=== PATIENT | female | born 1960 | race Caucasian/White ===

== ENCOUNTER 2017-06-14 15:58 | Emergency (ER) | payer SELFPAY ==
[~2017-06-14] VITALS: Ht 170.2 cm; Wt 67.7 kg
[~2017-06-14 15:58] MED LIST: LORTA5 PO
[2017-06-14 16:05] VITALS: BP 121/55; PULSE 65; RESP 16; TEMP 97.8; O2SAT 99
[2017-06-14] MEDS ORDERED: PERM5CRE TOPICAL (16:16)
--- NOTE | 2017-06-14 16:26 | PD ---
HPI Chief Complaint: Skin Problem Time Seen by Provider: 16:07 Travel History International Travel<30 days: No Contact w/Intl Traveler<30days: No Traveled to known affect area: No History of Present Illness HPI 57-year-old female presents to the emergency department for evaluation of multiple, diffuse lesions over her body that has been present for the last 2 weeks. Patient states that she woke up with these lesions and they are intensely pruritic and not going away. Says lesion she has the same lesions that popped up 3 weeks ago. She denies recent travel, new limited new bed, foods, soaps, lotions. She denies any exposures to others with the same problem. Denies fevers, chills. In addition, says she has had one episode of nonbloody diarrhea each morning since the onset of these lesions. She denies any family history of autoimmune disorders such as celiac, tyroid or otherwise. Denies fevers or chills. Denies abdominal pain. Denies chronic medical issues medication use. PFSH Past Medical History Diminished Hearing: No ?: Not Menopausal: No Social History Alcohol Use: Yes (occ) Tobacco Use: No Substance Use: No Allergies-Medications (Allergen,Severity, Reaction): Coded Allergies: No Known Allergies (Verified Adverse Reaction, Unknown, 06/14/17) Reported Meds & Prescriptions Reported Meds & Active Scripts Active Permethrin Topical 5% (Permethrin) 5% Cream 1 Applic TOPICAL ONCE Apply head to toe, leave on for 8-12 hours, wash off. You may repeat in 2 weeks if this treatment is ineffective. Review of Systems Except as stated in HPI: all other systems reviewed are Neg Physical Exam Narrative GENERAL: Well-nourished, well-developed patient, patient scratching her skin as we discussed her condition. SKIN: Focused skin assessment warm/dry. Diffuse, scattered 1-2 mm round papules with obvious excoriations. HEAD: Normocephalic. EYES: No scleral icterus. No injection or drainage. NECK: Supple, trachea midline. No JVD or lymphadenopathy. CARDIOVASCULAR: Regular rate and rhythm without murmurs, gallops, or rubs. RESPIRATORY: Breath sounds equal bilaterally. No accessory muscle use. GASTROINTESTINAL: Abdomen soft, non-tender, nondistended. No CVA tenderness MUSCULOSKELETAL: No cyanosis, or edema. BACK: Nontender without obvious deformity. No CVA tenderness. Data Data Last Documented VS Vital Signs Date Time Temp Pulse Resp B/P (MAP) Pulse Ox O2 Delivery O2 Flow Rate FiO2 06/14/17 16:05 97.8 65 16 121/55 (77) 99 Orders Orders Ed Discharge Order (06/14/17 16:22) MDM Medical Decision Making Medical Screen Exam Complete: Yes Emergency Medical Condition: Yes Differential Diagnosis Scabies, bedbugs, contact dermatitis Narrative Course 57-year-old female presents emergency department for evaluation of scattered, diffuse lesions over her body for the last 2 weeks. Patient denies any inciting events which include camping, new soaps, lotions or other exposures. She also mentions one episode of nonbloody diarrhea that occurs each morning since the start of these lesions. Vital signs are stable. Patient denies any exposures however, based off of history and physical suspect the patient may have been exposed to scabies or any other sort of factor which may be continuing to irritate her. Permethrin cream for possible scabies. As of explaining the possible diagnosis and treatment, advised the patient should follow-up with [facility] for further evaluation. Says that she does not care to get as a health however, I explained the importance of follow-up for evaluation of these lesions. If her symptoms do not resolve, patient may need a biopsy. I explained to the patient and she was rather reluctant and requested some sort of other medication for treatment. Advised of the importance of follow-up for this condition. Said that she would follow-up with [facility] and she understands that she should follow-up with a fruit inspector especially if the symptoms do not improve. She may use [id number] medications for symptom relief. Advised to return for worsening or persistent symptoms. Diagnosis Primary Impression: Scabies Referrals: [facility] Voucher Clerk Patient Instructions: General Instructions, Scabies (ED) Departure Forms: Tests/Procedures Additional Instructions: Take medications as prescribed. Follow-up with [facility] for referral to a fruit inspector for further evaluation of your skin lesions. You may use [id number] medication such as Benadryl topical cream, cortisone cream, calamine lotion to reduce your itching. Scripts Permethrin Topical 5% (Permethrin Topical 5%) 5% Cream 1 APPLIC TOPICAL ONCE for Scabies, #1 TUBE 0 Refills Apply head to toe, leave on for 8-12 hours, wash off. You may repeat in 2 weeks if this treatment is ineffective. Prov: Phillip Wolfe MD 06/14/17 Disposition: 01 DISCHARGE HOME Condition: Stable Samanta Mckeon Jun 14, 2017 16:26
== END 2017-06-14 16:37 | disposition home or self-care (01) ==
LOC: PHEFT 15:58
DX: B86 Scabies (principal); R19.7 Diarrhea, unspecified
CPT/HCPCS: 99283

== ENCOUNTER 2017-06-18 16:53 | Inpatient (IN) | payer SELFPAY ==
[~2017-06-18] VITALS: Ht 170.2 cm; Wt 68.0 kg
[~2017-06-18 16:53] MED LIST changes: -LORTA5 PO; +PERM5CRE TOPICAL
[2017-06-18 16:57] VITALS: BP 124/58; PULSE 64; RESP 16; TEMP 97.8; O2SAT 99
[2017-06-18 17:12] LABS: BILIRUBIN, URINE LARGE (NEG); BLOOD, URINE NEG (NEG); GLUCOSE,URINE NEG (NEG); KETONE, URINE TRACE mg/dL (NEG); NITRITE,URINE NEG (NEG); PH, URINE 5.5 (5.0-8.5); URINE LEUKOCYTE ESTERASE NEG (NEG)
[2017-06-18 17:17] LABS: URINE COLOR BROWN (YELLW/STRAW)
[2017-06-18] MEDS ORDERED: SODIUM CHLORIDE 0.9% FLUSH 10 ML FLUSH IV FLUSH PRN ×2 (17:30→19:30)
[2017-06-18 17:34] LABS: AMORPHOUS SEDIMENT, URINE FEW; HYALINE CAST, URINE 0-2 /lpf (RARE); SQUAMOUS EPITHELIAL CELL URINE 0-5 /hpf (0-5)
--- NOTE | 2017-06-18 17:35 | PD ---
HPI Chief Complaint: Complaint Time Seen by Provider: 17:32 Travel History International Travel<30 days: No Contact w/Intl Traveler<30days: No Traveled to known affect area: No History of Present Illness HPI 57-year-old female patient presents to the ER today with several weeks history of dark urine, states that she also has been itching all over and thinks she has scabies, has had some problems with loose stools although she states is not diarrhea. She denies any nausea, vomiting, abdominal pains, fevers, or any other symptoms. She denies any alcohol use, IV drug use, or smoking. Modifying Factors: None Associated Signs & Symptoms: Dark urine, itching, loose stools for several weeks Risk Factors: None PFSH Past Medical History Medical History: Denies Significant Hx Diminished Hearing: No ?: Not Menopausal: Yes Past Surgical History Surgical History: No Previous Surgery Social History Alcohol Use: Yes (occ) Tobacco Use: No Substance Use: No Allergies-Medications (Allergen,Severity, Reaction): Coded Allergies: No Known Allergies (Verified Adverse Reaction, Unknown, 06/18/17) Reported Meds & Prescriptions Reported Meds & Active Scripts Active Permethrin Topical 5% (Permethrin) 5% Cream 1 Applic TOPICAL ONCE Apply head to toe, leave on for 8-12 hours, wash off. You may repeat in 2 weeks if this treatment is ineffective. Review of Systems Except as stated in HPI: all other systems reviewed are Neg Physical Exam Narrative GENERAL: Well-developed middle-age female patient currently in mild distress. Awake and oriented 3. SKIN: Focused skin assessment warm/dry. HEAD: Atraumatic. Normocephalic. EYES: Pupils equal and round. Mild scleral icterus. No injection or drainage. ENT: No nasal bleeding or discharge. Mucous membranes pink and moist. NECK: Trachea midline. No JVD. Supple. CARDIOVASCULAR: Regular rate and rhythm. No murmur appreciated. RESPIRATORY: No accessory muscle use. Clear to auscultation. Breath sounds equal bilaterally. GASTROINTESTINAL: Abdomen soft, non-tender, nondistended. Hepatic and splenic margins not palpable. MUSCULOSKELETAL: No obvious deformities. No clubbing. No cyanosis. No edema. NEUROLOGICAL: Awake and alert. No obvious cranial nerve deficits. Motor grossly within normal limits. Normal speech. PSYCHIATRIC: Appropriate mood and affect; insight and judgment normal. Data Data Last Documented VS Vital Signs Date Time Temp Pulse Resp B/P (MAP) Pulse Ox O2 Delivery O2 Flow Rate FiO2 06/18/17 16:57 97.8 64 16 124/58 (80) 99 Orders Orders Urinalysis - C+S If Indicated (06/18/17 16:59) Complete Blood Count With Diff (06/18/17 17:29) Comprehensive Metabolic Panel (06/18/17 17:29) Iv Access Insert/Monitor (06/18/17 17:29) Ecg Monitoring (06/18/17 17:29) Oximetry (06/18/17 17:29) Sodium Chloride 0.9% Flush (Ns Flush) (06/18/17 17:30) Lipase (06/18/17 17:32) Ct Abd/Pel W Iv Contrast(Rout) (06/18/17 18:04) Iohexol 350 Inj (Omnipaque 350 Inj) (06/18/17 18:40) Labs Laboratory Tests Test 06/18/17 17:03 06/18/17 17:40 Urine Collection Type CLEAN CATCH Urine Color BROWN Urine Turbidity CLEAR Urine pH 5.5 Urine Specific [place] GREATER/EQUAL 1.030 Urine Protein 30 mg/dL Urine Glucose (UA) NEG mg/dL Urine Ketones TRACE mg/dL Urine Occult Blood NEG Urine Nitrite NEG Urine Bilirubin LARGE Urine Urobilinogen 0.2 MG/DL Urine Leukocyte Esterase NEG Urine Squamous Epithelial Cells 0-5 /hpf Urine Amorphous Sediment FEW Urine Hyaline Casts 0-2 /lpf Microscopic Urinalysis Comment CULT NOT INDICATED Urine Collection Time 1703 White Blood Count 5.5 TH/MM3 Red Blood Count 4.18 MIL/MM3 Hemoglobin 12.7 GM/DL Hematocrit 37.0 % Mean Corpuscular Volume 88.6 FL Mean Corpuscular Hemoglobin 30.4 PG Mean Corpuscular Hemoglobin Concent 34.3 % Red Cell Distribution Width 13.3 % Platelet Count 263 TH/MM3 Mean Platelet Volume 8.6 FL Neutrophils (%) (Auto) 61.8 % Lymphocytes (%) (Auto) 27.9 % Monocytes (%) (Auto) 6.3 % Eosinophils (%) (Auto) 3.4 % Basophils (%) (Auto) 0.6 % Neutrophils # (Auto) 3.5 TH/MM3 Lymphocytes # (Auto) 1.5 TH/MM3 Monocytes # (Auto) 0.3 TH/MM3 Eosinophils # (Auto) 0.2 TH/MM3 Basophils # (Auto) 0.0 TH/MM3 CBC Comment DIFF FINAL Differential Comment Blood Urea Nitrogen 18 MG/DL Creatinine 0.90 MG/DL Random Glucose 119 MG/DL Total Protein 7.7 GM/DL Albumin 3.5 GM/DL Calcium Level 8.9 MG/DL Alkaline Phosphatase 526 U/L Aspartate Amino Transf (AST/SGOT) 228 U/L Alanine Aminotransferase (ALT/SGPT) 480 U/L Total Bilirubin 8.4 MG/DL Sodium Level 139 MEQ/L Potassium Level 3.7 MEQ/L Chloride Level 108 MEQ/L Carbon Dioxide Level 24.1 MEQ/L Anion Gap 7 MEQ/L Estimat Glomerular Filtration Rate 65 ML/MIN Lipase 927 U/L [facility] Medical Decision Making Medical Screen Exam Complete: Yes Emergency Medical Condition: Yes Medical Record Reviewed: Yes Interpretation(s) Laboratory Tests Test 06/18/17 17:03 06/18/17 17:40 Urine Color BROWN (YELLW/STRAW) Urine Protein 30 mg/dL (NEG-TRACE) Urine Ketones TRACE mg/dL (NEG) Urine Bilirubin LARGE (NEG) Random Glucose 119 MG/DL (74-106) Alkaline Phosphatase 526 U/L (45-117) Aspartate Amino Transf (AST/SGOT) 228 U/L (15-37) Alanine Aminotransferase (ALT/SGPT) 480 U/L (10-53) Total Bilirubin 8.4 MG/DL (0.2-1.0) Chloride Level 108 MEQ/L (98-107) Estimat Glomerular Filtration Rate 65 ML/MIN (>89) Lipase 927 U/L (73-393) Last 24 hours Impressions Abdomen/Pelvis CT 06/18/17 1804 Signed Impressions: Service Date/Time: Sunday, June 18, 2017 18:26 - CONCLUSION: 1. No acute findings. Common bile duct measures about 11 mm in diameter. Mild fatty liver. Mild ileus. Bernardo Pruitt MD Differential Diagnosis Dark urine, loose stools, itchiness: Hyperbilirubinemia versus hepatic failure versus dehydration versus UTI/hematuria Narrative Course Pancreatic enzymes and liver enzymes are fairly unremarkable. CAT scan shows a dilated common bile duct but was otherwise fairly unremarkable. Case was discussed with of gastroenterology and he states that the patient will likely need ERCP and MRCP for further workup of painless jaundice. He would like the patient to be medically admitted but at the main hospital for further workup. Case was discussed with Dr. Lucas for admission. Diagnosis Primary Impression: Abnormal liver enzymes Additional Impression: Hyperbilirubinemia Admitting Information Admitting Physician Requests: it Nato Zuniga MD Jun 18, 2017 17:35
[2017-06-18 17:51] LABS: AUTOMATED NEUTROPHIL # 3.5 TH/MM3 (1.8-7.7); BASOPHIL % 0.6 % (0.0-2.0); EOSINOPHIL # 0.2 TH/MM3 (0-0.4); EOSINOPHIL % 3.4 % (0.0-4.0); HEMOGLOBIN 12.7 GM/DL (11.6-15.3); LYMPH % 27.9 % (9.0-44.0); LYMPHOCYTE # 1.5 TH/MM3 (1.0-4.8); MEAN CELL VOLUME 88.6 FL (80.0-100.0); MEAN CORPUSCULAR HEMOGLOBIN 30.4 PG (27.0-34.0); MEAN CORPUSCULAR HGB CONC 34.3 % (32.0-36.0); MEAN PLATELET VOLUME 8.6 FL (7.0-11.0); MONO % 6.3 % (0.0-8.0); MONOCYTE # 0.3 TH/MM3 (0-0.9); NEUT % 61.8 % (16.0-70.0); PLATELET COUNT 263 TH/MM3 (150-450); RED BLOOD COUNT 4.18 MIL/MM3 (4.00-5.30); RED CELL DISTRIBUTION WIDTH 13.3 % (11.6-17.2); WHITE BLOOD COUNT 5.5 TH/MM3 (4.0-11.0)
[2017-06-18 18:00] LABS: CHLORIDE 108 MEQ/L (98-107); SODIUM (NA) 139 MEQ/L (136-145)
[2017-06-18 18:03] LABS: ALBUMIN 3.5 GM/DL (3.4-5.0); BICARBONATE 24.1 MEQ/L (21.0-32.0); CALCIUM 8.9 MG/DL (8.5-10.1); GLUCOSE,RANDOM 119 MG/DL (74-106)
[2017-06-18 18:07] LABS: ALT (GPT) 480 U/L (10-53); AST (GOT) 228 U/L (15-37); GLOMERULAR FILTRATION RATE 65 ML/MIN (>89)
[2017-06-18 18:08] LABS: TOTAL BILIRUBIN ADULT 8.4 MG/DL (0.2-1.0); TOTAL PROTEIN 7.7 GM/DL (6.4-8.2)
[2017-06-18 18:09] LABS: ALKALINE PHOSPHATASE 526 U/L (45-117)
[2017-06-18 18:14] LABS: BLOOD UREA NITROGEN 18 MG/DL (7-18)
[2017-06-18] MEDS ORDERED: IOHEXOL 350 MG/ML 10 ML VIAL (for RAD DIAG) IVCONTRAST ONE (18:40)
--- NOTE | 2017-06-18 18:55 | RADRPT ---
EXAM DATE/TIME: 06/18/2017 18:26 [place] COMPARISON: No previous studies available for comparison. INDICATIONS : Dark urine, diarrhea. IV CONTRAST: 75 cc Omnipaque 350 (iohexol) IV ORAL CONTRAST: No oral contrast ingested. RADIATION DOSE: 9.09 CTDIvol (mGy) MEDICAL HISTORY : None SURGICAL HISTORY : Tubal ligation. ENCOUNTER: Initial ACUITY: 2 weeks PAIN SCALE: 0/10 LOCATION: abdomen TECHNIQUE: Volumetric scanning of the abdomen and pelvis was performed. Using automated exposure control and ad justment of the mA and/or kV according to patient size, radiation dose was kept as low as reasonably achievable to obtain optimal diagnostic quality images. DICOM format image data is available electro nically for review and comparison. FINDINGS: Lung bases are clear. No acute findings in the liver, spleen, adrenals, kidneys or pancreas. There is mild biliary ductal dilatation with common bile duct measuring 11 mm. No calcified gallstones. No free fluid. No bowel obstruction. No adenopathy. Mild ileus. No free air. CONCLUSION: 1. No acute findings. Common bile duct measures about 11 mm in diameter. Mild fatty liver. Mild ileus . Bernardo Pruitt MD on June 18, 2017 at 18:46 Board Certified Radiologist. This report was verified electronically.
[2017-06-18] MEDS ORDERED: BISACODYL 10 MG SUPP RECTAL PRN (19:30)
[2017-06-18] MEDS ORDERED: SENNOSIDES 8.6 MG TAB PO PRN (19:30)
[2017-06-18] MEDS ORDERED: ACETAMINOPHEN 325 MG TAB PO PRN (19:30)
[2017-06-18] MEDS ORDERED: ONDANSETRON HCL 4 MG/2 ML VIAL IVP PRN (19:30)
[2017-06-18] MEDS ORDERED: MAGNESIUM HYDROXIDE SUSP 30 ML CUP PO PRN (19:30)
[2017-06-18] MEDS ORDERED: LACTULOSE SYRUP 20 GM/30 ML CUP PO PRN (19:30)
[2017-06-18] MEDS: SODIUM CHLOR 0.9% 1000 ML INJ 1,000 ML IV SCH (19:51)
[2017-06-18] MEDS: DOCUSATE SODIUM 50 MG/SENNA 8.6 MG TAB PO SCH (19:51)
[2017-06-18] MEDS: SODIUM CHLORIDE 0.9% FLUSH 10 ML FLUSH IV FLUSH SCH (19:53)
[2017-06-18 20:09] VITALS: BP 110/53; PULSE 68; RESP 20; O2SAT 96
[2017-06-18 21:17] VITALS: O2SAT 100
[2017-06-18 21:59] VITALS: BP 137/62; PULSE 70; RESP 20; O2SAT 98
[2017-06-18 23:05] VITALS: BP 137/70; PULSE 65; RESP 16; TEMP 98.7; O2SAT 98
--- NOTE | 2017-06-18 23:26 | HHI.HP ---
[facility] No Primary Care Physician Admission Diagnosis Painless jaundice/dilated common bile duct . Diagnoses: (1) Hyperbilirubinemia (2) Abnormal liver enzymes (3) Common bile duct dilatation Chief Complaint: Dark urine, pruritis, diarrhea x 2 weeks Travel History International Travel<30 Days: No Contact w/Intl Traveler <30 Da: No Traveled to Known Affected Are: No History of Present Illness Ms. Moseley is a very pleasant 57-year-old female with no significant medical history who presented to the [place] emergency room on 06/18/2017 complaining of dark urine, severe pruritus, and diarrhea for the past 2 weeks. The patient was noted to have painless jaundice, elevated LFTs, and and abdomen/ pelvis CT with IV contrast showed a dilated common bile duct measuring 11 mm in diameter, mild fatty liver, mild ileus, and no acute findings. The case was discussed with sailing instructor Dr. Sinclair who recommended transfer for to [facility] for MRCP and ERCP so the patient is admitted under the hospitalist service for further medical management. The patient is seen in her hospital room. She reports that her symptoms have been present for the past 2 weeks and include dark urine, diarrhea daily, and severe pruritus. She thought she might have scabies and has been treated with topical permethrin for that in the emergency room on 06/14/2017. She is intensely pruritic and scratching throughout my visit. She has numerous small lesions that look like bug bites on all areas of her body except for her face. She is notably jaundiced with scleral icterus. She denies any recent fever, chills, nausea, vomiting, chest pain, shortness of breath, headache, weakness, or exposure to scabies. She reports a 15 pound weight loss in the past 2 weeks which she attributes to diarrhea. Review of Systems Except as stated in HPI: all other systems reviewed are Neg Past Family Social History Past Medical History Ovarian cysts . Past Surgical History Bilateral tubal ligation . Reported Medications None . Allergies: Coded Allergies: No Known Allergies (Verified Adverse Reaction, Unknown, 06/18/17) Family History Father with heart disease and paternal aunt with diabetes mellitus . 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 Physical Exam Vital Signs Vital Signs Date Time Temp Pulse Resp B/P (MAP) Pulse Ox O2 Delivery O2 Flow Rate FiO2 06/18/17 23:05 98.7 65 16 137/70 (92) 98 06/18/17 22:20 06/18/17 21:59 70 20 137/62 (87) 98 Room Air 06/18/17 21:17 100 Room Air 06/18/17 20:09 68 20 110/53 (72) 96 Room Air 06/18/17 16:57 97.8 64 16 124/58 (80) 99 Physical Exam GENERAL: This is a jaundiced middle aged female, seen scratching all over her body during my visit. SKIN: Jaundiced skin, multiple scattered lesions c/w appearance of bug bites on all areas of body except for her face. Cool and dry. HEAD: Atraumatic. Normocephalic. EYES: + scleral icterus. No injection or drainage. ENT: Nose without bleeding, purulent drainage. NECK: Trachea midline. No JVD. CARDIOVASCULAR: Regular rate and rhythm without murmurs, gallops, or rubs. RESPIRATORY: Clear to auscultation. Breath sounds equal bilaterally. No wheezes , rales, or rhonchi. GASTROINTESTINAL: Abdomen soft, non-tender, nondistended. No guarding. MUSCULOSKELETAL: Extremities without clubbing, cyanosis, or edema. No calf tenderness. NEUROLOGICAL: Awake and alert. Motor and sensory grossly within normal limits. Normal speech. . Laboratory Laboratory Tests Test 06/18/17 17:03 06/18/17 17:40 Urine Collection Type CLEAN CATCH Urine Color BROWN Urine Turbidity CLEAR Urine pH 5.5 Urine Specific [place] GREATER/EQUAL 1.030 Urine Protein 30 Urine Glucose (UA) NEG Urine Ketones TRACE Urine Occult Blood NEG Urine Nitrite NEG Urine Bilirubin LARGE Urine Urobilinogen 0.2 Urine Leukocyte Esterase NEG Urine Squamous Epithelial Cells 0-5 Urine Amorphous Sediment FEW Urine Hyaline Casts 0-2 Microscopic Urinalysis Comment CULT NOT INDICATED Urine Collection Time 1703 White Blood Count 5.5 Red Blood Count 4.18 Hemoglobin 12.7 Hematocrit 37.0 Mean Corpuscular Volume 88.6 Mean Corpuscular Hemoglobin 30.4 Mean Corpuscular Hemoglobin Concent 34.3 Red Cell Distribution Width 13.3 Platelet Count 263 Mean Platelet Volume 8.6 Neutrophils (%) (Auto) 61.8 Lymphocytes (%) (Auto) 27.9 Monocytes (%) (Auto) 6.3 Eosinophils (%) (Auto) 3.4 Basophils (%) (Auto) 0.6 Neutrophils # (Auto) 3.5 Lymphocytes # (Auto) 1.5 Monocytes # (Auto) 0.3 Eosinophils # (Auto) 0.2 Basophils # (Auto) 0.0 CBC Comment DIFF FINAL Differential Comment Blood Urea Nitrogen 18 Creatinine 0.90 Random Glucose 119 Total Protein 7.7 Albumin 3.5 Calcium Level 8.9 Alkaline Phosphatase 526 Aspartate Amino Transf (AST/SGOT) 228 Alanine Aminotransferase (ALT/SGPT) 480 Total Bilirubin 8.4 Sodium Level 139 Potassium Level 3.7 Chloride Level 108 Carbon Dioxide Level 24.1 Anion Gap 7 Estimat Glomerular Filtration Rate 65 Lipase 927 Result Diagram: 06/18/17 1740 06/18/17 1740 Imaging Last Impressions Abdomen/Pelvis CT 06/18/17 1804 Signed Impressions: Service Date/Time: Sunday, June 18, 2017 18:26 - CONCLUSION: 1. No acute findings. Common bile duct measures about 11 mm in diameter. Mild fatty liver. Mild ileus. MD Alejandra Ellisi VTE Risk Assessment Caprini VTE Risk Assessment: Mod/High Risk (score >= 2) Caprini Risk Assessment Model Point Value = 1 Point Value = 2 Point Value = 3 Point Value = 5 Age 41-60 Minor surgery BMI > 25 kg/m2 Swollen legs Varicose veins or History of unexplained or recurrent spontaneous Oral contraceptives or hormone replacement Sepsis (< 1 month) Serious lung disease, including pneumonia (< 1 month) Abnormal pulmonary function Acute myocardial infarction Congestive heart failure (< 1 month) History of inflammatory bowel disease Medical patient at bed rest Age 61-74 Arthroscopic surgery Major open surgery (> 45 min) Laparoscopic surgery (> 45 min) Malignancy Confined to bed (> 72 hours) Immobilizing plaster cast Central venous access Age >= 75 History of VTE Family history of VTE Factor V Leiden Prothrombin [id number] Lupus anticoagulant Anticardiolipin antibodies Elevated serum homocysteine Heparin-induced thrombocytopenia Other congenital or acquired thrombophilia Stroke (< 1 month) Elective arthroplasty Hip, pelvis, or leg fracture Acute spinal cord injury (< 1 month) Prophylaxis Regimen Total Risk Factor Score Risk Level Prophylaxis Regimen 0-1 Low Early ambulation 2 Moderate Order ONE of the following: *Sequential Compression Device (SCD) *Heparin 5000 units SQ BID 3-4 Higher Order ONE of the following medications: *Heparin 5000 units SQ TID *Enoxaparin/Lovenox 40 mg SQ daily (WT < 150 kg, CrCl > 30 mL/min) *Enoxaparin/Lovenox 30 mg SQ daily (WT < 150 kg, CrCl > 10-29 mL/min) *Enoxaparin/Lovenox 30 mg SQ BID (WT < 150 kg, CrCl > 30 mL/min) AND/OR *Sequential Compression Device (SCD) 5 or more Highest Order ONE of the following medications: *Heparin 5000 units SQ TID (Preferred with Epidurals) *Enoxaparin/Lovenox 40 mg SQ daily (WT < 150 kg, CrCl > 30 mL/min) *Enoxaparin/Lovenox 30 mg SQ daily (WT < 150 kg, CrCl > 10-29 mL/min) *Enoxaparin/Lovenox 30 mg SQ BID (WT < 150 kg, CrCl > 30 mL/min) AND *Sequential Compression Device (SCD) Assessment and Plan Problem List: (1) Common bile duct dilatation ICD Code: K83.8 - Other specified diseases of biliary tract (2) Abnormal liver enzymes ICD Code: R74.8 - Abnormal levels of other serum enzymes Status: Acute (3) Hyperbilirubinemia ICD Code: E80.6 - Other disorders of bilirubin metabolism Status: Acute (4) Jaundice ICD Code: R17 - Unspecified jaundice Assessment and Plan Ms. Moseley is a very pleasant 57-year-old female with no significant medical history who presented to the [place] emergency room on 06/18/2017 complaining of dark urine, severe pruritus, and diarrhea for the past 2 weeks. The patient was noted to have painless jaundice, elevated LFTs, and and abdomen/ pelvis CT with IV contrast showed a dilated common bile duct measuring 11 mm in diameter, mild fatty liver, mild ileus, and no acute findings. The case was discussed with sailing instructor Dr. Sinclair who recommended transfer for to [facility] for MRCP and ERCP so the patient is admitted under the hospitalist service for further medical management. CBD dilation - Consult Gastroenterology - appreciate assistance - MRCP ordered - Diet NPO except meds Hyperbilirubinemia and elevated LFTs likely secondary to CBD obstruction Jaundice -Total bilirubin 8.4, AST 228, ALT 480, and alkaline phosphatase 526 on admission -Repeat labs and monitor results -Check hepatitis profile, liver kidney microsomal autoantibodies, mitochondrial total autoantibodies, smooth muscle autoantibodies, ferritin, iron/TIBC profile Elevated Lipase - Lipase 927 on admission - patient without any pain or discomfort - likely secondary to CBD obstruction - recheck in a.m. -Check hemoglobin A1c to r/o DM Pruritis - Benadryl p.o. PRN - Patient has been treated for scabies on 06/14 - pruritis may be a combination of residual symptoms following scabies treatment but I suspect this may be more likely from bile salt buildup on skin DVT prophylaxis - SCDs/TEDs Discussed Condition With RN, patient, and Dr. Tracy . Hallie Bush Jun 18, 2017 23:26
[2017-06-19] MEDS ORDERED: diphenhydrAMINE HCL 25 MG CAP PO ONE (00:30)
[2017-06-19] MEDS ORDERED: diphenhydrAMINE HCL 50 MG/ML VIAL IV PUSH ONE (00:30)
[2017-06-19] MEDS: SODIUM CHLOR 0.9% 1000 ML INJ 1,000 ML IV SCH ×2 (05:25→12:25)
[2017-06-19 07:26] LABS: AUTOMATED NEUTROPHIL # 4.4 TH/MM3 (1.8-7.7); BASOPHIL % 0.6 % (0.0-2.0); EOSINOPHIL # 0.2 TH/MM3 (0-0.4); EOSINOPHIL % 2.5 % (0.0-4.0); HEMATOCRIT 34.3 % (35.0-46.0); HEMOGLOBIN 11.9 GM/DL (11.6-15.3); LYMPH % 19.5 % (9.0-44.0); LYMPHOCYTE # 1.2 TH/MM3 (1.0-4.8); MEAN CELL VOLUME 89.4 FL (80.0-100.0); MEAN CORPUSCULAR HEMOGLOBIN 30.9 PG (27.0-34.0); MEAN CORPUSCULAR HGB CONC 34.6 % (32.0-36.0); MEAN PLATELET VOLUME 9.2 FL (7.0-11.0); MONO % 6.3 % (0.0-8.0); MONOCYTE # 0.4 TH/MM3 (0-0.9); NEUT % 71.1 % (16.0-70.0); PLATELET COUNT 243 TH/MM3 (150-450); RED BLOOD COUNT 3.84 MIL/MM3 (4.00-5.30); RED CELL DISTRIBUTION WIDTH 13.8 % (11.6-17.2); WHITE BLOOD COUNT 6.2 TH/MM3 (4.0-11.0)
[2017-06-19 07:50] LABS: ALBUMIN 3.3 GM/DL (3.4-5.0); AST (GOT) 178 U/L (15-37); BICARBONATE 20.2 MEQ/L (21.0-32.0); BLOOD UREA NITROGEN 15 MG/DL (7-18); CALCIUM 8.7 MG/DL (8.5-10.1); CHLORIDE 111 MEQ/L (98-107); CREATININE 0.84 MG/DL (0.50-1.00); GLOMERULAR FILTRATION RATE 70 ML/MIN (>89); GLUCOSE,RANDOM 136 MG/DL (74-106); SODIUM (NA) 142 MEQ/L (136-145)
[2017-06-19 07:51] LABS: ALT (GPT) 410 U/L (10-53); IRON (FE) 92 MCG/DL (50-170)
[2017-06-19 08:00] VITALS: BP 123/69; PULSE 60; RESP 18; TEMP 97.6; O2SAT 99
[2017-06-19 08:00] LABS: % SATURATION IRON PROFILE 22.4 % (20-50); ALKALINE PHOSPHATASE 432 U/L (45-117); FERRITIN 251 NG/ML (8-252); TOTAL IRON BINDING CAPACITY 410 MCG/DL (250-450); TOTAL PROTEIN 6.6 GM/DL (6.4-8.2)
[2017-06-19] MEDS: SODIUM CHLORIDE 0.9% FLUSH 10 ML FLUSH IV FLUSH SCH ×2 (09:36→21:30)
[2017-06-19] MEDS: DOCUSATE SODIUM 50 MG/SENNA 8.6 MG TAB PO SCH ×2 (09:37→21:30)
--- NOTE | 2017-06-19 10:37 | PD.CONS ---
HPI History of Present Illness This is a 57 year old with no significant PMH who presented to the [facility] yesterday with complaints of diarrhea, dark urine, and severe pruritus for the past two weeks. Pt leaving room to go to MRCP so history was limited. Obtained from patient and chart review. Patient denies associated abdominal pain, nausea, vomiting, blood in stool. Denies history of liver issues. Occasional ETOH. Has never seen a GI doctor, had an EGD or colonoscopy. LFTs were found to be elevated with elevated alk phos and bilirubin. CT consistent with CBD dilatation. Pt having MRCP done to further evaluate. (Lynne Flores) PFSH Past Medical History Ovarian cysts . Past Surgical History Bilateral tubal ligation . (Lynne Flores) Coded Allergies: No Known Allergies (Verified Adverse Reaction, Unknown, 06/18/17) Family History Father with heart disease and paternal aunt with diabetes mellitus . 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 (Lynne Flores) Review of Systems Gastrointestinal: COMPLAINS OF: Diarrhea, DENIES: Abdominal pain, Black stools , Bloody stools, Constipation, Nausea, Vomiting, Difficulty Swallowing, Odynophagia, Swelling of Abdomen, Heartburn, Hematemesis (Lynne Flores) GI Exam Vitals I&O Vital Signs Date Time Temp Pulse Resp B/P (MAP) Pulse Ox O2 Delivery O2 Flow Rate FiO2 06/18/17 23:05 98.7 65 16 137/70 (92) 98 06/18/17 22:20 06/18/17 21:59 70 20 137/62 (87) 98 Room Air 06/18/17 21:17 100 Room Air 06/18/17 20:09 68 20 110/53 (72) 96 Room Air 06/18/17 16:57 97.8 64 16 124/58 (80) 99 Imaging Last Impressions Abdomen/Pelvis CT 06/18/17 1804 Signed Impressions: Service Date/Time: Tuesday, June 18, 2017 18:26 - CONCLUSION: 1. No acute findings. Common bile duct measures about 11 mm in diameter. Mild fatty liver. Mild ileus. Bernardo Pruitt MD Laboratory Test 4/21/18 17:03 06/18/17 17:40 06/19/17 05:45 Urine Collection Type CLEAN CATCH Urine Color BROWN Urine Turbidity CLEAR Urine pH 5.5 Urine Specific Red [place] GREATER/EQUAL 1.030 Urine Protein 30 mg/dL Urine Glucose (UA) NEG mg/dL Urine Ketones TRACE mg/dL Urine Occult Blood NEG Urine Nitrite NEG Urine Bilirubin LARGE Urine Urobilinogen 0.2 MG/DL Urine Leukocyte Esterase NEG Urine Squamous Epithelial Cells 0-5 /hpf Urine Amorphous Sediment FEW Urine Hyaline Casts 0-2 /lpf Microscopic Urinalysis Comment CULT NOT INDICATED Urine Collection Time 1703 White Blood Count 5.5 TH/MM3 6.2 TH/MM3 Red Blood Count 4.18 MIL/MM3 3.84 MIL/MM3 Hemoglobin 12.7 GM/DL 11.9 GM/DL Hematocrit 37.0 % 34.3 % Mean Corpuscular Volume 88.6 FL 89.4 FL Mean Corpuscular Hemoglobin 30.4 PG 30.9 PG Mean Corpuscular Hemoglobin Concent 34.3 % 34.6 % Red Cell Distribution Width 13.3 % 13.8 % Platelet Count 263 TH/MM3 243 TH/MM3 Mean Platelet Volume 8.6 FL 9.2 FL Neutrophils (%) (Auto) 61.8 % 71.1 % Lymphocytes (%) (Auto) 27.9 % 19.5 % Monocytes (%) (Auto) 6.3 % 6.3 % Eosinophils (%) (Auto) 3.4 % 2.5 % Basophils (%) (Auto) 0.6 % 0.6 % Neutrophils # (Auto) 3.5 TH/MM3 4.4 TH/MM3 Lymphocytes # (Auto) 1.5 TH/MM3 1.2 TH/MM3 Monocytes # (Auto) 0.3 TH/MM3 0.4 TH/MM3 Eosinophils # (Auto) 0.2 TH/MM3 0.2 TH/MM3 Basophils # (Auto) 0.0 TH/MM3 0.0 TH/MM3 CBC Comment DIFF FINAL DIFF FINAL Differential Comment Blood Urea Nitrogen 18 MG/DL 15 MG/DL Creatinine 0.90 MG/DL 0.84 MG/DL Random Glucose 119 MG/DL 136 MG/DL Total Protein 7.7 GM/DL 6.6 GM/DL Albumin 3.5 GM/DL 3.3 GM/DL Calcium Level 8.9 MG/DL 8.7 MG/DL Alkaline Phosphatase 526 U/L 432 U/L Aspartate Amino Transf (AST/SGOT) 228 U/L 178 U/L Alanine Aminotransferase (ALT/SGPT) 480 U/L 410 U/L Total Bilirubin 8.4 MG/DL 7.0 MG/DL Sodium Level 139 MEQ/L 142 MEQ/L Potassium Level 3.7 MEQ/L 3.8 MEQ/L Chloride Level 108 MEQ/L 111 MEQ/L Carbon Dioxide Level 24.1 MEQ/L 20.2 MEQ/L Anion Gap 7 MEQ/L 11 MEQ/L Estimat Glomerular Filtration Rate 65 ML/MIN 70 ML/MIN Lipase 927 U/L 1051 U/L Iron Level 92 MCG/DL Total Iron Binding Capacity 410 MCG/DL Percent Iron Saturation 22.4 % Ferritin 251 NG/ML Thyroid Stimulating Hormone 3rd Gen 1.820 uIU/ML Hepatitis A IgM Antibody NONREACTIVE Hepatitis B Surface Antigen NONREACTIVE Hepatitis B Core IgM Antibody NONREACTIVE Hepatitis C IgG Antibody NONREACTIVE Physical Examination HEENT: Normocephalic; atraumatic; (+) icterus CHEST: Even/unlabored CARDIAC: RRR ABDOMEN: Soft, nondistended, nontender; bowel sounds active EXTREMITIES: No clubbing, cyanosis, or edema. SKIN: (+) jaundice. 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 (Lynne Flores) Assessment and Plan Plan Assessment: - Elevated LFTs, T bili, and alk phos in obstructive pattern. Elevated lipase. Current labs: AST-178 ALT-410 Alk phos-432 Lipase-1051 T bili-7 CT abdomen and pelvis W IV contrast (06/18) --> No acute finding. Common bile duct measures about 11 mm in diameter. Mild fatty liver. Mild ileus. Pt complaining of pruritus and dark urine. Denies history of liver issues. Occasional social ETOH. Liver LOFTON ordered by attending: Hepatitis panel negative. Iron-92 TIBC-410 % sat-22.4 Ferritin-251 ERROL, ASMA, AMA, and ceruloplasmin pending - Diarrhea x 2 weeks, denies blood in stool. Could be secondary to CBD obstruction. Has never had EGD or colonoscopy. Denies fever, chills. Plan: MRCP now ERCP pending results, possibly today Keep NPO Zosyn Benadryl PRN pruritus Alpha-1 Antitrypsin Monitor labs Stool studies Further recommendations based on findings of above Pt has been seen and examined by myself and Dr. Sinclair and this note is written on his behalf (Lynne Flores) Physician Comments Patient seen and examined Agree with above Continue with current supportive care Monitor labs MRCP noted grossly unremarkable but the pictures so compelling for an obstruction we will proceed with an ERCP tomorrow Seen on 06/19/17 (Cuba Sinclair MD) Lynne Flores Jun 19, 2017 10:37 Cuba Sinclair MD Jun 20, 2017 14:02
[2017-06-19 11:00] VITALS: BP 124/63; PULSE 65; RESP 16; TEMP 98; O2SAT 99
--- NOTE | 2017-06-19 11:13 | RADRPT ---
EXAM DATE/TIME: 06/19/2017 10:27 [facility] COMPARISON: No previous studies available for comparison. INDICATIONS : Jaundice. Dialted ducts. MEDICAL HISTORY : None. SURGICAL HISTORY : Tubal ligation. ENCOUNTER: Initial ACUITY: 2 day PAIN SCORE: 0/10 LOCATION: abdomen TECHNIQUE: Multiplanar, multisequence magnetic resonance imaging of the abdomen was performed. High-resolution 3D dataset was utilized to reconstruct maximum-intensity projection (MIP) images. FINDINGS: INTRAHEPATIC BILE DUCTS: Within normal limits. No significant anatomical variant is present. EXTRAHEPATIC BILE DUCTS: The common bile duct measures approximately 1 cm in greatest diameter. No stone or filling defect is identified. GALLBLADDER: No stones, wall thickening, or pericholecystic fluid. LIVER: Normal size and signal intensity. No concerning liver lesion is identified on this non-contrast exam. PANCREAS: The main pancreatic duct is normal in size. There is no significant anatomical variant. Signal inte nsity is within normal limits. No mass is visualized on this non-contrast exam. OTHER: There is a small 7 mm benign-appearing cystic structure in the anterior spleen. The remaining visuali zed structures demonstrate no acute abnormality on this non-contrast exam. CONCLUSION: 1. The common bile duct measures up to 1 cm in greatest diameter and tapers down normally at the leve l of the head of the pancreas with no filling defect or mass identified. 2. The gallbladder is unremarkable in appearance. A small 7 mm benign-appearing cystic structure in s pleen. Gage Valerio MD on June 19, 2017 at 11:07 Board Certified Radiologist. This report was verified electronically.
[2017-06-19] MEDS: PIPERACIL-TAZO 3.375 GM PREMIX 50 ML IV SCH ×2 (12:25→21:30)
[2017-06-19 15:00] VITALS: BP 122/67; PULSE 63; RESP 20; TEMP 99; O2SAT 100
--- NOTE | 2017-06-19 17:28 | HHI.PR ---
Subjective Remarks Patient is jaundiced but denies nausea or vomiting. Objective Vitals Vital Signs Date Time Temp Pulse Resp B/P (MAP) Pulse Ox O2 Delivery O2 Flow Rate FiO2 06/19/17 15:00 99.0 63 20 122/67 (85) 100 06/19/17 11:00 98.0 65 16 124/63 (83) 99 06/19/17 08:00 97.6 60 18 123/69 (87) 99 06/18/17 23:05 98.7 65 16 137/70 (92) 98 06/18/17 22:20 06/18/17 21:59 70 20 137/62 (87) 98 Room Air 06/18/17 21:17 100 Room Air 06/18/17 20:09 68 20 110/53 (72) 96 Room Air Result Diagram: 06/19/17 0545 06/19/17 0545 Objective Remarks GENERAL: Well-nourished, well-developed patient. Jaundice SKIN: Jaundice HEAD: Normocephalic. EYES: No scleral icterus. No injection or drainage. NECK: Supple, trachea midline. No JVD or lymphadenopathy. CARDIOVASCULAR: Regular rate and rhythm without murmurs, gallops, or rubs. RESPIRATORY: Breath sounds equal bilaterally. No accessory muscle use. GASTROINTESTINAL: Abdomen soft, non-tender, nondistended. EXTREMITIES: No cyanosis, or edema. NEUROLOGICAL: Awake, alert, and oriented x 3. Non-focal. A/P Problem List: (1) Common bile duct dilatation ICD Code: K83.8 - Other specified diseases of biliary tract (2) Abnormal liver enzymes ICD Code: R74.8 - Abnormal levels of other serum enzymes Status: Acute (3) Hyperbilirubinemia ICD Code: E80.6 - Other disorders of bilirubin metabolism Status: Acute (4) Jaundice ICD Code: R17 - Unspecified jaundice Assessment and Plan Painless jaundice On admission total bilirubin 8.4, AST 228, ALT 480, and alkaline phosphatase 526 No major improvement today compared to prior numbers Lipase is elevated to 1000 Hepatitis panel is negative Immunology studies are pending Appreciate gastroenterology consult CBD dilation MRCP is ordered and pending N.p.o. except meds Appreciate gastroenterology consult Hypoglycemia Possible effect of being n.p.o. plus having pancreatitis Patient was given an amp of D50 Will place on D5 normal saline Pruritis Patient has history of scabies on June 14 Consider also effective jaundice/pancreatitis Isolation precautions Benadryl as needed DVT prophylaxis SCDs/TEDs Sha Cramer MD Jun 19, 2017 17:27
[2017-06-19] MEDS ORDERED: DEXTROSE 5%-LACTATED RING INJ 1,000 ML IV SCH (17:30)
[2017-06-19 21:44] VITALS: BP 113/64; PULSE 63; RESP 18; TEMP 98.4; O2SAT 99
[2017-06-19] MEDS: diphenhydrAMINE HCL 50 MG CAP PO PRN (23:59)
[2017-06-20] VITALS (7 sets, daily range): BP systolic 107–126; BP diastolic 60–73; PULSE 56–89; RESP 18–20; TEMP 97.5–98.8; O2SAT 96–99
[2017-06-20] MEDS: SODIUM CHLOR 0.9% 1000 ML INJ 1,000 ML IV SCH ×3 (01:25→21:25)
[2017-06-20] MEDS: PIPERACIL-TAZO 3.375 GM PREMIX 50 ML IV SCH ×3 (04:00→22:42)
[2017-06-20] MEDS: DOCUSATE SODIUM 50 MG/SENNA 8.6 MG TAB PO SCH ×2 (09:00→21:00)
[2017-06-20] MEDS: SODIUM CHLORIDE 0.9% FLUSH 10 ML FLUSH IV FLUSH SCH ×2 (09:00→22:42)
[2017-06-20] MEDS ORDERED: DO NOT ADM ANY ANTICOAGULANT DRUGS PRN (10:59)
--- NOTE | 2017-06-20 11:13 | RADRPT ---
EXAM DATE/TIME: 06/20/2017 09:24 [facility] COMPARISON: MRCP W/O CONTRAST, June 19, 2017, 10:27. CT ABDOMEN & PELVIS W CONTRAST, June 18, 2017, 18:26. INDICATIONS : Choledocolithiasis. FLUORO TIME: 2.3 minutes IMAGE COUNT: 7 CONTRAST: Instilled by Ordering Physician MEDICAL HISTORY : None. SURGICAL HISTORY : Tubal ligation. ENCOUNTER: Initial ACUITY: 3 days PAIN SCORE: Non-responsive. LOCATION: Right upper quadrant FINDINGS: An ERCP was performed by the ordering physician. The images demonstrate placement of an endoscope and cannulization of common bile duct. A sphincterot jenae was performed with placement of a stent catheter. No definite filling defects are identified. CONCLUSION: ERCP as above. Gage Valerio MD on June 20, 2017 at 10:59 Board Certified Radiologist. This report was verified electronically.
[2017-06-20] MEDS ORDERED: *ONDANSETRON 4 MG VIAL PERIprocedural Use ONLY ONE (11:19)
--- NOTE | 2017-06-20 11:20 | PD.PROCEDR ---
GI Procedure PROCEDURE PERFORMED ERCP with sphincterotomy with brushing of the distal CBD and ampulla with balloon extraction with stent placement and biopsy INDICATION FOR PROCEDURE Jaundice with dilated bile duct PROCEDURE: The procedure, risks and benefits were discussed with Patient/POA and informed consent was obtained. Anesthesia sedated Patient with Diprivan she underwent general anesthesia. Patient was placed in the left lateral decubitus position. ERCP: Patient was placed in a prone position. The Pentax videoscope was introduced through the oropharynx and advanced to the second portion of the duodenum where the ampula was identified. FINDINGS: The ampulla appeared to be bulging and adjacent to it was a polypoid-like lesion suspicious for a possible malignancy or an adenoma when biopsied felt somewhat friable and this was sent for analysis, we were able to obtain easy cannulation of the common bile duct and at this point I try to pass the brush which would not pass indicating ampullary stricture and so a generous sphincterotomy was performed balloon extraction and dilation was then performed with no filling defects noted to be pulled out then the area of the distal common bile duct and the ampulla were brushed and then finally the ampulla was also biopsied and at the end of the procedure a stent was placed The common bile duct appeared to be slightly dilated with possible narrowing or stricturing at the distal end this was brushed and then finally a 10 [place] 7 cm stent was placed The intrahepatics were unremarkable The gallbladder was not seen ESTIMATED BLOOD LOSS: Minimal SPECIMENS REMOVED: Biopsies and brushing taken from the distal CBD the ampulla and the duodenum COMPLICATIONS: None IMPRESSION: Possible biliary stricture Ampullary stricture Bulging ampulla Polypoid lesion of the duodenum adjacent to the ampulla suspicious for malignancy Mildly dilated bile duct PLAN: Await biopsies Check tumor markers Continue with current supportive care Monitor labs Cuba Sinclair MD Jun 20, 2017 11:20
[2017-06-20] MEDS ORDERED: GLYCOPYRROLATE 1 MG/5 ML SYRINGE IV PUSH ONE (12:00)
[2017-06-20] MEDS ORDERED: ROCURONIUM INJ 50 MG/5 ML SYRINGE IV PUSH ONE (12:00)
[2017-06-20] MEDS ORDERED: EPINEPHrine HCL (1:1000) 1 MG/ML VIAL IV ONE (12:00)
[2017-06-20] MEDS ORDERED: ONDANSETRON HCL 4 MG/2 ML VIAL IV ONE (12:00)
[2017-06-20] MEDS ORDERED: PROPOFOL 200 MG/20 ML AMP IV ONE (12:00)
[2017-06-20] MEDS ORDERED: LIDOCAINE HCL 1% PF 5 ML SYRINGE OTHER ONE (12:00)
[2017-06-20] MEDS ORDERED: NEOSTIGMINE 5 MG/5 ML SYRINGE IV PUSH ONE (12:00)
[2017-06-20] MEDS ORDERED: DEXAMETHASONE SOD PHOS 4 MG/ML VIAL IV ONE (12:00)
[2017-06-20] MEDS: diphenhydrAMINE HCL 50 MG CAP PO PRN (12:03)
[2017-06-20 16:52] LABS: HEMOGLOBIN A1C 5.5 % (4.3-6.0)
[2017-06-20 17:07] LABS: CARCINOEMBRYONIC ANTIGEN 6.5 NG/ML (0.2-5.0)
--- NOTE | 2017-06-20 23:17 | HHI.PR ---
Subjective Remarks Patient c/o itching. Denies nausea, vomiting or abdominal pain. Objective Vitals Vital Signs Date Time Temp Pulse Resp B/P (MAP) Pulse Ox O2 Delivery O2 Flow Rate FiO2 06/20/17 21:07 98.8 67 18 124/69 (87) 96 06/20/17 15:00 97.9 64 20 126/68 (87) 98 06/20/17 11:48 97.5 56 18 123/73 (90) 97 06/20/17 11:25 98.1 58 17 125/60 (81) 98 06/20/17 11:15 58 16 119/68 (85) 96 06/20/17 11:00 63 16 117/67 (84) 99 06/20/17 10:53 98.0 77 15 121/58 (79) 98 06/20/17 07:45 98.4 61 18 109/60 (76) 99 06/20/17 04:00 98.5 89 18 113/65 (81) 97 06/20/17 00:11 98.6 58 18 107/60 (76) 98 I/O 06/20/17 06/20/17 06/20/17 06/21/17 06/21/17 06/21/17 07:00 15:00 23:00 07:00 15:00 23:00 Intake Total 1510 ml 1000 ml 960 ml Output Total 1200 ml 0 ml 1100 ml Balance 310 ml 1000 ml -140 ml Intake Oral 460 ml 960 ml IV Total 1050 ml 1000 ml Output Urine Total 1200 ml 1100 ml Estimated Blood Loss 0 ml Result Diagram: 06/19/17 0545 06/19/17 0545 Imaging Last Impressions GI Procedure 06/20/17 0000 Signed Impressions: Service Date/Time: Tuesday, June 20, 2017 09:24 - CONCLUSION: ERCP as above. Gage Valerio MD Cholangiopancreatography MRI 06/19/17 0000 Signed Impressions: Service Date/Time: Monday, June 19, 2017 10:27 - CONCLUSION: 1. The common bile duct measures up to 1 cm in greatest diameter and tapers down normally at the level of the head of the pancreas with no filling defect or mass identified. 2. The gallbladder is unremarkable in appearance. A small 7 mm benign- appearing cystic structure in spleen. Gage Valerio MD Abdomen/Pelvis CT 06/18/17 7035 Signed Impressions: Service Date/Time: Sunday, June 18, 2017 18:26 - CONCLUSION: 1. No acute findings. Common bile duct measures about 11 mm in diameter. Mild fatty liver. Mild ileus. Bernardo Pruitt MD Objective Remarks AAox3 + jaundice and icteric sclerae some scoriation on skin over arms and hands S1S2 RRR Clear lungs BL Abdomen is soft, nt, nd Procedures ERCP with sphincterotomy with brushing of the distal CBD and ampulla with balloon extraction with stent placement and biopsy Medications and IVs Current Medications Medications (Trade) Dose Ordered Sig/Wendy Route Start Time Stop Time Status Last Admin Sodium Chloride 1,000 ml @ 100 mls/hr Q10H IV 06/18/17 19:25 06/20/17 13:45 (NS Flush) 2 ml UNSCH PRN IV FLUSH 06/18/17 19:30 (NS Flush) 2 ml BID IV FLUSH 06/18/17 21:00 06/20/17 22:42 (Zofran Inj) 4 mg Q6H PRN IVP 06/18/17 19:30 (Tylenol) 650 mg Q6H PRN PO 06/18/17 19:30 (Roxicodone) 10 mg Q4H PRN PO 06/18/17 19:30 (Roxicodone) 5 mg Q4H PRN PO 06/18/17 19:30 (Alessia-Colace) 1 tab BID PO 06/18/17 21:00 (Milk Of Magnesia Liq) 30 ml Q12H PRN PO 06/18/17 19:30 (Senokot) 17.2 mg Q12H PRN PO 06/18/17 19:30 (Dulcolax Supp) 10 mg DAILY PRN RECTAL 06/18/17 19:30 (Lactulose Liq) 30 ml DAILY PRN PO 06/18/17 19:30 (Benadryl) 50 mg Q6H PRN PO 06/19/17 00:30 06/20/17 12:03 Piperacillin Sod/ Tazobactam Sod 50 ml @ 100 mls/hr Q8H IV 06/19/17 12:00 06/20/17 22:42 Miscellaneous Information ALL NURSING DEPARTME... UNSCH PRN .XX 4/23/18 10:59 06/21/17 10:58 A/P Problem List: (1) Common bile duct dilatation ICD Code: K83.8 - Other specified diseases of biliary tract (2) Abnormal liver enzymes ICD Code: R74.8 - Abnormal levels of other serum enzymes Status: Acute (3) Hyperbilirubinemia ICD Code: E80.6 - Other disorders of bilirubin metabolism Status: Acute (4) Jaundice ICD Code: R17 - Unspecified jaundice Assessment and Plan Painless jaundice On admission total bilirubin 8.4, AST 228, ALT 480, and alkaline phosphatase 526 No major improvement today compared to prior numbers Lipase is elevated to 1000 Hepatitis panel is negative Immunology studies are pending Appreciate gastroenterology consult 06/20 SP MRCP with ductal dilatation. SP ERCP with sphincterotomy with brushing of the distal CBD and ampulla with balloon extraction with stent placement and biopsy. Fu pathology. CA 19-9 and CEA elevated. CBD dilation MRCP is ordered and pending N.p.o. except meds Appreciate gastroenterology consult 06/20 Management as above. Hypoglycemia Possible effect of being n.p.o. plus having pancreatitis Patient was given an amp of D50 Resolved. Pruritis Patient has history of scabies on June 1406/20 Doubt scabies, however given h/o scabies in the past will empirically treat with Permethrin. Suspect pruritus is due to Acute Pancreatitis. Due to CBD obstruction and Dilation. Sp ERCP w stent placement. Monitor lipase. DVT prophylaxis SCDs/TEDs Discharge Planning Monitor in the medical floor. Dc pending stabilization of liver function tests and lipase. Thom Akins MD Jun 20, 2017 23:17
[2017-06-21] MEDS ORDERED: PERMETHRIN 1% LOTION 60 ML BTL TOPICAL ONE
[2017-06-21] MEDS: PIPERACIL-TAZO 3.375 GM PREMIX 50 ML IV SCH ×2 (04:00→11:36)
[2017-06-21 05:39] VITALS: BP 116/62; PULSE 84; RESP 18; TEMP 98.1; O2SAT 94
[2017-06-21 06:21] LABS: HEMOGLOBIN 11.3 GM/DL (11.6-15.3); MEAN CELL VOLUME 89.9 FL (80.0-100.0); MEAN CORPUSCULAR HEMOGLOBIN 30.8 PG (27.0-34.0); MEAN CORPUSCULAR HGB CONC 34.3 % (32.0-36.0); PLATELET COUNT 219 TH/MM3 (150-450); RED BLOOD COUNT 3.67 MIL/MM3 (4.00-5.30); RED CELL DISTRIBUTION WIDTH 13.8 % (11.6-17.2); WHITE BLOOD COUNT 7.1 TH/MM3 (4.0-11.0)
[2017-06-21 06:32] LABS: ALBUMIN 2.9 GM/DL (3.4-5.0); AST (GOT) 98 U/L (15-37); BLOOD UREA NITROGEN 9 MG/DL (7-18); CALCIUM 8.9 MG/DL (8.5-10.1); CHLORIDE 109 MEQ/L (98-107); CREATININE 0.82 MG/DL (0.50-1.00); GLUCOSE,RANDOM 137 MG/DL (74-106); SODIUM (NA) 143 MEQ/L (136-145)
[2017-06-21 06:33] LABS: ALT (GPT) 296 U/L (10-53)
[2017-06-21 06:35] LABS: ALKALINE PHOSPHATASE 375 U/L (45-117); TOTAL PROTEIN 6.1 GM/DL (6.4-8.2)
[2017-06-21] MEDS: SODIUM CHLOR 0.9% 1000 ML INJ 1,000 ML IV SCH ×2 (07:25→16:10)
[2017-06-21 09:00] VITALS: BP 110/42; PULSE 64; RESP 18; TEMP 97.5; O2SAT 97
[2017-06-21] MEDS: DOCUSATE SODIUM 50 MG/SENNA 8.6 MG TAB PO SCH ×2 (09:00→19:55)
[2017-06-21] MEDS: SODIUM CHLORIDE 0.9% FLUSH 10 ML FLUSH IV FLUSH SCH ×2 (09:00→19:55)
--- NOTE | 2017-06-21 11:10 | HHI.GIFU ---
Subjective Remarks Pt OOB to chair. No GI complaints. Anxious about biopsies. (Alda Cisneros) Objective Vitals I&O Vital Signs Date Time Temp Pulse Resp B/P (MAP) Pulse Ox O2 Delivery O2 Flow Rate FiO2 06/21/17 09:00 97.5 64 18 110/42 (64) 97 06/21/17 05:39 98.1 84 18 116/62 (80) 94 06/20/17 23:00 97.8 59 18 125/65 (85) 98 06/20/17 21:07 98.8 67 18 124/69 (87) 96 06/20/17 15:00 97.9 64 20 126/68 (87) 98 06/20/17 11:48 97.5 56 18 123/73 (90) 97 06/20/17 11:25 98.1 58 17 125/60 (81) 98 06/20/17 11:15 58 16 119/68 (85) 96 I/O 06/20/17 06/20/17 06/20/17 06/21/17 06/21/17 06/21/17 07:00 15:00 23:00 07:00 15:00 23:00 Intake Total 1510 ml 1000 ml 960 ml 480 ml Output Total 1200 ml 0 ml 1100 ml 1200 ml Balance 310 ml 1000 ml -140 ml -720 ml Intake Oral 460 ml 960 ml 480 ml IV Total 1050 ml 1000 ml Output Urine Total 1200 ml 1100 ml 1200 ml Estimated Blood Loss 0 ml Laboratory Laboratory Tests Test 06/20/17 16:28 06/21/17 05:40 Carcinoembryonic Antigen 6.5 CA 19-9 Antigen 203.0 White Blood Count 7.1 Red Blood Count 3.67 Hemoglobin 11.3 Hematocrit 33.0 Mean Corpuscular Volume 89.9 Mean Corpuscular Hemoglobin 30.8 Mean Corpuscular Hemoglobin Concent 34.3 Red Cell Distribution Width 13.8 Platelet Count 219 Mean Platelet Volume 9.0 Blood Urea Nitrogen 9 Creatinine 0.82 Random Glucose 137 Total Protein 6.1 Albumin 2.9 Calcium Level 8.9 Alkaline Phosphatase 375 Aspartate Amino Transf (AST/SGOT) 98 Alanine Aminotransferase (ALT/SGPT) 296 Total Bilirubin 7.0 Sodium Level 143 Potassium Level 3.6 Chloride Level 109 Carbon Dioxide Level 26.0 Anion Gap 8 Lipase 1705 Date/Time Source Procedure Growth Status 06/20/17 09:33 Stool Stool Cryptosporidium Exam - Final NEGATIVE - NO CRYPTOSPORIDIUM ANTIGEN... Complete 06/20/17 09:33 Stool Stool Giardia Antigen ([facility]) - Final NEGATIVE - NO GIARDIA ANTIGEN DETECTE... Complete Imaging Last Impressions GI Procedure 06/20/17 0000 Signed Impressions: Service Date/Time: Tuesday, June 20, 2017 09:24 - CONCLUSION: ERCP as above. Gage Valerio MD Cholangiopancreatography MRI 06/19/17 0000 Signed Impressions: Service Date/Time: Monday, June 19, 2017 10:27 - CONCLUSION: 1. The common bile duct measures up to 1 cm in greatest diameter and tapers down normally at the level of the head of the pancreas with no filling defect or mass identified. 2. The gallbladder is unremarkable in appearance. A small 7 mm benign- appearing cystic structure in spleen. Gage Valerio MD Abdomen/Pelvis CT 06/18/17 180 Signed Impressions: Service Date/Time: Sunday, June 18, 2017 18:26 - CONCLUSION: 1. No acute findings. Common bile duct measures about 11 mm in diameter. Mild fatty liver. Mild ileus. Bernardo Pruitt MD Physical Exam HEENT: PERRL; normocephalic; atraumatic; icteric CHEST: even/unlabored CARDIAC: RRR ABDOMEN: Soft, nondistended, nontender; no hepatosplenomegaly; bowel sounds are present in all four quadrants. EXTREMITIES: No clubbing, cyanosis, or edema. 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 (Alda Cisneros [facility]) Assessment and Plan Plan Assessment: - Elevated LFTs, T bili, and alk phos in obstructive pattern. Elevated lipase. Current labs: AST-178 ALT-410 Alk phos-432 Lipase-1051 T bili-7 CT abdomen and pelvis W IV contrast (06/18) --> No acute finding. Common bile duct measures about 11 mm in diameter. Mild fatty liver. Mild ileus. Pt complaining of pruritus and dark urine. Denies history of liver issues. Occasional social ETOH. Liver LOFTON ordered by attending: Hepatitis panel negative. Iron-92 TIBC-410 % sat-22.4 Ferritin-251 ERROL, ASMA, AMA, and ceruloplasmin pending - Diarrhea x 2 weeks, denies blood in stool. Could be secondary to CBD obstruction. Has never had EGD or colonoscopy. Denies fever, chills. 06/21/17 s/p ERCP and sphincterotomy ---> poss biliary stricture, ampullary stricture, bulging ampulla polypoid lesion duodenum suspicious for malignancy, mild dilatation bile duct. tumor markers elevated CEA 6.5, CA19-9 203. stool studies neg. Plan: await bx from [facility] tx scabies per attending Monitor labs supportive care Pt has been seen and examined by myself and Dr. 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
[2017-06-21 11:45] VITALS: BP 111/59; PULSE 72; RESP 18; TEMP 98.2; O2SAT 97
[2017-06-21 13:34] LABS: SMOOTH MUSCLE TOTAL AUTOABS Negative (Negative)
[2017-06-21 15:40] VITALS: BP 98/63; PULSE 74; RESP 20; TEMP 98.6; O2SAT 99
[2017-06-21 16:08] VITALS: BP 117/56; PULSE 50; RESP 19; TEMP 97.3; O2SAT 100
--- NOTE | 2017-06-21 17:26 | HHI.PR ---
Subjective Remarks The patient is tolerating soft diet Denies itchiness. Denies abdominal pain, nausea vomiting. Patient is concerned about findings during ERCP. Objective Vitals Vital Signs Date Time Temp Pulse Resp B/P (MAP) Pulse Ox O2 Delivery O2 Flow Rate FiO2 06/21/17 16:08 97.3 50 19 117/56 (76) 100 06/21/17 15:40 98.6 74 20 98/63 (75) 99 06/21/17 11:45 98.2 72 18 111/59 (76) 97 06/21/17 09:00 97.5 64 18 110/42 (64) 97 06/21/17 05:39 98.1 84 18 116/62 (80) 94 06/20/17 23:00 97.8 59 18 125/65 (85) 98 06/20/17 21:07 98.8 67 18 124/69 (87) 96 I/O 06/20/17 06/20/17 06/20/17 06/21/17 06/21/17 06/21/17 06:59 14:59 22:59 06:59 14:59 22:59 Intake Total 1510 ml 2050 ml 960 ml 480 ml 960 ml Output Total 1200 ml 0 ml 1100 ml 1200 ml 400 ml Balance 310 ml 2050 ml -140 ml -720 ml 560 ml Intake Oral 460 ml 960 ml 480 ml 960 ml IV Total 1050 ml 2050 ml Output Urine Total 1200 ml 1100 ml 1200 ml 400 ml Estimated Blood Loss 0 ml # Bowel Movements 1 Result Diagram: 06/21/17 0540 06/21/17 0540 Imaging Last Impressions GI Procedure 06/20/17 0000 Signed Impressions: Service Date/Time: Tuesday, June 20, 2017 09:24 - CONCLUSION: ERCP as above. Gage Valerio MD Cholangiopancreatography MRI 06/19/17 0000 Signed Impressions: Service Date/Time: Monday, June 19, 2017 10:27 - CONCLUSION: 1. The common bile duct measures up to 1 cm in greatest diameter and tapers down normally at the level of the head of the pancreas with no filling defect or mass identified. 2. The gallbladder is unremarkable in appearance. A small 7 mm benign- appearing cystic structure in spleen. Gage Valerio MD Abdomen/Pelvis CT 06/18/17 1804 Signed Impressions: Service Date/Time: Sunday, June 18, 2017 18:26 - CONCLUSION: 1. No acute findings. Common bile duct measures about 11 mm in diameter. Mild fatty liver. Mild ileus. Bernardo Pruitt MD Objective Remarks AAox3 + jaundice and icteric sclerae some scoriation on skin over arms and hands S1S2 RRR Clear lungs BL Abdomen is soft, nt, nd Procedures ERCP with sphincterotomy with brushing of the distal CBD and ampulla with balloon extraction with stent placement and biopsy Medications and IVs Current Medications Medications (Trade) Dose Ordered Sig/Wendy Route Start Time Stop Time Status Last Admin Sodium Chloride 1,000 ml @ 100 mls/hr Q10H IV 06/18/17 19:25 06/20/17 21:25 (NS Flush) 2 ml UNSCH PRN IV FLUSH 06/18/17 19:30 (NS Flush) 2 ml BID IV FLUSH 06/18/17 21:00 06/20/17 22:42 (Zofran Inj) 4 mg Q6H PRN IVP 06/18/17 19:30 (Tylenol) 650 mg Q6H PRN PO 06/18/17 19:30 (Roxicodone) 10 mg Q4H PRN PO 06/18/17 19:30 (Roxicodone) 5 mg Q4H PRN PO 06/18/17 19:30 (Alessia-Colace) 1 tab BID PO 06/18/17 21:00 (Milk Of Magnesia Liq) 30 ml Q12H PRN PO 06/18/17 19:30 (Senokot) 17.2 mg Q12H PRN PO 06/18/17 19:30 (Dulcolax Supp) 10 mg DAILY PRN RECTAL 06/18/17 19:30 (Lactulose Liq) 30 ml DAILY PRN PO 06/18/17 19:30 (Benadryl) 50 mg Q6H PRN PO 06/19/17 00:30 06/20/17 12:03 Piperacillin Sod/ Tazobactam Sod 50 ml @ 100 mls/hr Q8H IV 06/19/17 12:00 06/21/17 11:36 A/P Problem List: (1) Common bile duct dilatation ICD Code: K83.8 - Other specified diseases of biliary tract (2) Abnormal liver enzymes ICD Code: R74.8 - Abnormal levels of other serum enzymes Status: Acute (3) Hyperbilirubinemia ICD Code: E80.6 - Other disorders of bilirubin metabolism Status: Acute (4) Jaundice ICD Code: R17 - Unspecified jaundice Assessment and Plan Painless jaundice On admission total bilirubin 8.4, AST 228, ALT 480, and alkaline phosphatase 526 No major improvement today compared to prior numbers Lipase is elevated to 1000 Hepatitis panel is negative Immunology studies are pending Appreciate gastroenterology consult 06/20 SP MRCP with ductal dilatation. SP ERCP with sphincterotomy with brushing of the distal CBD and ampulla with balloon extraction with stent placement and biopsy. Fu pathology. CA 19-9 and CEA elevated. 06/21 transaminases continues to trend down, total bilirubin still at same level of 7.0. Lipase went up from 2013-2969. Pathology shows benign ductal epithelial cells. Negative for malignant cells. CBD dilation MRCP is ordered and pending N.p.o. except meds Appreciate gastroenterology consult 06/20 Management as above. Hypoglycemia Possible effect of being n.p.o. plus having pancreatitis Patient was given an amp of D50 Resolved. Pruritis Patient has history of scabies on June 1406/20 Doubt scabies, however given h/o scabies in the past will empirically treat with Permethrin. Suspect pruritus is due to hyperbilirubinemia. Acute Pancreatitis. Due to CBD obstruction and Dilation. Sp ERCP w stent placement. Monitor lipase. DVT prophylaxis SCDs/TEDs Discharge Planning Monitor in the medical floor. Dc pending stabilization of liver function tests and lipase. Thom Akins MD Jun 21, 2017 17:26
[2017-06-21] MEDS: diphenhydrAMINE HCL 50 MG CAP PO PRN (19:55)
[2017-06-21 20:00] VITALS: BP 118/58; PULSE 55; RESP 16; TEMP 97.4; O2SAT 97
[2017-06-22] VITALS: BP 120/62; PULSE 56; RESP 19; TEMP 97.8; O2SAT 95
[2017-06-22] MEDS: SODIUM CHLOR 0.9% 1000 ML INJ 1,000 ML IV SCH ×3 (03:25→23:25)
[2017-06-22] MEDS: SODIUM CHLORIDE 0.9% FLUSH 10 ML FLUSH IV FLUSH SCH ×2 (07:58→22:14)
[2017-06-22] MEDS: DOCUSATE SODIUM 50 MG/SENNA 8.6 MG TAB PO SCH ×2 (07:59→22:14)
[2017-06-22 08:00] VITALS: BP 107/58; PULSE 53; RESP 18; TEMP 98; O2SAT 99
[2017-06-22 09:06] LABS: ALBUMIN 3.2 GM/DL (3.4-5.0); AST (GOT) 79 U/L (15-37); BLOOD UREA NITROGEN 7 MG/DL (7-18); CALCIUM 9.2 MG/DL (8.5-10.1); CHLORIDE 104 MEQ/L (98-107); CREATININE 0.82 MG/DL (0.50-1.00); GLOMERULAR FILTRATION RATE 72 ML/MIN (>89); GLUCOSE,RANDOM 117 MG/DL (74-106); SODIUM (NA) 141 MEQ/L (136-145)
[2017-06-22 09:07] LABS: ALT (GPT) 260 U/L (10-53)
[2017-06-22 09:09] LABS: ALKALINE PHOSPHATASE 455 U/L (45-117); TOTAL PROTEIN 6.5 GM/DL (6.4-8.2)
[2017-06-22] MEDS: diphenhydrAMINE HCL 50 MG CAP PO PRN ×2 (09:44→18:55)
--- NOTE | 2017-06-22 11:40 | HHI.PR ---
Subjective Remarks Follow-up painless jaundice June 22, 2017-patient seen and examined, continued to complain of pruritus. Denies any abdominal pain. Lipase trending down Objective Vitals Vital Signs Date Time Temp Pulse Resp B/P (MAP) Pulse Ox O2 Delivery O2 Flow Rate FiO2 06/22/17 08:00 98.0 53 18 107/58 (74) 99 06/22/17 00:00 97.8 56 19 120/62 (81) 95 06/21/17 20:00 97.4 55 16 118/58 (78) 97 06/21/17 16:08 97.3 50 19 117/56 (76) 100 06/21/17 15:40 98.6 74 20 98/63 (75) 99 06/21/17 11:45 98.2 72 18 111/59 (76) 97 I/O 06/21/17 06/21/17 06/21/17 06/22/17 06/22/17 06/22/17 07:00 15:00 23:00 07:00 15:00 23:00 Intake Total 480 ml 1470 ml 240 ml Output Total 1200 ml 400 ml Balance -720 ml 1070 ml 240 ml Intake Oral 480 ml 1470 ml 240 ml Output Urine Total 1200 ml 400 ml # Voids 2 3 # Bowel Movements 1 0 Result Diagram: 06/21/17 0540 06/22/17 0718 Imaging Last Impressions GI Procedure 06/20/17 0000 Signed Impressions: Service Date/Time: Tuesday, June 20, 2017 09:24 - CONCLUSION: ERCP as above. Gage Valerio MD Cholangiopancreatography MRI 06/19/17 0000 Signed Impressions: Service Date/Time: Monday, June 19, 2017 10:27 - CONCLUSION: 1. The common bile duct measures up to 1 cm in greatest diameter and tapers down normally at the level of the head of the pancreas with no filling defect or mass identified. 2. The gallbladder is unremarkable in appearance. A small 7 mm benign- appearing cystic structure in spleen. Gage Valerio MD Abdomen/Pelvis CT 06/18/17 1804 Signed Impressions: Service Date/Time: Sunday, June 18, 2017 18:26 - CONCLUSION: 1. No acute findings. Common bile duct measures about 11 mm in diameter. Mild fatty liver. Mild ileus. Bernardo Pruitt MD Objective Remarks GENERAL: NAD SKIN: Warm and dry.Jaundiced skin HEAD: Normocephalic. EYES: No scleral icterus. No injection or drainage. NECK: Supple, trachea midline. No JVD or lymphadenopathy. CARDIOVASCULAR: Regular rate and rhythm without murmurs, gallops, or rubs. RESPIRATORY: Breath sounds equal bilaterally. No accessory muscle use. GASTROINTESTINAL: Abdomen soft, non-tender, nondistended. MUSCULOSKELETAL: No cyanosis, or edema. BACK: Nontender without obvious deformity. No CVA tenderness. Procedures ERCP with sphincterotomy with brushing of the distal CBD and ampulla with balloon extraction with stent placement and biopsy A/P Problem List: (1) Common bile duct dilatation ICD Code: K83.8 - Other specified diseases of biliary tract (2) Abnormal liver enzymes ICD Code: R74.8 - Abnormal levels of other serum enzymes Status: Acute (3) Hyperbilirubinemia ICD Code: E80.6 - Other disorders of bilirubin metabolism Status: Acute (4) Jaundice ICD Code: R17 - Unspecified jaundice Assessment and Plan 57-year-old female with Painless jaundice CBD dilation Transaminitis On admission total bilirubin 8.4 and now unchanged from 06/21/17 @7.0 Lipase trending down to 722 Hepatitis panel is negative Immunology studies are pending Appreciate gastroenterology consult CA 19-9 and CEA elevated. 06/20 SP MRCP with ductal dilatation. SP ERCP with sphincterotomy with brushing of the distal CBD and ampulla with balloon extraction with stent placement and biopsy. Pathology shows benign ductal epithelial cells. Negative for malignant cells. Adenocarcinoma of duodenal? Pruritus Suspect pruritus is due to hyperbilirubinemia. Acute Pancreatitis. Due to CBD obstruction and Dilation. Sp ERCP w stent placement. Gerson Nath MD Jun 22, 2017 11:40
[2017-06-22 12:00] VITALS: BP 107/59; PULSE 57; RESP 17; TEMP 97.3; O2SAT 99
--- NOTE | 2017-06-22 12:13 | HHI.GIFU ---
Subjective Remarks Patient is sitting up in the chair able to tolerate her clear liquids without nausea and vomiting Family present Afebrile Biopsies reviewed. Mild urticaria, continues (Carolina Pickett) Objective Vitals I&O Vital Signs Date Time Temp Pulse Resp B/P (MAP) Pulse Ox O2 Delivery O2 Flow Rate FiO2 06/22/17 08:00 98.0 53 18 107/58 (74) 99 06/22/17 00:00 97.8 56 19 120/62 (81) 95 06/21/17 20:00 97.4 55 16 118/58 (78) 97 06/21/17 16:08 97.3 50 19 117/56 (76) 100 06/21/17 15:40 98.6 74 20 98/63 (75) 99 I/O 06/21/17 06/21/17 06/21/17 06/22/17 06/22/17 06/22/17 07:00 15:00 23:00 07:00 15:00 23:00 Intake Total 480 ml 1470 ml 240 ml Output Total 1200 ml 400 ml Balance -720 ml 1070 ml 240 ml Intake Oral 480 ml 1470 ml 240 ml Output Urine Total 1200 ml 400 ml # Voids 2 3 # Bowel Movements 1 0 Laboratory Laboratory Tests Test 06/22/17 07:18 Blood Urea Nitrogen 7 Creatinine 0.82 Random Glucose 117 Total Protein 6.5 Albumin 3.2 Calcium Level 9.2 Alkaline Phosphatase 455 Aspartate Amino Transf (AST/SGOT) 79 Alanine Aminotransferase (ALT/SGPT) 260 Total Bilirubin 7.0 Sodium Level 141 Potassium Level 3.6 Chloride Level 104 Carbon Dioxide Level 30.0 Anion Gap 7 Estimat Glomerular Filtration Rate 72 Lipase 722 Date/Time Source Procedure Growth Status 06/20/17 09:33 Stool Stool Cryptosporidium Exam - Final NEGATIVE - NO CRYPTOSPORIDIUM ANTIGEN... Complete 06/20/17 09:33 Stool Stool Giardia Antigen ([facility]) - Final NEGATIVE - NO GIARDIA ANTIGEN DETECTE... Complete Imaging Last Impressions GI Procedure 06/20/17 0000 Signed Impressions: Service Date/Time: Tuesday, June 20, 2017 09:24 - CONCLUSION: ERCP as above. Gage Valerio MD Cholangiopancreatography MRI 06/19/17 0000 Signed Impressions: Service Date/Time: Monday, June 19, 2017 10:27 - CONCLUSION: 1. The common bile duct measures up to 1 cm in greatest diameter and tapers down normally at the level of the head of the pancreas with no filling defect or mass identified. 2. The gallbladder is unremarkable in appearance. A small 7 mm benign- appearing cystic structure in spleen. Gage Valerio MD Abdomen/Pelvis CT 06/18/17 1804 Signed Impressions: Service Date/Time: Sunday, June 18, 2017 18:26 - CONCLUSION: 1. No acute findings. Common bile duct measures about 11 mm in diameter. Mild fatty liver. Mild ileus. Bernardo Pruitt MD Physical Exam HEENT: PERRL; normocephalic; atraumatic;+ icteric sclera CHEST: even/unlabored, no obvious rhonchi or wheezing CARDIAC: RRR ABDOMEN: Minimal bloating, soft, , nontender; bowel sounds are present in all four quadrants. EXTREMITIES: No clubbing, cyanosis, or edema. 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 Mild anxiety over current condition (Carolina Pickett) Assessment and Plan Plan Assessment: - Elevated LFTs, T bili, and alk phos in obstructive pattern. Elevated lipase. Current labs: AST-178 ALT-410 Alk phos-432 Lipase-1051 T bili-7 CT abdomen and pelvis W IV contrast (06/18) --> No acute finding. Common bile duct measures about 11 mm in diameter. Mild fatty liver. Mild ileus. Pt complaining of pruritus and dark urine. Denies history of liver issues. Occasional social ETOH. Liver LOFTON ordered by attending: Hepatitis panel negative. Iron-92 TIBC-410 % sat-22.4 Ferritin-251 ERROL, ASMA, AMA, and ceruloplasmin pending - Diarrhea x 2 weeks, denies blood in stool. Could be secondary to CBD obstruction. Has never had EGD or colonoscopy. Denies fever, chills. 06/21/17 s/p ERCP and sphincterotomy ---> poss biliary stricture, ampullary stricture, bulging ampulla polypoid lesion duodenum suspicious for malignancy, mild dilatation bile duct. tumor markers elevated CEA 6.5, CA19-9 203. stool studies neg. 06/22/17, duodenum biopsies reveal adenocarcinoma, Current bilirubin unchanged at 7. Lipase 722, LFTS, 79 AST, 260 ALT. alkaline phosphatase 455. Common bile duct brushings showed no malignancy, ampulla unremarkable Case discussed with attending physician We will await tomorrow's blood tests if bilirubin still elevated and unchanged one has to look at the issue of possible infiltration of the liver and so an MRI may be an appropriate test versus liver biopsy Patient will need surgical oncology evaluation and /or hematology evaluation and possibly even both Scabies being treated per attending Plan: Diet clear liquids, will leave liquids for now pending other tests. Abdominal MRI with contrast. Benadryl for urticaria Anti-emetics Bowel regimen Monitor labs supportive care Further recommendations based on findings of testing today Pt has been seen and examined by myself and Dr. Sinclair and this note is written on his behalf (Carolina Pickett) Physician Comments Patient seen and examined Agree with above Continue with current supportive care Monitor labs LFTs trending down MRI unremarkable for metastases but clearly shows pancreatic head mass Biopsies positive for adenocarcinoma We will ask surgical oncology to evaluate (Cuba Sinclair MD) Carolina Pickett Jun 22, 2017 12:13 Cuba Sinclair MD Jun 22, 2017 22:30
[2017-06-22 16:00] VITALS: BP 124/58; PULSE 74; RESP 16; TEMP 97.6; O2SAT 96
[2017-06-22] MEDS ORDERED: GADODIAMIDE PF 287 MG/ML 5 ML VIAL (for RAD MRI) IVCONTRAST ONE (18:27)
--- NOTE | 2017-06-22 19:24 | RADRPT ---
EXAM DATE/TIME: 06/22/2017 17:50 [facility] COMPARISON: GI LAB ERCP, June 20, 2017, 9:24. MRCP W/O CONTRAST, June 19, 2017, 10:27. CT ABDOMEN & PELVIS W CONTRAST, June 18, 2017, 18:26. INDICATIONS : Jaundice. Dialated Common Bile Duct CONTRAST: 13 cc Omniscan (gadodiamide) IV MEDICAL HISTORY : None. SURGICAL HISTORY : ERCP w/ Stent 06/20/17 ENCOUNTER: Subsequent ACUITY: 4-6 days PAIN SCORE: 0/10 LOCATION: Abdomen TECHNIQUE: Multiplanar, multisequence magnetic resonance imaging of the abdomen was performed without and with i ntravenous contrast. FINDINGS: Ill-defined, heterogeneous but mostly hypo-enhancing mass is seen of the uncinate process and lower p ortions of the pancreatic head. The mass is estimated at approximately 2.1 x 2.3 x 2.3 cm in size. Pa ncreatic duct slightly prominent at approximately 4 mm. The previously seen distention of the common bile duct has been decompressed with a stent. I don't see any atrophy of the pancreatic body or tail. Other solid organs are within normal limits. There is no lymphadenopathy demonstrated. No acute bony abnormalities are demonstrated. CONCLUSION: Pancreatic head mass with features concerning for adenocarcinoma until proven otherwise. No evidence of metastatic disease. Decompressed bile duct after stent placement. Lebron Regan MD on June 22, 2017 at 19:14 Board Certified Radiologist. This report was verified electronically.
[2017-06-22 20:08] VITALS: BP 110/57; PULSE 77; RESP 18; TEMP 97.2; O2SAT 98
[2017-06-23] VITALS: BP 121/58; PULSE 56; RESP 18; TEMP 97.9; O2SAT 98
[2017-06-23] MEDS: diphenhydrAMINE HCL 50 MG CAP PO PRN ×4 (01:49→21:36)
[2017-06-23 05:06] LABS: ALBUMIN 3.2 GM/DL (3.4-5.0); ALT (GPT) 229 U/L (10-53); AST (GOT) 62 U/L (15-37); BICARBONATE 29.1 MEQ/L (21.0-32.0); BLOOD UREA NITROGEN 7 MG/DL (7-18); CALCIUM 9.3 MG/DL (8.5-10.1); CHLORIDE 102 MEQ/L (98-107); CREATININE 0.83 MG/DL (0.50-1.00); GLOMERULAR FILTRATION RATE 71 ML/MIN (>89); GLUCOSE,RANDOM 139 MG/DL (74-106); SODIUM (NA) 141 MEQ/L (136-145)
[2017-06-23 05:09] LABS: ALKALINE PHOSPHATASE 453 U/L (45-117); TOTAL BILIRUBIN ADULT 7.3 MG/DL (0.2-1.0); TOTAL PROTEIN 6.7 GM/DL (6.4-8.2)
[2017-06-23 08:00] VITALS: BP 125/63; PULSE 64; RESP 18; TEMP 96.4; O2SAT 99
[2017-06-23] MEDS: DOCUSATE SODIUM 50 MG/SENNA 8.6 MG TAB PO SCH ×2 (08:07→20:09)
[2017-06-23] MEDS: SODIUM CHLOR 0.9% 1000 ML INJ 1,000 ML IV SCH ×2 (08:07→19:25)
[2017-06-23] MEDS: SODIUM CHLORIDE 0.9% FLUSH 10 ML FLUSH IV FLUSH SCH ×2 (08:08→20:09)
--- NOTE | 2017-06-23 09:42 | HHI.PR ---
Subjective Remarks Follow-up painless jaundice June 22, 2017-patient seen and examined, continued to complain of pruritus. Denies any abdominal pain. Lipase trending down June 23, 2017-patient seen and examined, reported improvement of pruritus, denies any abdominal pain. Objective Vitals Vital Signs Date Time Temp Pulse Resp B/P (MAP) Pulse Ox O2 Delivery O2 Flow Rate FiO2 06/23/17 08:00 96.4 64 18 125/63 (83) 99 06/23/17 00:00 97.9 56 18 121/58 (79) 98 06/22/17 20:08 97.2 77 18 110/57 (74) 98 06/22/17 16:00 97.6 74 16 124/58 (80) 96 06/22/17 12:00 97.3 57 17 107/59 (75) 99 I/O 06/22/17 06/22/17 06/22/17 06/23/17 06/23/17 06/23/17 07:00 15:00 23:00 07:00 15:00 23:00 Intake Total 240 ml 2100 ml 420 ml Balance 240 ml 2100 ml 420 ml Intake Oral 240 ml 2100 ml 420 ml # Voids 3 10 # Bowel Movements 0 2 Result Diagram: 06/21/17 0540 06/23/17 0345 Objective Remarks GENERAL: NAD SKIN: Warm and dry.Jaundiced skin HEAD: Normocephalic. EYES: No scleral icterus. No injection or drainage. NECK: Supple, trachea midline. No JVD or lymphadenopathy. CARDIOVASCULAR: Regular rate and rhythm without murmurs, gallops, or rubs. RESPIRATORY: Breath sounds equal bilaterally. No accessory muscle use. GASTROINTESTINAL: Abdomen soft, non-tender, nondistended. MUSCULOSKELETAL: No cyanosis, or edema. BACK: Nontender without obvious deformity. No CVA tenderness. Procedures ERCP with sphincterotomy with brushing of the distal CBD and ampulla with balloon extraction with stent placement and biopsy A/P Problem List: (1) Common bile duct dilatation ICD Code: K83.8 - Other specified diseases of biliary tract (2) Abnormal liver enzymes ICD Code: R74.8 - Abnormal levels of other serum enzymes Status: Acute (3) Hyperbilirubinemia ICD Code: E80.6 - Other disorders of bilirubin metabolism Status: Acute (4) Jaundice ICD Code: R17 - Unspecified jaundice Assessment and Plan 57-year-old female with Painless jaundice CBD dilation Transaminitis Pancreatic head mass-Surg Onc consultation pending On admission total bilirubin 8.4 however slightly up this AM 06/23/17 @7.3 Lipase trending down to 504 Hepatitis panel is negative Immunology studies are pending Appreciate gastroenterology consult CA 19-9 and CEA elevated. 06/20 SP MRCP with ductal dilatation. SP ERCP with sphincterotomy with brushing of the distal CBD and ampulla with balloon extraction with stent placement and biopsy. Pathology shows benign ductal epithelial cells. Negative for malignant cells. Pruritus-Resolved Suspect pruritus is due to hyperbilirubinemia. Acute Pancreatitis. Resolved Due to CBD obstruction and Dilation. Sp ERCP w stent placement. Gerson Nath MD Jun 23, 2017 09:42
[2017-06-23 12:00] VITALS: BP 126/69; PULSE 60; RESP 17; TEMP 97.5; O2SAT 93
--- NOTE | 2017-06-23 13:34 | HHI.GIFU ---
Subjective Remarks Patient is resting in the bed but he is getting up and sitting up in the chair at intervals Hemoglobin 11.3 No nausea no vomiting patient's appetite is returning States formed bowel movements no obvious bleeding (Carolina Pickett) Objective Vitals I&O Vital Signs Date Time Temp Pulse Resp B/P (MAP) Pulse Ox O2 Delivery O2 Flow Rate FiO2 06/23/17 12:00 97.5 60 17 126/69 (88) 93 06/23/17 08:00 96.4 64 18 125/63 (83) 99 06/23/17 00:00 97.9 56 18 121/58 (79) 98 06/22/17 20:08 97.2 77 18 110/57 (74) 98 06/22/17 16:00 97.6 74 16 124/58 (80) 96 I/O 06/22/17 06/22/17 06/22/17 06/23/17 06/23/17 06/23/17 07:00 15:00 23:00 07:00 15:00 23:00 Intake Total 240 ml 2100 ml 420 ml Balance 240 ml 2100 ml 420 ml Intake Oral 240 ml 2100 ml 420 ml # Voids 3 10 # Bowel Movements 0 2 Laboratory Laboratory Tests Test 06/23/17 03:45 Blood Urea Nitrogen 7 Creatinine 0.83 Random Glucose 139 Total Protein 6.7 Albumin 3.2 Calcium Level 9.3 Alkaline Phosphatase 453 Aspartate Amino Transf (AST/SGOT) 62 Alanine Aminotransferase (ALT/SGPT) 229 Total Bilirubin 7.3 Sodium Level 141 Potassium Level 3.3 Chloride Level 102 Carbon Dioxide Level 29.1 Anion Gap 10 Estimat Glomerular Filtration Rate 71 Lipase 504 Date/Time Source Procedure Growth Status 06/20/17 09:33 Stool Stool Cryptosporidium Exam - Final NEGATIVE - NO CRYPTOSPORIDIUM ANTIGEN... Complete 06/20/17 09:33 Stool Stool Giardia Antigen ([facility]) - Final NEGATIVE - NO GIARDIA ANTIGEN DETECTE... Complete Imaging Last Impressions Abdomen MRI 06/22/17 0000 Signed Impressions: Service Date/Time: Thursday, June 22, 2017 17:50 - CONCLUSION: Pancreatic head mass with features concerning for adenocarcinoma until proven otherwise. No evidence of metastatic disease. Decompressed bile duct after stent placement. Lebron Regan MD GI Procedure 06/20/17 0000 Signed Impressions: Service Date/Time: Tuesday, June 20, 2017 09:24 - CONCLUSION: ERCP as above. Gage Valerio MD Cholangiopancreatography MRI 06/19/17 0000 Signed Impressions: Service Date/Time: Monday, June 19, 2017 10:27 - CONCLUSION: 1. The common bile duct measures up to 1 cm in greatest diameter and tapers down normally at the level of the head of the pancreas with no filling defect or mass identified. 2. The gallbladder is unremarkable in appearance. A small 7 mm benign- appearing cystic structure in spleen. Gage Valerio MD Abdomen/Pelvis CT 06/18/17 1804 Signed Impressions: Service Date/Time: Sunday, June 18, 2017 18:26 - CONCLUSION: 1. No acute findings. Common bile duct measures about 11 mm in diameter. Mild fatty liver. Mild ileus. Bernardo Pruitt MD Physical Exam HEENT: PERRL; normocephalic; atraumatic;+iterus, hungry CHEST: even/unlabored, no obvious rhonchi or wheezing CARDIAC: RRR ABDOMEN: Minimal bloating, soft, , nontender; bowel sounds are present in all four quadrants. EXTREMITIES: No clubbing, cyanosis, or edema. 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 (Carolina Pickett) Assessment and Plan Plan Assessment: - Elevated LFTs, T bili, and alk phos in obstructive pattern. Elevated lipase. Current labs: AST-178 ALT-410 Alk phos-432 Lipase-1051 T bili-7 CT abdomen and pelvis W IV contrast (06/18) --> No acute finding. Common bile duct measures about 11 mm in diameter. Mild fatty liver. Mild ileus. Pt complaining of pruritus and dark urine. Denies history of liver issues. Occasional social ETOH. Liver LOFTON ordered by attending: Hepatitis panel negative. Iron-92 TIBC-410 % sat-22.4 Ferritin-251 ERROL, ASMA, AMA, and ceruloplasmin pending - Diarrhea x 2 weeks, denies blood in stool. Could be secondary to CBD obstruction. Has never had EGD or colonoscopy. Denies fever, chills. 06/21/17 s/p ERCP and sphincterotomy ---> poss biliary stricture, ampullary stricture, bulging ampulla polypoid lesion duodenum suspicious for malignancy, mild dilatation bile duct. tumor markers elevated CEA 6.5, CA19-9 203. stool studies neg. 06/22/17, duodenum biopsies reveal adenocarcinoma, Current bilirubin unchanged at 7. Lipase 722, LFTS, 79 AST, 260 ALT. alkaline phosphatase 455. Common bile duct brushings showed no malignancy, ampulla unremarkable Case discussed with attending physician We will await tomorrow's blood tests if bilirubin still elevated and unchanged one has to look at the issue of possible infiltration of the liver and so an MRI may be an appropriate test versus liver biopsy Patient will need surgical oncology evaluation and /or hematology evaluation and possibly even both Scabies being treated per attending 06/23/2017 patient's resting in the bed, daughter in room MRI of the abdomen done on 06/22/2017 showing pancreatic head mass with features concerning for adenoma no evidence of metastasis disease decompressed bile duct after stent replacement. Note ERCP was done on 06/20/2017 Appreciate surgical oncology consult for evaluation. Plan: Diet increase to full liquid , and may advance as tolerated as long as no nausea or vomiting Monitor labs Anti-emetics Bowel regimen Monitor labs supportive care Further recommendations to follow Pt has been seen and examined by myself and Dr. Sinclair and this note is written on his behalf (Carolina Pickett) Physician Comments Patient seen and examined Agree with above Continue with current supportive care Monitor labs Looking at the MRI pictures I was unable to identify the stent and with the bilirubin not coming down I feel it is important to check on the stent placement Case was discussed with radiology and we will order a CT of the abdomen to assess for stent position (Cuba Sinclair MD) Carolina Pickett Jun 23, 2017 13:34 Cuba Sinclair MD Jun 23, 2017 19:51
[2017-06-23 16:00] VITALS: BP 116/57; PULSE 68; RESP 17; TEMP 96.7; O2SAT 97
--- NOTE | 2017-06-23 16:18 | PD.CONS ---
cc: Hayder Zaragoza MD [facility] Service Surgical Oncology Consult Requested By Dr. Sinclair Reason for Consult Pancreatic head adenocarcinoma Primary Care Physician No Primary Care Physician History of Present Illness This is a 57 year old female with a no significant past medical history who presents to the ED with complains of dark urine, pruritus, yellowing of her skin and diarrhea. She was recently seen in the ED for pruritus and was treated for scabies. She does report about 5-6 pound unintentional weight loss over the past two weeks. She has no nausea or vomiting. A CT abdomen/pelvis was obtained which shows an enlarged common bile duct. An MRCP was completed which shows an enlarged common bile duct. A abdominal MRI was completed which shows a pancreatic head mass with features concerning for cancer; there is not evidence of metastatic disease. A ERCP was completed on June 20 and biopsies were obtained. The duodenum biopsy showed duodenal mucosa with peptic duodenitis and infiltrating atypical glands in the submucosa which are strongly suspicious for invasive adenocarcinoma. A Surgical Oncology consultation has been requested. Review of Systems Constitutional: COMPLAINS OF: Weight loss, DENIES: Fatigue, Change in appetite Endocrine: DENIES: Polydipsia, Polyuria, Polyphagia Eyes: DENIES: Diplopia Ears, nose, mouth, throat: DENIES: Hearing loss Respiratory: DENIES: Apneas Cardiovascular: DENIES: Chest pain Gastrointestinal: COMPLAINS OF: Diarrhea, DENIES: Abdominal pain, Nausea, Vomiting Genitourinary: DENIES: Urinary frequency Musculoskeletal: DENIES: Joint pain, Muscle aches Integumentary: COMPLAINS OF: Abnormal pigmentation, Pruritus Hematologic/lymphatic: DENIES: Bruising Immunologic/allergic: DENIES: Eczema Neurologic: DENIES: Headache, Localized weakness Psychiatric: DENIES: Confusion, Mood changes, Depression Past Family Social History Past Medical History None Past Surgical History Tubal ligation Reported Medications None Allergies: Coded Allergies: No Known Allergies (Verified Adverse Reaction, Unknown, 06/18/17) Active Ordered Medications Current Medications Medications (Trade) Dose Ordered Sig/Wendy Route Start Time Stop Time Status Last Admin Sodium Chloride 1,000 ml @ 100 mls/hr Q10H IV 06/18/17 19:25 06/20/17 21:25 (NS Flush) 2 ml UNSCH PRN IV FLUSH 06/18/17 19:30 (NS Flush) 2 ml BID IV FLUSH 06/18/17 21:00 06/23/17 08:08 (Zofran Inj) 4 mg Q6H PRN IVP 06/18/17 19:30 (Tylenol) 650 mg Q6H PRN PO 06/18/17 19:30 (Roxicodone) 10 mg Q4H PRN PO 06/18/17 19:30 (Roxicodone) 5 mg Q4H PRN PO 06/18/17 19:30 (Alessia-Colace) 1 tab BID PO 06/18/17 21:00 06/21/17 19:55 (Milk Of Magnesia Liq) 30 ml Q12H PRN PO 06/18/17 19:30 (Senokot) 17.2 mg Q12H PRN PO 06/18/17 19:30 (Dulcolax Supp) 10 mg DAILY PRN RECTAL 06/18/17 19:30 (Lactulose Liq) 30 ml DAILY PRN PO 06/18/17 19:30 (Benadryl) 50 mg Q6H PRN PO 06/19/17 00:30 06/23/17 15:28 Family History Not much know about her maternal side Paternal side: two aunts with brain cancer; uncle with unknown type of cancer Patient's daughter is going to try to see what kind of cancer this uncle has. 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 Lives her locally. Her children live her locally. Physical Exam Vital Signs Vital Signs Date Time Temp Pulse Resp B/P (MAP) Pulse Ox O2 Delivery O2 Flow Rate FiO2 06/23/17 12:00 97.5 60 17 126/69 (88) 93 06/23/17 08:00 96.4 64 18 125/63 (83) 99 06/23/17 00:00 97.9 56 18 121/58 (79) 98 06/22/17 20:08 97.2 77 18 110/57 (74) 98 06/22/17 16:00 97.6 74 16 124/58 (80) 96 Physical Exam GENERAL: Very pleasant 57 year old female resting in bed quite anxious. SKIN: Warm and dry. Jaundiced skin. HEAD: Atraumatic. Normocephalic. EYES: Pupils equal and round. Jaundiced sclera. ENT: No nasal bleeding or discharge. Mucous membranes pink and moist. NECK: Trachea midline. CARDIOVASCULAR: Regular rate and rhythm. RESPIRATORY: No accessory muscle use. Clear to auscultation. Breath sounds equal bilaterally. GASTROINTESTINAL: Abdomen soft, non-tender, nondistended. No visible hernias. No visible scars. MUSCULOSKELETAL: Extremities without clubbing, cyanosis, or edema. No obvious deformities. NEUROLOGICAL: Awake and alert. No obvious cranial nerve deficits. Motor grossly within normal limits. Five out of 5 muscle strength in the arms and legs. Normal speech. PSYCHIATRIC: Appropriate mood and affect; insight and judgment normal. Laboratory Laboratory Tests Test 06/23/17 03:45 Blood Urea Nitrogen 7 Creatinine 0.83 Random Glucose 139 Total Protein 6.7 Albumin 3.2 Calcium Level 9.3 Alkaline Phosphatase 453 Aspartate Amino Transf (AST/SGOT) 62 Alanine Aminotransferase (ALT/SGPT) 229 Total Bilirubin 7.3 Sodium Level 141 Potassium Level 3.3 Chloride Level 102 Carbon Dioxide Level 29.1 Anion Gap 10 Estimat Glomerular Filtration Rate 71 Lipase 504 Date/Time Source Procedure Growth Status 06/20/17 09:33 Stool Stool Cryptosporidium Exam - Final NEGATIVE - NO CRYPTOSPORIDIUM ANTIGEN... Complete 06/20/17 09:33 Stool Stool Giardia Antigen ([facility]) - Final NEGATIVE - NO GIARDIA ANTIGEN DETECTE... Complete Result Diagram: 06/21/17 0540 06/23/17 0345 Imaging Last 48 hours Impressions Abdomen MRI 06/22/17 0000 Signed Impressions: Service Date/Time: Thursday, June 22, 2017 17:50 - CONCLUSION: Pancreatic head mass with features concerning for adenocarcinoma until proven otherwise. No evidence of metastatic disease. Decompressed bile duct after stent placement. Lebron Regan MD Assessment and Plan Assessment and Plan 57 year old female with jaundiced; elevated liver enzymes; duodenum biopsy strongly suspicious for invasive adenocarcinoma -Advance diet as tolerated -Discussed pathology results--- printout given to patient -Discussed patient surgical options---can have longer discussion in the office -Will wait for liver enzymes to trend down -Patient given office information---follow up 10-14 days with repeat CMP results -Patient will need Patient Assistance ---- Discussed with JONE Aguiar -I added sleeping pill per patient's request -From General Surgery standpoint patient is cleared to go home once cleared by Primary and GI Discussed Condition With Dr. Zaragoza Ms. Monteiro + daughter Maria Luz at bedside Stefania JONE Attending Statement The exam, history, and the medical decision-making described in the above note were completed with the assistance of the mid-level provider. I reviewed and agree with the findings presented. I attest that I had a [id number] encounter with the patient on the same day, and personally performed and documented my assessment and findings in the medical record. Patient with newly diagnosed adenocarcinoma involving the pancreatic head imaging and pathology reviewed, appears resectable on CT, uncertain if pancreatic or ampullary primary vs biliary long discussion with patient and daughter in room, discussed treatment options to include surgery and chemotherapy w/wo radiation recommend DC home, 2 week recovery period to heal from biliary obstruction, fu with me for possible upfront resection (Whipple) vs neoadjuvant chemotherapy thank you for consultation Kathrine Park/[employer] Block Setter TONIA Jun 23, 2017 16:18 Hayder Zaragoza MD Jun 24, 2017 17:00
--- NOTE | 2017-06-23 17:29 | PD.PROCEDR ---
GI Procedure PROCEDURE PERFORMED EGD with PEG tube placement INDICATION FOR PROCEDURE Dysphagia, poor oral intake PROCEDURE: The procedure, risks and benefits were discussed with Patient/POA and informed consent was obtained. Anesthesia sedated Patient with Diprivan. Patient was placed in the left lateral decubitus position. EGD: The Pentax videoscope was introduced through the oropharynx and advanced to the second portion of the duodenum under direct visualization. Retroflexion was performed in the stomach. FINDINGS: The esophagus this appeared to be unremarkable and within normal limits The stomach there were several small benign appearing polypoid lesions in the gastric body otherwise the gastric mucosa was unremarkable and within normal limits The duodenum this was normal Following the evaluation of the stomach and the duodenum the stomach was insufflated with air and the area of PEG placement was identified through indentation and transillumination the area was prepped and draped in usual fashion 5 cc of lidocaine were injected locally a small incision was made then an Angiocath was passed into the stomach through which a guidewire was passed this was retrieved with the scope into that a PEG tube was attached and pulled into place and thereafter secured in usual fashion The patient tolerated procedure well and there are no immediate complications ESTIMATED BLOOD LOSS: None SPECIMENS REMOVED: None COMPLICATIONS: None IMPRESSION: Gastric polyps Successful PEG placement PLAN: 1. May use PEG tube for medications today 2. May start feeding tomorrow 3. May obtain nutritional consult for tube feeding 4. Flush tube with 50 cc of water every 4-6 hours 5. Always flush tube after feedings 6. Apply abdominal binder as necessary 7. Clamp G-tube after use and flush. Cuba Sinclair MD Jun 23, 2017 17:29
[2017-06-23 20:00] VITALS: BP 119/57; PULSE 54; RESP 17; TEMP 97.1; O2SAT 97
[2017-06-23] MEDS ORDERED: ZOLPIDEM TARTRATE 5 MG TAB PO PRN (21:00)
--- NOTE | 2017-06-23 21:22 | RADRPT ---
EXAM DATE/TIME: 06/23/2017 21:02 [place] COMPARISON: MRI ABDOMEN W & W/O CONTRAST, June 22, 2017, 17:50. GI LAB ERCP, June 20, 2017, 9:24. MRCP W/O CO NTRAST, June 19, 2017, 10:27. CT ABDOMEN & PELVIS W CONTRAST, June 18, 2017, 18:26. INDICATIONS : Assess biliary stent position. ORAL CONTRAST: No oral contrast ingested. RADIATION DOSE: 7.27 CTDIvol (mGy) MEDICAL HISTORY : None SURGICAL HISTORY : biliary stent, G-tube ENCOUNTER: Subsequent ACUITY: 4 - 6 days PAIN SCALE: 0/10 LOCATION: abdomen TECHNIQUE: Volumetric scanning of the abdomen and pelvis was performed. Using automated exposure control and ad justment of the mA and/or kV according to patient size, radiation dose was kept as low as reasonably achievable to obtain optimal diagnostic quality images. DICOM format image data is available electro nically for review and comparison. FINDINGS: Since the prior CT, a Silastic biliary stent has been placed. Proximal tip is in the common hepatic d uct. The distal tip is in the duodenum. An ill-defined pancreatic head mass measuring approximately 2 .1 x 2.8 x 2.4 cm is again noted. The intrahepatic and extrahepatic biliary distention has resolved. There is contrast persisting in the gallbladder from the ERCP 3 days ago. CONCLUSION: 1. The biliary stent appears appropriately positioned. The intrahepatic and extra hepatic biliary dis tention demonstrated on the prior CT has resolved. Pancreatic head mass again noted. 2. Persistent contrast from the ERCP within the gallbladder, not really expected 3 days later. This w ould suggest the possibility of cystic duct obstruction although I don't see any wall thickening or i nflammatory changes. The gallbladder is also not abnormally distended. Lebron Regan MD on June 23, 2017 at 21:16 Board Certified Radiologist. This report was verified electronically.
[2017-06-23 23:52] LABS: MITOCHONDRIAL ABS LESS THAN 20.0 U (<=20.0)
[2017-06-24 00:35] VITALS: BP 107/58; PULSE 56; RESP 18; TEMP 97.1; O2SAT 98
[2017-06-24 03:52] LABS: LIVER-KIDNEY-MICROSOME AUTOABS LESS THAN 20.0 U (<20.0)
[2017-06-24] MEDS: SODIUM CHLOR 0.9% 1000 ML INJ 1,000 ML IV SCH (04:24)
[2017-06-24] MEDS: diphenhydrAMINE HCL 50 MG CAP PO PRN ×2 (06:33→12:32)
[2017-06-24] MEDS: SODIUM CHLORIDE 0.9% FLUSH 10 ML FLUSH IV FLUSH SCH (07:46)
[2017-06-24] MEDS: DOCUSATE SODIUM 50 MG/SENNA 8.6 MG TAB PO SCH (07:46)
[2017-06-24 08:00] VITALS: BP 100/70; PULSE 72; RESP 20; TEMP 97.5; O2SAT 100
[2017-06-24 12:00] VITALS: BP 120/63; PULSE 100; RESP 22; TEMP 97.3; O2SAT 99
--- NOTE | 2017-06-24 12:17 | HHI.PR ---
Subjective Remarks Follow-up painless jaundice June 22, 2017-patient seen and examined, continued to complain of pruritus. Denies any abdominal pain. Lipase trending down June 23, 2017-patient seen and examined, reported improvement of pruritus, denies any abdominal pain. June 24, 2017-patient seen and examined, no acute event overnight. Was seen by general surgery yesterday and recommended outpatient follow-up. No other issues other than itching this morning. Objective Vitals Vital Signs Date Time Temp Pulse Resp B/P (MAP) Pulse Ox O2 Delivery O2 Flow Rate FiO2 06/24/17 08:00 97.5 72 20 100/70 (80) 100 06/24/17 00:35 97.1 56 18 107/58 (74) 98 06/23/17 20:00 97.1 54 17 119/57 (77) 97 06/23/17 16:00 96.7 68 17 116/57 (76) 97 I/O 06/23/17 06/23/17 06/23/17 06/24/17 06/24/17 06/24/17 06:59 14:59 22:59 06:59 14:59 22:59 Intake Total 420 ml 1940 ml 240 ml Balance 420 ml 1940 ml 240 ml Intake Oral 420 ml 1940 ml 240 ml # Voids 4 2 # Bowel Movements 1 Result Diagram: 06/21/17 0540 06/23/17 0345 Objective Remarks GENERAL: NAD SKIN: Warm and dry.Jaundiced skin HEAD: Normocephalic. EYES: No scleral icterus. No injection or drainage. NECK: Supple, trachea midline. No JVD or lymphadenopathy. CARDIOVASCULAR: Regular rate and rhythm without murmurs, gallops, or rubs. RESPIRATORY: Breath sounds equal bilaterally. No accessory muscle use. GASTROINTESTINAL: Abdomen soft, non-tender, nondistended. MUSCULOSKELETAL: No cyanosis, or edema. BACK: Nontender without obvious deformity. No CVA tenderness. Procedures ERCP with sphincterotomy with brushing of the distal CBD and ampulla with balloon extraction with stent placement and biopsy A/P Problem List: (1) Common bile duct dilatation ICD Code: K83.8 - Other specified diseases of biliary tract (2) Abnormal liver enzymes ICD Code: R74.8 - Abnormal levels of other serum enzymes Status: Acute (3) Hyperbilirubinemia ICD Code: E80.6 - Other disorders of bilirubin metabolism Status: Acute (4) Jaundice ICD Code: R17 - Unspecified jaundice Assessment and Plan 57-year-old female with Painless jaundice CBD dilation Transaminitis On admission total bilirubin 8.4 however slightly up this AM 06/23/17 @7.3; however CMP pending this AM Lipase trending down Hepatitis panel is negative Immunology studies are pending Appreciate gastroenterology consult CA 19-9 and CEA elevated. 06/20 SP MRCP with ductal dilatation. SP ERCP with sphincterotomy with brushing of the distal CBD and ampulla with balloon extraction with stent placement and biopsy. Pathology shows benign ductal epithelial cells. Negative for malignant cells. Duodenum biopsies reveal invasive adenocarcinoma for which General Surgery Oncology was consulted 06/23/17; recommended outpatient follow after LFTs trend down Pruritus-Resolved Suspect pruritus is due to hyperbilirubinemia. Acute Pancreatitis. Resolved Due to CBD obstruction and Dilation. Sp ERCP w stent placement. Gerson Nath MD Jun 24, 2017 12:17
[2017-06-24 13:32] LABS: ALBUMIN 3.1 GM/DL (3.4-5.0); ALKALINE PHOSPHATASE 460 U/L (45-117); ALT (GPT) 167 U/L (10-53); AST (GOT) 41 U/L (15-37); BICARBONATE 28.7 MEQ/L (21.0-32.0); BLOOD UREA NITROGEN 12 MG/DL (7-18); CALCIUM 9.1 MG/DL (8.5-10.1); CHLORIDE 99 MEQ/L (98-107); CREATININE 0.93 MG/DL (0.50-1.00); GLOMERULAR FILTRATION RATE 62 ML/MIN (>89); GLUCOSE,RANDOM 327 MG/DL (74-106); SODIUM (NA) 136 MEQ/L (136-145); TOTAL PROTEIN 6.6 GM/DL (6.4-8.2)
[2017-06-24] MEDS ORDERED: DIPH50CA PO (14:15)
--- NOTE | 2017-06-24 14:16 | HHI.DS ---
Discharge Summary Admission Date Jun 18, 2017 at 19:29 Discharge Date: Jun 24, 2017 Admitting Diagnosis Painless jaundice/dilated common bile duct . (1) Common bile duct dilatation ICD Code: K83.8 - Other specified diseases of biliary tract (2) Abnormal liver enzymes ICD Code: R74.8 - Abnormal levels of other serum enzymes Status: Acute (3) Hyperbilirubinemia ICD Code: E80.6 - Other disorders of bilirubin metabolism Status: Acute (4) Jaundice ICD Code: R17 - Unspecified jaundice Procedures ERCP with sphincterotomy with brushing of the distal CBD and ampulla with balloon extraction with stent placement and biopsy Brief History - From Admission Ms. Moseley is a very pleasant 57-year-old female with no significant medical history who presented to the [facility] emergency room on 06/18/2017 complaining of dark urine, severe pruritus, and diarrhea for the past 2 weeks. The patient was noted to have painless jaundice, elevated LFTs, and and abdomen/ pelvis CT with IV contrast showed a dilated common bile duct measuring 11 mm in diameter, mild fatty liver, mild ileus, and no acute findings. The case was discussed with varnish inspector Dr. Sinclair who recommended transfer for to [facility] for MRCP and ERCP so the patient is admitted under the hospitalist service for further medical management. The patient is seen in her hospital room. She reports that her symptoms have been present for the past 2 weeks and include dark urine, diarrhea daily, and severe pruritus. She thought she might have scabies and has been treated with topical permethrin for that in the emergency room on 06/14/2017. She is intensely pruritic and scratching throughout my visit. She has numerous small lesions that look like bug bites on all areas of her body except for her face. She is notably jaundiced with scleral icterus. She denies any recent fever, chills, nausea, vomiting, chest pain, shortness of breath, headache, weakness, or exposure to scabies. She reports a 15 pound weight loss in the past 2 weeks which she attributes to diarrhea. CBC/BMP: 06/21/17 0540 06/24/17 1252 Significant Findings Laboratory Tests Test 06/22/17 07:18 06/23/17 03:45 06/24/17 12:52 Random Glucose 117 MG/DL (74-106) 139 MG/DL (74-106) 327 MG/DL (74-106) Albumin 3.2 GM/DL (3.4-5.0) 3.2 GM/DL (3.4-5.0) 3.1 GM/DL (3.4-5.0) Alkaline Phosphatase 455 U/L (45-117) 453 U/L (45-117) 460 U/L (45-117) Aspartate Amino Transf (AST/SGOT) 79 U/L (15-37) 62 U/L (15-37) 41 U/L (15-37) Alanine Aminotransferase (ALT/SGPT) 260 U/L (10-53) 229 U/L (10-53) 167 U/L (10-53) Total Bilirubin 7.0 MG/DL (0.2-1.0) 7.3 MG/DL (0.2-1.0) 7.0 MG/DL (0.2-1.0) Estimat Glomerular Filtration Rate 72 ML/MIN (>89) 71 ML/MIN (>89) 62 ML/MIN (>89) Lipase 722 U/L (73-393) 504 U/L (73-393) Potassium Level 3.3 MEQ/L (3.5-5.1) Imaging Last Impressions Abdomen/Pelvis CT 06/23/17 0000 Signed Impressions: Service Date/Time: May 21:02 - CONCLUSION: 1. The biliary stent appears appropriately positioned. The intrahepatic and extra hepatic biliary distention demonstrated on the prior CT has resolved. Pancreatic head mass again noted. 2. Persistent contrast from the ERCP within the gallbladder, not really expected 3 days later. This would suggest the possibility of cystic duct obstruction although I don't see any wall thickening or inflammatory changes. The gallbladder is also not abnormally distended. Lebron Regan MD Abdomen MRI 06/22/17 0000 Signed Impressions: Service Date/Time: Thursday, June 22, 2017 17:50 - CONCLUSION: Pancreatic head mass with features concerning for adenocarcinoma until proven otherwise. No evidence of metastatic disease. Decompressed bile duct after stent placement. Lebron Regan MD GI Procedure 06/20/17 0000 Signed Impressions: Service Date/Time: Tuesday, June 20, 2017 09:24 - CONCLUSION: ERCP as above. Gage Valerio MD Cholangiopancreatography MRI 06/19/17 0000 Signed Impressions: Service Date/Time: Monday, June 19, 2017 10:27 - CONCLUSION: 1. The common bile duct measures up to 1 cm in greatest diameter and tapers down normally at the level of the head of the pancreas with no filling defect or mass identified. 2. The gallbladder is unremarkable in appearance. A small 7 mm benign- appearing cystic structure in spleen. Gage Valerio MD PE at Discharge GENERAL: NAD SKIN: Warm and dry.Jaundiced skin HEAD: Normocephalic. EYES: No scleral icterus. No injection or drainage. NECK: Supple, trachea midline. No JVD or lymphadenopathy. CARDIOVASCULAR: Regular rate and rhythm without murmurs, gallops, or rubs. RESPIRATORY: Breath sounds equal bilaterally. No accessory muscle use. GASTROINTESTINAL: Abdomen soft, non-tender, nondistended. MUSCULOSKELETAL: No cyanosis, or edema. BACK: Nontender without obvious deformity. No CVA tenderness. Hospital Course While in hospital, patient was treated for: Painless jaundice CBD dilation Transaminitis On admission total bilirubin 8.4 however slightly up this AM 06/23/17 @7.3; however CMP pending this AM Lipase trending down Hepatitis panel is negative Immunology studies are pending Appreciate gastroenterology consult CA 19-9 and CEA elevated. 06/20 SP MRCP with ductal dilatation. SP ERCP with sphincterotomy with brushing of the distal CBD and ampulla with balloon extraction with stent placement and biopsy. Pathology shows benign ductal epithelial cells. Negative for malignant cells. Duodenum biopsies reveal invasive adenocarcinoma for which General Surgery Oncology was consulted 06/23/17; recommended outpatient follow after LFTs trend down Pruritus-Resolved Suspect pruritus is due to hyperbilirubinemia. Acute Pancreatitis. Resolved Due to CBD obstruction and Dilation. Sp ERCP w stent placement. Pt Condition on Discharge: Stable Discharge Disposition: Discharge Home Discharge Time: <= 30 minutes Discharge Instructions DIET: Follow Instructions for: Heart Healthy Diet Activities you can perform: Regular-No Restrictions Follow up Referrals: PCP Follow-up - 1 Week Surgical - 2 Weeks with Hayder Zaragoza MD New Medications: Diphenhydramine HCl (Diphenhydramine HCl) 50 Mg Cap 50 MG PO Q6H PRN for pruritis, #20 CAP Discontinued Medications: Permethrin Topical 5% (Permethrin Topical 5%) 5% Cream 1 APPLIC TOPICAL ONCE for Scabies, #1 TUBE 0 Refills Apply head to toe, leave on for 8-12 hours, wash off. You may repeat in 2 weeks if this treatment is ineffective. Gerson Nath MD Jun 24, 2017 14:16
--- NOTE | 2017-06-24 14:33 | HHI.GIFU ---
Subjective Remarks Patient is sitting up in the chair, chief complaint urticaria Small BM formed normal Currently denying any acute abdominal pain Afebrile (Carolina Pickett) Objective Vitals I&O Vital Signs Date Time Temp Pulse Resp B/P (MAP) Pulse Ox O2 Delivery O2 Flow Rate FiO2 06/24/17 12:00 97.3 100 22 120/63 (82) 99 06/24/17 08:00 97.5 72 20 100/70 (80) 100 06/24/17 00:35 97.1 56 18 107/58 (74) 98 06/23/17 20:00 97.1 54 17 119/57 (77) 97 06/23/17 16:00 96.7 68 17 116/57 (76) 97 I/O 06/23/17 06/23/17 06/23/17 06/24/17 06/24/17 06/24/17 06:59 14:59 22:59 06:59 14:59 22:59 Intake Total 420 ml 1940 ml 240 ml Balance 420 ml 1940 ml 240 ml Intake Oral 420 ml 1940 ml 240 ml # Voids 4 2 # Bowel Movements 1 Laboratory Laboratory Tests Test 06/24/17 12:52 Blood Urea Nitrogen 12 Creatinine 0.93 Random Glucose 327 Total Protein 6.6 Albumin 3.1 Calcium Level 9.1 Alkaline Phosphatase 460 Aspartate Amino Transf (AST/SGOT) 41 Alanine Aminotransferase (ALT/SGPT) 167 Total Bilirubin 7.0 Sodium Level 136 Potassium Level 4.1 Chloride Level 99 Carbon Dioxide Level 28.7 Anion Gap 8 Estimat Glomerular Filtration Rate 62 Date/Time Source Procedure Growth Status 06/20/17 09:33 Stool Stool Cryptosporidium Exam - Final NEGATIVE - NO CRYPTOSPORIDIUM ANTIGEN... Complete 06/20/17 09:33 Stool Stool Giardia Antigen ([facility]) - Final NEGATIVE - NO GIARDIA ANTIGEN DETECTE... Complete Imaging Last Impressions Abdomen/Pelvis CT 06/23/17 0000 Signed Impressions: Service Date/Time: May 21:02 - CONCLUSION: 1. The biliary stent appears appropriately positioned. The intrahepatic and extra hepatic biliary distention demonstrated on the prior CT has resolved. Pancreatic head mass again noted. 2. Persistent contrast from the ERCP within the gallbladder, not really expected 3 days later. This would suggest the possibility of cystic duct obstruction although I don't see any wall thickening or inflammatory changes. The gallbladder is also not abnormally distended. Lebron Regan MD Abdomen MRI 06/22/17 0000 Signed Impressions: Service Date/Time: Thursday, June 22, 2017 17:50 - CONCLUSION: Pancreatic head mass with features concerning for adenocarcinoma until proven otherwise. No evidence of metastatic disease. Decompressed bile duct after stent placement. Lebron Regan MD GI Procedure 06/20/17 0000 Signed Impressions: Service Date/Time: Tuesday, June 20, 2017 09:24 - CONCLUSION: ERCP as above. Gage Valerio MD Cholangiopancreatography MRI 06/19/17 0000 Signed Impressions: Service Date/Time: Monday, June 19, 2017 10:27 - CONCLUSION: 1. The common bile duct measures up to 1 cm in greatest diameter and tapers down normally at the level of the head of the pancreas with no filling defect or mass identified. 2. The gallbladder is unremarkable in appearance. A small 7 mm benign- appearing cystic structure in spleen. Gage Valerio MD Physical Exam HEENT: PERRL; normocephalic; atraumatic;+iterus, sclera CHEST: even/unlabored, no shortness of breath CARDIAC: RRR ABDOMEN: Minimal bloating but no tenderness noted, soft, bowel sounds are present in all four quadrants. EXTREMITIES: No clubbing, cyanosis, or edema. SKIN: + jaundiced, numerous excoriations and urticaria, moderate today REHAB SERVICES AIDE: No focal deficits; alert and oriented times three. (Carolina Pickett) Assessment and Plan Plan Assessment: - Elevated LFTs, T bili, and alk phos in obstructive pattern. Elevated lipase. Current labs: AST-178 ALT-410 Alk phos-432 Lipase-1051 T bili-7 CT abdomen and pelvis W IV contrast (06/18) --> No acute finding. Common bile duct measures about 11 mm in diameter. Mild fatty liver. Mild ileus. Pt complaining of pruritus and dark urine. Denies history of liver issues. Occasional social ETOH. Liver LOFTON ordered by attending: Hepatitis panel negative. Iron-92 TIBC-410 % sat-22.4 Ferritin-251 ERROL, ASMA, AMA, and ceruloplasmin pending - Diarrhea x 2 weeks, denies blood in stool. Could be secondary to CBD obstruction. Has never had EGD or colonoscopy. Denies fever, chills. 06/21/17 s/p ERCP and sphincterotomy ---> poss biliary stricture, ampullary stricture, bulging ampulla polypoid lesion duodenum suspicious for malignancy, mild dilatation bile duct. tumor markers elevated CEA 6.5, CA19-9 203. stool studies neg. 06/22/17, duodenum biopsies reveal adenocarcinoma, Current bilirubin unchanged at 7. Lipase 722, LFTS, 79 AST, 260 ALT. alkaline phosphatase 455. Common bile duct brushings showed no malignancy, ampulla unremarkable Case discussed with attending physician We will await tomorrow's blood tests if bilirubin still elevated and unchanged one has to look at the issue of possible infiltration of the liver and so an MRI may be an appropriate test versus liver biopsy Patient will need surgical oncology evaluation and /or hematology evaluation and possibly even both Scabies being treated per attending 06/23/2017 patient's resting in the bed, daughter in room MRI of the abdomen done on 06/22/2017 showing pancreatic head mass with features concerning for adenoma no evidence of metastasis disease decompressed bile duct after stent replacement. Note ERCP was done on 06/20/2017 Appreciate surgical oncology consult for evaluation. 06/24/2017, CT scan was done to evaluate the placement of the biliary stent, bilirubin remains 7.1, otherwise unremarkable chest except for some persistent contrast from the ERCP within the gallbladder this would suggest the possibility of some cystic duct obstruction but no wall thickening or inflammatory changes are noted the gallbladder is not abnormally distended. Possible discharge today. Chief complaint pruritus patient's taken Benadryl with mild effectiveness Plan: Diet regular diet with patient's appetite began fair to good Monitor labs with special attention to bilirubin Anti-emetics Benadryl for pruritus supportive care Patient needs to follow-up in the GI office in 2 weeks with labs CBC and CMP done prior to the office visit. Pt has been seen and examined by myself and Dr. Sinclair and this note is written on his behalf (Carolina Pickett) Physician Comments Patient seen and examined Agree with above Continue with current supportive care Monitor labs Follow-up with GI post discharge (Cuba Sinclair MD) Carolina Pickett Jun 24, 2017 14:33 Cuba Sinclair MD Jun 24, 2017 17:53
== END 2017-06-24 16:00 | disposition home or self-care (01) | DRG 445 ==
LOC: PHEFT 16:53 → PHEDA 19:28 → OBSVTOIN 19:29 → HCIS 22:54 → N07A 06-21 15:55
PROVIDERS: ADMIT Hospitalist; ATTEND Hospitalist
PROC: 0FBC8ZX Excision of Ampulla of Vater, Via Natural or Artificial Opening Endoscopic, Diagnostic (ICD-10-PCS; 2017-06-20)
PROC: 0DB98ZX Excision of Duodenum, Via Natural or Artificial Opening Endoscopic, Diagnostic (ICD-10-PCS; 2017-06-20)
PROC: 0F7C8DZ Dilation of Ampulla of Vater with Intraluminal Device, Via Natural or Artificial Opening Endoscopic (ICD-10-PCS; principal; 2017-06-20 09:31)
DX: K83.8 Other specified diseases of biliary tract (principal); R17 Unspecified jaundice; C17.0 Malignant neoplasm of duodenum; E80.6 Other disorders of bilirubin metabolism; K83.1 Obstruction of bile duct; L29.9 Pruritus, unspecified; E16.2 Hypoglycemia, unspecified
CPT/HCPCS: 74176; 74177; 74181; 74183; 74330; 76377; 80053; 80074; 81001; 82103; 82247; 82378; 82390; 82728; 83036; 83520; 83540; 83550; 83690; 84443; 85025; 85027; 86038; 86255; 86301; 86376; 87328; 87329; 87493; 87506; 88112; 88305; 99285; A9579; C1769; C2625; J0171; J1100; J1200; J2405; J2543; J2710; J3010; J7030; Q0163; Q9967

== ENCOUNTER → 2017-07-19 | Outpatient (CLI) | DX: K83.1 Obstruction of bile duct (principal); K86.89 Other specified diseases of pancreas; R94.31 Abnormal electrocardiogram [ECG] [EKG] | CPT/HCPCS: 00732; 43276; 74330; 93005; C1769; C2625; J7120; Q9967 ==

== ENCOUNTER 2017-07-29 05:26 | Inpatient (IN) | payer OTHER ==
[~2017-07-29] VITALS: Ht 170.2 cm; Wt 75.0 kg
[2017-07-29] MEDS ORDERED: CHLORHEXIDINE GLUCONATE 2 % 1 PACK (2 CLOTHS) TOPICAL PRN (06:00)
[2017-07-29] MEDS ORDERED: POVIDONE IODINE 5% (ANTISEPSIS KIT) 4 APPLICATIONS EACH NARE PRN (06:00)
[2017-07-29] MEDS ORDERED: LACTATED RINGER'S 1000 ML IV PRN (06:00)
[2017-07-29] MEDS ORDERED: METOPROLOL TARTRATE 25 MG TAB PO PRN (06:00)
[2017-07-29] MEDS ORDERED: SODIUM CHLORID 0.9% 500 ML IV PRN (06:00)
[2017-07-29] MEDS ORDERED: ceFAZolin 2 GM/DEX PREMIX 50 ML IV SCH (06:00)
[2017-07-29 06:36] VITALS: PULSE 68
[2017-07-29] MEDS ORDERED: SODIUM CHLORIDE 0.9% INJ 50 ML ONE (07:17)
[2017-07-29] MEDS ORDERED: BUPRENORPHINE HCL 0.3 MG/1 ML VIAL ONE (07:18)
[2017-07-29] MEDS ORDERED: BUPIVACAINE LIPOSOME PF 1.3% 20 ML VIAL ONE (07:18)
[2017-07-29] MEDS ORDERED: SUGAMMADEX SODIUM 200 MG/2 ML VIAL IV PUSH ONE (11:12)
[2017-07-29] MEDS ORDERED: LIDOCAINE HCL 1% PF 5 ML SYRINGE OTHER ONE (12:00)
[2017-07-29] MEDS ORDERED: SODIUM CHLORID 0.9% 500 ML INJ 500 ML IV ONE (12:00)
[2017-07-29] MEDS ORDERED: PHENYLEPHRINE HCL 10 MG/ML VIAL IV ONE (12:00)
[2017-07-29] MEDS ORDERED: VECURONIUM BROMIDE 20 MG VIAL IV ONE (12:00)
[2017-07-29] MEDS ORDERED: PHENYLEPH/NS 1000 MCG/10 ML SYR IV ONE (12:00)
[2017-07-29] MEDS ORDERED: ROCURONIUM INJ 50 MG/5 ML SYRINGE IV PUSH ONE (12:00)
[2017-07-29] MEDS ORDERED: LACTATED RINGER'S 1000 ML INJ 1,000 ML IV ONE (12:00)
[2017-07-29] MEDS ORDERED: NORMOSOL R INJ 1,000 ML IV ONE (12:00)
[2017-07-29] MEDS ORDERED: PROPOFOL 200 MG/20 ML AMP IV ONE (12:00)
[2017-07-29] MEDS ORDERED: DEXAMETHASONE SOD PHOS 4 MG/ML VIAL IV ONE (12:00)
[2017-07-29] MEDS ORDERED: ONDANSETRON HCL 4 MG/2 ML VIAL IV PUSH ONE (12:00)
[2017-07-29] MEDS ORDERED: ePHEDrine/NS 25 MG/5 ML SYRINGE IV ONE (12:00)
[2017-07-29] MEDS ORDERED: Post-op Orders (for Pharmacy) XX ONE (12:00)
[2017-07-29] MEDS ORDERED: *morphine SULFATE 4 MG/ML PERIprocedure ONLY ONE ×2 (12:02→12:17)
[2017-07-29] MEDS ORDERED: MIDAZOLAM HCL 2 MG/2 ML VIAL ONE (12:09)
[2017-07-29] MEDS ORDERED: MORPHINE SULFATE 4 MG/ML INJ ONE (12:09)
[2017-07-29] MEDS ORDERED: SODIUM CHLORIDE 0.9% FLUSH 10 ML FLUSH IV FLUSH PRN (12:30)
[2017-07-29] MEDS ORDERED: diphenhydrAMINE HCL 50 MG/ML VIAL IV PUSH PRN (12:30)
[2017-07-29] MEDS ORDERED: PROMETHAZINE HCL 25 MG SUPP RECTAL PRN (12:30)
[2017-07-29] MEDS ORDERED: LORazepam 2 MG/ML VIAL IVP PRN (12:30)
[2017-07-29] MEDS ORDERED: BENZOCAINE 20% ORAL SPR 60 ML CAN MT PRN (12:30)
[2017-07-29] MEDS: LACTATED RINGER'S 1000 ML INJ 1,000 ML IV SCH ×2 (12:30→20:09)
[2017-07-29] MEDS ORDERED: NALOXONE HCL 0.4 MG/ML AMP IV PUSH PRN ×2 (12:30)
[2017-07-29] MEDS ORDERED: DO NOT ADM ANY ANTICOAGULANT DRUGS PRN (13:30)
[2017-07-29] MEDS: PCA - TOTAL MG MORPHINE DELIVERED PER SHIFT SCH ×2 (14:00→20:08)
[2017-07-29 14:30] VITALS: PULSE 76
[2017-07-29] MEDS: SODIUM CHLORIDE 0.9% FLUSH 10 ML FLUSH IV FLUSH SCH ×2 (14:30→20:09)
[2017-07-29] MEDS ORDERED: ONDANSETRON ODT 4 MG TAB PO PRN (15:00)
[2017-07-29] MEDS ORDERED: ACETAMINOPHEN 1000 MG/100 ML 100 ML IV SCH (15:00)
[2017-07-29] MEDS: MORPHINE SULFATE 30 MG/30 ML PCA IV SCH (15:33)
[2017-07-29] MEDS: ACETAMINOPHEN 1000 MG/100 ML 100 ML IV SCH ×2 (15:36→20:08)
--- NOTE | 2017-07-29 15:39 | MP ---
cc: Hayder Zaragoza MD DATE OF OPERATION: 07/29/2017 DATE OF SURGERY: 07/29/2017. 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 POSTOPERATIVE DIAGNOSIS: Locally advanced adenocarcinoma suspicious for pancreas primary. ATTENDING SURGEON: MD Mila PHARMACY AIDE: Gage Navarro MD ANESTHESIA: General and regional TAP block. PROCEDURE PERFORMED: 1. Exploratory laparotomy. 2. Kocherization of duodenum. 3. Open cholecystectomy. 4. Biopsy of celiac lymph node. 5. Intraoperative frozen section. 6. Biopsy of pancreas mass in the body and tail of the pancreas with intraoperative frozen section. 7. Biopsy of transverse mesocolon mass. COMPLICATIONS: None. ESTIMATED BLOOD LOSS: 100 mL FINDINGS: 1. A large tumor in the head of the pancreas, grossly appears to extend into the neck and body of the pancreas as well into the tail with adherence densely to the superior mesenteric vein as well as with palpable disease, likely lymph node disease of the transverse mesocolon. 2. No evidence of metastatic disease in the liver or peritoneum. INDICATIONS FOR PROCEDURE: The patient is a 57-year-old female who presented to the hospital with jaundice. The patient underwent evaluation including an endoscopy and biopsy, a duodenal biopsy did return strongly suspicious for invasive adenocarcinoma. This was done on 06/20/2017. Imaging including CT scan was performed of pancreatic head mass. There is no evidence of vascular invasion or unresectability on CT imaging. I discussed with the patient and her daughter about treatment options including upfront resection and exploration versus neoadjuvant approach such as chemotherapy or radiation. Due to the concern of a duodenal or ampullary primary and the tumor appearing to be resectable on preoperative imaging, upfront resection would be indicated. I discussed resection including Whipple procedure with the patient and her daughter extensively including the risks, benefits, alternatives, and they agreed to undergo the procedure. PROCEDURE: After informed consent was obtained, the patient was taken to the operating room and placed in a supine position and placed under general endotracheal anesthesia. The patient did undergo a regional TAP block of the abdominal wall. The patient's abdomen was prepped and draped in sterile fashion. Timeout was performed. The patient's abdomen was entered through an upper midline incision from below the xiphoid to the umbilicus with a 10 blade scalpel. Bovie electrocautery was used to dissect the subcutaneous tissue and opened the midline fascia the complete length of the incision. An Maksim extra-large wound protector was placed. The Bookwalter retractor was replaced for better exposure. The abdomen was explored. There was no evidence of any metastatic disease or disease in the liver or carcinomatosis. On initial feeling of the tumor, this appeared to be a tumor that was rather large, but did not appear to be stuck to any retroperitoneal structures or any vessel. I opened up the gastrocolic ligament and extended this to the first portion of duodenum and then kocherized the duodenum and performed a Cattell maneuver to mobilize the right colon down, out of our operative field. This gave us excellent exposure of the pancreas at this time. We were able to visualize the pancreas and the disease process appeared to be densely into the head of the pancreas, down towards the uncinate and invading into the transverse mesocolon minimally. There were palpable areas of disease in this area as well. The disease extended from the neck all the way to the body and towards the tail of the pancreas as well. We found the middle colic vein and followed this down to the superior mesenteric vein. Attempts to mobilize this free under the pancreas to evaluate the possibility of resectability, the mesenteric vein was found to be densely adherent to the pancreas at this position. At this point in time, I did elect to perform some biopsies to gain a better understanding of the patient's process as this seemed to be much more extensive than the patient's preoperative imaging and endoscopies had suggested. We did perform intraoperative evaluation and frozen section of a biopsy of the celiac lymph node as well as the body of the pancreas. We did use the right angle as well as Bovie electrocautery to remove a palpable node in the celiac [place]ia [place]. We also used the right angle and the electrocautery as well as a 15 blade scalpel on a long handle to take 2 separate biopsies of the pancreas, body and tail. These were indeterminate on frozen section and malignancy could not be excluded. There was certainly evidence of pancreatitis. MD SUN Catalan/JUAN LUIS , 02:21 PM , 03:38 PM
[2017-07-29 16:00] VITALS: PULSE 75
[2017-07-29 18:00] VITALS: PULSE 67
[2017-07-29 20:00] VITALS: BP 101/59; PULSE 60; RESP 9; TEMP 96.6; O2SAT 100
[2017-07-29] MEDS: FAMOTIDINE 20 MG/2 ML VIAL IV PUSH SCH (20:08)
[2017-07-29 22:00] VITALS: PULSE 62
[2017-07-30] VITALS (13 sets, daily range): BP systolic 85–116; BP diastolic 51–58; PULSE 56–82; RESP 8–24; TEMP 97.3–98.2; O2SAT 66–100
[2017-07-30] MEDS: ACETAMINOPHEN 1000 MG/100 ML 100 ML IV SCH ×2 (03:30→09:17)
[2017-07-30] MEDS: LACTATED RINGER'S 1000 ML INJ 1,000 ML IV SCH ×3 (04:26→20:20)
[2017-07-30 04:56] LABS: AUTOMATED NEUTROPHIL # 4.7 TH/MM3 (1.8-7.7); BASOPHIL % 0.2 % (0.0-2.0); EOSINOPHIL % 0.2 % (0.0-4.0); HEMATOCRIT 29.9 % (35.0-46.0); HEMOGLOBIN 10.5 GM/DL (11.6-15.3); LYMPH % 26.1 % (9.0-44.0); LYMPHOCYTE # 1.8 TH/MM3 (1.0-4.8); MEAN CELL VOLUME 87.5 FL (80.0-100.0); MEAN CORPUSCULAR HEMOGLOBIN 30.7 PG (27.0-34.0); MEAN CORPUSCULAR HGB CONC 35.1 % (32.0-36.0); MEAN PLATELET VOLUME 8.1 FL (7.0-11.0); MONO % 4.8 % (0.0-8.0); MONOCYTE # 0.3 TH/MM3 (0-0.9); NEUT % 68.7 % (16.0-70.0); PLATELET COUNT 221 TH/MM3 (150-450); RED BLOOD COUNT 3.42 MIL/MM3 (4.00-5.30); WHITE BLOOD COUNT 6.8 TH/MM3 (4.0-11.0)
[2017-07-30] MEDS: PCA - TOTAL MG MORPHINE DELIVERED PER SHIFT SCH ×3 (05:09→20:20)
[2017-07-30 05:18] LABS: ALBUMIN 2.6 GM/DL (3.4-5.0); BICARBONATE 26.2 MEQ/L (21.0-32.0); CREATININE 0.66 MG/DL (0.50-1.00); DIRECT BILIRUBIN ADULT 0.3 MG/DL (0.0-0.2)
[2017-07-30 05:21] LABS: INDIRECT BILIRUBIN 0.2 MG/DL (0.0-0.8); TOTAL BILIRUBIN ADULT 0.5 MG/DL (0.2-1.0); TOTAL PROTEIN 5.3 GM/DL (6.4-8.2)
[2017-07-30] MEDS: MORPHINE SULFATE 30 MG/30 ML PCA IV SCH (07:09)
[2017-07-30] MEDS: FAMOTIDINE 20 MG/2 ML VIAL IV PUSH SCH ×2 (08:00→20:58)
[2017-07-30] MEDS: SODIUM CHLORIDE 0.9% FLUSH 10 ML FLUSH IV FLUSH SCH ×2 (08:00→20:20)
[2017-07-30] MEDS ORDERED: LACTATED RINGER'S 1000 ML INJ 1,000 ML IV SCH (10:30)
[2017-07-30] MEDS: ENOXAPARIN SODIUM 40 MG/0.4 ML SYRINGE SQ SCH (11:59)
[2017-07-30] MEDS ORDERED: SODIUM CHLOR 0.9% 1000 ML INJ 1,000 ML IV ONE (14:45)
--- NOTE | 2017-07-30 15:34 | HHI.PR ---
Subjective Subjective Notes Feels ok, moderate pain Low SBP starting mid-morning; has already received one fluid bolus Objective Vitals/I&O Vital Signs Date Time Temp Pulse Resp B/P (MAP) Pulse Ox O2 Delivery O2 Flow Rate FiO2 07/30/17 14:00 15 07/30/17 14:00 60 07/30/17 12:00 97.8 85/53 (64) 94 07/30/17 08:20 21 07/30/17 07:00 Nasal Cannula 2.00 Labs Laboratory Tests Test 07/30/17 04:38 White Blood Count 6.8 Red Blood Count 3.42 Hemoglobin 10.5 Hematocrit 29.9 Mean Corpuscular Volume 87.5 Mean Corpuscular Hemoglobin 30.7 Mean Corpuscular Hemoglobin Concent 35.1 Red Cell Distribution Width 14.0 Platelet Count 221 Mean Platelet Volume 8.1 Neutrophils (%) (Auto) 68.7 Lymphocytes (%) (Auto) 26.1 Monocytes (%) (Auto) 4.8 Eosinophils (%) (Auto) 0.2 Basophils (%) (Auto) 0.2 Neutrophils # (Auto) 4.7 Lymphocytes # (Auto) 1.8 Monocytes # (Auto) 0.3 Eosinophils # (Auto) 0.0 Basophils # (Auto) 0.0 CBC Comment DIFF FINAL Differential Comment Blood Urea Nitrogen 10 Creatinine 0.66 Random Glucose 177 Total Protein 5.3 Albumin 2.6 Calcium Level 8.0 Alkaline Phosphatase 203 Aspartate Amino Transf (AST/SGOT) 48 Alanine Aminotransferase (ALT/SGPT) 67 Total Bilirubin 0.5 Direct Bilirubin 0.3 Sodium Level 139 Potassium Level 4.4 Chloride Level 105 Carbon Dioxide Level 26.2 Anion Gap 8 Estimat Glomerular Filtration Rate 92 Indirect Bilirubin 0.2 Lungs: Clear Abdomen: Post-op tenderness Narrative Exam TRUMAN dressing intact with minimal drainage KRYSTINA output serosanguineous; not bloody A/P Problem List: (1) Common bile duct dilatation ICD Codes: K83.8 - Other specified diseases of biliary tract (2) Jaundice ICD Codes: R17 - Unspecified jaundice Assessment and Plan POD #1 Ex lap/cholecystectomy/pancreatic biopsy Hypotensive today; etiology not clear No obvious signs of bleeding Will check Hb/Hct; will give one more bolus Gage Navarro MD Jul 30, 2017 15:34
[2017-07-30 17:24] LABS: HEMATOCRIT 29.8 % (35.0-46.0); HEMOGLOBIN 10.5 GM/DL (11.6-15.3)
[2017-07-31] VITALS (14 sets, daily range): BP systolic 100–118; BP diastolic 53–64; PULSE 64–92; RESP 13–24; TEMP 98.3–99.4; O2SAT 94–99
[2017-07-31 04:43] LABS: AUTOMATED NEUTROPHIL # 5.1 TH/MM3 (1.8-7.7); BASOPHIL % 0.3 % (0.0-2.0); EOSINOPHIL # 0.1 TH/MM3 (0-0.4); EOSINOPHIL % 0.8 % (0.0-4.0); HEMATOCRIT 28.3 % (35.0-46.0); LYMPH % 26.8 % (9.0-44.0); MEAN CELL VOLUME 86.8 FL (80.0-100.0); MEAN CORPUSCULAR HEMOGLOBIN 30.5 PG (27.0-34.0); MEAN CORPUSCULAR HGB CONC 35.2 % (32.0-36.0); MONO % 4.4 % (0.0-8.0); MONOCYTE # 0.3 TH/MM3 (0-0.9); NEUT % 67.7 % (16.0-70.0); PLATELET COUNT 212 TH/MM3 (150-450); RED BLOOD COUNT 3.26 MIL/MM3 (4.00-5.30); RED CELL DISTRIBUTION WIDTH 14.2 % (11.6-17.2); WHITE BLOOD COUNT 7.6 TH/MM3 (4.0-11.0)
[2017-07-31] MEDS: LACTATED RINGER'S 1000 ML INJ 1,000 ML IV SCH ×3 (04:56→20:20)
[2017-07-31 05:06] LABS: BICARBONATE 25.3 MEQ/L (21.0-32.0); CALCIUM 7.5 MG/DL (8.5-10.1); CREATININE 0.51 MG/DL (0.50-1.00)
[2017-07-31] MEDS: PCA - TOTAL MG MORPHINE DELIVERED PER SHIFT SCH ×3 (06:00→20:38)
[2017-07-31] MEDS: SODIUM CHLORIDE 0.9% FLUSH 10 ML FLUSH IV FLUSH SCH ×2 (08:46→20:34)
[2017-07-31] MEDS: FAMOTIDINE 20 MG/2 ML VIAL IV PUSH SCH ×2 (08:46→20:36)
[2017-07-31] MEDS: MORPHINE SULFATE 30 MG/30 ML PCA IV SCH (09:46)
--- NOTE | 2017-07-31 10:29 | HHI.PR ---
Subjective Subjective Notes bp better, no nausea, no flatus Objective Vitals/I&O Vital Signs Date Time Temp Pulse Resp B/P (MAP) Pulse Ox O2 Delivery O2 Flow Rate FiO2 07/31/17 09:46 20 07/31/17 08:16 95 21 07/31/17 08:00 85 07/31/17 08:00 98.3 102/53 (69) 07/31/17 07:00 Room Air 07/30/17 20:00 2.00 Labs Laboratory Tests Test 07/30/17 16:36 07/31/17 03:08 Hemoglobin 10.5 10.0 Hematocrit 29.8 28.3 White Blood Count 7.6 Red Blood Count 3.26 Mean Corpuscular Volume 86.8 Mean Corpuscular Hemoglobin 30.5 Mean Corpuscular Hemoglobin Concent 35.2 Red Cell Distribution Width 14.2 Platelet Count 212 Mean Platelet Volume 8.0 Neutrophils (%) (Auto) 67.7 Lymphocytes (%) (Auto) 26.8 Monocytes (%) (Auto) 4.4 Eosinophils (%) (Auto) 0.8 Basophils (%) (Auto) 0.3 Neutrophils # (Auto) 5.1 Lymphocytes # (Auto) 2.0 Monocytes # (Auto) 0.3 Eosinophils # (Auto) 0.1 Basophils # (Auto) 0.0 CBC Comment DIFF FINAL Differential Comment Blood Urea Nitrogen 6 Creatinine 0.51 Random Glucose 116 Calcium Level 7.5 Sodium Level 140 Potassium Level 3.9 Chloride Level 105 Carbon Dioxide Level 25.3 Anion Gap 10 Estimat Glomerular Filtration Rate 124 Lungs: Clear Abdomen: Other (soft shorty in place nancy serous) A/P Problem List: (1) Common bile duct dilatation ICD Codes: K83.8 - Other specified diseases of biliary tract (2) Jaundice ICD Codes: R17 - Unspecified jaundice Assessment and Plan POD #2 Ex lap/cholecystectomy/pancreatic biopsy Hypotension improved after bolus No obvious signs of bleeding hh stable ambulate advance to full diet possible transfer later today keep ritter for Is and Os Sorin Lowry MD Jul 31, 2017 10:29
[2017-07-31] MEDS: ENOXAPARIN SODIUM 40 MG/0.4 ML SYRINGE SQ SCH (10:42)
[2017-07-31] MEDS: DOCUSATE SODIUM 50 MG/SENNA 8.6 MG TAB PO SCH (10:50)
[2017-08-01] VITALS (11 sets, daily range): BP systolic 113–136; BP diastolic 60–69; PULSE 76–93; RESP 15–24; TEMP 97.9–98.6; O2SAT 95–100
[2017-08-01] MEDS: LACTATED RINGER'S 1000 ML INJ 1,000 ML IV SCH ×2 (04:48→12:20)
[2017-08-01] MEDS: PCA - TOTAL MG MORPHINE DELIVERED PER SHIFT SCH (05:51)
[2017-08-01] MEDS: DOCUSATE SODIUM 50 MG/SENNA 8.6 MG TAB PO SCH ×2 (09:00→09:10)
[2017-08-01] MEDS: FAMOTIDINE 20 MG/2 ML VIAL IV PUSH SCH ×2 (09:10→21:02)
[2017-08-01] MEDS: SODIUM CHLORIDE 0.9% FLUSH 10 ML FLUSH IV FLUSH SCH ×2 (09:10→21:02)
[2017-08-01] MEDS: ENOXAPARIN SODIUM 40 MG/0.4 ML SYRINGE SQ SCH (09:10)
[2017-08-01] MEDS ORDERED: ACETAMINOPHEN/HYDROcodone 325 MG/5 MG TAB PO PRN (14:00)
--- NOTE | 2017-08-01 14:05 | HHI.PR ---
Subjective Subjective Notes Up to chair No complaints except that is it difficult to ambulate with Dia bag Objective Vitals/I&O Vital Signs Date Time Temp Pulse Resp B/P (MAP) Pulse Ox O2 Delivery O2 Flow Rate FiO2 08/01/17 12:00 98.3 82 24 117/61 (79) 97 08/01/17 08:00 21 08/01/17 07:00 Room Air 07/30/17 20:00 2.00 Cardiovascular: Regular Lungs: Clear Abdomen: Other (TRUMAN in place; KRYSTINA with SS drainage ) Extremities: No edema Narrative Exam Dia in place with clear yellow urine A/P Problem List: (1) Common bile duct dilatation ICD Codes: K83.8 - Other specified diseases of biliary tract (2) Jaundice ICD Codes: R17 - Unspecified jaundice Assessment and Plan 57 year old female POD3 POD #2 Ex lap/cholecystectomy/pancreatic biopsy -Await biopsy results -No further hypotension -DC IVF; DC TRAINING DEVELOPMENT DIRECTOR -Added [place] -DC Dia -OOB and mobilize -IS -Lovenox -Transfer to 7N Attending Statement The exam, history, and the medical decision-making described in the above note were completed with the assistance of the mid-level provider. I reviewed and agree with the findings presented. I attest that I had a [id number] encounter with the patient on the same day, and personally performed and documented my assessment and findings in the medical record. s/p exlap, open shandra stable, bowel function returning OOB await path Kathrine Park/Lamp Mechanic TONIA Aug 01, 2017 14:05 Hayder Zaragoza MD Aug 02, 2017 15:09
[2017-08-01] MEDS: ACETAMINOPHEN/HYDROcodone 325 MG/5 MG TAB PO PRN (15:53)
[2017-08-02 00:40] VITALS: BP 131/70; PULSE 76; RESP 18; TEMP 98.3; O2SAT 97
[2017-08-02] MEDS: ACETAMINOPHEN/HYDROcodone 325 MG/5 MG TAB PO PRN ×3 (00:57→18:33)
[2017-08-02 08:00] VITALS: BP 120/62; PULSE 76; RESP 18; TEMP 98; O2SAT 97
[2017-08-02] MEDS: SODIUM CHLORIDE 0.9% FLUSH 10 ML FLUSH IV FLUSH SCH ×2 (08:07→21:44)
[2017-08-02] MEDS: FAMOTIDINE 20 MG/2 ML VIAL IV PUSH SCH ×2 (08:07→21:44)
[2017-08-02] MEDS: DOCUSATE SODIUM 50 MG/SENNA 8.6 MG TAB PO SCH (08:09)
[2017-08-02] MEDS: ENOXAPARIN SODIUM 40 MG/0.4 ML SYRINGE SQ SCH (11:08)
--- NOTE | 2017-08-02 11:33 | HHI.PR ---
Subjective Subjective Notes Up to chair No complaints Anxious to get biopsy results back Objective Vitals/I&O Vital Signs Date Time Temp Pulse Resp B/P (MAP) Pulse Ox O2 Delivery O2 Flow Rate FiO2 08/02/17 08:00 98.0 76 18 120/62 (81) 97 08/02/17 01:32 Room Air 08/01/17 08:00 21 07/30/17 20:00 2.00 Cardiovascular: Regular Lungs: Clear Abdomen: Other (midline incision with hussein; KRYSTINA with SS drainage ) Extremities: No edema A/P Problem List: (1) Common bile duct dilatation ICD Codes: K83.8 - Other specified diseases of biliary tract (2) Jaundice ICD Codes: R17 - Unspecified jaundice Assessment and Plan 57 year old female POD4 Ex lap/cholecystectomy/pancreatic biopsy -Await biopsy results -VSS -Regular diet -[place] for pain control -OOB and mobilize -IS -Lovenox Attending Statement The exam, history, and the medical decision-making described in the above note were completed with the assistance of the mid-level provider. I reviewed and agree with the findings presented. I attest that I had a hchx-[id number] encounter with the patient on the same day, and personally performed and documented my assessment and findings in the medical record. pain controlled OOB tolerating diet mild PO ileus, will DC home soon once has full return of bowel function Kathrine Park/Dsp Engineer TONIA Aug 02, 2017 11:33 Hayder Zaragoza MD Aug 02, 2017 15:12
[2017-08-02 12:00] VITALS: BP 119/55; PULSE 78; RESP 16; TEMP 97.6; O2SAT 99
[2017-08-02 16:00] VITALS: BP 127/64; PULSE 77; RESP 18; TEMP 97.9; O2SAT 96
[2017-08-02 20:00] VITALS: BP 121/60; PULSE 87; RESP 16; TEMP 98.6; O2SAT 97
[2017-08-03] VITALS: BP 125/62; PULSE 89; RESP 16; TEMP 98.6; O2SAT 95
[2017-08-03] MEDS: ACETAMINOPHEN/HYDROcodone 325 MG/5 MG TAB PO PRN (06:10)
[2017-08-03 08:00] VITALS: BP 123/60; PULSE 74; RESP 17; TEMP 97.3; O2SAT 96
[2017-08-03] MEDS: FAMOTIDINE 20 MG/2 ML VIAL IV PUSH SCH (08:34)
[2017-08-03] MEDS: DOCUSATE SODIUM 50 MG/SENNA 8.6 MG TAB PO SCH (08:34)
[2017-08-03] MEDS: SODIUM CHLORIDE 0.9% FLUSH 10 ML FLUSH IV FLUSH SCH (08:35)
[2017-08-03] MEDS: ENOXAPARIN SODIUM 40 MG/0.4 ML SYRINGE SQ SCH (11:09)
[2017-08-03 12:00] VITALS: BP 112/56; PULSE 72; RESP 17; TEMP 97.4; O2SAT 98
[2017-08-03] MEDS ORDERED: HYDR-3516 PO (15:43)
[2017-08-03 16:00] VITALS: BP 137/64; PULSE 77; RESP 17; TEMP 97.2; O2SAT 100
--- NOTE | 2017-08-03 16:21 | HHI.DS ---
Discharge Summary Admission Date Jul 29, 2017 at 05:26 Discharge Date: Aug 03, 2017 Admitting Diagnosis (1) Common bile duct dilatation ICD Codes: K83.8 - Other specified diseases of biliary tract (2) Jaundice ICD Codes: R17 - Unspecified jaundice Brief History 57 year old female POD5 Ex lap/cholecystectomy/pancreatic biopsy CBC/BMP: 07/31/17 0308 07/31/17 0308 Hospital Course This is a 57 year old female POD5 Ex lap/cholecystectomy/pancreatic biopsy. The patient's diet was advanced as tolerated. Her pain was controlled using oral pain medications. She was able to ambulate independently. She will follow up next for biopsy results. Pt Condition on Discharge: Good Discharge Disposition: Discharge Home Discharge Instructions DIET: Follow Instructions for: As Tolerated, No Restrictions Activities you can perform: See Additionl Instruction Other Activity Instructions: Okay to shower; pat incisions dry No bath tubs/swimming pool/beach until office visit Avoid heavy pushing/pulling/lifting Kathrine Park/First Alicia RANDALL Aug 03, 2017 16:21
== END 2017-08-03 18:32 | disposition home or self-care (01) | DRG 356 ==
LOC: HSDI 05:26 → N03B 14:28 → N07A 08-01 18:37
PROVIDERS: ADMIT Surgery; ATTEND Surgery
PROC: 07BD0ZX Excision of Aortic Lymphatic, Open Approach, Diagnostic (ICD-10-PCS; 2017-07-29)
PROC: 0FBG0ZX Excision of Pancreas, Open Approach, Diagnostic (ICD-10-PCS; 2017-07-29)
PROC: 3E0T3BZ Introduction of Anesthetic Agent into Peripheral Nerves and Plexi, Percutaneous Approach (ICD-10-PCS; 2017-07-29)
PROC: 0FT40ZZ Resection of Gallbladder, Open Approach (ICD-10-PCS; principal; 2017-07-29 08:16)
DX: D37.8 Neoplasm of uncertain behavior of other specified digestive organs (principal); K85.90 Acute pancreatitis without necrosis or infection, unspecified; I95.9 Hypotension, unspecified; R17 Unspecified jaundice; C17.0 Malignant neoplasm of duodenum
CPT/HCPCS: 80048; 80076; 85014; 85018; 85025; 85610; 86850; 86900; 86901; 86920; 88304; 88305; 88307; 88331; 88341; 88342; 94150; C1765; C9290; J0131; J0592; J0690; J1100; J1650; J2250; J2270; J2370; J2405; J3010; J7030; J7040; J7120

== ENCOUNTER 2017-08-18 06:58 | Inpatient (IN) | payer OTHER ==
[~2017-08-18] VITALS: Ht 170.2 cm; Wt 63.5 kg
[2017-08-18] VITALS (9 sets, daily range): BP systolic 91–144; BP diastolic 51–75; PULSE 78–97; RESP 18–20; TEMP 97.5–98.5; O2SAT 99–100
[~2017-08-18 06:58] MED LIST changes: +HYDR-3516 PO; -PERM5CRE TOPICAL
[2017-08-18] MEDS ORDERED: SODIUM CHLOR 0.9% 1000 ML INJ 1,000 ML IV SCH (07:36)
[2017-08-18] MEDS ORDERED: PROCHLORPERAZINE INJ 10 MG/2 ML VIAL IV PUSH ONE (07:45)
[2017-08-18] MEDS ORDERED: MORPHINE SULFATE 4 MG/ML INJ IV PUSH ONE ×2 (07:45→10:30)
[2017-08-18 07:49] LABS: AUTOMATED NEUTROPHIL # 7.6 TH/MM3 (1.8-7.7); BASOPHIL # 0.1 TH/MM3 (0-0.2); BASOPHIL % 0.6 % (0.0-2.0); EOSINOPHIL # 0.1 TH/MM3 (0-0.4); EOSINOPHIL % 0.7 % (0.0-4.0); HEMATOCRIT 37.9 % (35.0-46.0); HEMOGLOBIN 12.9 GM/DL (11.6-15.3); LYMPH % 18.8 % (9.0-44.0); LYMPHOCYTE # 1.9 TH/MM3 (1.0-4.8); MEAN CELL VOLUME 85.7 FL (80.0-100.0); MEAN CORPUSCULAR HEMOGLOBIN 29.3 PG (27.0-34.0); MEAN CORPUSCULAR HGB CONC 34.2 % (32.0-36.0); MEAN PLATELET VOLUME 7.7 FL (7.0-11.0); MONO % 3.6 % (0.0-8.0); MONOCYTE # 0.4 TH/MM3 (0-0.9); NEUT % 76.3 % (16.0-70.0); PLATELET COUNT 372 TH/MM3 (150-450); RED BLOOD COUNT 4.42 MIL/MM3 (4.00-5.30); RED CELL DISTRIBUTION WIDTH 12.8 % (11.6-17.2)
[2017-08-18] MEDS: SODIUM CHLORIDE 0.9% FLUSH 10 ML FLUSH IV FLUSH PRN ×2 (07:54→10:29)
[2017-08-18 08:01] LABS: PROTHROMBIN TIME - PATIENT 10.5 SEC (9.8-11.6)
[2017-08-18] MEDS ORDERED: ZOFR4TAB3 SL (08:03)
[2017-08-18] MEDS ORDERED: OMEP20TA93 PO (08:03)
[2017-08-18 08:12] LABS: ALBUMIN 3.4 GM/DL (3.4-5.0); AST (GOT) 31 U/L (15-37); BICARBONATE 21.9 MEQ/L (21.0-32.0); BLOOD UREA NITROGEN 7 MG/DL (7-18); CALCIUM 9.3 MG/DL (8.5-10.1); CHLORIDE 102 MEQ/L (98-107); CREATININE 0.84 MG/DL (0.50-1.00); GLUCOSE,RANDOM 143 MG/DL (74-106); SODIUM (NA) 138 MEQ/L (136-145)
[2017-08-18 08:13] LABS: ALT (GPT) 62 U/L (10-53)
[2017-08-18 08:15] LABS: ALKALINE PHOSPHATASE 549 U/L (45-117); TOTAL BILIRUBIN ADULT 0.6 MG/DL (0.2-1.0)
[2017-08-18] MEDS ORDERED: IOHEXOL 350 MG/ML 10 ML VIAL (for RAD DIAG) IVCONTRAST ONE (08:51)
--- NOTE | 2017-08-18 09:46 | RADRPT ---
EXAM DATE: 08/18/2017 8:57 AM EDT AGE/SEX: 57 years / Female INDICATIONS: Abdominal pain. Nausea and vomiting. CLINICAL DATA: This is the patient's initial encounter. Patient reports that signs and symptoms have been present for 1 week and indicates a pain score of 4/10. MEDICAL/SURGICAL HISTORY: Carcinoma, pancreas. None. ORAL CONTRAST: No oral contrast ingested. RADIATION DOSE: 6.64 CTDI (mGy) COMPARISON: C, CT ABDOMEN & PELVIS W/O CONTRAST, 06/23/2017. PO, CT ABDOMEN & PELVIS W CONTR AST, 06/18/2017. [facility], MRI ABDOMEN W & W/O CONTRAST, 06/22/2017. . TECHNIQUE: Multiple contiguous axial images were obtained through the abdomen and pelvis following b olus infusion of 74 ml Omnipaque 350 (iohexol) nonionic water-soluble contrast as a single exam dos e. No oral contrast ingested. Using automated exposure control and adjustment of the mA and/or kV ac cording to patient size, radiation dose was kept as low as reasonably achievable to obtain optimal di agnostic quality images. DICOM format image data is available electronically for review and comparis on. FINDINGS: Lower chest: There is atelectasis in both lower lobes. Hepatobiliary: There is a geographic area of low density adjacent to the falciform ligament measuring 1.4 cm. No other liver lesion is identified. Hepatic and portal vein demonstrate no thrombus. Gallbl adder is absent with clips in the gallbladder fossa. There is a stent extending from the hilum of the liver through the common bile duct and terminating in second portion duodenum. There is no significa nt bile duct dilatation. Kidneys: No hydronephrosis, stone, or mass. Adrenal Glands: Within normal limits. Spleen: There is a stable nonspecific low density in the lateral tip of the spleen measuring 7 mm. Pr ior MRI suggests this represents a cyst. Pancreas: There is a low-density mass centered in the pancreatic head measuring approximately 1.7 x 1 .5 cm somewhat prior examinations. There is no main duct dilatation. Vascular: The aorta is nonaneurysmal. There is moderate atherosclerotic disease. The origin of the portal vein at its junction with the splenic vein and superior mesenteric vein, it is significantly narrowed. There is no encasement of the superior mesenteric artery. Bowel/Mesentery: There is mass effect on the stomach secondary to a cystic lesion along the greater c urvature measuring 10.3 x 9.2 x 12.0 cm. And demonstrates a simple appearance. It also abuts the tail of the pancreas and distal transverse colon. The stomach demonstrates submucosal edema. Small bowel and colon demonstrate no acute finding. There is trace free fluid in the pelvis. There is stranding w ithin the mesenteric fat. No omental or peritoneal nodules are seen. Abdominal Wall: There are postsurgical changes on the anterior abdominal wall. Retroperitoneum: No lymphadenopathy. Bladder: No wall thickening or mass. Reproductive: Uterus demonstrates no abnormality. There is a cystic lesion/follicle in the left ovary measuring 1.9 cm. There is a complex appearing cystic lesion right ovary measuring 2.2 cm. Free flui d in the pelvis adjacent to the right ovary. Inguinal: No lymphadenopathy or hernia. Musculoskeletal: No acute osseous abnormality is identified. There are degenerative changes of the ann-marie mbar spine. No lytic or blastic lesion is seen. CONCLUSION: 1. There is a cystic lesion with mass effect on the a stomach, transverse colon, and pancreas measur ing up to 12 cm. This finding is new from the prior studies. Given the prior procedure as this could represent a pancreatic pseudocyst but is otherwise of uncertain etiology. It may be causing the patie nt's symptoms given the mass effect on the stomach. 2. The mass in the pancreatic head is stable measuring up to 1.7 cm. There is no pancreatic or bile duct dilatation. The bile duct stent remains present. 3. There is significant narrowing at the origin of the portal vein but no arterial vascular encaseme nt is identified. 4. There is trace volume of free fluid in the pelvis from uncertain etiology. There are no other def inite findings to indicate peritoneal disease. However, this fluid is new from the prior examination. 5. There is a new low-density lesion in the liver measuring 1.4 cm. Given the anatomic location and appearance of focal fat deposition is favored, however, this lesion was not present on the a prior MR I. If it would alter clinical management consider liver MRI with and without intravenous contrast for further characterization. 6. Stable complex cystic lesions in the right ovary measuring up to 2.5 cm. Electronically signed by: Lebron Flores MD 08/18/2017 9:44 AM EDT
[2017-08-18 10:33] LABS: BILIRUBIN, URINE NEG (NEG); BLOOD, URINE NEG (NEG); GLUCOSE,URINE NEG (NEG); KETONE, URINE TRACE mg/dL (NEG); NITRITE,URINE NEG (NEG); SQUAMOUS EPITHELIAL CELL URINE 1 /hpf (0-5); URINE COLOR YELLOW (YELLW/STRAW); URINE LEUKOCYTE ESTERASE TRACE (NEG)
[2017-08-18] MEDS ORDERED: PIPERACIL-TAZO 3.375 GM PREMIX 50 ML IV ONE (11:30)
--- NOTE | 2017-08-18 11:31 | PD ---
HPI Chief Complaint: GI Complaint Time Seen by Provider: 07:27 Travel History International Travel<30 days: No Contact w/Intl Traveler<30days: No Traveled to known affect area: No History of Present Illness HPI Patient is a 57 year old female who comes in complaining of abdominal pain with nausea and vomiting. She has history of pancreatic cancer and had surgery performed at the beginning of the month by Dr. Zaragoza. She says her symptoms have been going on for the past week. She has tried taking Zofran and pain medicine, but this has not helped. She says the pain is in the epigastric area. She denies fever or chills. She says she has been moving her bowels normally. Severity is moderate. PFSH Past Medical History Cancer: Yes (INTESTINAL CA, pancreatic ca ) Cardiovascular Problems: No Diabetes: No Diminished Hearing: No Endocrine: No Genitourinary: No Hepatitis: No Immune Disorder: No Musculoskeletal: No Neurologic: No Psychiatric: No Reproductive: No Respiratory: No Thyroid Disease: No ?: Not Menopausal: Yes Past Surgical History Abdominal Surgery: Yes AICD: No Body Medical Devices: 1 STENT Cardiac Surgery: No Cholecystectomy: Yes Ear Surgery: No Endocrine Surgery: No Eye Surgery: No Genitourinary Surgery: No Joint Replacement: No Oral Surgery: No Pacemaker: No Thoracic Surgery: No Social History Alcohol Use: Yes (occ) Tobacco Use: No Substance Use: No Allergies-Medications (Allergen,Severity, Reaction): Coded Allergies: No Known Allergies (Verified Allergy, Unknown, 07/29/17) Reported Meds & Prescriptions Reported Meds & Active Scripts Active Reported Omeprazole 20 Mg Tab 20 Mg PO DAILY Zofran Odt (Ondansetron Odt) 4 Mg Tab 4 Mg SL Q8HR PRN Review of Systems Except as stated in HPI: all other systems reviewed are Neg General / Constitutional: No: Fever, Chills HENT: No: Headaches, Lightheadedness Cardiovascular: No: Chest Pain or Discomfort Respiratory: No: Shortness of Breath Gastrointestinal: Positive: Nausea, Vomiting, Abdominal Pain Musculoskeletal: No: Myalgias, Edema Skin: No Rash, No Change in Pigmentation Neurologic: No: Weakness, Dizziness Physical Exam Narrative GENERAL: Awake and alert, in no acute distress. SKIN: Focused skin assessment warm/dry. Well healing surgical scar in the middle of the abdomen, no redness or signs of infection. HEAD: Atraumatic. Normocephalic. EYES: Pupils equal and round. No scleral icterus. ENT: Mucous membranes pink and moist. NECK: Trachea midline. No JVD. CARDIOVASCULAR: Regular rate and rhythm. No murmur appreciated. RESPIRATORY: No accessory muscle use. Clear to auscultation. Breath sounds equal bilaterally. GASTROINTESTINAL: Abdomen soft, nondistended. Tender to palpation of the epigastric area as well as the left side of the abdomen. No rebound or guarding. MUSCULOSKELETAL: No obvious deformities. No clubbing. No cyanosis. No edema. NEUROLOGICAL: Awake and alert. No obvious cranial nerve deficits. Motor grossly within normal limits. Normal speech. PSYCHIATRIC: Appropriate mood and affect; insight and judgment normal. Data Data Last Documented VS Vital Signs Date Time Temp Pulse Resp B/P (MAP) Pulse Ox O2 Delivery O2 Flow Rate FiO2 08/18/17 09:50 97 18 141/74 (96) 99 Room Air 08/18/17 07:02 97.5 Orders Orders Complete Blood Count With Diff (08/18/17 07:36) Comprehensive Metabolic Panel (08/18/17 07:36) Lipase (08/18/17 07:36) Lactic Acid (08/18/17 07:36) Prothrombin Time / Inr (Pt) (08/18/17 07:36) Act Partial Throm Time (Ptt) (08/18/17 07:36) Urinalysis - C+S If Indicated (08/18/17 07:36) Ct Abd/Pel W Iv Contrast(Rout) (08/18/17 07:36) Iv Access Insert/Monitor (08/18/17 07:36) Ecg Monitoring (08/18/17 07:36) Oximetry (08/18/17 07:36) Morphine Inj (Morphine Inj) (08/18/17 07:45) Sodium Chlor 0.9% 1000 Ml Inj (Ns 1000 M (08/18/17 07:36) Sodium Chloride 0.9% Flush (Ns Flush) (08/18/17 07:45) Prochlorperazine Inj (Compazine Inj) (08/18/17 07:45) Iohexol 350 Inj (Omnipaque 350 Inj) (08/18/17 08:51) Morphine Inj (Morphine Inj) (08/18/17 10:30) Piperacil-Tazo 3.375 Gm Premix (Zosyn 3. (08/18/17 11:30) Admit Order (Ed Use Only) (08/18/17 ) Consult General Surgery (08/18/17 ) Labs Laboratory Tests Test 08/18/17 07:40 08/18/17 08:05 08/18/17 09:50 White Blood Count 10.0 TH/MM3 Red Blood Count 4.42 MIL/MM3 Hemoglobin 12.9 GM/DL Hematocrit 37.9 % Mean Corpuscular Volume 85.7 FL Mean Corpuscular Hemoglobin 29.3 PG Mean Corpuscular Hemoglobin Concent 34.2 % Red Cell Distribution Width 12.8 % Platelet Count 372 TH/MM3 Mean Platelet Volume 7.7 FL Neutrophils (%) (Auto) 76.3 % Lymphocytes (%) (Auto) 18.8 % Monocytes (%) (Auto) 3.6 % Eosinophils (%) (Auto) 0.7 % Basophils (%) (Auto) 0.6 % Neutrophils # (Auto) 7.6 TH/MM3 Lymphocytes # (Auto) 1.9 TH/MM3 Monocytes # (Auto) 0.4 TH/MM3 Eosinophils # (Auto) 0.1 TH/MM3 Basophils # (Auto) 0.1 TH/MM3 CBC Comment DIFF FINAL Differential Comment Prothrombin Time 10.5 SEC Prothromb Time International Ratio 1.0 RATIO Activated Partial Thromboplast Time 24.2 SEC Blood Urea Nitrogen 7 MG/DL Creatinine 0.84 MG/DL Random Glucose 143 MG/DL Total Protein 7.0 GM/DL Albumin 3.4 GM/DL Calcium Level 9.3 MG/DL Alkaline Phosphatase 549 U/L Aspartate Amino Transf (AST/SGOT) 31 U/L Alanine Aminotransferase (ALT/SGPT) 62 U/L Total Bilirubin 0.6 MG/DL Sodium Level 138 MEQ/L Potassium Level 3.2 MEQ/L Chloride Level 102 MEQ/L Carbon Dioxide Level 21.9 MEQ/L Anion Gap 14 MEQ/L Lipase 1964 U/L Lactic Acid Level 1.4 mmol/L Urine Color YELLOW Urine Turbidity CLEAR Urine pH 7.0 Urine Specific [place] 1.043 Urine Protein NEG mg/dL Urine Glucose (UA) NEG mg/dL Urine Ketones TRACE mg/dL Urine Occult Blood NEG Urine Nitrite NEG Urine Bilirubin NEG Urine Urobilinogen LESS THAN 2 mg/dL Urine Leukocyte Esterase TRACE Urine RBC 1 /hpf Urine WBC LESS THAN 1 /hpf Urine Squamous Epithelial Cells 1 /hpf Microscopic Urinalysis Comment CULT NOT INDICATED MDM Medical Decision Making Medical Screen Exam Complete: Yes Emergency Medical Condition: Yes Medical Record Reviewed: Yes Differential Diagnosis pancreatitis vs post op complication vs dehydration vs obstruction Narrative Course Patient is a 57-year-old female who comes in complaining of nausea, vomiting, abdominal pain. Exam shows tenderness to palpation of epigastric area as well as the left side of the abdomen. IV established, labs sent. Labs show an elevated lipase to 1964. CT abdomen and pelvis performed shows a cyst that is compressing the stomach. Last 24 hours Impressions Abdomen/Pelvis CT 08/18/17 0736 Signed Impressions: CONCLUSION: 1. There is a cystic lesion with mass effect on the a stomach, transverse colo n, and pancreas measuring up to 12 cm. This finding is new from the prior studi es. Given the prior procedure as this could represent a pancreatic pseudocyst b ut is otherwise of uncertain etiology. It may be causing the patient's symptoms given the mass effect on the stomach. 2. The mass in the pancreatic head is stable measuring up to 1.7 cm. There is no pancreatic or bile duct dilatation. The bile duct stent remains present. 3. There is significant narrowing at the origin of the portal vein but no brandon rial vascular encasement is identified. 4. There is trace volume of free fluid in the pelvis from uncertain etiology. There are no other definite findings to indicate peritoneal disease. However, t his fluid is new from the prior examination. 5. There is a new low-density lesion in the liver measuring 1.4 cm. Given the anatomic location and appearance of focal fat deposition is favored, however, t his lesion was not present on the a prior MRI. If it would alter clinical manag ement consider liver MRI with and without intravenous contrast for further delfin acterization. 6. Stable complex cystic lesions in the right ovary measuring up to 2.5 cm. I spoke with Dr. Zaragoza who suggests admission with drainage of the cyst by IR and sending the fluid for culture. He suggest starting her on Zosyn. She was given pain medicine as well as Compazine. She reports feeling better with this. She will be admitted for further management. Diagnosis Primary Impression: Pancreatitis Qualified Codes: K85.90 - Acute pancreatitis without necrosis or infection, unspecified Additional Impressions: Pancreatic cyst Nausea & vomiting Qualified Codes: R11.2 - Nausea with vomiting, unspecified Admitting Information Admitting Physician Requests: Admit Melissa Nieves MD Aug 18, 2017 11:31
[2017-08-18] MEDS ORDERED: SODIUM CHLORIDE 0.9% FLUSH 10 ML FLUSH IV FLUSH PRN (11:45)
[2017-08-18] MEDS ORDERED: NALOXONE HCL 0.4 MG/ML AMP IV PUSH PRN (11:45)
[2017-08-18] MEDS ORDERED: MORPHINE SULFATE 2 MG/ML SYRINGE IV PUSH PRN (11:45)
[2017-08-18] MEDS ORDERED: ACETAMINOPHEN 325 MG TAB PO PRN (11:45)
[2017-08-18] MEDS ORDERED: METOCLOPRAMIDE HCL 10 MG/2 ML VIAL IV PUSH PRN (11:45)
[2017-08-18] MEDS ORDERED: HYDROmorphone HCL PF 2 MG/ML VIAL IV PUSH PRN (13:00)
[2017-08-18] MEDS ORDERED: ONDANSETRON ODT 4 MG TAB SL PRN (13:00)
[2017-08-18] MEDS ORDERED: HYDROmorphone HCL PF 2 MG/ML VIAL IV PUSH ONE (13:00)
--- NOTE | 2017-08-18 13:14 | HHI.HP ---
[facility] [place] No Primary Care Physician Admission Diagnosis stomach obstruction, pancreatic cyst Diagnoses: Chief Complaint: Abdominal pain, N/V Travel History International Travel<30 Days: No Contact w/Intl Traveler <30 Da: No Traveled to Known Affected Are: No History of Present Illness The patient is a 57-year-old female with a recent diagnosis of pancreatic cancer who is presenting to the hospital with severe abdominal pain and nausea and vomiting. The patient said that on July 29 she was supposed to go in for a Whipple procedure but that was unable to be completed. She says instead they performed biopsies and removed her gallbladder. She says that her lower intestine also has tumor in it. She says she was supposed to start chemotherapy in the near future. The patient says she was supposed to have her port placed tomorrow. She says following the surgery she has been having issues with abdominal pain and nausea and vomiting. She says the pain in her stomach is rated as a 10 out of 10 in severity. She says it started in her right upper quadrant but seems to have moved to the umbilical area. She says she was up all night vomiting. She denies seeing any blood in the vomitus. She says that she would be able to drink some broth at this time. She says she has not had a bowel movement today but otherwise her bowel movements have been regular. She denies any dysuria. Discussed with nursing. Review of Systems Except as stated in HPI: all other systems reviewed are Neg Past Family Social History Past Medical History Pancreatic cancer Invasive adenocarcinoma Past Surgical History Cholecystectomy Tubal ligation Allergies: Coded Allergies: No Known Allergies (Verified Allergy, Unknown, 07/29/17) Family History Diabetes Social History The patient does not smoke or drink. Physical Exam Vital Signs Vital Signs Date Time Temp Pulse Resp B/P (MAP) Pulse Ox O2 Delivery O2 Flow Rate FiO2 08/18/17 12:25 81 110/63 (79) 08/18/17 09:50 97 18 141/74 (96) 99 Room Air 08/18/17 08:00 16 08/18/17 07:54 96 18 144/75 (98) 100 Room Air 08/18/17 07:02 97.5 97 20 98/55 (69) 99 Physical Exam GENERAL: The patient appears uncomfortable secondary to abdominal pain. HEAD: Atraumatic. Normocephalic. EYES: No injection or drainage. ENT: Nose without bleeding, purulent drainage. NECK: Trachea midline. No JVD. CARDIOVASCULAR: Regular rate and rhythm without murmurs, gallops, or rubs. RESPIRATORY: Clear to auscultation. Breath sounds equal bilaterally. No wheezes , rales, or rhonchi. GASTROINTESTINAL: Abdomen soft, diffusely tender to palpation, nondistended. MUSCULOSKELETAL: Extremities without clubbing, cyanosis, or edema. NEUROLOGICAL: Awake and alert. Motor and sensory grossly within normal limits. Normal speech. Laboratory Laboratory Tests Test 08/18/17 07:40 08/18/17 08:05 08/18/17 09:50 White Blood Count 10.0 Red Blood Count 4.42 Hemoglobin 12.9 Hematocrit 37.9 Mean Corpuscular Volume 85.7 Mean Corpuscular Hemoglobin 29.3 Mean Corpuscular Hemoglobin Concent 34.2 Red Cell Distribution Width 12.8 Platelet Count 372 Mean Platelet Volume 7.7 Neutrophils (%) (Auto) 76.3 Lymphocytes (%) (Auto) 18.8 Monocytes (%) (Auto) 3.6 Eosinophils (%) (Auto) 0.7 Basophils (%) (Auto) 0.6 Neutrophils # (Auto) 7.6 Lymphocytes # (Auto) 1.9 Monocytes # (Auto) 0.4 Eosinophils # (Auto) 0.1 Basophils # (Auto) 0.1 CBC Comment DIFF FINAL Differential Comment Prothrombin Time 10.5 Prothromb Time International Ratio 1.0 Activated Partial Thromboplast Time 24.2 Blood Urea Nitrogen 7 Creatinine 0.84 Random Glucose 143 Total Protein 7.0 Albumin 3.4 Calcium Level 9.3 Alkaline Phosphatase 549 Aspartate Amino Transf (AST/SGOT) 31 Alanine Aminotransferase (ALT/SGPT) 62 Total Bilirubin 0.6 Sodium Level 138 Potassium Level 3.2 Chloride Level 102 Carbon Dioxide Level 21.9 Anion Gap 14 Lipase 1964 Lactic Acid Level 1.4 Urine Color YELLOW Urine Turbidity CLEAR Urine pH 7.0 Urine Specific [place] 1.043 Urine Protein NEG Urine Glucose (UA) NEG Urine Ketones TRACE Urine Occult Blood NEG Urine Nitrite NEG Urine Bilirubin NEG Urine Urobilinogen LESS THAN 2 Urine Leukocyte Esterase TRACE Urine RBC 1 Urine WBC LESS THAN 1 Urine Squamous Epithelial Cells 1 Microscopic Urinalysis Comment CULT NOT INDICATED Result Diagram: 08/18/17 0740 08/18/17 0740 Imaging Last Impressions Abdomen/Pelvis CT 08/18/17 0736 Signed Impressions: CONCLUSION: 1. There is a cystic lesion with mass effect on the a stomach, transverse colo n, and pancreas measuring up to 12 cm. This finding is new from the prior studi es. Given the prior procedure as this could represent a pancreatic pseudocyst b ut is otherwise of uncertain etiology. It may be causing the patient's symptoms given the mass effect on the stomach. 2. The mass in the pancreatic head is stable measuring up to 1.7 cm. There is no pancreatic or bile duct dilatation. The bile duct stent remains present. 3. There is significant narrowing at the origin of the portal vein but no brandon rial vascular encasement is identified. 4. There is trace volume of free fluid in the pelvis from uncertain etiology. There are no other definite findings to indicate peritoneal disease. However, t his fluid is new from the prior examination. 5. There is a new low-density lesion in the liver measuring 1.4 cm. Given the anatomic location and appearance of focal fat deposition is favored, however, t his lesion was not present on the a prior MRI. If it would alter clinical manag ement consider liver MRI with and without intravenous contrast for further delfin acterization. 6. Stable complex cystic lesions in the right ovary measuring up to 2.5 cm. Caprini VTE Risk Assessment Caprini VTE Risk Assessment: Mod/High Risk (score >= 2) Caprini Risk Assessment Model Point Value = 1 Point Value = 2 Point Value = 3 Point Value = 5 Age 41-60 Minor surgery BMI > 25 kg/m2 Swollen legs Varicose veins or History of unexplained or recurrent spontaneous Oral contraceptives or hormone replacement Sepsis (< 1 month) Serious lung disease, including pneumonia (< 1 month) Abnormal pulmonary function Acute myocardial infarction Congestive heart failure (< 1 month) History of inflammatory bowel disease Medical patient at bed rest Age 61-74 Arthroscopic surgery Major open surgery (> 45 min) Laparoscopic surgery (> 45 min) Malignancy Confined to bed (> 72 hours) Immobilizing plaster cast Central venous access Age >= 75 History of VTE Family history of VTE Factor V Leiden Prothrombin [id number] Lupus anticoagulant Anticardiolipin antibodies Elevated serum homocysteine Heparin-induced thrombocytopenia Other congenital or acquired thrombophilia Stroke (< 1 month) Elective arthroplasty Hip, pelvis, or leg fracture Acute spinal cord injury (< 1 month) Prophylaxis Regimen Total Risk Factor Score Risk Level Prophylaxis Regimen 0-1 Low Early ambulation 2 Moderate Order ONE of the following: *Sequential Compression Device (SCD) *Heparin 5000 units SQ BID 3-4 Higher Order ONE of the following medications: *Heparin 5000 units SQ TID *Enoxaparin/Lovenox 40 mg SQ daily (WT < 150 kg, CrCl > 30 mL/min) *Enoxaparin/Lovenox 30 mg SQ daily (WT < 150 kg, CrCl > 10-29 mL/min) *Enoxaparin/Lovenox 30 mg SQ BID (WT < 150 kg, CrCl > 30 mL/min) AND/OR *Sequential Compression Device (SCD) 5 or more Highest Order ONE of the following medications: *Heparin 5000 units SQ TID (Preferred with Epidurals) *Enoxaparin/Lovenox 40 mg SQ daily (WT < 150 kg, CrCl > 30 mL/min) *Enoxaparin/Lovenox 30 mg SQ daily (WT < 150 kg, CrCl > 10-29 mL/min) *Enoxaparin/Lovenox 30 mg SQ BID (WT < 150 kg, CrCl > 30 mL/min) AND *Sequential Compression Device (SCD) Assessment and Plan Assessment and Plan Abdominal pain/ N/V/ Invasive pancreatic cancer The pt recently had an attempted Whipple procedure on 07/29 but it was unable to be performed s/t the advanced stage of the cancer. Biopsies were taken which showed pancreatitis and a lymph node consistent moderately differentiated adenocarcinoma with a pancreatic primary. The pt was to start chemotherapy soon. CT abdomen in the ED showed: There is a cystic lesion with mass effect on the stomach, transverse colon, and pancreas measuring up to 12 cm; This finding is new from the prior studies; this could represent a pancreatic pseudocyst; The mass in the pancreatic head is stable measuring up to 1.7 cm; The bile duct stent remains present; There is significant narrowing at the origin of the portal vein but no arterial vascular encasement is identified; There is trace volume of free fluid in the pelvis from uncertain etiology; There is a new low- density lesion in the liver measuring 1.4 cm. - pain control with a bowel regimen. - antiemetics as needed. - IR consult for drainage of pseudocyst. - surgical oncology consulted. - IV Zosyn. - follow lipase. - NPO with IVFs. Hypokalemia S/t N/V. - IV KCl x 2. - follow BMP. Hyperglycemia Likely a stress reaction. Recent A1c was 5.5%. - follow BMP. PPx: SCDs Discussed Condition With Dr. Nieves, pt, nurse Physician Certification 2 Midnight Certification Type: Admission for Inpatient Services Order for Inpatient Services The services are ordered in accordance with Medicare regulations or non- Medicare payer requirements, as applicable. In the case of services not specified as inpatient-only, they are appropriately provided as inpatient services in accordance with the 2-midnight benchmark. Estimated LOS (days): 2 days is the estimated time the patient will need to remain in the hospital, assuming treatment plan goals are met and no additional complications. Post-Hospital Plan: Not yet determined Gage Hamilton DO Aug 18, 2017 13:14
[2017-08-18] MEDS: POTASSIUM CHLOR 20 MEQ PREMIX 100 ML IV SCH ×2 (13:16→17:38)
[2017-08-18] MEDS: SODIUM CHLOR 0.9% 1000 ML INJ 1,000 ML IV SCH ×2 (13:18→20:53)
[2017-08-18] MEDS ORDERED: MIDAZOLAM HCL 2 MG/2 ML VIAL ONE (14:25)
--- NOTE | 2017-08-18 15:20 | PD.RAD ---
Post CT Procedure Prog Note Pre Procedure Diagnosis: (1) Abdominal fluid collection Post Procedure Diagnosis: (1) Abdominal fluid collection Procedure Date: Aug 18, 2017 Supervising Radiologist: Lebron Flores Anesthesia: Conscious Sedation Plan of Activity Patient to Unit: ROPU Patient Condition: Good See PACS Report for procedural detail/treatment Drainage Procedure Procedure 1 Imaging Guidance: CT Side: Left Procedure Type: Abscess Drainage Procedure: Placement Scottish: 10 Drainage: Suction Fluid Removal (CCs): 100 Fluid Description: Cloudy, Other Additional Detail: dark brownish-black fluid aspirated Plan to ROPU then return to floor after 1 hour if no problems. Lebron Flores MD Aug 18, 2017 15:20
[2017-08-18] MEDS: PIPERACIL-TAZO 4.5 GM PREMIX 100 ML IV SCH (17:04)
--- NOTE | 2017-08-18 17:15 | RADRPT ---
EXAM DATE: 08/18/2017 3:34 PM EDT AGE/SEX: 57 years / Female INDICATIONS: Pancreatic cyst drain. CLINICAL DATA: This is the patient's initial encounter. Patient reports that signs and symptoms have been present for 1 day and indicates a pain score of 0/10. MEDICAL/SURGICAL HISTORY: Carcinoma, pancreas. Carcinoma, colon. Cholecystectomy. [place] [facility] [place]AST, 08/18/2017. . BIOPSY SITE: pancreatic pseudocyst MEDICATION(S): 1mg midazolam (Versed) IV 50mcg fentanyl (Sublimaze) IV DEVICE(S): 10 Fr Skater FLUID: Total volume of 100 of dark brownish-black fluid was removed. Fluid was sent to lab for ordered studies.. . . PROCEDURE : CT guided drainage of the pancreatic pseudocyst. The risks, benefits and alternatives to the procedure were explained and verbal and written consent w as obtained. Using automated exposure control and adjustment of the mA and/or kV according to patient size, radiation dose was kept as low as reasonably achievable to obtain optimal diagnostic quality i mages. The site was prepped in sterile fashion. Full sterile technique was used, including cap, ma sk, sterile gloves and gown and a large sterile sheet. Hand hygiene and 2% chlorhexidine and/or beta dine/alcohol prep was utilized per protocol for cutaneous antisepsis. The skin and subcutaneous tiss ues were infiltrated with local anesthetic solution. DICOM format image data is available electronic ally for review and comparison. Using CT guidance the left upper quadrant perigastric fluid collection was localized. Interestingly, the fluid collection is smaller than on the CT from earlier today and there is new. Hepatic and peris plenic fluid. Drainage was performed using the prescribed catheter. The patient tolerated the procedure well and there were no complications. The patient tolerated the procedure well and there were no complications. The patient was sent to post anesthesia recovery in s table condition. CONCLUSION: Uncomplicated CT guided drainage of a perigastric and peripancreatic fluid collection. Approximately 100 cc of dark brownish-black fluid was removed and sent for evaluation as ordered. Since the fluid c ollection decreased from the CT earlier today this questionably as a decompressed into the peritoneal cavity. Electronically signed by: Lebron Flores MD 08/18/2017 5:14 PM EDT
[2017-08-18] MEDS: SODIUM CHLORIDE 0.9% FLUSH 10 ML FLUSH IV FLUSH SCH (20:52)
[2017-08-18] MEDS: DOCUSATE SODIUM 50 MG/SENNA 8.6 MG TAB PO SCH (20:52)
[2017-08-19] VITALS: BP 90/52; PULSE 79; RESP 18; TEMP 98.4; O2SAT 99
[2017-08-19 01:00] VITALS: BP 93/55
[2017-08-19 04:00] VITALS: BP 93/50; PULSE 76; RESP 18; TEMP 98.4; O2SAT 97
[2017-08-19] MEDS: PIPERACIL-TAZO 4.5 GM PREMIX 100 ML IV SCH ×5 (05:03→23:56)
[2017-08-19 05:45] LABS: AUTOMATED NEUTROPHIL # 5.2 TH/MM3 (1.8-7.7); BASOPHIL % 0.3 % (0.0-2.0); EOSINOPHIL # 0.2 TH/MM3 (0-0.4); EOSINOPHIL % 2.5 % (0.0-4.0); HEMATOCRIT 32.3 % (35.0-46.0); HEMOGLOBIN 10.9 GM/DL (11.6-15.3); LYMPH % 27.8 % (9.0-44.0); LYMPHOCYTE # 2.2 TH/MM3 (1.0-4.8); MEAN CELL VOLUME 86.7 FL (80.0-100.0); MEAN CORPUSCULAR HEMOGLOBIN 29.3 PG (27.0-34.0); MEAN CORPUSCULAR HGB CONC 33.8 % (32.0-36.0); MEAN PLATELET VOLUME 7.5 FL (7.0-11.0); MONO % 4.6 % (0.0-8.0); MONOCYTE # 0.4 TH/MM3 (0-0.9); NEUT % 64.8 % (16.0-70.0); PLATELET COUNT 348 TH/MM3 (150-450); RED BLOOD COUNT 3.72 MIL/MM3 (4.00-5.30); WHITE BLOOD COUNT 8.1 TH/MM3 (4.0-11.0)
[2017-08-19 06:13] LABS: ALBUMIN 2.4 GM/DL (3.4-5.0); ALT (GPT) 37 U/L (10-53); AST (GOT) 18 U/L (15-37); BICARBONATE 24.7 MEQ/L (21.0-32.0); BLOOD UREA NITROGEN 7 MG/DL (7-18); CALCIUM 8.1 MG/DL (8.5-10.1); CHLORIDE 107 MEQ/L (98-107); CREATININE 0.67 MG/DL (0.50-1.00); GLOMERULAR FILTRATION RATE 91 ML/MIN (>89); GLUCOSE,RANDOM 84 MG/DL (74-106); SODIUM (NA) 140 MEQ/L (136-145)
[2017-08-19 06:20] LABS: ALKALINE PHOSPHATASE 368 U/L (45-117); TOTAL BILIRUBIN ADULT 0.7 MG/DL (0.2-1.0); TOTAL PROTEIN 5.3 GM/DL (6.4-8.2)
[2017-08-19] MEDS: SODIUM CHLORIDE 0.9% FLUSH 10 ML FLUSH IV FLUSH SCH ×2 (07:31→19:51)
[2017-08-19] MEDS: SODIUM CHLOR 0.9% 1000 ML INJ 1,000 ML IV SCH ×2 (07:36→18:35)
[2017-08-19] MEDS: DOCUSATE SODIUM 50 MG/SENNA 8.6 MG TAB PO SCH ×2 (07:41→19:51)
[2017-08-19] MEDS: PANTOPRAZOLE SOD 20 MG DELAYED RELEASE TAB PO SCH (07:41)
[2017-08-19 08:00] VITALS: BP 97/51; PULSE 64; RESP 16; TEMP 97.6; O2SAT 98
--- NOTE | 2017-08-19 08:37 | HHI.PR ---
Subjective Remarks in no acute distress. looks comfortable. denies pain, nausea or vomiting. no new complaints. d/w the RN and no acute issues over night. Objective Vitals Vital Signs Date Time Temp Pulse Resp B/P (MAP) Pulse Ox O2 Delivery O2 Flow Rate FiO2 08/19/17 04:00 98.4 76 18 93/50 (64) 97 08/19/17 01:00 93/55 (68) 08/19/17 00:00 98.4 79 18 90/52 (65) 99 08/18/17 20:00 97.8 78 20 101/57 (72) 99 08/18/17 16:00 98.0 79 20 111/71 (84) 100 08/18/17 15:45 78 20 92/51 (65) 100 08/18/17 15:30 98.5 78 20 91/58 (69) 99 08/18/17 13:31 20 08/18/17 12:25 81 110/63 (79) 08/18/17 12:00 97.7 92 20 105/58 (74) 99 08/18/17 09:50 97 18 141/74 (96) 99 Room Air I/O 08/18/17 08/18/17 08/18/17 08/19/17 08/19/17 08/19/17 07:00 15:00 23:00 07:00 15:00 23:00 Intake Total 1050 ml 500 ml 1871 ml Output Total 200 ml 180 ml 75 ml Balance 850 ml 320 ml 1796 ml Intake Oral 476 ml IV Total 1050 ml 500 ml 1395 ml Output Urine Total 100 ml Emesis 100 ml Drainage Total 180 ml 75 ml # Voids 1 1 Result Diagram: 08/19/17 0517 08/19/17 0517 Imaging Last Impressions Abscess Drainage CT 08/18/17 1333 Signed Impressions: CONCLUSION: Uncomplicated CT guided drainage of a perigastric and peripancreatic fluid yomi ection. Approximately 100 cc of dark brownish-black fluid was removed and sent for evaluation as ordered. Since the fluid collection decreased from the CT ear lier today this questionably as a decompressed into the peritoneal cavity. Abdomen/Pelvis CT 08/18/17 0736 Signed Impressions: CONCLUSION: 1. There is a cystic lesion with mass effect on the a stomach, transverse colo n, and pancreas measuring up to 12 cm. This finding is new from the prior studi es. Given the prior procedure as this could represent a pancreatic pseudocyst b ut is otherwise of uncertain etiology. It may be causing the patient's symptoms given the mass effect on the stomach. 2. The mass in the pancreatic head is stable measuring up to 1.7 cm. There is no pancreatic or bile duct dilatation. The bile duct stent remains present. 3. There is significant narrowing at the origin of the portal vein but no brandon rial vascular encasement is identified. 4. There is trace volume of free fluid in the pelvis from uncertain etiology. There are no other definite findings to indicate peritoneal disease. However, t his fluid is new from the prior examination. 5. There is a new low-density lesion in the liver measuring 1.4 cm. Given the anatomic location and appearance of focal fat deposition is favored, however, t his lesion was not present on the a prior MRI. If it would alter clinical manag ement consider liver MRI with and without intravenous contrast for further delfin acterization. 6. Stable complex cystic lesions in the right ovary measuring up to 2.5 cm. Objective Remarks GENERAL: This is a well-nourished, well-developed patient, in no apparent distress. CARDIOVASCULAR: Regular rate and regular rhythm without murmurs, gallops, or rubs. RESPIRATORY: Clear to auscultation. Breath sounds equal bilaterally. No wheezes , rales, or rhonchi. GASTROINTESTINAL: Abdomen soft, non-tender, nondistended. Normal, active bowel sounds MUSCULOSKELETAL: Extremities without clubbing, cyanosis, or edema. NEURO: Alert & Oriented x4 to person, place, time, situation. Moves all ext x4 Procedures drainage of a perigastric/peripancreatic fluid collection. Medications and IVs Inpatient Medications Acetaminophen (Tylenol) 650 mg Q6H PRN PO PAIN SCALE 1 TO 2; Start 08/18/17 at 11:45 Hydromorphone HCl (Dilaudid Pf Inj) 1 mg Q4H PRN IV PUSH breakthrough pain Last administered on 08/19/17at 07:42; Start 08/18/17 at 13:00 Metoclopramide HCl (Reglan Inj) 5 mg Q8H PRN IV PUSH N/V; Start 08/18/17 at 11: 45 Morphine Sulfate (Morphine Inj) 4 mg Q3H PRN IV PUSH BREAKTHROUGH PAIN; Start 08/18/17 at 11:45; Stop 08/18/17 at 12:53; Status DC Naloxone HCl (Narcan Inj) 0.4 mg UNSCH PRN IV PUSH SEE LABEL COMMENTS; Start at 11:45 Ondansetron HCl (Zofran Odt) 4 mg Q6H PRN SL NAUSEA OR VOMITING; Start at 13:00 Oxycodone HCl (Roxicodone) 5 mg Q4H PRN PO PAIN SCALE 3 TO 5; Start 08/18/17 at 11:45 Pantoprazole Sodium (Protonix) 20 mg DAILY PO Last administered on 08/19/17at 07 :41; Start 08/19/17 at 09:00 Piperacillin Sod/ Tazobactam Sod 100 ml @ 200 mls/hr Q6H IV Last administered on 08/19/17at 05:03; Start 08/18/17 at 18:00 Potassium Chloride 100 ml @ 50 mls/hr Q2H IV Last administered on 08/18/17at 17 :38; Start 08/18/17 at 13:00; Stop 08/18/17 at 16:59; Status DC Prochlorperazine Edisylate (Compazine Inj) 10 mg ONCE ONCE IV PUSH Last administered on 08/18/17at 07:51; Start 08/18/17 at 07:45; Stop 08/18/17 at 07:46 ; Status DC Senna/Docusate Sodium (Alessia-Colace) 1 tab BID PO ; Start 08/18/17 at 21:00 Sodium Chloride (NS Flush) 2 ml BID IV FLUSH ; Start 08/18/17 at 21:00 A/P Assessment and Plan A/P Abdominal pain/ N/V/ Invasive pancreatic cancer The pt recently had an attempted Whipple procedure on 07/29 but it was unable to be performed s/t the advanced stage of the cancer. Biopsies were taken which showed pancreatitis and a lymph node consistent moderately differentiated adenocarcinoma with a pancreatic primary. The pt was to start chemotherapy soon. CT abdomen in the ED showed: There is a cystic lesion with mass effect on the stomach, transverse colon, and pancreas measuring up to 12 cm; This finding is new from the prior studies; this could represent a pancreatic pseudocyst; The mass in the pancreatic head is stable measuring up to 1.7 cm; The bile duct stent remains present; There is significant narrowing at the origin of the portal vein but no arterial vascular encasement is identified; There is trace volume of free fluid in the pelvis from uncertain etiology; There is a new low- density lesion in the liver measuring 1.4 cm. -s/p drainage of perigastric/peripancreatic fluid collection. - pain control with a bowel regimen. - antiemetics as needed. - surgical oncology consulted. - IV Zosyn. - on clear liquid diet. Hypokalemia resolved. Hyperglycemia Likely a stress reaction. Recent A1c was 5.5%. PPx: SCDs Discharge Planning awaiting surgery evaluation. Sudha Hernandez MD Aug 19, 2017 08:37
--- NOTE | 2017-08-19 10:03 | MB ---
cc: Hayder Zaragoza MD DATE: 08/18/2017 PHYSICIAN REQUESTING CONSULTATION: Melissa Nieves, emergency room physician REASON FOR CONSULTATION: Fluid collection behind the stomach with gastric compression, likely a pancreatic pseudocyst after pancreatic biopsy. 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 The patient was found to have more of a locally advanced type tumor on exploration and patient's Whipple was aborted. The patient did undergo multiple pancreatic biopsies. The patient since recovered and is planning to undergo [id number] placement with chemotherapy and also potentially radiation. The patient developed increasing nausea and inability to tolerate p.o. and dehydration. She presented to the emergency room, underwent evaluation with a CT scan which showed a large fluid collection posterior to the stomach and anterior to the pancreas concerning for a pancreatic pseudocyst. This was thought to be likely due to the patient's previous pancreatic biopsies and possible resultant pseudocyst. The patient had no other findings. The white count was within normal limits. The patient had no fevers, chills, night sweats or signs of infection. Surgical oncology was consulted for input and assistance in managing the patient. REVIEW OF SYSTEMS: A 12-point review of systems was conducted with the patient and is negative except for the pertinent positives mentioned above in the history of present illness. PAST MEDICAL HISTORY: Pancreatic adenocarcinoma of the head of the pancreas either borderline resectable or locally advanced, EUS pending. PAST SURGICAL HISTORY: Exploratory laparotomy, cholecystectomy as above. SOCIAL HISTORY: The patient does not drink alcohol, use tobacco or use illicit drugs. ALLERGIES: NO KNOWN DRUG ALLERGIES. MEDICATIONS: 1. Omeprazole. 2. Zofran. FAMILY HISTORY: Noncontributory. PHYSICAL EXAMINATION: VITAL SIGNS: Temperature 97.5 degrees, pulse of 97, respiratory rate 18, blood pressure 141/74, O2 saturation 99%. GENERAL: The patient is a well-developed, well-nourished, female, in no acute distress. HEENT: Head is normocephalic, atraumatic. Pupils are round and reactive to accommodation and light. Sclerae are anicteric. Oral cavity is clear. Airway is patent. NECK: Supple. No JVD. LUNGS: Breath sounds present bilaterally. Nonlabored breathing pattern. HEART: Regular rate and rhythm. No murmurs. ABDOMEN: Soft, some epigastric discomfort without peritonitis or rebound tenderness. Midline incision is well healed. No signs of infection or complication. EXTREMITIES: No clubbing, cyanosis or edema. BACK: No CVA tenderness. NEUROLOGIC EXAM: The patient is awake, alert, oriented x 3, nonfocal peripheral exam. Cranial nerves 2-12 are grossly intact. LABORATORY DATA: White blood cell count is 10, hemoglobin is 12.9. LFTs are within normal limits. Lipase is elevated at 1964. IMAGING: A cystic lesion by the pancreas concerning for pseudocyst. ASSESSMENT AND PLAN: The patient is a 57-year-old female with pancreatic adenocarcinoma, now with a pseudocyst that is likely a complication from her peripancreatic biopsy, which is a common well known complication from pancreatic biopsy is micro leak and pseudocyst formation. The patient also has a history of chronic pancreatitis, which could contribute to the patient's disease process. We will recommend this pseudocyst be drained via IR as it is quite symptomatic and it has likely only been present for a week or so and internal cyst gastrostomy endoscopically is likely not a good option for this patient at this time. I do recommend IR drainage and external drainage at this time. The patient has persistent drainage and fistula formation. We will try to do a cyst gastrostomy endoscopically in the next several weeks. If the patient is found to have no signs of infection in the pseudocyst and her symptoms improve, she may be able to be discharged in the next 48 hours. I would do empiric antibiotics until cultures are resulted finally. Thank you very much for this consultation. We will follow along with the patient. Hayder Zaragoza MD [facility] , 09:38 AM , 10:01 AM
--- NOTE | 2017-08-19 10:15 | HHI.PR ---
Subjective Subjective Notes feels better since drain Objective Vitals/I&O Vital Signs Date Time Temp Pulse Resp B/P (MAP) Pulse Ox O2 Delivery O2 Flow Rate FiO2 08/19/17 08:00 97.6 64 16 97/51 (66) 98 08/18/17 09:50 Room Air Labs Laboratory Tests Test 08/18/17 11:33 08/19/17 05:17 White Blood Count 8.1 Red Blood Count 3.72 Hemoglobin 10.9 Hematocrit 32.3 Mean Corpuscular Volume 86.7 Mean Corpuscular Hemoglobin 29.3 Mean Corpuscular Hemoglobin Concent 33.8 Red Cell Distribution Width 13.0 Platelet Count 348 Mean Platelet Volume 7.5 Neutrophils (%) (Auto) 64.8 Lymphocytes (%) (Auto) 27.8 Monocytes (%) (Auto) 4.6 Eosinophils (%) (Auto) 2.5 Basophils (%) (Auto) 0.3 Neutrophils # (Auto) 5.2 Lymphocytes # (Auto) 2.2 Monocytes # (Auto) 0.4 Eosinophils # (Auto) 0.2 Basophils # (Auto) 0.0 CBC Comment DIFF FINAL Differential Comment Blood Urea Nitrogen 7 Creatinine 0.67 Random Glucose 84 Total Protein 5.3 Albumin 2.4 Calcium Level 8.1 Alkaline Phosphatase 368 Aspartate Amino Transf (AST/SGOT) 18 Alanine Aminotransferase (ALT/SGPT) 37 Total Bilirubin 0.7 Sodium Level 140 Potassium Level 4.1 Chloride Level 107 Carbon Dioxide Level 24.7 Anion Gap 8 Estimat Glomerular Filtration Rate 91 Lipase 492 Date/Time Source Procedure Growth Status 08/18/17 15:00 Fluid Pancreatic Fluid Gram Stain - Final Resulted 08/18/17 15:00 Fluid Pancreatic Fluid Body Fluid Culture Pending Resulted Abdomen: Non-distended, Non-tender Narrative Exam drain in place A/P Assessment and Plan 57yo female s/p ExLap and cholecystectomy, complicated by pseudocyst, stable s/ p IR drain. advance diet if cultures are negative can DC home and fu with me for drain management if cultures are positive will need appropriate treatment Hayder Zaragoza MD Aug 19, 2017 10:15
[2017-08-19 12:00] VITALS: BP 91/54; PULSE 63; RESP 16; TEMP 97.4; O2SAT 100
[2017-08-19 20:00] VITALS: BP 97/54; PULSE 73; RESP 16; TEMP 98.3; O2SAT 98
[2017-08-20] VITALS (7 sets, daily range): BP systolic 101–132; BP diastolic 55–64; PULSE 62–84; RESP 16–18; TEMP 98.1–98.5; O2SAT 97–99
[2017-08-20] MEDS: SODIUM CHLOR 0.9% 1000 ML INJ 1,000 ML IV SCH ×3 (03:36→23:26)
[2017-08-20] MEDS: PIPERACIL-TAZO 4.5 GM PREMIX 100 ML IV SCH ×4 (05:25→23:19)
[2017-08-20] MEDS: DOCUSATE SODIUM 50 MG/SENNA 8.6 MG TAB PO SCH ×2 (09:00→21:00)
[2017-08-20] MEDS: PANTOPRAZOLE SOD 20 MG DELAYED RELEASE TAB PO SCH (10:01)
[2017-08-20] MEDS: SODIUM CHLORIDE 0.9% FLUSH 10 ML FLUSH IV FLUSH SCH ×2 (10:03→21:00)
--- NOTE | 2017-08-20 10:06 | HHI.PR ---
Subjective Remarks in no acute distress. has minimal to mild abdominal pain at the site of drain. had a few loose BM's this morning. no fever. Objective Vitals Vital Signs Date Time Temp Pulse Resp B/P (MAP) Pulse Ox O2 Delivery O2 Flow Rate FiO2 08/20/17 08:40 98.3 67 18 119/58 (78) 98 08/20/17 04:00 98.1 62 18 119/60 (79) 99 08/20/17 00:00 98.5 75 16 101/64 (76) 99 08/19/17 20:00 98.3 73 16 97/54 (68) 98 08/19/17 12:00 97.4 63 16 91/54 (66) 100 I/O 08/19/17 08/19/17 08/19/17 08/20/17 08/20/17 08/20/17 07:00 15:00 23:00 07:00 15:00 23:00 Intake Total 1871 ml 100 ml 960 ml 240 ml Output Total 75 ml 175 ml Balance 1796 ml 100 ml 960 ml 65 ml Intake Oral 476 ml 960 ml 240 ml IV Total 1395 ml 100 ml Drainage Total 75 ml 175 ml # Voids 1 4 1 # Bowel Movements 0 Result Diagram: 08/19/17 0517 08/19/17 0517 Imaging Last Impressions Abscess Drainage CT 08/18/17 1333 Signed Impressions: CONCLUSION: Uncomplicated CT guided drainage of a perigastric and peripancreatic fluid yomi ection. Approximately 100 cc of dark brownish-black fluid was removed and sent for evaluation as ordered. Since the fluid collection decreased from the CT ear lier today this questionably as a decompressed into the peritoneal cavity. Abdomen/Pelvis CT 08/18/17 8488 Signed Impressions: CONCLUSION: 1. There is a cystic lesion with mass effect on the a stomach, transverse colo n, and pancreas measuring up to 12 cm. This finding is new from the prior studi es. Given the prior procedure as this could represent a pancreatic pseudocyst b ut is otherwise of uncertain etiology. It may be causing the patient's symptoms given the mass effect on the stomach. 2. The mass in the pancreatic head is stable measuring up to 1.7 cm. There is no pancreatic or bile duct dilatation. The bile duct stent remains present. 3. There is significant narrowing at the origin of the portal vein but no brandon rial vascular encasement is identified. 4. There is trace volume of free fluid in the pelvis from uncertain etiology. There are no other definite findings to indicate peritoneal disease. However, t his fluid is new from the prior examination. 5. There is a new low-density lesion in the liver measuring 1.4 cm. Given the anatomic location and appearance of focal fat deposition is favored, however, t his lesion was not present on the a prior MRI. If it would alter clinical manag ement consider liver MRI with and without intravenous contrast for further delfin acterization. 6. Stable complex cystic lesions in the right ovary measuring up to 2.5 cm. Objective Remarks GENERAL: This is a well-nourished, well-developed patient, in no apparent distress. CARDIOVASCULAR: Regular rate and regular rhythm without murmurs, gallops, or rubs. RESPIRATORY: Clear to auscultation. Breath sounds equal bilaterally. No wheezes , rales, or rhonchi. GASTROINTESTINAL: Abdomen soft, non-tender, nondistended. Normal, active bowel sounds MUSCULOSKELETAL: Extremities without clubbing, cyanosis, or edema. NEURO: Alert & Oriented x4 to person, place, time, situation. Moves all ext x4 Procedures drainage of a perigastric/peripancreatic fluid collection. Medications and IVs Inpatient Medications Acetaminophen (Tylenol) 650 mg Q6H PRN PO PAIN SCALE 1 TO 2; Start 08/18/17 at 11:45 Hydromorphone HCl (Dilaudid Pf Inj) 1 mg Q4H PRN IV PUSH breakthrough pain Last administered on 08/19/17at 07:42; Start 08/18/17 at 13:00 Metoclopramide HCl (Reglan Inj) 5 mg Q8H PRN IV PUSH N/V; Start 08/18/17 at 11: 45 Morphine Sulfate (Morphine Inj) 4 mg Q3H PRN IV PUSH BREAKTHROUGH PAIN; Start 08/18/17 at 11:45; Stop 08/18/17 at 12:53; Status DC Naloxone HCl (Narcan Inj) 0.4 mg UNSCH PRN IV PUSH SEE LABEL COMMENTS; Start at 11:45 Ondansetron HCl (Zofran Odt) 4 mg Q6H PRN SL NAUSEA OR VOMITING; Start at 13:00 Oxycodone HCl (Roxicodone) 5 mg Q4H PRN PO PAIN SCALE 3 TO 5; Start 08/18/17 at 11:45 Pantoprazole Sodium (Protonix) 20 mg DAILY PO Last administered on 08/19/17at 07 :41; Start 08/19/17 at 09:00 Piperacillin Sod/ Tazobactam Sod 100 ml @ 200 mls/hr Q6H IV Last administered on 08/20/17at 05:25; Start 08/18/17 at 18:00 Potassium Chloride 100 ml @ 50 mls/hr Q2H IV Last administered on 08/18/17at 17 :38; Start 08/18/17 at 13:00; Stop 08/18/17 at 16:59; Status DC Prochlorperazine Edisylate (Compazine Inj) 10 mg ONCE ONCE IV PUSH Last administered on 08/18/17at 07:51; Start 08/18/17 at 07:45; Stop 08/18/17 at 07:46 ; Status DC Senna/Docusate Sodium (Alessia-Colace) 1 tab BID PO ; Start 08/18/17 at 21:00 Sodium Chloride (NS Flush) 2 ml BID IV FLUSH Last administered on 08/19/17at 19: 51; Start 08/18/17 at 21:00 A/P Assessment and Plan A/P Abdominal pain/ N/V/ Invasive pancreatic cancer The pt recently had an attempted Whipple procedure on 07/29 but it was unable to be performed s/t the advanced stage of the cancer. Biopsies were taken which showed pancreatitis and a lymph node consistent moderately differentiated adenocarcinoma with a pancreatic primary. The pt was to start chemotherapy soon. CT abdomen in the ED showed: There is a cystic lesion with mass effect on the stomach, transverse colon, and pancreas measuring up to 12 cm; This finding is new from the prior studies; this could represent a pancreatic pseudocyst; The mass in the pancreatic head is stable measuring up to 1.7 cm; The bile duct stent remains present; There is significant narrowing at the origin of the portal vein but no arterial vascular encasement is identified; There is trace volume of free fluid in the pelvis from uncertain etiology; There is a new low- density lesion in the liver measuring 1.4 cm. -s/p drainage of perigastric/peripancreatic fluid collection. -fluid culture so far negative. - pain control with a bowel regimen. - antiemetics as needed. - surgical oncology consult appreciated. - IV Zosyn. diarrhea- check the stool for c-diff. Hypokalemia resolved. Hyperglycemia Likely a stress reaction. Recent A1c was 5.5%. PPx: SCDs Discharge Planning possible dc home tomorrow - pending the clinical course and result of culture. Sudha Hernandez MD Aug 20, 2017 10:06
--- NOTE | 2017-08-20 14:57 | HHI.PR ---
cc: Brenardo Sheridan MD Subjective Subjective Notes DAILY PROGRESS NOTE FOR SURGICAL ATTENDING, DR. BERNARDO SHERIDAN Tolerating diet Ambulating Says she is going home Tuesday possibly Tuesday Objective Vitals/I&O Vital Signs Date Time Temp Pulse Resp B/P (MAP) Pulse Ox O2 Delivery O2 Flow Rate FiO2 08/20/17 12:18 98.1 84 18 132/61 (84) 98 08/18/17 09:50 Room Air Labs Laboratory Tests Test 08/20/17 13:30 Stool C. difficile Toxin (PCR) NEGATIVE Stl C. difficile Toxin Epiderm 027 PRESUMPTIVE NEGATIVE Date/Time Source Procedure Growth Status 08/18/17 15:00 Fluid Pancreatic Fluid Gram Stain - Final Resulted 08/18/17 15:00 Fluid Pancreatic Fluid Body Fluid Culture - Preliminary NO GROWTH IN 48 HOURS. Resulted Radiology Last Impressions Abscess Drainage CT 08/18/17 1333 Signed Impressions: CONCLUSION: Uncomplicated CT guided drainage of a perigastric and peripancreatic fluid yomi ection. Approximately 100 cc of dark brownish-black fluid was removed and sent for evaluation as ordered. Since the fluid collection decreased from the CT ear lier today this questionably as a decompressed into the peritoneal cavity. Abdomen/Pelvis CT 08/18/17 0736 Signed Impressions: CONCLUSION: 1. There is a cystic lesion with mass effect on the a stomach, transverse colo n, and pancreas measuring up to 12 cm. This finding is new from the prior studi es. Given the prior procedure as this could represent a pancreatic pseudocyst b ut is otherwise of uncertain etiology. It may be causing the patient's symptoms given the mass effect on the stomach. 2. The mass in the pancreatic head is stable measuring up to 1.7 cm. There is no pancreatic or bile duct dilatation. The bile duct stent remains present. 3. There is significant narrowing at the origin of the portal vein but no brandon rial vascular encasement is identified. 4. There is trace volume of free fluid in the pelvis from uncertain etiology. There are no other definite findings to indicate peritoneal disease. However, t his fluid is new from the prior examination. 5. There is a new low-density lesion in the liver measuring 1.4 cm. Given the anatomic location and appearance of focal fat deposition is favored, however, t his lesion was not present on the a prior MRI. If it would alter clinical manag ement consider liver MRI with and without intravenous contrast for further delfin acterization. 6. Stable complex cystic lesions in the right ovary measuring up to 2.5 cm. Abdomen: Post-op tenderness Extremities: Perfused A/P Assessment and Plan 57-year-old female status post laparoscopic cholecystectomy with pancreatic pseudocyst with IR drain tolerating regular diet Cultures negative to date Continue antibiotic therapy Anticipate discharge on Tuesday if cultures continue to be negative Attending Statement NOTE FOR SURGICAL ATTENDING, DR. BERNARDO SHERIDAN I attest that I had a [id number] encounter with the patient on the same day, and personally performed and documented my assessment and findings in the medical record. The following services were provided during this hospital visit: Chart data review, vital sign assessments/reviewing monitor data Review of consultations notes if present. Medication orders/review and/or management Ordering and/or reviewing lab tests Ordering and/or interpreting/reviewing x-rays and/or diagnostic studies Care of the patient and discussion of the patient with the care team Documentation time To help prompt me to consider important information that might be impacting today's encounter and assessment, Information from prior notes written by myself or my colleagues may have been "brought forward/copy and pasted" into today's note. Bernardo Sheridan MD Aug 20, 2017 14:57
[2017-08-21] VITALS: BP 107/59; PULSE 68; RESP 18; TEMP 98.3; O2SAT 96
[2017-08-21 04:00] VITALS: BP 110/61; PULSE 65; RESP 18; TEMP 97.3; O2SAT 97
[2017-08-21] MEDS: PIPERACIL-TAZO 4.5 GM PREMIX 100 ML IV SCH ×2 (05:29→11:55)
[2017-08-21 08:00] VITALS: BP 124/58; PULSE 75; RESP 20; TEMP 98.5; O2SAT 100
[2017-08-21] MEDS: PANTOPRAZOLE SOD 20 MG DELAYED RELEASE TAB PO SCH (08:06)
[2017-08-21] MEDS: DOCUSATE SODIUM 50 MG/SENNA 8.6 MG TAB PO SCH (08:07)
[2017-08-21] MEDS: SODIUM CHLORIDE 0.9% FLUSH 10 ML FLUSH IV FLUSH SCH (08:08)
[2017-08-21] MEDS: SODIUM CHLOR 0.9% 1000 ML INJ 1,000 ML IV SCH (09:23)
--- NOTE | 2017-08-21 12:04 | HHI.PR ---
Subjective Remarks The patient is a 57-year-old female with a recent diagnosis of pancreatic cancer who is presenting to the hospital with severe abdominal pain and nausea and vomiting. The patient said that on July 29 she was supposed to go in for a Whipple procedure but that was unable to be completed. She says instead they performed biopsies and removed her gallbladder. She says that her lower intestine also has tumor in it. She says she was supposed to start chemotherapy in the near future. The patient says she was supposed to have her port placed tomorrow. She says following the surgery she has been having issues with abdominal pain and nausea and vomiting. She says the pain in her stomach is rated as a 10 out of 10 in severity. She says it started in her right upper quadrant but seems to have moved to the umbilical area. She says she was up all night vomiting. She denies seeing any blood in the vomitus. She says that she would be able to drink some broth at this time. She says she has not had a bowel movement today but otherwise her bowel movements have been regular. She denies any dysuria. Discussed with nursing. 08-19 in no acute distress. looks comfortable. denies pain, nausea or vomiting. no new complaints. d/w the RN and no acute issues over night. 08-20 in no acute distress. has minimal to mild abdominal pain at the site of drain. had a few loose BM's this morning. no fever. 08-21 wants to go home today We will go home with the drain. Follow-up with oncology and surgery Objective Vitals Vital Signs Date Time Temp Pulse Resp B/P (MAP) Pulse Ox O2 Delivery O2 Flow Rate FiO2 08/21/17 08:00 98.5 75 20 124/58 (80) 100 08/21/17 04:00 97.3 65 18 110/61 (77) 97 08/21/17 00:00 98.3 68 18 107/59 (75) 96 08/20/17 20:00 98.3 72 18 108/63 (78) 97 08/20/17 19:45 98.3 72 18 108/63 (78) 97 08/20/17 16:30 98.3 84 18 122/55 (77) 97 08/20/17 12:18 98.1 84 18 132/61 (84) 98 I/O 08/20/17 08/20/17 08/20/17 08/21/17 08/21/17 08/21/17 07:00 15:00 23:00 07:00 15:00 23:00 Intake Total 240 ml 840 ml 440 ml Output Total 175 ml 120 ml 50 ml Balance 65 ml 720 ml 390 ml Intake Oral 240 ml 840 ml 240 ml IV Total 200 ml Drainage Total 175 ml 120 ml 50 ml # Voids 1 4 2 # Bowel Movements 0 1 Result Diagram: 08/19/17 0517 08/19/17 0517 Other Results Laboratory Tests Test 08/19/17 05:17 08/20/17 13:30 White Blood Count 8.1 TH/MM3 Red Blood Count 3.72 MIL/MM3 Hemoglobin 10.9 GM/DL Hematocrit 32.3 % Mean Corpuscular Volume 86.7 FL Mean Corpuscular Hemoglobin 29.3 PG Mean Corpuscular Hemoglobin Concent 33.8 % Red Cell Distribution Width 13.0 % Platelet Count 348 TH/MM3 Mean Platelet Volume 7.5 FL Neutrophils (%) (Auto) 64.8 % Lymphocytes (%) (Auto) 27.8 % Monocytes (%) (Auto) 4.6 % Eosinophils (%) (Auto) 2.5 % Basophils (%) (Auto) 0.3 % Neutrophils # (Auto) 5.2 TH/MM3 Lymphocytes # (Auto) 2.2 TH/MM3 Monocytes # (Auto) 0.4 TH/MM3 Eosinophils # (Auto) 0.2 TH/MM3 Basophils # (Auto) 0.0 TH/MM3 CBC Comment DIFF FINAL Differential Comment Blood Urea Nitrogen 7 MG/DL Creatinine 0.67 MG/DL Random Glucose 84 MG/DL Total Protein 5.3 GM/DL Albumin 2.4 GM/DL Calcium Level 8.1 MG/DL Alkaline Phosphatase 368 U/L Aspartate Amino Transf (AST/SGOT) 18 U/L Alanine Aminotransferase (ALT/SGPT) 37 U/L Total Bilirubin 0.7 MG/DL Sodium Level 140 MEQ/L Potassium Level 4.1 MEQ/L Chloride Level 107 MEQ/L Carbon Dioxide Level 24.7 MEQ/L Anion Gap 8 MEQ/L Estimat Glomerular Filtration Rate 91 ML/MIN Lipase 492 U/L Stool C. difficile Toxin (PCR) NEGATIVE Stl C. difficile Toxin Epiderm 027 PRESUMPTIVE NEGATIVE Imaging Last Impressions Abscess Drainage CT 08/18/17 1333 Signed Impressions: CONCLUSION: Uncomplicated CT guided drainage of a perigastric and peripancreatic fluid yomi ection. Approximately 100 cc of dark brownish-black fluid was removed and sent for evaluation as ordered. Since the fluid collection decreased from the CT ear lier today this questionably as a decompressed into the peritoneal cavity. Abdomen/Pelvis CT 08/18/17 9377 Signed Impressions: CONCLUSION: 1. There is a cystic lesion with mass effect on the a stomach, transverse colo n, and pancreas measuring up to 12 cm. This finding is new from the prior studi es. Given the prior procedure as this could represent a pancreatic pseudocyst b ut is otherwise of uncertain etiology. It may be causing the patient's symptoms given the mass effect on the stomach. 2. The mass in the pancreatic head is stable measuring up to 1.7 cm. There is no pancreatic or bile duct dilatation. The bile duct stent remains present. 3. There is significant narrowing at the origin of the portal vein but no brandon rial vascular encasement is identified. 4. There is trace volume of free fluid in the pelvis from uncertain etiology. There are no other definite findings to indicate peritoneal disease. However, t his fluid is new from the prior examination. 5. There is a new low-density lesion in the liver measuring 1.4 cm. Given the anatomic location and appearance of focal fat deposition is favored, however, t his lesion was not present on the a prior MRI. If it would alter clinical manag ement consider liver MRI with and without intravenous contrast for further delfin acterization. 6. Stable complex cystic lesions in the right ovary measuring up to 2.5 cm. Objective Remarks GENERAL: Awake alert and oriented 3 talkative and cooperative SKIN: Warm and dry. Still has drain in place on left side of abdomen HEAD: Atraumatic. Normocephalic. EYES: Pupils equal and round. No scleral icterus. No injection or drainage. Extraocular muscles intact ENT: No nasal bleeding or discharge. Mucous membranes pink and moist. Tongue is midline NECK: Trachea midline. No JVD. Supple CARDIOVASCULAR: Regular rate and rhythm. S1-S2 no S3 or S4 RESPIRATORY: No accessory muscle use. Clear to auscultation. Breath sounds equal bilaterally. GASTROINTESTINAL: Abdomen soft, non-tender, nondistended. Hepatic and splenic margins not palpable. MUSCULOSKELETAL: Extremities without clubbing, cyanosis, or edema. No obvious deformities. NEUROLOGICAL: Awake and alert. No obvious cranial nerve deficits. Motor grossly within normal limits. Five out of 5 muscle strength in the arms and legs. Normal speech. PSYCHIATRIC: Appropriate mood and affect; insight and judgment normal. Procedures drainage of a perigastric/peripancreatic fluid collection. (1) Abdominal fluid collection Post Procedure Diagnosis: (1) Abdominal fluid collection Procedure Date: Aug 18, 2017 Supervising Radiologist: Lebron Flores Anesthesia: Conscious Sedation Plan of Activity Patient to Unit: ROPU Patient Condition: Good See PACS Report for procedural detail/treatment Drainage Procedure Procedure 1 Imaging Guidance: CT Side: Left Procedure Type: Abscess Drainage Procedure: Placement Singaporean: 10 Drainage: Suction Fluid Removal (CCs): 100 Fluid Description: Cloudy, Other Additional Detail: dark brownish-black fluid aspirated Medications and IVs Current Medications Morphine Sulfate (Morphine Inj) 4 mg ONCE ONCE IV PUSH Last administered on at 07:53; Start 08/18/17 at 07:45; Stop 08/18/17 at 07:46; Status DC Sodium Chloride 1,000 ml @ 1,000 mls/hr Q1H IV Last administered on 08/18/17at 07:51; Start 08/18/17 at 07:36; Stop 08/18/17 at 08:35; Status DC Sodium Chloride (NS Flush) 2 ml UNSCH PRN IV FLUSH FLUSH AFTER USING IV ACCESS Last administered on 08/18/17at 10:29; Start 08/18/17 at 07:45; Stop 08/18/17 at 12:55; Status DC Prochlorperazine Edisylate (Compazine Inj) 10 mg ONCE ONCE IV PUSH Last administered on 08/18/17at 07:51; Start 08/18/17 at 07:45; Stop 08/18/17 at 07:46 ; Status DC Iohexol (Omnipaque 350 Inj) 74 ml STK-MED ONCE IVCONTRAST Last administered on 08/18/17at 08:51; Start 08/18/17 at 08:51; Stop 08/18/17 at 08:52; Status DC Morphine Sulfate (Morphine Inj) 4 mg ONCE ONCE IV PUSH Last administered on at 10:28; Start 08/18/17 at 10:30; Stop 08/18/17 at 10:31; Status DC Piperacillin Sod/ Tazobactam Sod 50 ml @ 100 mls/hr ONCE ONCE IV Last administered on 08/18/17at 11:51; Start 08/18/17 at 11:30; Stop 08/18/17 at 11:59 ; Status DC Potassium Chloride 100 ml @ 50 mls/hr Q2H IV Last administered on 08/18/17at 17 :38; Start 08/18/17 at 13:00; Stop 08/18/17 at 16:59; Status DC Pantoprazole Sodium (Protonix) 20 mg DAILY PO Last administered on 08/21/17at 08 :06; Start 08/19/17 at 09:00 Sodium Chloride 1,000 ml @ 100 mls/hr Q10H IV Last administered on 08/19/17at 18:35; Start 08/18/17 at 11:36 Sodium Chloride (NS Flush) 2 ml UNSCH PRN IV FLUSH FLUSH AFTER USING IV ACCESS Last administered on 08/21/17at 11:55; Start 08/18/17 at 11:45 Sodium Chloride (NS Flush) 2 ml BID IV FLUSH Last administered on 08/21/17at 08: 08; Start 08/18/17 at 21:00 Ondansetron HCl (Zofran Odt) 4 mg Q6H PRN SL NAUSEA OR VOMITING; Start at 13:00 Acetaminophen (Tylenol) 650 mg Q6H PRN PO PAIN SCALE 1 TO 2; Start 08/18/17 at 11:45 Oxycodone HCl (Roxicodone) 10 mg Q4H PRN PO PAIN SCALE 6 TO 10; Start 08/18/17 at 11:45 Morphine Sulfate (Morphine Inj) 4 mg Q3H PRN IV PUSH BREAKTHROUGH PAIN; Start 08/18/17 at 11:45; Stop 08/18/17 at 12:53; Status DC Oxycodone HCl (Roxicodone) 5 mg Q4H PRN PO PAIN SCALE 3 TO 5; Start 08/18/17 at 11:45 Naloxone HCl (Narcan Inj) 0.4 mg UNSCH PRN IV PUSH SEE LABEL COMMENTS; Start at 11:45 Senna/Docusate Sodium (Alessia-Colace) 1 tab BID PO ; Start 08/18/17 at 21:00 Metoclopramide HCl (Reglan Inj) 5 mg Q8H PRN IV PUSH N/V; Start 08/18/17 at 11: 45 Piperacillin Sod/ Tazobactam Sod 100 ml @ 200 mls/hr Q6H IV Last administered on 08/21/17at 11:55; Start 08/18/17 at 18:00 Hydromorphone HCl (Dilaudid Pf Inj) 1 mg ONCE ONCE IV PUSH Last administered on 08/18/17at 13:15; Start 08/18/17 at 13:00; Stop 08/18/17 at 13:01; Status DC Hydromorphone HCl (Dilaudid Pf Inj) 1 mg Q4H PRN IV PUSH breakthrough pain Last administered on 08/19/17at 07:42; Start 08/18/17 at 13:00 Fentanyl Citrate (fentaNYL INJ) 100 mcg STK-MED ONCE .ROUTE Last administered on 08/18/17at 14:25; Start 08/18/17 at 14:25; Stop 08/18/17 at 14:26; Status DC Midazolam HCl (Versed Inj) 2 mg STK-MED ONCE .ROUTE Last administered on at 14:25; Start 08/18/17 at 14:25; Stop 08/18/17 at 14:26; Status DC A/P Assessment and Plan Abdominal pain/ N/V/ Invasive pancreatic cancer The pt recently had an attempted Whipple procedure on 07/29 but it was unable to be performed s/t the advanced stage of the cancer. Biopsies were taken which showed pancreatitis and a lymph node consistent moderately differentiated adenocarcinoma with a pancreatic primary. The pt was to start chemotherapy soon. CT abdomen in the ED showed: There is a cystic lesion with mass effect on the stomach, transverse colon, and pancreas measuring up to 12 cm; This finding is new from the prior studies; this could represent a pancreatic pseudocyst; The mass in the pancreatic head is stable measuring up to 1.7 cm; The bile duct stent remains present; There is significant narrowing at the origin of the portal vein but no arterial vascular encasement is identified; There is trace volume of free fluid in the pelvis from uncertain etiology; There is a new low- density lesion in the liver measuring 1.4 cm. -s/p drainage of perigastric/peripancreatic fluid collection. -fluid culture so far negative. - pain control with a bowel regimen. - antiemetics as needed. - surgical oncology consult appreciated. - IV Zosyn. diarrhea- check the stool for c-diff. Hypokalemia resolved. Hyperglycemia Likely a stress reaction. Recent A1c was 5.5%. PPx: SCDs Discharge to home today Discharge Planning We will discharge to home today Satnam Cabrera DO Aug 21, 2017 12:04
[2017-08-21] MEDS ORDERED: ZOFR4TAB3 SL (12:08)
[2017-08-21] MEDS ORDERED: LACTCHW3 CHEW (12:08)
[2017-08-21] MEDS ORDERED: OMEP20TA93 PO (12:08)
[2017-08-21] MEDS ORDERED: OXYC-392 PO (12:08)
[2017-08-21] MEDS ORDERED: AUGM500T7 PO (12:08)
--- NOTE | 2017-08-21 12:10 | HHI.DS ---
Discharge Summary Admission Date Aug 18, 2017 at 11:32 Discharge Date: Aug 21, 2017 Admitting Diagnosis stomach obstruction, pancreatic cyst (1) Nausea & vomiting ICD Code: R11.2 - Nausea with vomiting, unspecified Diagnosis: Principal Status: Acute (2) Pancreatitis ICD Code: K85.90 - Acute pancreatitis without necrosis or infection, unspecified Diagnosis: Principal Status: Acute (3) Pancreatic cyst ICD Code: K86.2 - Cyst of pancreas Diagnosis: Principal Status: Acute (4) Abdominal fluid collection ICD Code: R18.8 - Other ascites Diagnosis: Principal (5) Jaundice ICD Code: R17 - Unspecified jaundice Diagnosis: Secondary (6) Common bile duct dilatation ICD Code: K83.8 - Other specified diseases of biliary tract Diagnosis: Secondary Procedures drainage of a perigastric/peripancreatic fluid collection. (1) Abdominal fluid collection Post Procedure Diagnosis: (1) Abdominal fluid collection Procedure Date: Aug 18, 2017 Supervising Radiologist: Lebron Flores Anesthesia: Conscious Sedation Plan of Activity Patient to Unit: ROPU Patient Condition: Good See PACS Report for procedural detail/treatment Drainage Procedure Procedure 1 Imaging Guidance: CT Side: Left Procedure Type: Abscess Drainage Procedure: Placement Danish: 10 Drainage: Suction Fluid Removal (CCs): 100 Fluid Description: Cloudy, Other Additional Detail: dark brownish-black fluid aspirated Brief History - From Admission The patient is a 57-year-old female with a recent diagnosis of pancreatic cancer who is presenting to the hospital with severe abdominal pain and nausea and vomiting. The patient said that on July 29 she was supposed to go in for a Whipple procedure but that was unable to be completed. She says instead they performed biopsies and removed her gallbladder. She says that her lower intestine also has tumor in it. She says she was supposed to start chemotherapy in the near future. The patient says she was supposed to have her port placed tomorrow. She says following the surgery she has been having issues with abdominal pain and nausea and vomiting. She says the pain in her stomach is rated as a 10 out of 10 in severity. She says it started in her right upper quadrant but seems to have moved to the umbilical area. She says she was up all night vomiting. She denies seeing any blood in the vomitus. She says that she would be able to drink some broth at this time. She says she has not had a bowel movement today but otherwise her bowel movements have been regular. She denies any dysuria. Discussed with nursing. CBC/BMP: 08/19/17 0517 08/19/17 0517 Significant Findings Laboratory Tests Test 08/19/17 05:17 08/20/17 13:30 Red Blood Count 3.72 MIL/MM3 (4.00-5.30) Hemoglobin 10.9 GM/DL (11.6-15.3) Hematocrit 32.3 % (35.0-46.0) Total Protein 5.3 GM/DL (6.4-8.2) Albumin 2.4 GM/DL (3.4-5.0) Calcium Level 8.1 MG/DL (8.5-10.1) Alkaline Phosphatase 368 U/L (45-117) Lipase 492 U/L (73-393) Imaging Last Impressions Abscess Drainage CT 08/18/17 1333 Signed Impressions: CONCLUSION: Uncomplicated CT guided drainage of a perigastric and peripancreatic fluid yomi ection. Approximately 100 cc of dark brownish-black fluid was removed and sent for evaluation as ordered. Since the fluid collection decreased from the CT ear lier today this questionably as a decompressed into the peritoneal cavity. Abdomen/Pelvis CT 08/18/17 0736 Signed Impressions: CONCLUSION: 1. There is a cystic lesion with mass effect on the a stomach, transverse colo n, and pancreas measuring up to 12 cm. This finding is new from the prior studi es. Given the prior procedure as this could represent a pancreatic pseudocyst b ut is otherwise of uncertain etiology. It may be causing the patient's symptoms given the mass effect on the stomach. 2. The mass in the pancreatic head is stable measuring up to 1.7 cm. There is no pancreatic or bile duct dilatation. The bile duct stent remains present. 3. There is significant narrowing at the origin of the portal vein but no brandon rial vascular encasement is identified. 4. There is trace volume of free fluid in the pelvis from uncertain etiology. There are no other definite findings to indicate peritoneal disease. However, t his fluid is new from the prior examination. 5. There is a new low-density lesion in the liver measuring 1.4 cm. Given the anatomic location and appearance of focal fat deposition is favored, however, t his lesion was not present on the a prior MRI. If it would alter clinical manag ement consider liver MRI with and without intravenous contrast for further delfin acterization. 6. Stable complex cystic lesions in the right ovary measuring up to 2.5 cm. PE at Discharge GENERAL: Awake alert and oriented 3 talkative and cooperative SKIN: Warm and dry. Still has drain in place on left side of abdomen HEAD: Atraumatic. Normocephalic. EYES: Pupils equal and round. No scleral icterus. No injection or drainage. Extraocular muscles intact ENT: No nasal bleeding or discharge. Mucous membranes pink and moist. Tongue is midline NECK: Trachea midline. No JVD. Supple CARDIOVASCULAR: Regular rate and rhythm. S1-S2 no S3 or S4 RESPIRATORY: No accessory muscle use. Clear to auscultation. Breath sounds equal bilaterally. GASTROINTESTINAL: Abdomen soft, non-tender, nondistended. Hepatic and splenic margins not palpable. MUSCULOSKELETAL: Extremities without clubbing, cyanosis, or edema. No obvious deformities. NEUROLOGICAL: Awake and alert. No obvious cranial nerve deficits. Motor grossly within normal limits. Five out of 5 muscle strength in the arms and legs. Normal speech. PSYCHIATRIC: Appropriate mood and affect; insight and judgment normal. Hospital Course The patient is a 57-year-old female with a recent diagnosis of pancreatic cancer who is presenting to the hospital with severe abdominal pain and nausea and vomiting. The patient said that on July 29 she was supposed to go in for a Whipple procedure but that was unable to be completed. She says instead they performed biopsies and removed her gallbladder. She says that her lower intestine also has tumor in it. She says she was supposed to start chemotherapy in the near future. The patient says she was supposed to have her port placed tomorrow. She says following the surgery she has been having issues with abdominal pain and nausea and vomiting. She says the pain in her stomach is rated as a 10 out of 10 in severity. She says it started in her right upper quadrant but seems to have moved to the umbilical area. She says she was up all night vomiting. She denies seeing any blood in the vomitus. She says that she would be able to drink some broth at this time. She says she has not had a bowel movement today but otherwise her bowel movements have been regular. She denies any dysuria. Discussed with nursing. 6- in no acute distress. looks comfortable. denies pain, nausea or vomiting. no new complaints. d/w the RN and no acute issues over night. - in no acute distress. has minimal to mild abdominal pain at the site of drain. had a few loose BM's this morning. no fever. 08-21 wants to go home today We will go home with the drain. Follow-up with oncology and surgery HAD DRAIN PLACED BY IR PAIN IS MUCH BETTER DC ON PO PAIN MEDS AND LACTINEX AND AUGMENTIN CONTINUE DRAIN Pt Condition on Discharge: Fair Discharge Disposition: Discharge Home Discharge Time: > 30 minutes Discharge Instructions DIET: Follow Instructions for: As Tolerated, No Restrictions Speech Therapy-Diet Recommends: Regular Activities you can perform: Shower Only-No Bath Follow up Referrals: PCP Follow-up Surgical New Medications: Amoxicillin-Clavulanate (Augmentin) 500-125 mg Tab 500 MG PO Q8H for Infection, #30 TAB 0 Refills Lactobacillus Acidophilus (Lactinex) 1 Chew 1 TAB CHEW TID for Nutritional Supplement, #90 TAB 0 Refills Oxycodone (Oxycodone) 5 Mg Tab 5 MG PO Q4H PRN for PAIN, #30 TAB Continued Medications: Omeprazole (Omeprazole) 20 Mg Tab 20 MG PO DAILY for Manage Heartburn, #30 TAB 0 Refills (This prescription has been renewed) Ondansetron Odt (Zofran Odt) 4 Mg Tab 4 MG SL Q8HR PRN for Nausea/Vomiting, #30 TAB 0 Refills (This prescription has been renewed) Satnam Cabrera DO Aug 21, 2017 12:10
[2017-08-21] MEDS ORDERED: LACTOBACILLUS ACIDOPHILUS TAB PO SCH (13:00)
== END 2017-08-21 14:09 | disposition home or self-care (01) | DRG 919 ==
LOC: NEPC 06:58 → NEDA 11:32 → N03B 13:12 → N06B 08-19 14:59
PROVIDERS: ADMIT Hospitalist; ATTEND Hospitalist
PROC: 0F9G30Z Drainage of Pancreas with Drainage Device, Percutaneous Approach (ICD-10-PCS; principal; 2017-08-18)
DX: T81.89XA Other complications of procedures, not elsewhere classified, initial encounter (principal); K85.80 Other acute pancreatitis without necrosis or infection; C77.2 Secondary and unspecified malignant neoplasm of intra-abdominal lymph nodes; C78.5 Secondary malignant neoplasm of large intestine and rectum; K86.3 Pseudocyst of pancreas; C25.0 Malignant neoplasm of head of pancreas; K86.1 Other chronic pancreatitis; K86.89 Other specified diseases of pancreas; E86.0 Dehydration; E87.6 Hypokalemia; R73.9 Hyperglycemia, unspecified; R19.7 Diarrhea, unspecified
CPT/HCPCS: 74177; 75989; 80053; 81001; 83605; 83690; 85025; 85610; 85730; 87070; 87205; 87493; 96361; 96374; 96375; C1729; C1769; J0780; J1170; J2250; J2270; J2543; J3010; J3480; J7030; Q9967

== ENCOUNTER 2017-09-16 15:53 | Inpatient (IN) ==
[2017-09-16] MEDS ORDERED: Sod Chloride 0.9% Inj 1,000 ML IV.CONT SCH (16:30)
[2017-09-16] MEDS ORDERED: Pantoprazole Inj 40 MG Vial IV.PUSH ONE (16:30)
--- NOTE | 2017-09-16 16:38 | ED ---
HPI General Chief complaint: Nausea/Vomiting/Diarrhea Stated complaint: medical complaint Time Seen by Provider: 09/16/17 16:17 Source: patient Mode of arrival: ambulatory Limitations: no limitations History of Present Illness HPI Narrative: 57-year-old female with history of pancreatic adenocarcinoma, GERD presents emergency to complain of nausea, vomiting and midepigastric pain that is been present for approximately 3 days. Patient says that she is being treated by Dr. Askew and does not currently have a primary care physician. Says that she has been eating and drinking normally up until 3 days ago. She says that she stopped taking her Protonix about 1 week ago and thinks maybe this is the cause. Patient says this pain is similar to her previous episodes of GERD but is not as severe. She describes the pain in her midepigastric region as tight, nonradiating and mild to moderate in severity. She has nausea medication at home which she has run out of. She denies melena, hematochezia, hematemesis. She had one episode of diarrhea couple of days ago but currently has normal bowels. She had a normal bowel movement this morning. She denies fever, chills, chest pain, shortness of breath. MD complaint: nausea, vomiting and abdominal pain Onset (ago): day(s) Description of Vomiting: watery Description of Diarrhea: none Associated Abdominal Pain: Yes Location of pain: epigastric Radiation: does not radiate Severity: mild Quality: other Pain Consistency: constant Relieving factors: none Exacerbating factors: none Context: history of abdominal surgery Associated symptoms: denies other symptoms Related Data Home Medications Medication Instructions Recorded Confirmed No Known Home Medications 09/16/17 09/16/17 Allergies Allergy/AdvReac Type Severity Reaction Status Date / Time No Known Allergies Allergy Verified 09/06/17 09:28 Review of Systems Except as stated in HPI: all other systems reviewed are negative PMFSH Social History Social History Substance History: No History of Abuse Second Hand Smoke Exposure: Yes Smoking Status: Former smoker How Often Do You Have a Drink Containing Alcohol: Monthly or less Recent Travel in [facility] within the Last 8 Weeks: No Recent Out of Country Travel within the Last 8 Weeks: No Immunization History Tetanus Immunization: Unsure Hx Influenza Vaccine This Season: No Exam Narrative Exam Narrative: GENERAL: Well-developed well-nourished no apparent distress SKIN: Focused skin assessment warm/dry. HEAD: Atraumatic. Normocephalic. EYES: Pupils equal and round. No scleral icterus. No injection or drainage. ENT: No nasal bleeding or discharge. Mucous membranes pink and moist. NECK: Trachea midline. No JVD. No lymphadenopathy CARDIOVASCULAR: Regular rate and rhythm. No murmur appreciated. RESPIRATORY: No accessory muscle use. Clear to auscultation. Breath sounds equal bilaterally. GASTROINTESTINAL: Abdomen soft, nondistended. Hepatic and splenic margins not palpable. Midepigastric area mild tenderness to palpation without rebound tenderness. Voluntary guarding. No CVA tenderness MUSCULOSKELETAL: No obvious deformities. No clubbing. No cyanosis. No edema. NEUROLOGICAL: Awake and alert. No obvious cranial nerve deficits. Motor grossly within normal limits. Normal speech. PSYCHIATRIC: Appropriate mood and affect; insight and judgment normal. Course Initial Documented Vital Signs Temperature 98.1 F 09/16/17 15:56 Pulse Rate 89 09/16/17 15:56 Respiratory Rate 16 09/16/17 15:56 Blood Pressure 113/55 L 09/16/17 15:56 Pulse Oximetry 100 09/16/17 15:56 Last Documented Vital Signs Temperature 98.1 F 09/16/17 15:56 Pulse Rate 76 09/16/17 21:17 Respiratory Rate 18 09/16/17 21:17 Blood Pressure 116/59 L 09/16/17 21:17 Pulse Oximetry 99 09/16/17 21:17 Medical Decision Making MDM Narrative Medical decision making narrative: 57-year-old female with history of adenocarcinoma the pancreas presents emergency department for evaluation of midepigastric pain that is been present for 3 days. She says he stopped her Protonix because she thought she was doing well and did not believe she needed this medication anymore. Says that over the last 3 days she has had decreased appetite, nausea, vomiting. Says this is similar to her previous episodes of gastric reflux. Pt follows Dr. Sun for her care currently. She had an appointment yesterday but decided to cancel because she thought she was doing so well. Says that she probably should have gone to this appointment instead of canceling it. 1 L normal saline, Protonix, Zofran administered emergency department. Patient states that she continues to feel the tightening of her stomach and describes it as more of intermittent. Patient reiterates her desire to go home today. Says that she would just like to know what is causing this issue. After an extensive stay in the ER and monitoring, patient admits that she was sent here by her general surgeon's office for evaluation of a possible cyst. Note that patient was prompted for this information. CT abdomen pelvis with and without contrast are ordered and it demonstrates a cyst. The recommendation was evaluation by Dr. Sinclair for a "gastric cyst stent". Patient should be admitted for elevated lipase and further evaluation by her GI and general surgeon. I spoke with Dr. Tracy who agreed to the admission. I placed a consult to Dr. Sinclair as requested by Dr. Markham's office. Differential Diagnosis Differential Diagnosis: Gastritis, GERD, pancreatitis, dehydration Medical Records Medical records reviewed: Yes I reviewed the patient's medical records. Lab Data Lab results reviewed: Yes I reviewed the patient's lab results. Result diagrams: 09/16/17 16:45 09/16/17 16:45 Lab Results 09/16/17 09/16/17 09/16/17 Range/Units 16:45 16:45 18:13 WBC 7.6 (4.0-11.0) th/mm3 RBC 4.07 (4.00-5.30) mil/mm3 Hgb 11.6 (11.6-15.3) gm/dL Hct 34.8 L (35.0-46.0) % MCV 85.4 (80.0-100.0) fL MCH 28.5 (27.0-34.0) pg MCHC 33.3 (32.0-36.0) % RDW 13.7 (11.6-17.2) % Plt Count 355 (150-450) th/mm3 MPV 8.1 (7.0-11.0) fL Neut % (Auto) 67.5 (16.0-70.0) % Lymph % (Auto) 25.4 (9.0-44.0) % [place] % (Auto) 5.2 (0.0-8.0) % Eos % (Auto) 1.7 (0.0-4.0) % Baso % (Auto) 0.2 (0.0-2.0) % Neut # (Auto) 5.1 (1.8-7.7) th/mm3 Lymph # (Auto) 1.9 (1.0-4.8) th/mm3 [place] # (Auto) 0.4 (0.0-0.9) th/mm3 Eos # (Auto) 0.1 (0.0-0.4) th/mm3 Baso # (Auto) 0.0 (0.0-0.2) th/mm3 WBC Differential . Differential Comment Auto diff final Sodium 138 (136-145) meq/L Potassium 3.6 (3.5-5.1) meq/L Chloride 100 (98-107) meq/L Carbon Dioxide 30.2 (21.0-32.0) meq/L Anion Gap 8 (5-15) meq/L BUN 12 (7-18) mg/dL Creatinine 0.53 (0.50-1.00) mg/dL Estimated GFR Greater than 89 (>89) mL/min Random Glucose 100 (74-106) mg/dL Calcium 8.5 (8.5-10.1) mg/dL Total Bilirubin 0.4 (0.2-1.0) mg/dL AST 42 H (15-37) U/L ALT 57 H (10-53) U/L Alkaline Phosphatase 574 H (45-117) U/L Total Protein 6.4 (6.4-8.2) g/dL Albumin 2.9 L (3.4-5.0) g/dL Lipase 1041 H (73-393) U/L Urine Color Brandi (Yellw/Straw) Urine Clarity Cloudy H (Clear) Urine pH 7.0 (5.0-8.5) Ur Specific [place] 1.019 (1.002-1.035) Urine Protein 30 H (Neg-Trace) mg/dL Urine Glucose (UA) Negative (Negative) mg/dL Urine Ketones 80 or greater (Negative) mg/dL Urine Occult Blood Negative (Negative) Urine Nitrate Negative (Negative) Urine Bilirubin Negative (Negative) Urine Urobilinogen 2.0 H (Less than 2) mg/dL Ur Leukocyte Esterase Moderate H (Negative) Urine RBC 1 (0-3) /hpf Urine WBC 120 H (0-5) /hpf Urine Bacteria Few H (None) /hpf Urine Mucus Many H (Occasional) /lpf Micro UA Comment Culture indicated Urine Culture Comments Culture indicated Imaging Data Radiologist's impression: Abdomen/Pelvis CT 09/16/17 19:04 CONCLUSION: 1. Interval decrease in size of the dominant cyst between the stomach and tail of pancreas, now measuring 6.5 cm in greatest dimension. 2. No new findings. Discharge Plan Discharge Disposition Patient Disposition: 30 Still Patient Discharge Condition Condition: Stable Physicians Team ED Provider: Ranjeet Boyer ED Midlevel Provider: Samanta Mckeon Primary Care Provider: Primary Care Jania Hurley Attending Provider: Loraine Tracy Other Providers: Cuba Sinclair ; Sorin Frey Status ED Status: Admitted Observation Patient
[2017-09-16 17:31] LABS: Baso % (Auto) 0.2 % (0.0-2.0); Eos # (Auto) 0.1 th/mm3 (0.0-0.4); Eos % (Auto) 1.7 % (0.0-4.0); Hematocrit 34.8 % (35.0-46.0); Hemoglobin 11.6 gm/dL (11.6-15.3); Lymph # (Auto) 1.9 th/mm3 (1.0-4.8); Lymph % (Auto) 25.4 % (9.0-44.0); Mean Corpuscular HGB Conc 33.3 % (32.0-36.0); Mean Corpuscular Hemoglobin 28.5 pg (27.0-34.0); Mean Corpuscular Volume 85.4 fL (80.0-100.0); Mean Platelet Volume 8.1 fL (7.0-11.0); Mono # (Auto) 0.4 th/mm3 (0.0-0.9); Mono % (Auto) 5.2 % (0.0-8.0); Neut # (Auto) 5.1 th/mm3 (1.8-7.7); Neut % (Auto) 67.5 % (16.0-70.0); Platelet Count 355 th/mm3 (150-450); Red Blood Count 4.07 mil/mm3 (4.00-5.30); Red Cell Distribution Width 13.7 % (11.6-17.2); White Blood Count 7.6 th/mm3 (4.0-11.0)
[2017-09-16 17:44] LABS: Alanine Aminotransferase 57 U/L (10-53); Albumin 2.9 g/dL (3.4-5.0); Anion Gap 8 meq/L (5-15); Aspartate Aminotransferase 42 U/L (15-37); Blood Urea Nitrogen 12 mg/dL (7-18); Calcium 8.5 mg/dL (8.5-10.1); Carbon Dioxide 30.2 meq/L (21.0-32.0); Chloride 100 meq/L (98-107); Glomerular Filtration Rate Greater Than 89 mL/min (>89); Glucose,Random 100 mg/dL (74-106); Lipase 1041 U/L (73-393); Potassium 3.6 meq/L (3.5-5.1); Sodium 138 meq/L (136-145)
[2017-09-16 17:46] LABS: Alkaline Phosphatase 574 U/L (45-117); Total Protein 6.4 g/dL (6.4-8.2)
[2017-09-16 19:01] LABS: Bacteria,Urine Few /hpf; Bilirubin,Urine Negative (Negative); Clarity,Urine Cloudy (Clear); Color,Urine Amber (Yellw/Straw); Glucose,Urine (UA) Negative (Negative); Leukocyte Esterase,Urine Moderate (Negative); Mucus,Urine Many /lpf (Occasional); Nitrite,Urine Negative (Negative); Specific Gravity,Urine 1.019 (1.002-1.035)
--- NOTE | 2017-09-16 20:37 | CT ---
EXAM DATE: 09/16/2017 7:57 PM EDT AGE/SEX: 57 years / Female INDICATIONS: Epigastric abdominal pain. CLINICAL DATA: This is the patient's initial encounter. Patient reports that signs and symptoms have been present for 3 days and indicates a pain score of 6/10. MEDICAL/SURGICAL HISTORY: . Gastroesophageal reflux disease. Pancreatic Adenocarcinoma, Gastri c polyps. . Cystectomy, ERCP RADIATION DOSE: 4.52 CTDI (mGy) ; Combined studies [place] [facility] [place]AST[place]18/2017. . TECHNIQUE: Pre-contrast images were obtained. Multiple contiguous helical axial images were then ob tained through the abdomen and pelvis following bolus infusion of 91 ml Omnipaque 350 (iohexol) nonio chandler water-soluble contrast and ingestion of dilute oral contrast as a single exam dose. No oral contr ast ingested. Using automated exposure control and adjustment of the mA and/or kV according to patien t size, radiation dose was kept as low as reasonably achievable to obtain optimal diagnostic quality images. DICOM format image data is available electronically for review and comparison. FINDINGS: Interval decrease in the size of the cystic lesion between the tail the pancreas and the stomach, now measuring 6.5 x 5.1 cm (previously measured 10.2 x 9.2 cm). Indwelling biliary stent. Persistent mil d induration of the fat about the head of the pancreas. The liver, spleen, kidneys, and adrenal gland s are otherwise unremarkable . No dilated small or large bowel. Bilateral low density areas in the ad nexa characteristic of ovarian cysts measure up to 2.2 cm. There is been a decrease in the amount of free fluid in the dependent pelvis, now measuring 12 mm (previously measured 2.4 cm). No dilated loop s of small or large bowel. Bladder contour is smooth. Anteverted uterus. Osseous structures are gross ly intact. Stable mild atelectasis along the major fissure bilaterally... CONCLUSION: 1. Interval decrease in size of the dominant cyst between the stomach and tail of pancreas, now lester uring 6.5 cm in greatest dimension. 2. No new findings. Electronically signed by: Ramesh Casey MD 09/16/2017 8:36 PM EDT
[2017-09-16] MEDS ORDERED: Morphine Sulfate Inj 2 MG/ML Vial IV.PUSH PRN (21:42)
[2017-09-16] MEDS ORDERED: Temazepam 15 MG Capsule PO PRN (21:43)
[2017-09-16] MEDS ORDERED: Bisacodyl 10 MG Supp RECTAL PRN (21:43)
--- NOTE | 2017-09-16 21:45 | P.HPIM ---
History of Present Illness Primary Care Physician: No Primary Care Physician History of Present Illness: This is a 57-year-old female with a PMH of Pancreatic CA who was referred to the ER by Dr. Zaragoza for admission and GI eval of pseudocyst. 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 Also noted to have pancreatic pseudocyst, s/p CT guided drainage 08/18/17, cultures negative. Underwent [id number] placement w/ plans for outpatient eval by Dr. Harvey and likely chemotherapy and radiation by Dr. Delacruz, however pt states she's "undecided" and would like to try a "natural" method. States she's had persistent abdominal pain in addition to nausea/vomiting and sent to ER by Dr. Zaragoza for eval by Dr. Sinclair for possible stent placement. On arrival, BP 130/55, HR 89, O2 sat 100% on RA, Afebrile. CBC unremarkable. LFTs mildly elevated. Lipase 1041. UA positive for UTI. CT Abdomen/Pelvis with interval decrease in size of cysts between stomach and tail of pancreas, now measuring 6.5 cm, no new findings. - Diagnosis (1) Pancreatic cancer (2) Pancreatitis (3) Pseudocyst, pancreas (4) Intractable nausea and vomiting (5) UTI (urinary tract infection) Review of Systems All other systems reviewed negative except as stated in HPI PMFSH - History History Provided By: Patient - Medical History Medical History: Medical History (Last Reviewed 09/16/17 @ 16:14 by Jada Pino) Dental bridge present GERD (gastroesophageal reflux disease) Gastric polyps H/O scabies History of anesthesia reaction History of ileus Pancreas cancer Wears glasses - Surgical History Surgical History: Surgical History (Last Reviewed 09/16/17 @ 16:14 by Jada Pino) H/O total cystectomy History of ERCP History of esophagogastroduodenoscopy (EGD) - Tobacco History Second Hand Smoke Exposure: Yes Smoking Status: Former smoker - Alcohol History How Often Do You Have a Drink Containing Alcohol: Monthly or less - Substance Use History Substance History: No History of Abuse - Travel History Recent Travel in the [place] Within the Last 8 Weeks: No Recent Travel Out of the Country Within the Last 8 Weeks: No - Immunization History Tetanus Immunization: Unsure Hx Influenza Vaccine This Season: No Medications and Allergies Active Medications: Active Medications Sodium Chloride (Ns Inj) 1,000 mls @ 125 mls/hr IV.CONT .Q8H MARGIE Stop: 09/17/17 00:29 Last Admin: 09/16/17 16:49 Dose: 125 mls/hr Sodium Chloride (Ns Flush) 2 ml IV.FLUSH PRN PRN PRN Reason: FLUSH AFTER USING IV ACCESS Last Admin: 09/16/17 16:49 Dose: 2 ml Allergies Allergy/AdvReac Type Severity Reaction Status Date / Time No Known Allergies Allergy Verified 09/06/17 09:28 Home Medications Medication Instructions Recorded Confirmed Type No Known Home Medications 09/16/17 09/16/17 History Exam Vital signs: Vital Signs 09/16/17 15:56 09/16/17 21:17 Temperature 98.1 F Pulse Rate 89 76 Respiratory Rate 16 18 Blood Pressure 113/55 L 116/59 L Pulse Oximetry 100 99 Intake & Output 09/16/17 09/16/17 09/17/17 06:59 18:59 06:59 Weight 55.792 kg Narrative: PE: GENERAL: Pleasant middle-aged white female in no acute distress. HEENT: PERRLA, EOMI. No scleral icterus or conjunctival pallor. No lid lag or facial droop. CARDIOVASCULAR: Regular rate and rhythm. No obvious murmurs to auscultation. No chest tenderness to palpation. RESPIRATORY: No obvious rhonchi or wheezing. Clear to auscultation. Breath sounds equal bilaterally. GASTROINTESTINAL: Abdomen soft, mild epigastric tenderness palpation, nondistended. BS normal. MUSCULOSKELETAL: Extremities without clubbing, cyanosis, or edema. No obvious deformities. NEUROLOGICAL: Awake, alert and oriented x4. No focal neurologic deficits. Moving both upper and lower extremities spontaneously. Results - Labs CBC & Chem 7: 09/16/17 16:45 09/16/17 16:45 Labs: Short CBC 09/16/17 Range/Units 16:45 WBC 7.6 (4.0-11.0) th/mm3 Hgb 11.6 (11.6-15.3) gm/dL Hct 34.8 L (35.0-46.0) % Plt Count 355 (150-450) th/mm3 BMP 09/16/17 16:45 Sodium 138 Potassium 3.6 Chloride 100 Carbon Dioxide 30.2 BUN 12 Creatinine 0.53 Calcium 8.5 Liver Function 09/16/17 Range/Units 16:45 Total Bilirubin 0.4 (0.2-1.0) mg/dL AST 42 H (15-37) U/L ALT 57 H (10-53) U/L Alkaline Phosphatase 574 H (45-117) U/L Albumin 2.9 L (3.4-5.0) g/dL Urine 09/16/17 Range/Units 18:13 Urine Color Brandi (Yellw/Straw) Urine Clarity Cloudy H (Clear) Urine pH 7.0 (5.0-8.5) Ur Specific [place] 1.019 (1.002-1.035) Urine Protein 30 H (Neg-Trace) mg/dL Urine Glucose (UA) Negative (Negative) mg/dL - Imaging Impressions Abdomen/Pelvis CT 09/16/17 19:04 CONCLUSION: 1. Interval decrease in size of the dominant cyst between the stomach and tail of pancreas, now measuring 6.5 cm in greatest dimension. 2. No new findings. Caprini VTE Risk Assessment Caprini VTE Risk Assessment: No/Low Risk (score <= 1) Caprini Risk Assessment Model: Point Value = 1 Point Value = 2 Point Value = 3 Point Value = 5 Age 41-60 Minor surgery BMI > 25 kg/m2 Swollen legs Varicose veins or History of unexplained or recurrent spontaneous Oral contraceptives or hormone replacement Sepsis (< 1 month) Serious lung disease, including pneumonia (< 1 month) Abnormal pulmonary function Acute myocardial infarction Congestive heart failure (< 1 month) History of inflammatory bowel disease Medical patient at bed rest Age 61-74 Arthroscopic surgery Major open surgery (> 45 min) Laparoscopic surgery (> 45 min) Malignancy Confined to bed (> 72 hours) Immobilizing plaster cast Central venous access Age >= 75 History of VTE Family history of VTE Factor V Leiden Prothrombin [id number] Lupus anticoagulant Anticardiolipin antibodies Elevated serum homocysteine Heparin-induced thrombocytopenia Other congenital or acquired thrombophilia Stroke (< 1 month) Elective arthroplasty Hip, pelvis, or leg fracture Acute spinal cord injury (< 1 month) Prophylaxis Regimen: Total Risk Factor Score Risk Level Prophylaxis Regimen 0-1 Low Early ambulation 2 Moderate Order ONE of the following: *Sequential Compression Device (SCD) *Heparin 5000 units SQ BID 3-4 Higher Order ONE of the following medications: *Heparin 5000 units SQ TID *Enoxaparin/Lovenox 40 mg SQ daily (WT < 150 kg, CrCl > 30 mL/min) *Enoxaparin/Lovenox 30 mg SQ daily (WT < 150 kg, CrCl > 10-29 mL/min) *Enoxaparin/Lovenox 30 mg SQ BID (WT < 150 kg, CrCl > 30 mL/min) AND/OR *Sequential Compression Device (SCD) 5 or more Highest Order ONE of the following medications: *Heparin 5000 units SQ TID (Preferred with Epidurals) *Enoxaparin/Lovenox 40 mg SQ daily (WT < 150 kg, CrCl > 30 mL/min) *Enoxaparin/Lovenox 30 mg SQ daily (WT < 150 kg, CrCl > 10-29 mL/min) *Enoxaparin/Lovenox 30 mg SQ BID (WT < 150 kg, CrCl > 30 mL/min) AND *Sequential Compression Device (SCD) Assessment and Plan - Assessment (1) Pancreatic cancer Code(s): C25.9 - Malignant neoplasm of pancreas, unspecified Status: Acute (2) Pancreatitis Code(s): K85.90 - Acute pancreatitis without necrosis or infection, unspecified Status: Acute (3) Pseudocyst, pancreas Code(s): K86.3 - Pseudocyst of pancreas Status: Acute (4) Intractable nausea and vomiting Code(s): R11.2 - Nausea with vomiting, unspecified Status: Acute (5) UTI (urinary tract infection) Code(s): N39.0 - Urinary tract infection, site not specified Status: Acute - Plan A/P: 1. 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 Delacruz w/ possible radiation, and upcoming appt w/ Dr. Harvey for likely chemotherapy, however pt states she's "undecided". [id number] in place. 2. Pancreatic Pseudocyst: pt states she was referred to the ER by Dr. Zaragoza for stent placement by Dr. Sinclair. CT Abd/Pelvis w/ slightly decreased pseudocyst of 6.5cm, no new findings, images reviewed. Previous CT Guided drainage of pseudocyst 08/18/17 by IR, cultures negative. Will consult GI for further evaluation, consult Dr. Zaragoza 3. Pancreatitis: Lipase 1041, NPO, IVF, analgesics/antiemetics as needed, repeat Lipase. 4. UTI: U/a w/ UTI, start IV Abx, IVF for hydration, monitor I/O 5. DVT Prophylaxis: SCD/Teds 6. Social work for d/c planning as needed 7. Case discussed w/ ER physician at length, labs/records/imaging reviewed by me.
[2017-09-16] MEDS: Sod Chloride 0.9% Inj 1,000 ML IV.CONT SCH (23:09)
[2017-09-17] MEDS: Piperacil/Tazo 4.5 GM Premix 4.5 GM/100 ML BAG IV.SIG SCH ×4 (05:36→23:35)
--- NOTE | 2017-09-17 09:08 | P.CONGI ---
History of Present Illness Consult date: 09/17/17 Chief complaint: pancreatic cyst, elevated lipase, h/o History of Present Illness: This is a 57-year-old female with a PMH of Pancreatic CA who was referred to the ER by Dr. Zaragoza for admission and GI eval of pseudocyst for eval by Dr. Sinclair for possible stent placement. Patient has been having nausea and vomiting for the past 2 days, hasn't been able to tolerate any PO intake. Endorses upper abd pressure. Denies hematemesis, melena, hematochezia, fever, chills or change in urine. 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 Also noted to have pancreatic pseudocyst, s/p CT guided drainage 08/18/17 and biliary stent, cultures negative. Underwent Sskhce-P-Wzaw placement w/ plans for outpatient eval by Dr. Harvey and likely chemotherapy and radiation by Dr. Delacruz, however pt not sure and hasn't decided yet, she might consider natural route. On arrival, CBC unremarkable. LFTs mildly elevated. Lipase 1041. UA positive for UTI. CT Abdomen/Pelvis with interval decrease in size of cysts between stomach and tail of pancreas, now measuring 6.5 cm, no new findings. <Evelina Worthy - Last Filed: 09/25/17 06:53> Review of Systems All other systems reviewed negative except as stated in HPI <Evelina Worthy - Last Filed: 09/25/17 06:53> PMFSH - Medical History Medical History: Medical History (Last Reviewed 09/16/17 @ 16:14 by Jada Pino) Dental bridge present GERD (gastroesophageal reflux disease) Gastric polyps H/O scabies History of anesthesia reaction History of ileus Pancreas cancer Wears glasses - Surgical History Surgical History: Surgical History (Last Reviewed 09/16/17 @ 16:14 by Jada Pino) H/O total cystectomy History of ERCP History of esophagogastroduodenoscopy (EGD) <Cuba Sinclair - Last Filed: 09/17/17 19:33> - History History Provided By: Patient - Medical History Medical History: Medical History (Last Reviewed 09/19/17 @ 10:28 by Jerilyn Dailey PT) Dental bridge present GERD (gastroesophageal reflux disease) Gastric polyps H/O scabies History of anesthesia reaction History of ileus Pancreas cancer Wears glasses - Surgical History Surgical History: Surgical History (Last Reviewed 09/19/17 @ 10:29 by Jerilyn Dailey PT) H/O total cystectomy History of ERCP History of esophagogastroduodenoscopy (EGD) - Tobacco History Second Hand Smoke Exposure: Yes Tobacco Use In Past 30 Days: No Smoking Status: Former smoker Tobacco Type: Cigarettes - Alcohol History How Often Do You Have a Drink Containing Alcohol: Monthly or less - Substance Use History Substance History: No History of Abuse - Travel History Recent Travel in the [place] Within the Last 8 Weeks: No Recent Travel Out of the Country Within the Last 8 Weeks: No - Immunization History Tetanus Immunization: Unsure Hx Influenza Vaccine This Season: No <Evelina Worthy - Last Filed: 09/25/17 06:53> Medications and Allergies Active Medications: Active Medications Al Hydroxide/Mg Hydroxide (Milk Of Magnesia Liq) 30 ml PO Q12H PRN PRN Reason: Mild Constipation Bisacodyl (Dulcolax Supp) 10 mg RECTAL DAILY PRN PRN Reason: SEVERE CONSITIPATION Sodium Chloride (Ns Inj) 1,000 mls @ 100 mls/hr IV.CONT .Q10H [facility] Last Admin: 09/17/17 18:53 Dose: Not Given Piperacillin/Tazobactam/Dextrose (Zosyn 4.5 Gm Premix) 4.5 gm in 100 mls @ 200 mls/hr IV.SIG Q6H [facility] Last Admin: 09/17/17 18:53 Dose: 200 mls/hr Lactulose (Lactulose Liq) 30 ml PO DAILY PRN PRN Reason: SEVERE CONSITIPATION Morphine Sulfate (Morphine Inj) 2 mg IV.PUSH Q4H PRN PRN Reason: PAIN 6-10 Ondansetron HCl (Zofran Inj) 4 mg IV.PUSH Q6H PRN PRN Reason: NAUSEA OR VOMITING Prochlorperazine Edisylate (Compazine Inj) 10 mg IV.PUSH Q6H PRN PRN Reason: NAUSEA/VOMITING Last Admin: 09/17/17 18:29 Dose: 10 mg Senna/Docusate Sodium (Alessia-Colace) 1 tab PO BID [facility] Last Admin: 09/17/17 10:46 Dose: Not Given Sennosides (Senokot) 17.2 mg PO Q12H PRN PRN Reason: Moderate Constipation Sodium Chloride (Ns Flush) 2 ml IV.FLUSH PRN PRN PRN Reason: FLUSH AFTER USING IV ACCESS Last Admin: 09/16/17 16:49 Dose: 2 ml Temazepam (Restoril) 15 mg PO HS PRN PRN Reason: INSOMNIA <YahirCuba E - Last Filed: 09/17/17 19:33> Active Medications: Active Medications Al Hydroxide/Mg Hydroxide (Milk Of Magnesia Liq) 30 ml PO Q12H PRN PRN Reason: Mild Constipation Bisacodyl (Dulcolax Supp) 10 mg RECTAL DAILY PRN PRN Reason: SEVERE CONSITIPATION Sodium Chloride (Ns Inj) 1,000 mls @ 100 mls/hr IV.CONT .Q10H [facility] Last Admin: 09/16/17 23:09 Dose: 100 mls/hr Piperacillin/Tazobactam/Dextrose (Zosyn 4.5 Gm Premix) 4.5 gm in 100 mls @ 200 mls/hr IV.SIG Q6H [facility] Last Infusion: 09/17/17 06:06 Dose: Infused Lactulose (Lactulose Liq) 30 ml PO DAILY PRN PRN Reason: SEVERE CONSITIPATION Morphine Sulfate (Morphine Inj) 2 mg IV.PUSH Q4H PRN PRN Reason: PAIN 6-10 Ondansetron HCl (Zofran Inj) 4 mg IV.PUSH Q6H PRN PRN Reason: NAUSEA OR VOMITING Prochlorperazine Edisylate (Compazine Inj) 10 mg IV.PUSH Q6H PRN PRN Reason: NAUSEA/VOMITING Senna/Docusate Sodium (Alessia-Colace) 1 tab PO BID [facility] Sennosides (Senokot) 17.2 mg PO Q12H PRN PRN Reason: Moderate Constipation Sodium Chloride (Ns Flush) 2 ml IV.FLUSH PRN PRN PRN Reason: FLUSH AFTER USING IV ACCESS Last Admin: 07/20/18 16:49 Dose: 2 ml Temazepam (Restoril) 15 mg PO HS PRN PRN Reason: INSOMNIA <DukeEvelina villagomez - Last Filed: 09/25/17 06:53> Allergies Allergy/AdvReac Type Severity Reaction Status Date / Time No Known Allergies Allergy Verified 09/06/17 09:28 Home Medications Medication Instructions Recorded Confirmed Type No Known Home Medications 09/16/17 09/16/17 History Exam Vital signs: Vital Signs 09/16/17 21:17 09/17/17 00:00 09/17/17 04:00 Temperature 98.7 F 97.9 F Pulse Rate 76 74 81 Respiratory Rate 18 16 16 Blood Pressure 116/59 L 112/65 118/67 Pulse Oximetry 99 97 94 L 09/17/17 08:00 09/17/17 11:53 09/17/17 15:30 Temperature 98.0 F 99.1 F 98.1 F Pulse Rate 77 71 80 Respiratory Rate 18 16 16 Blood Pressure 108/56 L 108/55 L 119/58 L Pulse Oximetry 97 97 98 Intake & Output 09/17/17 09/17/17 09/18/17 06:59 18:59 06:59 Intake Total 1100 / 1100 1100 / 1100 Balance 1100 / 1100 1100 / 1100 Weight 55.792 kg Intake: IV 1100 / 1100 1100 / 1100 NS Inj 1,000 ML @ 100 mls/hr IV 1000 / 1000 1000 / 1000 .CONT .Q10H [facility] Rx#:[id number] Zosyn 4.5 GM Premix 4.5 gm In 100 / 100 100 / 100 100 ml @ 200 mls/hr IV.SIG Q6H [facility] Rx#:[id number] Other: # Voids 1 Date of Last Bowel Movement 09/16/17 09/16/17 Weight On Admission 55.792 kg <Cuba Sinclair - Last Filed: 09/17/17 19:33> Vital signs: Vital Signs 09/16/17 15:56 09/16/17 21:17 09/17/17 00:00 Temperature 98.1 F 98.7 F Pulse Rate 89 76 74 Respiratory Rate 16 18 16 Blood Pressure 113/55 L 116/59 L 112/65 Pulse Oximetry 100 99 97 09/17/17 04:00 09/17/17 08:00 Temperature 97.9 F 98.0 F Pulse Rate 81 77 Respiratory Rate 16 18 Blood Pressure 118/67 108/56 L Pulse Oximetry 94 L 97 Intake & Output 09/16/17 09/17/17 09/17/17 18:59 06:59 18:59 Intake Total 1100 / 1100 Balance 1100 / 1100 Weight 55.792 kg 55.792 kg Intake: IV 1100 / 1100 NS Inj 1,000 ML @ 125 mls/hr IV 1000 / 1000 .CONT .Q8H [facility]ARGIE Rx#:[id number] Zosyn 4.5 GM Premix 4.5 gm In 100 / 100 100 ml @ 200 mls/hr IV.SIG Q6H [facility]ARGIE Rx#:[id number] Other: # Voids 1 Date of Last Bowel Movement 09/16/17 Weight On Admission 55.792 kg - Constitutional no acute distress - Routine HEENT Exam Head: Present: normocephalic Eye: Present: PERRL - Routine Neck Exam Present: supple - Routine Respiratory Exam Present: CTA bilaterally - Routine Cardiovascular Exam Present: RRR - Routine Abdominal Exam Present: soft, normoactive bowel sounds, tenderness, surgical scars - Routine Extremities Exam Absent: edema - Routine Skin Exam Present: intact, dry. Absent: jaundice - Routine Neurological Exam Present: alert, oriented X3 <Evelina Worthy - Last Filed: 09/25/17 06:53> Results - Labs CBC & Chem 7: 09/16/17 16:45 09/16/17 16:45 Labs: Laboratory Results - last 24 hr 09/16/17 09/17/17 18:13 07:15 Lipase 348 Urine Color Brandi Urine Clarity Cloudy H Urine pH 7.0 Ur Specific [place] 1.019 Urine Protein 30 H Urine Glucose (UA) Negative Urine Ketones 80 or greater Urine Occult Blood Negative Urine Nitrate Negative Urine Bilirubin Negative Urine Urobilinogen 2.0 H Ur Leukocyte Esterase Moderate H Urine RBC 1 Urine WBC 120 H Urine Bacteria Few H Urine Mucus Many H Micro UA Comment Culture indicated Urine Culture Comments Culture indicated - Imaging Impressions Abdomen/Pelvis CT 09/16/17 19:04 CONCLUSION: 1. Interval decrease in size of the dominant cyst between the stomach and tail of pancreas, now measuring 6.5 cm in greatest dimension. 2. No new findings. <Cuba Sinclair - Last Filed: 09/17/17 19:33> - Labs CBC & Chem 7: 09/20/17 06:31 09/20/17 06:31 Labs: Laboratory Results - last 24 hr 09/16/17 09/16/17 09/16/17 16:45 16:45 18:13 WBC 7.6 RBC 4.07 Hgb 11.6 Hct 34.8 L MCV 85.4 MCH 28.5 MCHC 33.3 RDW 13.7 Plt Count 355 MPV 8.1 Neut % (Auto) 67.5 Lymph % (Auto) 25.4 [place] % (Auto) 5.2 Eos % (Auto) 1.7 Baso % (Auto) 0.2 Neut # (Auto) 5.1 Lymph # (Auto) 1.9 [place] # (Auto) 0.4 Eos # (Auto) 0.1 Baso # (Auto) 0.0 WBC Differential . Differential Comment Auto diff final Sodium 138 Potassium 3.6 Chloride 100 Carbon Dioxide 30.2 Anion Gap 8 BUN 12 Creatinine 0.53 Estimated GFR Greater than 89 Random Glucose 100 Calcium 8.5 Total Bilirubin 0.4 AST 42 H ALT 57 H Alkaline Phosphatase 574 H Total Protein 6.4 Albumin 2.9 L Lipase 1041 H Urine Color Brandi Urine Clarity Cloudy H Urine pH 7.0 Ur Specific [place] 1.019 Urine Protein 30 H Urine Glucose (UA) Negative Urine Ketones 80 or greater Urine Occult Blood Negative Urine Nitrate Negative Urine Bilirubin Negative Urine Urobilinogen 2.0 H Ur Leukocyte Esterase Moderate H Urine RBC 1 Urine WBC 120 H Urine Bacteria Few H Urine Mucus Many H Micro UA Comment Culture indicated Urine Culture Comments Culture indicated - Imaging Impressions Abdomen/Pelvis CT 09/16/17 19:04 CONCLUSION: 1. Interval decrease in size of the dominant cyst between the stomach and tail of pancreas, now measuring 6.5 cm in greatest dimension. 2. No new findings. <Evelina Worthy - Last Filed: 09/25/17 06:53> Assessment and Plan - Attending Attestation Patient seen and examined Continue with current supportive care Monitor labs Reviewing past CTs it seems that this pseudocyst is shrinking its trunk from 12 cm to about 6 cm I do not think her symptoms are related to the pseudocyst My concern would be possible compromise to the duodenal lumen which may be giving rise to her symptoms I would recommend an EGD on Tuesday We will monitor labs <C[place] Sinclair E - Last Filed: 09/17/17 19:33> - Plan - Pancreatic pseudocyst/ elevated lipase 1041on admission- referred to the ER by Dr. Zaragoza for admission and GI eval of pseudocyst for eval by Dr. Sinclair for possible stent placement. 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 Also noted to have pancreatic pseudocyst, s/p CT guided drainage 08/18/17 and biliary stent, cultures negative. Underwent [id number]-Wfbm placement w/ plans for outpatient eval by Dr. Harvey and likely chemotherapy and radiation by Dr. Delacruz, however pt not sure and hasn't decided yet, she might consider natural route. On arrival, CBC unremarkable. LFTs mildly elevated. Lipase 1041. UA positive for UTI. CT Abdomen/Pelvis with interval decrease in size of cysts between stomach and tail of pancreas, now measuring 6.5 cm, no new findings. - UTI- on abx, wbc wnl Plan: - NPO - EGD, -/+ EUS on Tuesday, as cyst seems to be shrinking Will discuss with Dr. Sinclair - Cont. abx - Monitor labs - IV hydration - Antiemetic meds - Supportive care -Pt was seen and examined by Dr. Gardner and myself and this note is written on his behalf. <Evelina Worthy - Last Filed: 09/25/17 06:53>
--- NOTE | 2017-09-17 10:32 | P.PNIM ---
Subjective Interval history: Patient says she is feeling right currently. Reports abdominal kidney pain is under control. Denies any chest pain shortness breath. Would like to start regular diet . Physical Exam Vital signs: Vital Signs 09/16/17 15:56 09/16/17 21:17 09/17/17 00:00 Temperature 98.1 F 98.7 F Pulse Rate 89 76 74 Respiratory Rate 16 18 16 Blood Pressure 113/55 L 116/59 L 112/65 Pulse Oximetry 100 99 97 09/17/17 04:00 09/17/17 08:00 Temperature 97.9 F 98.0 F Pulse Rate 81 77 Respiratory Rate 16 18 Blood Pressure 118/67 108/56 L Pulse Oximetry 94 L 97 Intake & Output 09/16/17 09/17/17 09/17/17 18:59 06:59 18:59 Intake Total 1100 / 1100 Balance 1100 / 1100 Weight 55.792 kg 55.792 kg Intake: IV 1100 / 1100 NS Inj 1,000 ML @ 125 mls/hr IV 1000 / 1000 .CONT .Q8H [facility]ARGIE Rx#:[id number] Zosyn 4.5 GM Premix 4.5 gm In 100 / 100 100 ml @ 200 mls/hr IV.SIG Q6H MARGIE Rx#:[id number] Other: # Voids 1 Date of Last Bowel Movement 09/16/17 Weight On Admission 55.792 kg Narrative: GENERAL: Patient sitting up in bed. Appears comfortable. SKIN: Warm and dry. HEAD: Normocephalic. EYES: No scleral icterus. No injection or drainage. NECK: Supple, trachea midline. No JVD. CARDIOVASCULAR: Regular rate and rhythm without murmurs, gallops, or rubs. RESPIRATORY: Breath sounds equal bilaterally. No accessory muscle use. GASTROINTESTINAL: Abdomen soft, nondistended. Tender to moderate palpation. MUSCULOSKELETAL: No cyanosis, or edema. BACK: Nontender without obvious deformity. No CVA tenderness. Results - Labs CBC & Chem 7: 09/16/17 16:45 09/16/17 16:45 Laboratory Results - last 24 hr 09/16/17 09/16/17 09/16/17 16:45 16:45 18:13 WBC 7.6 RBC 4.07 Hgb 11.6 Hct 34.8 L MCV 85.4 MCH 28.5 MCHC 33.3 RDW 13.7 Plt Count 355 MPV 8.1 Neut % (Auto) 67.5 Lymph % (Auto) 25.4 [place] % (Auto) 5.2 Eos % (Auto) 1.7 Baso % (Auto) 0.2 Neut # (Auto) 5.1 Lymph # (Auto) 1.9 [place] # (Auto) 0.4 Eos # (Auto) 0.1 Baso # (Auto) 0.0 WBC Differential . Differential Comment Auto diff final Sodium 138 Potassium 3.6 Chloride 100 Carbon Dioxide 30.2 Anion Gap 8 BUN 12 Creatinine 0.53 Estimated GFR Greater than 89 Random Glucose 100 Calcium 8.5 Total Bilirubin 0.4 AST 42 H ALT 57 H Alkaline Phosphatase 574 H Total Protein 6.4 Albumin 2.9 L Lipase 1041 H Urine Color Brandi Urine Clarity Cloudy H Urine pH 7.0 Ur Specific [place] 1.019 Urine Protein 30 H Urine Glucose (UA) Negative Urine Ketones 80 or greater Urine Occult Blood Negative Urine Nitrate Negative Urine Bilirubin Negative Urine Urobilinogen 2.0 H Ur Leukocyte Esterase Moderate H Urine RBC 1 Urine WBC 120 H Urine Bacteria Few H Urine Mucus Many H Micro UA Comment Culture indicated Urine Culture Comments Culture indicated 09/17/17 07:15 WBC RBC Hgb Hct MCV MCH MCHC RDW Plt Count MPV Neut % (Auto) Lymph % (Auto) [place] % (Auto) Eos % (Auto) Baso % (Auto) Neut # (Auto) Lymph # (Auto) [place] # (Auto) Eos # (Auto) Baso # (Auto) WBC Differential Differential Comment Sodium Potassium Chloride Carbon Dioxide Anion Gap BUN Creatinine Estimated GFR Random Glucose Calcium Total Bilirubin AST ALT Alkaline Phosphatase Total Protein Albumin Lipase 348 Urine Color Urine Clarity Urine pH Ur Specific [place] Urine Protein Urine Glucose (UA) Urine Ketones Urine Occult Blood Urine Nitrate Urine Bilirubin Urine Urobilinogen Ur Leukocyte Esterase Urine RBC Urine WBC Urine Bacteria Urine Mucus Micro UA Comment Urine Culture Comments - Imaging Impressions Abdomen/Pelvis CT 09/16/17 19:04 CONCLUSION: 1. Interval decrease in size of the dominant cyst between the stomach and tail of pancreas, now measuring 6.5 cm in greatest dimension. 2. No new findings. Assessment and Plan - Assessment (1) Pancreatic cancer Code(s): C25.9 - Malignant neoplasm of pancreas, unspecified Status: Acute (2) Pancreatitis Code(s): K85.90 - Acute pancreatitis without necrosis or infection, unspecified Status: Acute (3) Pseudocyst, pancreas Code(s): K86.3 - Pseudocyst of pancreas Status: Acute (4) Intractable nausea and vomiting Code(s): R11.2 - Nausea with vomiting, unspecified Status: Acute (5) UTI (urinary tract infection) Code(s): N39.0 - Urinary tract infection, site not specified Status: Acute - Plan // Pancreatic CA: Stage II Pancreatic CA w/ regional maria alejandra metastasis, s/p eval by Dr. Delacruz w/ possible radiation, and upcoming appt w/ Dr. Harvey for likely chemotherapy, however pt states she's "undecided". [id number] in place. = We will start diet. Appreciate GI assistance. Plan for stenting on Tuesday. // Pancreatic Pseudocyst: pt states she was referred to the ER by Dr. Zaragoza for stent placement by Dr. Sinclair. CT Abd/Pelvis w/ slightly decreased pseudocyst of 6.5cm, no new findings, images reviewed. Previous CT Guided drainage of pseudocyst 08/18/17 by IR, //Pancreatitis: Lipase 1041, NPO, IVF, analgesics/antiemetics as needed, repeat Lipase. = Advance diet as tolerated. // UTI: U/a w/ UTI, start IV Abx, IVF for hydration, monitor I/O // DVT Prophylaxis: SCD/Teds Discharge Planning: Stenting on Tuesday. PT will be consulted
[2017-09-17] MEDS: Senna/Docusate Sodium 8.6/50 MG Tablet PO SCH ×2 (10:46→20:13)
[2017-09-17] MEDS: Sod Chloride 0.9% Inj 1,000 ML IV.CONT SCH ×3 (10:46→23:36)
--- NOTE | 2017-09-17 20:01 | MB ---
cc: Sorin Frey MD DATE: 09/17/2017 CHIEF COMPLAINT: Decreased p.o. intake, history of pancreatic cancer, history of pseudocyst. HISTORY OF PRESENT ILLNESS: The patient is a 57-year-old female with a past medical history of pancreatic cancer. She was noted to have metastatic disease. She has previous history of, on 08/17/2017, a pancreatic mass, attempted Whipple; however, due to diffuse metastatic disease, this was abandoned and the patient underwent port placement with plan for chemo and radiation. She presented with decreased p.o. intake and nausea and vomiting for the past 2 days. She states minimal abdominal pain and pressure in the upper abdomen. She states it is somewhat diffuse, worse with movement than lying still and continued to get worse. She called our office and was directed to the emergency department for further evaluation. She had a CT scan showing a 6.5 cm decreased size of pseudocyst along with a lipase of 1041. PAST MEDICAL HISTORY: Reflux, gastric polyp and pancreatic cancer. PAST SURGICAL HISTORY: Exploratory laparotomy, ERCP, total cystectomy, EGD and port placement. SOCIAL HISTORY: History of smoking, denies current smoking. Occasional ETOH. Denies IVDA. ALLERGIES: NO KNOWN DRUG ALLERGIES. MEDICATIONS: See electronic medical record. FAMILY HISTORY: Denies diabetes or hypertension. REVIEW OF SYSTEMS: GENERAL: Denies fevers or chills. HEENT: Denies eye pain, ears pain. Complains of fatigue. NECK: Denies swelling. LUNGS: Denies cough or wheeze. HEART: Denies palpitations or chest pain. ABDOMEN: Complains of nausea, vomiting, chest pressure and abdominal pressure. EXTREMITIES: Denies arthralgias or myalgias. NEUROLOGIC: Denies numbness or tingling. PSYCHIATRIC: Denies change in mood or sensorium. PHYSICAL EXAMINATION: GENERAL: The patient in no acute distress. VITAL SIGNS: Temperature 97.9, pulse 81, respirations 16, blood pressure 118/67, saturation 94%. HEENT: Pupils equal, round, reactive. NECK: Supple. Trachea midline. LUNGS: Clear to auscultation, bilateral expansion. HEART: S1, S2 regular. ABDOMEN: Soft, minimal tenderness. Well-healed surgical scar. EXTREMITIES: Warm and well perfused. INTEGUMENT: Port is clean, dry and intact. NEUROLOGIC: 5/5 in all extremities. Awake, alert and oriented x 3. LABORATORY AND DIAGNOSTIC DATA: WBC 7.6, hemoglobin 11.6, hematocrit 31.8, platelets 355. Sodium 138, potassium 3.6, chloride 100, BUN is 12, creatinine 0.5, AST 42, ALT 57, alkaline phosphatase 574, total bilirubin 0.4, lipase 1041. CT reviewed by myself showing decreased size of pseudocyst between stomach and tail of pancreas 6.5 cm, biliary stent in place, indurated fat around head of the pancreas, ovarian cyst. ASSESSMENT: The patient is a 57-year-old female with metastatic pancreatic cancer, status post port possible plan of chemoradiation presents with history of pseudocyst appearance of decreased size with patient with decreased p.o. intake, nausea and vomiting. PLAN: Had a full clinical workup. The patient has above-knee issues. At this point, we will discuss with Gastroenterology for possible stent placement. They are considering placement on Tuesday. Continue IV hydration, pain control. The patient can have a full liquid diet from my standpoint, continue to observe and monitor lipase and LFTs. MD LISA Valle/JAGJIT , 07:40 PM , 07:59 PM
[2017-09-18] MEDS: Piperacil/Tazo 4.5 GM Premix 4.5 GM/100 ML BAG IV.SIG SCH ×3 (05:39→18:32)
--- NOTE | 2017-09-18 08:38 | P.PNGI ---
Subjective Interval history: Pt resting in bed, reports some RUQ abdominal pressure but denies any pain. States she has some slight nausea at this moment but has had no emesis today. Currently on liquid diet, discussed advancing diet and pt states she is not ready yet. She is aware of plans for EGD tomorrow. <Lynne Flores - Last Filed: 09/18/17 08:35> Physical Exam Vital signs: Vital Signs 09/17/17 11:53 09/17/17 15:30 09/17/17 19:33 Temperature 99.1 F 98.1 F 98.0 F Pulse Rate 71 80 78 Respiratory Rate 16 16 17 Blood Pressure 108/55 L 119/58 L 108/64 Pulse Oximetry 97 98 98 09/17/17 23:06 09/18/17 03:26 09/18/17 08:00 Temperature 98.1 F 98.2 F 97.6 F Pulse Rate 68 64 68 Respiratory Rate 16 16 17 Blood Pressure 114/63 112/62 120/66 Pulse Oximetry 98 97 99 Intake & Output 09/17/17 09/18/17 09/18/17 18:59 06:59 18:59 Intake Total 1100 / 1100 1300 / 1300 Balance 1100 / 1100 1300 / 1300 Intake: IV 1100 / 1100 1300 / 1300 NS Inj 1,000 ML @ 100 mls/hr IV 1000 / 1000 1000 / 1000 .CONT .Q10H MARGIE Rx#:[id number] Zosyn 4.5 GM Premix 4.5 gm In 100 / 100 300 / 300 100 ml @ 200 mls/hr IV.SIG Q6H MARGIE Rx#:[id number] Other: # Voids 4 Date of Last Bowel Movement 09/16/17 09/17/17 - Constitutional no acute distress - Routine HEENT Exam Head: Present: normocephalic, atraumatic - Routine Respiratory Exam Absent: accessory muscle use - Routine Cardiovascular Exam Present: RRR - Routine Abdominal Exam Present: soft, normoactive bowel sounds, tenderness (RUQ tenderness ), distended - Routine Skin Exam Present: dry, warm - Routine Neurological Exam Present: alert, oriented X3 <Lynen Flores - Last Filed: 09/18/17 08:35> Vital signs: Vital Signs 09/17/17 15:30 09/17/17 19:33 09/17/17 23:06 Temperature 98.1 F 98.0 F 98.1 F Pulse Rate 80 78 68 Respiratory Rate 16 17 16 Blood Pressure 119/58 L 108/64 114/63 Pulse Oximetry 98 98 98 09/18/17 03:26 09/18/17 08:00 09/18/17 12:00 Temperature 98.2 F 97.6 F 98.0 F Pulse Rate 64 68 75 Respiratory Rate 16 17 16 Blood Pressure 112/62 120/66 132/60 Pulse Oximetry 97 99 100 09/18/17 13:38 Temperature 95.0 F L Pulse Rate 71 Respiratory Rate 17 Blood Pressure 122/68 Pulse Oximetry 100 Intake & Output 09/17/17 09/18/17 09/18/17 18:59 06:59 18:59 Intake Total 1100 / 1100 1300 / 1300 1000 / 1000 Balance 1100 / 1100 1300 / 1300 1000 / 1000 Intake: IV 1100 / 1100 1300 / 1300 1000 / 1000 NS Inj 1,000 ML @ 100 mls/hr IV 1000 / 1000 1000 / 1000 1000 / 1000 .CONT .Q10H MARGIE Rx#:[id number] Zosyn 4.5 GM Premix 4.5 gm In 100 / 100 300 / 300 100 ml @ 200 mls/hr IV.SIG Q6H MARGIE Rx#:[id number] Other: # Voids 4 Date of Last Bowel Movement 09/16/17 09/17/17 <Cuba Sinclair - Last Filed: 09/18/17 13:55> Results - Labs CBC & Chem 7: 09/16/17 16:45 09/16/17 16:45 Laboratory Results - last 24 hr 09/16/17 09/17/17 18:13 07:15 Lipase 348 Urine Color Brandi Urine Clarity Cloudy H Urine pH 7.0 Ur Specific Franklin 1.019 Urine Protein 30 H Urine Glucose (UA) Negative Urine Ketones 80 or greater Urine Occult Blood Negative Urine Nitrate Negative Urine Bilirubin Negative Urine Urobilinogen 2.0 H Ur Leukocyte Esterase Moderate H Urine RBC 1 Urine WBC 120 H Urine Bacteria Few H Urine Mucus Many H Micro UA Comment Culture indicated Urine Culture Comments Culture indicated Microbiology 09/16/17 18:13 Clean Catch Urine Urine Culture - Preliminary gram negative rods <Lynne Flores - Last Filed: 09/18/17 08:35> - Labs CBC & Chem 7: 09/16/17 16:45 07/20/18 16:45 Microbiology 09/16/17 18:13 Clean Catch Urine Urine Culture - Final Escherichia coli <Cuba Sinclair - Last Filed: 09/18/17 13:55> Assessment and Plan - Plan - Pancreatic pseudocyst/ elevated lipase 1041on admission- referred to the ER by Dr. Zaragoza for admission and GI eval of pseudocyst for eval by Dr. Sinclair for possible stent placement. 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 Also noted to have pancreatic pseudocyst, s/p CT guided drainage 08/18/17 and biliary stent, cultures negative. Underwent Ecbegi-C-Dnrk placement w/ plans for outpatient eval by Dr. Harvey and likely chemotherapy and radiation by Dr. Delacruz, however pt not sure and hasn't decided yet, she might consider natural route. On arrival, CBC unremarkable. LFTs mildly elevated. Lipase 1041. UA positive for UTI. CT Abdomen/Pelvis with interval decrease in size of cysts between stomach and tail of pancreas, now measuring 6.5 cm, no new findings. - UTI- on abx, wbc wnl (09/18) Pt reports a pressure in her RUQ abdomen today, denies any pain. Some slight nausea today but denies emesis. Currently on liquid diet and she states she is not ready to advance her diet yet. Lipase now WNL Plan: - Liquid diet, OK to advance as tolerated - EGD tomorrow - Obtain consent - NPO after MN - Monitor labs - IV hydration - Antiemetic meds PRN - Supportive care Pt has been seen and examined by myself and Dr. Gardner and this note is written on his behalf. <Lynne Flores - Last Filed: 09/18/17 08:35> - Attending Attestation Patient seen and examined Agree with above Continue with current supportive care Monitor labs EGD tomorrow <Cuba Sinclair - Last Filed: 09/18/17 13:55>
[2017-09-18] MEDS: Senna/Docusate Sodium 8.6/50 MG Tablet PO SCH (09:52)
[2017-09-18] MEDS ORDERED: Sodium Chlor 0.9% Inj 500 ML IV.SIG SCH (10:00)
[2017-09-18] MEDS ORDERED: Chlorhexidine Gluconate 2% 1 Pack (2 Cloths) TOPICAL SCH (10:00)
[2017-09-18] MEDS ORDERED: Metoprolol Tartrate 25 MG Tablet PO SCH (10:00)
[2017-09-18] MEDS: Sod Chloride 0.9% Inj 1,000 ML IV.CONT SCH ×2 (11:56→14:21)
--- NOTE | 2017-09-18 13:08 | P.PNIM ---
Subjective Interval history: Patient says that abdominal discomfort continues. Does not feel like eating. Denies any chest pain or shortness of breath. Physical Exam Vital signs: Vital Signs 09/17/17 15:30 09/17/17 19:33 09/17/17 23:06 Temperature 98.1 F 98.0 F 98.1 F Pulse Rate 80 78 68 Respiratory Rate 16 17 16 Blood Pressure 119/58 L 108/64 114/63 Pulse Oximetry 98 98 98 09/18/17 03:26 09/18/17 08:00 09/18/17 12:00 Temperature 98.2 F 97.6 F 98.0 F Pulse Rate 64 68 75 Respiratory Rate 16 17 16 Blood Pressure 112/62 120/66 132/60 Pulse Oximetry 97 99 100 Intake & Output 09/17/17 09/18/17 09/18/17 18:59 06:59 18:59 Intake Total 1100 / 1100 1300 / 1300 1000 / 1000 Balance 1100 / 1100 1300 / 1300 1000 / 1000 Intake: IV 1100 / 1100 1300 / 1300 1000 / 1000 NS Inj 1,000 ML @ 100 mls/hr IV 1000 / 1000 1000 / 1000 1000 / 1000 .CONT .Q10H MARGIE Rx#:[id number] Zosyn 4.5 GM Premix 4.5 gm In 100 / 100 300 / 300 100 ml @ 200 mls/hr IV.SIG Q6H MARGIE Rx#:[id number] Other: # Voids 4 Date of Last Bowel Movement 09/16/17 09/17/17 Narrative: GENERAL: Patient sitting up in bed. Appears comfortable. Alert and oriented 3. SKIN: Warm and dry. HEAD: Normocephalic. EYES: No scleral icterus. No injection or drainage. NECK: Supple, trachea midline. No JVD. CARDIOVASCULAR: Regular rate and rhythm without murmurs, gallops, or rubs. RESPIRATORY: Breath sounds equal bilaterally. No accessory muscle use. GASTROINTESTINAL: Abdomen soft, nondistended. Tender to moderate palpation. MUSCULOSKELETAL: No cyanosis, or edema. BACK: Nontender without obvious deformity. No CVA tenderness. Results - Labs CBC & Chem 7: 09/16/17 16:45 09/16/17 16:45 Microbiology 09/16/17 18:13 Clean Catch Urine Urine Culture - Final Escherichia coli Assessment and Plan - Assessment (1) Pancreatic cancer Code(s): C25.9 - Malignant neoplasm of pancreas, unspecified Status: Acute (2) Pancreatitis Code(s): K85.90 - Acute pancreatitis without necrosis or infection, unspecified Status: Acute (3) Pseudocyst, pancreas Code(s): K86.3 - Pseudocyst of pancreas Status: Acute (4) Intractable nausea and vomiting Code(s): R11.2 - Nausea with vomiting, unspecified Status: Acute (5) UTI (urinary tract infection) Code(s): N39.0 - Urinary tract infection, site not specified Status: Acute - Plan // Pancreatic CA: Stage II Pancreatic CA w/ regional maria alejandra metastasis, s/p eval by Dr. Delacruz w/ possible radiation, and upcoming appt w/ Dr. Harvey for likely chemotherapy, however pt states she's "undecided". [id number] in place. = We will start diet. Appreciate GI assistance. Plan for stenting on Tuesday. = Plan for stenting tomorrow. Appreciate GI assistance. Recheck labs tomorrow. // Pancreatic Pseudocyst: pt states she was referred to the ER by Dr. Zaragoza for stent placement by Dr. Sinclair. CT Abd/Pelvis w/ slightly decreased pseudocyst of 6.5cm, no new findings, images reviewed. Previous CT Guided drainage of pseudocyst 08/18/17 by IR, = Plan for stenting tomorrow. Appreciate GI assistance. Recheck labs tomorrow. //Pancreatitis: Lipase 1041, NPO, IVF, analgesics/antiemetics as needed, repeat Lipase. = Diet as per GI // UTI: U/a w/ UTI, start IV Abx, IVF for hydration, monitor I/O // DVT Prophylaxis: SCD/Teds Discharge Planning: Stenting on Tuesday. PT will be consulted
[2017-09-19] MEDS: Piperacil/Tazo 4.5 GM Premix 4.5 GM/100 ML BAG IV.SIG SCH ×3 (01:02→13:16)
[2017-09-19] MEDS: Senna/Docusate Sodium 8.6/50 MG Tablet PO SCH ×3 (01:02→20:05)
[2017-09-19] MEDS: Sod Chloride 0.9% Inj 1,000 ML IV.CONT SCH ×3 (01:02→20:05)
[2017-09-19 08:58] LABS: Albumin 2.5 g/dL (3.4-5.0); Anion Gap 12 meq/L (5-15); Aspartate Aminotransferase 65 U/L (15-37); Blood Urea Nitrogen 3 mg/dL (7-18); Calcium 8.4 mg/dL (8.5-10.1); Chloride 107 meq/L (98-107); Glomerular Filtration Rate Greater Than 89 mL/min (>89); Glucose,Random 83 mg/dL (74-106); Potassium 3.6 meq/L (3.5-5.1); Sodium 140 meq/L (136-145)
[2017-09-19 08:59] LABS: Alanine Aminotransferase 69 U/L (10-53)
[2017-09-19 09:02] LABS: Alkaline Phosphatase 593 U/L (45-117); Total Protein 5.5 g/dL (6.4-8.2)
[2017-09-19] MEDS ORDERED: Lidocaine PF 1% Inj 5 ML Syringe INFILTRATN ONE (12:00)
--- NOTE | 2017-09-19 12:55 | P.PNIM ---
Subjective Interval history: Patient reports persistent abdominal pressure. Mild nausea but no vomiting. Symptoms overall have not gotten worse. Physical Exam Vital signs: Vital Signs 09/18/17 13:38 09/18/17 16:00 09/18/17 20:52 Temperature 95.0 F L 97.9 F 98.2 F Pulse Rate 71 67 61 Respiratory Rate 17 19 17 Blood Pressure 122/68 128/60 118/61 Pulse Oximetry 100 100 97 09/19/17 00:24 Temperature 97.8 F Pulse Rate 70 Respiratory Rate 17 Blood Pressure 127/63 Pulse Oximetry 96 Intake & Output 09/18/17 09/19/17 09/19/17 18:59 06:59 18:59 Intake Total 2400 / 2400 1780 / 1780 Output Total Balance 2399 / 2399 1780 / 1780 Weight 55.79 kg Intake: IV 2100 / 2100 1200 / 1200 NS Inj 1,000 ML @ 100 mls/hr IV 2000 / 2000 1000 / 1000 .CONT .Q10H MARGIE Rx#:[id number] Zosyn 4.5 GM Premix 4.5 gm In 100 / 100 200 / 200 100 ml @ 200 mls/hr IV.SIG Q6H MARGIE Rx#:[id number] Oral 300 / 300 580 / 580 Output: Urine Other: # Voids 3 Date of Last Bowel Movement 09/17/17 Narrative: GENERAL: This is a well-nourished, well-developed patient, in no apparent distress. CARDIOVASCULAR: Normal rate and regular rhythm without murmurs, gallops, or rubs. RESPIRATORY: Good respiratory efforts. Breath sounds equal and clear to auscultation bilaterally. GASTROINTESTINAL: Abdomen soft, non-distended. Patient reports some pressure to deep palpation in the midepigastric region. Otherwise rest of the exam unremarkable. MUSCULOSKELETAL: Extremities without cyanosis, or edema. NEURO: Alert & Oriented x4 to person, place, time, situation. Moves all ext x4 PSYCH: Appropriate mood and affect. Results - Labs CBC & Chem 7: 09/16/17 16:45 09/19/17 07:11 Laboratory Results - last 24 hr 09/19/17 07:11 Sodium 140 Potassium 3.6 Chloride 107 Carbon Dioxide 21.0 Anion Gap 12 BUN 3 L Creatinine 0.57 Estimated GFR Greater than 89 Random Glucose 83 Calcium 8.4 L Total Bilirubin 0.5 AST 65 H ALT 69 H Alkaline Phosphatase 593 H Total Protein 5.5 L D Albumin 2.5 L Microbiology 09/16/17 18:13 Clean Catch Urine Urine Culture - Final Escherichia coli Assessment and Plan - Assessment (1) Pancreatic cancer Code(s): C25.9 - Malignant neoplasm of pancreas, unspecified Status: Acute (2) Pancreatitis Code(s): K85.90 - Acute pancreatitis without necrosis or infection, unspecified Status: Acute (3) Pseudocyst, pancreas Code(s): K86.3 - Pseudocyst of pancreas Status: Acute (4) Intractable nausea and vomiting Code(s): R11.2 - Nausea with vomiting, unspecified Status: Acute (5) UTI (urinary tract infection) Code(s): N39.0 - Urinary tract infection, site not specified Status: Acute - Plan Pancreatic CA: Stage II Pancreatic CA w/ regional maria alejandra metastasis, s/p eval by Dr. Delacruz w/ possible radiation, and upcoming appt w/ Dr. Harvey for likely chemotherapy, however pt states she's "undecided". Dolega-S-Iulr in place. Appreciate GI assistance. Plan for EGD/stenting today. Pancreatic Pseudocyst: pt states she was referred to the ER by Dr. Zaragoza for stent placement by Dr. Sinclair. CT Abd/Pelvis w/ slightly decreased pseudocyst of 6.5cm, no new findings, images reviewed. Previous CT Guided drainage of pseudocyst 08/18/17 by IR, Plan for EGD/stenting today. Appreciate GI assistance. Pancreatitis: Lipase 1041 on presentation. Trended down. NPO, IVF, analgesics/ antiemetics as needed E. coli UTI: -Change antibiotics to oral cefuroxime. DVT Prophylaxis: SCD/Teds
--- NOTE | 2017-09-19 13:27 | GIPROC ---
[facility] [address] [facility]. [facility], [address] EGD PROCEDURE REPORT EXAM DATE: 09/19/2017 PATIENT NAME: Carolina Moseley MR #: [id number] BIRTHDATE: 1960 ATTENDING: Grzegorz Michele MD ORDER #: [id number] NEEDLE LOOM SETTER: Merry Avalos and Luz Broderick STATUS: inpatient INDICATIONS: The patient is a 57 yr old female here for an EGD due to Abdominal pain, nausea, known history of pancreatitis with pseudocyst and pancreatic cancer with metastases PROCEDURE PERFORMED: EGD w/ biopsy MEDICATIONS: None and Per Anesthesia. TOPICAL ANESTHETIC: none CONSENT: The patient understands the risks and benefits of the procedure and understands that these risks include, but are not limited to: sedation, allergic reaction, infection, perforation and/or bleeding. Alternative means of evaluation and treatment include, among others: physical exam, x-rays, and/or surgical intervention. The patient elects to proceed with this endoscopic procedure. medical equipment was checked for proper function. Hand hygiene and appropriate measures for infection prevention was taken. After the risks, benefits and alternatives of the procedure were thoroughly explained, Informed consent was verified, confirmed and timeout was successfully executed by the treatment team. The patient was anesthetized with topical anesthesia and the Pentax EG-[id number] endoscope was introduced through the mouth and advanced to the second portion of the duodenum. Retroflexed views revealed Large mass-effect from extrinsic compression most likely from the pancreatic cancer and possible cyst The gastroscope was then slowly withdrawn and removed. Patient has gastropathy most likely because of the pancreatic cancer with metastasis causing portal hypertension done External compression with mass-effect most likely related to the pseudocyst and pancreatic cancer without obstruction of the gastric outlet Duodenum had stent coming from the ampulla. ADVERSE EVENTS: There were no complications. IMPRESSIONS: 1. Patient has gastropathy most likely because of the pancreatic cancer with metastasis causing portal hypertension done External compression with mass-effect most likely related to the pseudocyst and pancreatic cancer without obstruction of the gastric outlet Duodenum had stent coming from the ampulla 2. Retroflexed views revealed Large mass-effect from extrinsic compression most likely from the pancreatic cancer and possible cyst RECOMMENDATIONS: 1. Await biopsy results. Biopsy results will not be ready for 7-10 days. If you don't hear from us in two weeks, call our office for biopsy results. 2. Soft diet Overall poor prognosis PATIENT CONDITION: stable DISPOSITION: Inpatient REPEAT EXAM: NONE Grzegorz Michele MD eSigned: Grzegorz Michele MD 09/19/2017 1:27 PM cc: PATIENT NAME: Carolina Moseley Nisa MR#: [id number]
--- NOTE | 2017-09-19 13:32 | P.PNGI ---
Subjective Interval history: Patient is sitting in bed, still complaining of some abdominal discomfort but overall doing better, less nausea Physical Exam Vital signs: Vital Signs 09/18/17 13:38 09/18/17 16:00 09/18/17 20:52 Temperature 95.0 F L 97.9 F 98.2 F Pulse Rate 71 67 61 Respiratory Rate 17 19 17 Blood Pressure 122/68 128/60 118/61 Pulse Oximetry 100 100 97 09/19/17 00:24 Temperature 97.8 F Pulse Rate 70 Respiratory Rate 17 Blood Pressure 127/63 Pulse Oximetry 96 Intake & Output 09/18/17 09/19/17 09/19/17 18:59 06:59 18:59 Intake Total 2400 / 2400 1880 / 1880 Output Total Balance 2399 / 2399 1880 / 1880 Weight 55.79 kg Intake: IV 2100 / 2100 1300 / 1300 NS Inj 1,000 ML @ 100 mls/hr IV 2000 / 2000 1000 / 1000 .CONT .Q10H MARGIE Rx#:[id number] Zosyn 4.5 GM Premix 4.5 gm In 100 / 100 300 / 300 100 ml @ 200 mls/hr IV.SIG Q6H MARGIE Rx#:[id number] Oral 300 / 300 580 / 580 Output: Urine Other: # Voids 3 Date of Last Bowel Movement 09/17/17 - Constitutional no acute distress - Routine HEENT Exam Head: Present: normocephalic, atraumatic Eye: Present: EOMI, PERRL ENT: Present: mucous membranes moist - Routine Respiratory Exam Comments: Normal exam - Routine Cardiovascular Exam Present: RRR, S1, S2 - Routine Abdominal Exam Present: soft, normoactive bowel sounds Comments: Mild midepigastric tenderness - Routine Extremities Exam Present: full ROM Results - Labs CBC & Chem 7: 09/16/17 16:45 09/19/17 07:11 Laboratory Results - last 24 hr 09/19/17 07:11 Sodium 140 Potassium 3.6 Chloride 107 Carbon Dioxide 21.0 Anion Gap 12 BUN 3 L Creatinine 0.57 Estimated GFR Greater than 89 Random Glucose 83 Calcium 8.4 L Total Bilirubin 0.5 AST 65 H ALT 69 H Alkaline Phosphatase 593 H Total Protein 5.5 L D Albumin 2.5 L Microbiology 09/16/17 18:13 Clean Catch Urine Urine Culture - Final Escherichia coli Assessment and Plan - Plan - Pancreatic pseudocyst/ elevated lipase 1041on admission- referred to the ER by Dr. Zaragoza for admission and GI eval of pseudocyst for eval by Dr. Sinclair for possible stent placement. 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 Also noted to have pancreatic pseudocyst, s/p CT guided drainage 08/18/17 and biliary stent, cultures negative. Underwent Dniswn-K-Sqyc placement w/ plans for outpatient eval by Dr. Harvey and likely chemotherapy and radiation by Dr. Delacruz, however pt not sure and hasn't decided yet, she might consider natural route. On arrival, CBC unremarkable. LFTs mildly elevated. Lipase 1041. UA positive for UTI. CT Abdomen/Pelvis with interval decrease in size of cysts between stomach and tail of pancreas, now measuring 6.5 cm, no new findings. - UTI- on abx, wbc wnl (09/18) Pt reports a pressure in her RUQ abdomen today, denies any pain. Some slight nausea today but denies emesis. Currently on liquid diet and she states she is not ready to advance her diet yet. Lipase now WNL 09/19/2017 patient feeling better today less abdominal discomfort still some nausea had an upper endoscopy which showed gastropathy most likely related to the pancreatic cancer and possible portal hypertension, she had extrinsic compression in the body of stomach most likely related to the pseudocyst and pancreatic cancer Plan: - Liquid diet, OK to advance as tolerated -Overall poor prognosis - Monitor labs - IV hydration - Antiemetic meds PRN - Supportive care
--- NOTE | 2017-09-19 15:03 | P.PNGS ---
Subjective Interval history: Doing well; pain better; ate some crackers; awaiting results from GI Physical Exam Vital signs: Vital Signs 09/18/17 16:00 09/18/17 20:52 09/19/17 00:24 Temperature 97.9 F 98.2 F 97.8 F Pulse Rate 67 61 70 Respiratory Rate 19 17 17 Blood Pressure 128/60 118/61 127/63 Pulse Oximetry 100 97 96 09/19/17 08:00 09/19/17 12:00 09/19/17 13:33 Temperature 97.6 F 97.2 F L 97.5 F L Pulse Rate 72 65 71 Respiratory Rate 16 17 14 Blood Pressure 125/64 125/59 L 105/62 Pulse Oximetry 99 100 99 Intake & Output 09/18/17 09/19/17 09/19/17 18:59 06:59 18:59 Intake Total 2400 / 2400 1880 / 1880 150 / 150 Output Total Balance 2399 / 2399 1880 / 1880 150 / 150 Weight 55.79 kg Intake: IV 2100 / 2100 1300 / 1300 NS Inj 1,000 ML @ 100 mls/hr IV 2000 / 2000 1000 / 1000 .CONT .Q10H MARGIE Rx#:[id number] Zosyn 4.5 GM Premix 4.5 gm In 100 / 100 300 / 300 100 ml @ 200 mls/hr IV.SIG Q6H MARGIE Rx#:[id number] Oral 300 / 300 580 / 580 Anesthesia Amount 150 / 150 Output: Urine Other: # Voids 3 Date of Last Bowel Movement 09/17/17 Narrative: Alert and awake sitting up in the chair Cardio: RRR Resp: CTAB Abd: soft non tender Assessment and Plan - Plan 57 year old female with history of pancreatic cancer and pseudocyst -GI following for possible stent placement -EGD planned for today -Diet per GI -No surgical plans at this time Discussed Condition With: Dr. Mila Moseley
[2017-09-19 18:27] VITALS: O2SAT 100
[2017-09-20] MEDS: Sod Chloride 0.9% Inj 1,000 ML IV.CONT SCH (06:04)
[2017-09-20 07:17] LABS: Hematocrit 34.5 % (35.0-46.0); Hemoglobin 11.5 gm/dL (11.6-15.3); Mean Corpuscular HGB Conc 33.2 % (32.0-36.0); Mean Corpuscular Hemoglobin 28.1 pg (27.0-34.0); Mean Corpuscular Volume 84.7 fL (80.0-100.0); Mean Platelet Volume 8.1 fL (7.0-11.0); Platelet Count 330 th/mm3 (150-450); Red Blood Count 4.08 mil/mm3 (4.00-5.30); Red Cell Distribution Width 13.4 % (11.6-17.2); White Blood Count 7.3 th/mm3 (4.0-11.0)
[2017-09-20 07:38] LABS: Albumin 2.6 g/dL (3.4-5.0); Anion Gap 11 meq/L (5-15); Aspartate Aminotransferase 37 U/L (15-37); Blood Urea Nitrogen 4 mg/dL (7-18); Calcium 8.2 mg/dL (8.5-10.1); Carbon Dioxide 21.7 meq/L (21.0-32.0); Chloride 109 meq/L (98-107); Glomerular Filtration Rate Greater Than 89 mL/min (>89); Glucose,Random 70 mg/dL (74-106); Lipase 1220 U/L (73-393); Potassium 3.3 meq/L (3.5-5.1); Sodium 142 meq/L (136-145)
[2017-09-20 07:41] LABS: Alanine Aminotransferase 62 U/L (10-53)
[2017-09-20 07:45] LABS: Alkaline Phosphatase 569 U/L (45-117); Total Protein 5.5 g/dL (6.4-8.2)
[2017-09-20] MEDS: Senna/Docusate Sodium 8.6/50 MG Tablet PO SCH (08:51)
--- NOTE | 2017-09-20 11:37 | P.DS ---
Date of admission: 09/17/17 14:30 Primary care physician: No Primary Care Physician Brief History from admission: HPI from the admitting physician: This is a 57-year-old female with a PMH of Pancreatic CA who was referred to the ER by Dr. Zaragoza for admission and GI eval of pseudocyst. 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 Also noted to have pancreatic pseudocyst, s/p CT guided drainage 08/18/17, cultures negative. Underwent Bnqfxk-I-Loex placement w/ plans for outpatient eval by Dr. Harvey and likely chemotherapy and radiation by Dr. Delacruz, however pt states she's "undecided" and would like to try a "natural" method. States she's had persistent abdominal pain in addition to nausea/vomiting and sent to ER by Dr. Zaragoza for eval by Dr. Sinclair for possible stent placement. On arrival, BP 130/55, HR 89, O2 sat 100% on RA, Afebrile. CBC unremarkable. LFTs mildly elevated. Lipase 1041. UA positive for UTI. CT Abdomen/Pelvis with interval decrease in size of cysts between stomach and tail of pancreas, now measuring 6.5 cm, no new findings. Update on the day of discharge: Patient reports she is feeling great. Tolerating a diet. Abdominal pain is much improved. She wants to go home. DS: Diagnosis - Discharge Diagnosis (1) Pancreatic cancer Status: Acute (2) Pancreatitis Status: Acute (3) Pseudocyst, pancreas Status: Acute (4) Intractable nausea and vomiting Status: Acute (5) UTI (urinary tract infection) Status: Acute DS: Medications - Discharge Medications Prescriptions: cefuroxime axetil 500 mg PO Q12HR #4 tab DS: Summary Hospital Course: 57-year-old female admitted and treated for the following: Pancreatic CA: Stage II Pancreatic CA w/ regional maria alejandra metastasis, s/p eval by Dr. Delacruz w/ possible radiation, and upcoming appt w/ Dr. Harvey for likely chemotherapy, however pt states she's "undecided". [id number] in place. Patient underwent EGD which showed gastropathy. Possibly secondary to the pancreatic cancer. Patient symptoms improved. She is discharged home to follow-up outpatient with GI. Pancreatic Pseudocyst: pt states she was referred to the ER by Dr. Zaragoza for stent placement by Dr. Sinclair. CT Abd/Pelvis w/ slightly decreased pseudocyst of 6.5cm, no new findings, images reviewed. Previous CT Guided drainage of pseudocyst 08/18/17 by IR, Patient underwent EGD as noted above. She will follow-up outpatient with GI for further sees drainage if needed. Pancreatitis: Lipase 1041 on presentation. Known pancreatic cancer. Lipase remained elevated but symptoms significantly improved. E. coli UTI: -Treated with antibiotics. - Time Spent with Patient Total time spent providing and/or coordinating discharge services: Less than 30 minutes - Quality: VTE Deep Vein Thrombosis/Pulmonary Embolism Present on Admission: No Exam Vital signs: Vital Signs 09/19/17 12:00 09/19/17 13:33 09/19/17 16:00 Temperature 97.2 F L 97.5 F L 97.6 F Pulse Rate 65 71 71 Respiratory Rate 17 14 16 Blood Pressure 125/59 L 105/62 130/64 Pulse Oximetry 100 99 100 09/19/17 20:00 09/20/17 00:00 Temperature 98.4 F 97.9 F Pulse Rate 68 66 Respiratory Rate 17 17 Blood Pressure 126/72 120/69 Pulse Oximetry 100 100 Intake & Output 09/19/17 09/20/17 09/20/17 18:59 06:59 18:59 Intake Total 1150 / 1150 240 / 240 Balance 1150 / 1150 240 / 240 Intake: IV 1000 / 1000 NS Inj 1,000 ML @ 100 mls/hr IV 1000 / 1000 .CONT .Q10H [facility] Rx#:[id number] Oral 240 / 240 Anesthesia Amount 150 / 150 Other: # Voids 3 2 # Bowel Movements 4 Narrative: GENERAL: This is a well-nourished, well-developed patient, in no apparent distress. CARDIOVASCULAR: Normal rate and regular rhythm without murmurs, gallops, or rubs. RESPIRATORY: Good respiratory efforts. Breath sounds equal and clear to auscultation bilaterally. GASTROINTESTINAL: Abdomen soft, non-distended. MUSCULOSKELETAL: Extremities without cyanosis, or edema. NEURO: Alert & Oriented x4 to person, place, time, situation. Moves all ext x4 PSYCH: Appropriate mood and affect. Results Procedures completed during hospitalization: EGD Pending studies at discharge: Pending at discharge 09/19/17 13:50 Surgical [PTH] Routine Labs on day of discharge: Labs from last 24 hours 09/20/17 09/20/17 06:31 06:31 WBC 7.3 RBC 4.08 Hgb 11.5 L Hct 34.5 L MCV 84.7 MCH 28.1 MCHC 33.2 RDW 13.4 Plt Count 330 MPV 8.1 Sodium 142 Potassium 3.3 L Chloride 109 H Carbon Dioxide 21.7 Anion Gap 11 BUN 4 L Creatinine 0.38 L Estimated GFR Greater than 89 Random Glucose 70 L Calcium 8.2 L Total Bilirubin 0.4 Direct Bilirubin 0.1 Indirect Bilirubin 0.3 AST 37 ALT 62 H Alkaline Phosphatase 569 H Total Protein 5.5 L Albumin 2.6 L Lipase 1220 H - Impressions ITS Impressions Abdomen/Pelvis CT 09/16/17 19:04 CONCLUSION: 1. Interval decrease in size of the dominant cyst between the stomach and tail of pancreas, now measuring 6.5 cm in greatest dimension. 2. No new findings. Discharge Plan - Discharge Disposition Patient Disposition: 01 Discharge Home - Discharge Condition Condition: Stable - Discharge Order Discharge Orders: Discharge Order (Routine); Ordered 09/20/17 Ordered By: Ryan Escobedo General Surgery Clear for Discharge (Routine); Ordered 09/20/17 Ordered By: Kathrine Park - Physicians Team Primary Care Provider: Primary Care Physici,No Attending Provider: Ryan Escobedo Other Providers: Sorin Frey MD ; Cuba Sinclair MD ; Surgeons,[facility]
--- NOTE | 2017-09-20 11:51 | P.PNGS ---
<XavierKathrine - Last Filed: 09/20/17 11:49> Subjective Interval history: Up to chair; wants to go home Physical Exam Vital signs: Vital Signs 09/19/17 12:00 09/19/17 13:33 09/19/17 16:00 Temperature 97.2 F L 97.5 F L 97.6 F Pulse Rate 65 71 71 Respiratory Rate 17 14 16 Blood Pressure 125/59 L 105/62 130/64 Pulse Oximetry 100 99 100 09/19/17 20:00 09/20/17 00:00 Temperature 98.4 F 97.9 F Pulse Rate 68 66 Respiratory Rate 17 17 Blood Pressure 126/72 120/69 Pulse Oximetry 100 100 Intake & Output 09/19/17 09/20/17 09/20/17 18:59 06:59 18:59 Intake Total 1150 / 1150 240 / 240 Balance 1150 / 1150 240 / 240 Intake: IV 1000 / 1000 NS Inj 1,000 ML @ 100 mls/hr IV 1000 / 1000 .CONT .Q10H [facility] Rx#:[id number] Oral 240 / 240 Anesthesia Amount 150 / 150 Other: # Voids 3 2 # Bowel Movements 4 Narrative: Alert and awake sitting in chair Cardio: RRR Resp: CTAB Abd: soft non tender No edema Assessment and Plan - Plan 57 year old female with history of pancreatic cancer and pseudocyst -Patient to have outpatient GI procedure with Dr. Carias -Diet as tolerated -GS clear for DC; follow up PRN <Hayder Zaragoza - Last Filed: 10/04/17 10:48> Assessment and Plan - Attending Attestation The exam, history, and the medical decision-making described in the above note were completed with the assistance of the mid-level provider. I reviewed and agree with the findings presented. I attest that I had a caat-wz-[id number] encounter with the patient on the same day, and personally performed and documented my assessment and findings in the medical record. s/p exlap, has moderate pseudocyst will likely need internal drainage
--- NOTE | 2017-09-20 12:24 | P.PNGI ---
Subjective Interval history: Pt sitting in bedside chair, would like to go home today. Denies nausea, vomiting, abdominal pain. Tolerating PO. <Lynne Flores - Last Filed: 09/20/17 12:21> Physical Exam Vital signs: Vital Signs 09/19/17 13:33 09/19/17 16:00 09/19/17 20:00 Temperature 97.5 F L 97.6 F 98.4 F Pulse Rate 71 71 68 Respiratory Rate 14 16 17 Blood Pressure 105/62 130/64 126/72 Pulse Oximetry 99 100 100 09/20/17 00:00 Temperature 97.9 F Pulse Rate 66 Respiratory Rate 17 Blood Pressure 120/69 Pulse Oximetry 100 Intake & Output 09/19/17 09/20/17 09/20/17 18:59 06:59 18:59 Intake Total 1150 / 1150 240 / 240 Balance 1150 / 1150 240 / 240 Intake: IV 1000 / 1000 NS Inj 1,000 ML @ 100 mls/hr IV 1000 / 1000 .CONT .Q10H [facility] Rx#:[id number] Oral 240 / 240 Anesthesia Amount 150 / 150 Other: # Voids 3 2 # Bowel Movements 4 - Constitutional no acute distress - Routine HEENT Exam Head: Present: normocephalic, atraumatic - Routine Respiratory Exam Absent: accessory muscle use - Routine Abdominal Exam Present: soft, normoactive bowel sounds. Absent: tenderness - Routine Skin Exam Present: dry, warm - Routine Neurological Exam Present: alert, oriented X3 <Lynne Flores - Last Filed: 09/20/17 12:21> Vital signs: Vital Signs 09/19/17 16:00 09/19/17 20:00 09/20/17 00:00 Temperature 97.6 F 98.4 F 97.9 F Pulse Rate 71 68 66 Respiratory Rate 16 17 17 Blood Pressure 130/64 126/72 120/69 Pulse Oximetry 100 100 100 09/20/17 08:00 Temperature 97.8 F Pulse Rate 76 Respiratory Rate 16 Blood Pressure 114/59 L Pulse Oximetry 100 Intake & Output 09/19/17 09/20/17 09/20/17 18:59 06:59 18:59 Intake Total 1150 / 1150 240 / 240 Balance 1150 / 1150 240 / 240 Intake: IV 1000 / 1000 NS Inj 1,000 ML @ 100 mls/hr IV 1000 / 1000 .CONT .Q10H [facility] Rx#:[id number] Oral 240 / 240 Anesthesia Amount 150 / 150 Other: # Voids 3 2 # Bowel Movements 4 <Grzegorz Michele - Last Filed: 09/20/17 14:54> Results - Labs CBC & Chem 7: 09/20/17 06:31 09/20/17 06:31 Laboratory Results - last 24 hr 09/20/17 09/20/17 06:31 06:31 WBC 7.3 RBC 4.08 Hgb 11.5 L Hct 34.5 L MCV 84.7 MCH 28.1 MCHC 33.2 RDW 13.4 Plt Count 330 MPV 8.1 Sodium 142 Potassium 3.3 L Chloride 109 H Carbon Dioxide 21.7 Anion Gap 11 BUN 4 L Creatinine 0.38 L Estimated GFR Greater than 89 Random Glucose 70 L Calcium 8.2 L Total Bilirubin 0.4 Direct Bilirubin 0.1 Indirect Bilirubin 0.3 AST 37 ALT 62 H Alkaline Phosphatase 569 H Total Protein 5.5 L Albumin 2.6 L Lipase 1220 H <Lynne Flores - Last Filed: 09/20/17 12:21> - Labs CBC & Chem 7: 09/20/17 06:31 09/20/17 06:31 Laboratory Results - last 24 hr 09/20/17 09/20/17 06:31 06:31 WBC 7.3 RBC 4.08 Hgb 11.5 L Hct 34.5 L MCV 84.7 MCH 28.1 MCHC 33.2 RDW 13.4 Plt Count 330 MPV 8.1 Sodium 142 Potassium 3.3 L Chloride 109 H Carbon Dioxide 21.7 Anion Gap 11 BUN 4 L Creatinine 0.38 L Estimated GFR Greater than 89 Random Glucose 70 L Calcium 8.2 L Total Bilirubin 0.4 Direct Bilirubin 0.1 Indirect Bilirubin 0.3 AST 37 ALT 62 H Alkaline Phosphatase 569 H Total Protein 5.5 L Albumin 2.6 L Lipase 1220 H <Grzegorz Michele - Last Filed: 09/20/17 14:54> Assessment and Plan - Plan - Pancreatic pseudocyst/ elevated lipase 1041on admission- referred to the ER by Dr. Zaragoza for admission and GI eval of pseudocyst for eval by Dr. Sinclair for possible stent placement. 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 Also noted to have pancreatic pseudocyst, s/p CT guided drainage 08/18/17 and biliary stent, cultures negative. Underwent [id number]-[id number] placement w/ plans for outpatient eval by Dr. Harvey and likely chemotherapy and radiation by Dr. Delacruz, however pt not sure and hasn't decided yet, she might consider natural route. On arrival, CBC unremarkable. LFTs mildly elevated. Lipase 1041. UA positive for UTI. CT Abdomen/Pelvis with interval decrease in size of cysts between stomach and tail of pancreas, now measuring 6.5 cm, no new findings. - UTI- on abx, wbc wnl (09/18) Pt reports a pressure in her RUQ abdomen today, denies any pain. Some slight nausea today but denies emesis. Currently on liquid diet and she states she is not ready to advance her diet yet. Lipase now WNL 09/19/2017 patient feeling better today less abdominal discomfort still some nausea had an upper e ndoscopy which showed gastropathy most likely related to the pancreatic cancer and possible portal hypertension, she had extrinsic compression in the body of stomach most likely related to the pseudocyst and pancreatic cancer. Stent visible in duodenum, seen coming from ampulla. Plan: - Diet as tolerated - GS cleared for DC - OK to DC from a GI standpoint - If needed can have EUS with drainage of pseudocyst outpatient - Have pt follow up with GI after DC Pt has been seen and examined by myself and Dr. Michele and this note is written on his behalf <Lynne Flores - Last Filed: 09/20/17 12:21> - Plan Patient was seen and examined, agree with above note, patient will be discharged home and she can follow-up with Dr. Sommer for drainage of pseudocyst in few days as an outpatient <Grzegorz Michele - Last Filed: 09/20/17 14:54>
[2017-09-20 12:53] VITALS: BP 114/59; PULSE 76; RESP 16; TEMP 97.8
== END 2017-09-20 13:28 | disposition home or self-care (01) ==
LOC: NEPC 15:53 → NEDA 15:53 → NEPFCDU 23:27 → N07 09-18 13:09
PROVIDERS: ADMIT Family Medicine; ATTEND Family Medicine
PROC: PANENDO (2017-09-19 13:09)

== ENCOUNTER 2018-01-11 15:48 | Inpatient (IN) ==
[2018-01-11] MEDS ORDERED: Sod Chloride 0.9% Inj 1,000 ML IV.SIG ONE ×2 (16:31)
--- NOTE | 2018-01-11 16:42 | ED ---
HPI General Chief Complaint: Abdominal Pain Stated Complaint: abd pain Time Seen by Provider: 01/11/18 16:25 Source: patient, RN notes reviewed and old records reviewed Mode of arrival: ambulatory Limitations: no limitations History of Present Illness HPI narrative: 57-year-old female presents to the emergency department for evaluation of abdominal pain, vomiting for 1 week. Patient was recently diagnosed with pancreatic cancer. She also has history of pancreatic pseudocyst , pancreatitis. Patient had biliary stent placement. Patient has declined chemotherapy according to Dr. Harvey, oncologist, note. She is also declined hospice. She is taking high-dose multivitamins and minerals and seeing a naturopathic physician. Upon my questioning, she states that she is actively treating her pancreatic cancer with vitamins and plans to be in it. She has declined hospice at previous appointment with Dr. Harvey. The patient denies any other medical history. She states the pain is improving on its own, currently 8/10. Moderate severity. MD complaint: Reports abdominal pain Onset (ago): week(s) (1) Pain Consistency: constant Location: Reports RUQ and epigastric Severity: severe Severity scale (1-10): 8 Quality: Reports aching and sharp Radiation: Reports none Relieving factors: nothing Associated symptoms: Reports nausea and vomiting; Denies diarrhea, fever, chills , constipation, dysuria, hematemesis, hematochezia, melena, hematuria, anorexia and syncope Related Data Previous Rx's Medication Instructions Recorded ondansetron 4 mg PO Q6H PRN #20 tab 01/11/18 Allergies Allergy/AdvReac Type Severity Reaction Status Date / Time No Known Allergies Allergy Verified 09/06/17 09:28 Review of Systems ROS: all other systems reviewed are negative PMFSH Social History Social History Substance History: No History of Abuse Second Hand Smoke Exposure: Yes Smoking Status: Never smoker Tobacco Type: Cigarettes How Often Do You Have a Drink Containing Alcohol: Never Recent Travel in [place] within the Last 8 Weeks: No Recent Out of Country Travel within the Last 8 Weeks: No Immunization History Tetanus Immunization: Unsure Exam Narrative Exam Narrative: GENERAL: Well-nourished, well-developed female patient, afebrile. SKIN: Focused skin assessment warm/dry. HEAD: Normocephalic. Atraumatic. EYES: No scleral icterus. No injection or drainage. NECK: Supple, trachea midline. No JVD or lymphadenopathy. CARDIOVASCULAR: Regular rate and rhythm without murmurs, gallops, or rubs. RESPIRATORY: Breath sounds equal bilaterally. No accessory muscle use. Lung sounds are clear to auscultation. GASTROINTESTINAL: Abdomen soft, nondistended. She reports tenderness over epigastric region. Large midline scar noted. MUSCULOSKELETAL: No cyanosis, or edema. BACK: Nontender without obvious deformity. No CVA tenderness. Course Initial Documented Vital Signs Temperature 97.0 F L 01/11/18 16:05 Pulse Rate 101 H 01/11/18 16:05 Respiratory Rate 27 H 01/11/18 16:05 Blood Pressure 80/46 L 01/11/18 16:05 Pulse Oximetry 99 01/11/18 16:05 Last Documented Vital Signs Temperature 97.0 F L 01/11/18 16:05 Pulse Rate 75 01/11/18 19:46 Respiratory Rate 16 01/11/18 19:46 Blood Pressure 98/56 L 01/11/18 19:46 Pulse Oximetry 98 01/11/18 19:46 Medical Decision Making MDM Narrative Medical decision making narrative: 37-year-old female presents to the emergency department for evaluation abdominal pain, vomiting. She was found to be hypotensive in triage. She has been recently diagnosed with pancreatic cancer. She is not currently undergoing chemotherapy treatment. IV access obtained. Patient is given 2 L normal saline IV bolus. CBC, CMP, lipase, magnesium, lactic acid, PTT, PT/INR, UA are ordered and pending. CT abdomen/pelvis are ordered and pending. CBC shows no acute abnormality. CMP shows hyponatremia of 125, hypokalemia of 2.9, elevated bilirubin of 1.2, AST 97, ALT of 179, alkaline phosphatase 615. Lipase is 195. Magnesium is 2.3. Lactic acid is 1.9. PTT is 24.7. PT/INR is 10.0/1.0. CT abdomen/pelvis shows Abnormal examination demonstrating multiple new ring-enhancing lesions in the omentum and anterior mesentery and a similar appearing lesion crossing through the right rectus muscle below the umbilicus. There is also significant amount of fluid in the right dependent pelvis. The findings suggest peritoneal carcinomatosis; Increase in the size of the low- density lesion in the head of the pancreas and interval development of pancreatic ductal dilatation and atrophy distal; Bilateral moderate dilation of the collecting system of both kidneys, new finding from prior. I spoke to the patient and offered admission, but she adamantly declines. She does not want to see Dr. Harvey and she also does not want a hospice consult. She does not want admission and wants to go home. I did relay all findings to her and she is aware that the cancer is worsening patient is instructed return for any worsening symptoms. She will be discharged wiht a prescription for Zofran. Medical Screen Exam Complete: Yes Emergency Medical Condition: Yes Differential Diagnosis Differential Diagnosis: pancreatic cancer vs. pancreatitis vs. biliary obstruction vs. CAMERON vs. electrolyte abnormality Medical Records Medical records reviewed: Yes I reviewed the patient's medical records. I reviewed Dr. Harvey's note from 12/19/2017 and recent admission in August. Lab Data Result diagrams: 01/11/18 16:35 01/11/18 16:35 Lab Results 01/11/18 01/11/18 01/11/18 Range/Units 16:35 16:35 16:35 WBC 8.9 (4.0-11.0) th/mm3 RBC 3.77 L (4.00-5.30) mil/mm3 Hgb 12.1 (11.6-15.3) gm/dL Hct 34.9 L (35.0-46.0) % MCV 92.5 (80.0-100.0) fL MCH 32.1 (27.0-34.0) pg MCHC 34.7 (32.0-36.0) % RDW 13.6 (11.6-17.2) % Plt Count 485 H D (150-450) th/mm3 MPV 7.3 (7.0-11.0) fL Neut % (Auto) 70.4 H (16.0-70.0) % Lymph % (Auto) 22.8 (9.0-44.0) % [place] % (Auto) 6.1 (0.0-8.0) % Eos % (Auto) 0.3 (0.0-4.0) % Baso % (Auto) 0.4 (0.0-2.0) % Neut # (Auto) 6.3 (1.8-7.7) th/mm3 Lymph # (Auto) 2.0 (1.0-4.8) th/mm3 [place] # (Auto) 0.5 (0.0-0.9) th/mm3 Eos # (Auto) 0.0 (0.0-0.4) th/mm3 Baso # (Auto) 0.0 (0.0-0.2) th/mm3 WBC Differential . Differential Comment Auto diff final PT 10.0 (9.8-11.6) sec INR 1.0 Ratio APTT 24.7 (23.4-31.7) sec Sodium 125 L (136-145) meq/L Potassium 2.9 L* (3.5-5.1) meq/L Chloride 76 L (98-107) meq/L Carbon Dioxide 34.2 H (21.0-32.0) meq/L Anion Gap 15 (5-15) meq/L BUN 15 (7-18) mg/dL Creatinine 0.93 (0.50-1.00) mg/dL Estimated GFR 62 L (>89) mL/min Random Glucose 134 H (74-106) mg/dL Lactic Acid (0.4-2.0) mmol/L Calcium 9.5 (8.5-10.1) mg/dL Magnesium 2.3 (1.5-2.5) mg/dL Total Bilirubin 1.2 H (0.2-1.0) mg/dL AST 97 H (15-37) U/L ALT 179 H (10-53) U/L Alkaline Phosphatase 615 H (45-117) U/L Total Protein 7.6 (6.4-8.2) g/dL Albumin 4.0 (3.4-5.0) g/dL Lipase 195 (73-393) U/L 01/11/18 Range/Units 16:40 WBC (4.0-11.0) th/mm3 RBC (4.00-5.30) mil/mm3 Hgb (11.6-15.3) gm/dL Hct (35.0-46.0) % MCV (80.0-100.0) fL MCH (27.0-34.0) pg MCHC (32.0-36.0) % RDW (11.6-17.2) % Plt Count (150-450) th/mm3 MPV (7.0-11.0) fL Neut % (Auto) (16.0-70.0) % Lymph % (Auto) (9.0-44.0) % [place] % (Auto) (0.0-8.0) % Eos % (Auto) (0.0-4.0) % Baso % (Auto) (0.0-2.0) % Neut # (Auto) (1.8-7.7) th/mm3 Lymph # (Auto) (1.0-4.8) th/mm3 [place] # (Auto) (0.0-0.9) th/mm3 Eos # (Auto) (0.0-0.4) th/mm3 Baso # (Auto) (0.0-0.2) th/mm3 WBC Differential Differential Comment PT (9.8-11.6) sec INR Ratio APTT (23.4-31.7) sec Sodium (136-145) meq/L Potassium (3.5-5.1) meq/L Chloride (98-107) meq/L Carbon Dioxide (21.0-32.0) meq/L Anion Gap (5-15) meq/L BUN (7-18) mg/dL Creatinine (0.50-1.00) mg/dL Estimated GFR (>89) mL/min Random Glucose (74-106) mg/dL Lactic Acid 1.9 (0.4-2.0) mmol/L Calcium (8.5-10.1) mg/dL Magnesium (1.5-2.5) mg/dL Total Bilirubin (0.2-1.0) mg/dL AST (15-37) U/L ALT (10-53) U/L Alkaline Phosphatase (45-117) U/L Total Protein (6.4-8.2) g/dL Albumin (3.4-5.0) g/dL Lipase (73-393) U/L Imaging Data Radiologist's impression: Abdomen/Pelvis CT 01/11/18 16:31 CONCLUSION: 1. Abnormal examination demonstrating multiple new ring-enhancing lesions in the omentum and anterior mesentery and a similar appearing lesion crossing through the right rectus muscle below the umbilicus. There is also significant amount of fluid in the right dependent pelvis. The findings suggest peritoneal carcinomatosis. 2. Increase in the size of the low-density lesion in the head of the pancreas and interval development of pancreatic ductal dilatation and atrophy distal. 3. Bilateral moderate dilation of the collecting system of both kidneys, new finding from prior. Discharge Plan Discharge Disposition Patient Disposition: 01 Discharge Home Discharge Condition Condition: Stable Discharge Order Discharge Orders: Discharge Order (Routine); Ordered 01/11/18 Ordered By: Laura Wasserman Discharge Details Diagnosis: Pancreatic cancer Physicians Team ED Provider: Talya Brown ED Midlevel Provider: Laura Wasserman Primary Care Provider: Columba May Rxs /Orders / Referrals /Forms Prescriptions: New ondansetron 4 mg tablet,disintegrating 4 mg PO Q6H PRN (Reason: nausea and vomiting) Qty: 20 RF: 0 Referrals: Columba May MD [Primary Care Provider] - 3 Days Yung Harvey MD [Physician] - 3 Days Discharge Instructions Patient Printed Instructions: Pancreatic Cancer (DC) Additional Instructions: Follow-up with Dr. Harvey and your primary care physician Take Zofran as directed as needed for nausea/vomiting Return to the emergency department for any worsening symptoms Discharge Interventions Interventions: Vital Signs Last Done: 01/11/18 19:46 Status ED Status: Ready for Discharge
[2018-01-11 17:02] LABS: Baso % (Auto) 0.4 % (0.0-2.0); Eos % (Auto) 0.3 % (0.0-4.0); Hematocrit 34.9 % (35.0-46.0); Hemoglobin 12.1 gm/dL (11.6-15.3); Lymph % (Auto) 22.8 % (9.0-44.0); Mean Corpuscular HGB Conc 34.7 % (32.0-36.0); Mean Corpuscular Hemoglobin 32.1 pg (27.0-34.0); Mean Corpuscular Volume 92.5 fL (80.0-100.0); Mean Platelet Volume 7.3 fL (7.0-11.0); Mono # (Auto) 0.5 th/mm3 (0.0-0.9); Mono % (Auto) 6.1 % (0.0-8.0); Neut # (Auto) 6.3 th/mm3 (1.8-7.7); Neut % (Auto) 70.4 % (16.0-70.0); Platelet Count 485 th/mm3 (150-450); Red Blood Count 3.77 mil/mm3 (4.00-5.30); Red Cell Distribution Width 13.6 % (11.6-17.2); White Blood Count 8.9 th/mm3 (4.0-11.0)
[2018-01-11 17:12] LABS: Activated Partial Thrombo Time 24.7 sec (23.4-31.7)
[2018-01-11 17:31] LABS: Alanine Aminotransferase 179 U/L (10-53); Alkaline Phosphatase 615 U/L (45-117); Anion Gap 15 meq/L (5-15); Aspartate Aminotransferase 97 U/L (15-37); Blood Urea Nitrogen 15 mg/dL (7-18); Calcium 9.5 mg/dL (8.5-10.1); Carbon Dioxide 34.2 meq/L (21.0-32.0); Chloride 76 meq/L (98-107); Glomerular Filtration Rate 62 mL/min (>89); Glucose,Random 134 mg/dL (74-106); Lipase 195 U/L (73-393); Magnesium 2.3 mg/dL (1.5-2.5); Sodium 125 meq/L (136-145); Total Protein 7.6 g/dL (6.4-8.2)
[2018-01-11 17:52] LABS: Potassium 2.9 meq/L (3.5-5.1)
[2018-01-11] MEDS ORDERED: Potassium Chloride 10 MEQ ER Capsule PO ONE (17:55)
--- NOTE | 2018-01-11 19:46 | CT ---
EXAM DATE: 01/11/2018 7:28 PM EST AGE/SEX: 57 years / Female INDICATIONS: Lower abdominal pain. Nausea and vomiting for one week. CLINICAL DATA: This is the patient's initial encounter. Patient reports that signs and symptoms have been present for 1 week and indicates a pain score of 9/10. MEDICAL/SURGICAL HISTORY: Pancreatitis. Carcinoma, pancreas. None. ORAL CONTRAST: No oral contrast ingested. RADIATION DOSE: 6.64 CTDI (mGy) COMPARISON: [facility] [place]ELVIS W [place]AST, 08/18/2017. . TECHNIQUE: Multiple contiguous axial images were obtained through the abdomen and pelvis following b olus infusion of 70 ml Omnipaque 350 (iohexol) nonionic water-soluble contrast as a single exam dos e. No oral contrast ingested. Using automated exposure control and adjustment of the mA and/or kV ac cording to patient size, radiation dose was kept as low as reasonably achievable to obtain optimal di agnostic quality images. DICOM format image data is available electronically for review and comparis on. FINDINGS: Lower Lungs: The visualized lower lungs are clear. Liver: The liver has a homogeneous density without space-occupying lesion. There is an indwelling charlotte iary catheter coursing from the right lobe into the third portion of the duodenum. Mild prominence of the biliary ducts and some biliary gas.. Spleen: Homogeneous density without enlargement. Stable 1 cm hypodensity in the anterior lateral mid spleen. Pancreas: Atrophy of the pancreas and interval development of marked dilation of the entire pancreat ic duct down to the tail, measuring up to 8 mm. No fluid collections in the lesser sac. There is a sm all cystic area in the tail which measures 5 mm. There is a 1.8 cm hypodensity in the anterior head o f the pancreas which is increased in size when compared to prior examination (previously measured 9 m m). Kidneys: There is bilateral mild dilation of the collecting system of both kidneys with loss of the sinus fat bilaterally; the new finding from prior examination. There is homogeneous enhancement of th e parenchyma of both kidneys. Subcentimeter cyst midpole left kidney is stable. Adrenal Glands: Unremarkable. Aorta: The aorta and proximal iliac vessels are grossly unremarkable without aneurysmal dilation. Bowel/Mesentery: Marked distention of the stomach and first portion of the duodenum. No dilated loop s of small or large bowel. Abnormal appearance to the anterior mesentery left lower quadrant or oment um with new enhancing nodules measuring up to 7 mm in diameter. Abdominal Wall: There is a new peripherally enhancing lobular lesion which crosses through the right rectus muscle inferior to the umbilicus measuring 2.6 cm in oblique dimension. This lesion has simil ar appearance to the omental lesions. Retroperitoneum: Stable appearance to the splenic and upper abdominal varices. Bladder: Contours are smooth. Reproductive Organs: Low-density area in the right adnexa is similar to prior. There is coronary sig nificant increase in free fluid in the pelvis on the right side measuring up to 3.5 cm in thickness. Prominent periuterine vessels and adnexa vessels similar to prior. Inguinal: The inguinal region is unremarkable without evidence of adenopathy. Bony Structures: Unremarkable. CONCLUSION: 1. Abnormal examination demonstrating multiple new ring-enhancing lesions in the omentum and anterio r mesentery and a similar appearing lesion crossing through the right rectus muscle below the umbilic us. There is also significant amount of fluid in the right dependent pelvis. The findings suggest per itoneal carcinomatosis. 2. Increase in the size of the low-density lesion in the head of the pancreas and interval developme nt of pancreatic ductal dilatation and atrophy distal. 3. Bilateral moderate dilation of the collecting system of both kidneys, new finding from prior. Electronically signed by: Ramesh Casey MD 01/11/2018 7:45 PM EST
[2018-01-11 20:17] LABS: Bilirubin,Urine Negative (Negative); Color,Urine Yellow (Yellw/Straw); Glucose,Urine (UA) Negative (Negative); Leukocyte Esterase,Urine Negative (Negative); Mucus,Urine Few /lpf (Occasional); Nitrite,Urine Negative (Negative); Specific Gravity,Urine 1.008 (1.002-1.035); Squamous Epithelial Cell,Urine <1 /hpf (0-5)
[2018-01-11 20:20] LABS: Clarity,Urine Clear (Clear)
[2018-01-11] MEDS ORDERED: Bisacodyl 10 MG Supp RECTAL PRN (21:51)
[2018-01-11] MEDS ORDERED: Acetaminophen 325 MG Tablet PO PRN (21:51)
[2018-01-11] MEDS ORDERED: Temazepam 15 MG Capsule PO PRN (21:51)
[2018-01-11] MEDS ORDERED: Morphine Sulfate Inj 2 MG/ML Vial IV.PUSH PRN (21:54)
[2018-01-11] MEDS ORDERED: KCL 20 mEq/D5W/NaCl 0.45% Inj 1,000 ML IV.CONT SCH (22:00)
--- NOTE | 2018-01-11 23:30 | P.HP ---
History of Present Illness Service: [facility] Primary Care Physician: Columba May MD History of Present Illness: 57-year-old female with a past medical history significant for metastatic pancreatic cancer status post biliary stent placement presents to the emergency department for evaluation of abdominal pain and vomiting times 1 week. The patient was previously evaluated by oncology and decided against pursuing chemotherapy or further oncologic treatment. The patient denies any fever/ chills. Reports increased fatigue. No chest pain or shortness of breath. No abdominal pain. No lateralizing signs/symptoms. Inpatient Certification: I certify that the inpatient services were ordered in accordance with Medicare regulations governing the order. This includes certification that hospital inpatient services are reasonable and necessary and in the case of services not specified as inpatient-only under 42 CFR 419.22(n), that they are appropriately provided as inpatient services in accordance to with the 2-midnight benchmark under 43 CFR 412.3(e) Estimated Total Length of Stay (Days): 3 Plans for Post Hospital Care: Not yet determined Review of Systems All other systems reviewed negative except as stated in [facility] - History History Provided By: Patient - Medical History Medical History: Medical History (Last Reviewed 01/11/18 @ 23:19 by Brianna Bernard MD) Dental bridge present GERD (gastroesophageal reflux disease) Gastric polyps H/O scabies History of anesthesia reaction History of ileus Pancreas cancer Wears glasses - Surgical History Surgical History: Surgical History (Last Updated 01/11/18 @ 23:21 by Brianna Bernard MD) History of cholecystectomy History of ERCP History of esophagogastroduodenoscopy (EGD) - Family History Family History: Family History (Last Updated 01/11/18 @ 23:21 by Brianna Bernard MD) Other CVA (cerebral vascular accident) - Social History I have reviewed the patient's Social History: Yes - Tobacco History Second Hand Smoke Exposure: Yes Smoking Status: Never smoker Tobacco Type: Cigarettes - Alcohol History How Often Do You Have a Drink Containing Alcohol: Never - Substance Use History Substance History: No History of Abuse - Travel History Recent Travel in the [place] Within the Last 8 Weeks: No Recent Travel Out of the Country Within the Last 8 Weeks: No - Immunization History Tetanus Immunization: Unsure Medications and Allergies Active Medications: Active Medications Acetaminophen (Tylenol) 650 mg PO Q4H PRN PRN Reason: Temp > 100.4 Bisacodyl (Dulcolax Supp) 10 mg RECTAL DAILY PRN PRN Reason: SEVERE CONSITIPATION Enoxaparin Sodium (Lovenox Inj) 40 mg SQ Q24H MARGIE Potassium Chloride 10 meq/ (Dextrose/Sodium Chloride) 1,005 mls @ 100 mls/hr IV.CONT .Q10H3M MARGIE Morphine Sulfate (Morphine Inj) 2 mg IV.PUSH Q3H PRN PRN Reason: pain > 5 Ondansetron HCl (Zofran Inj) 4 mg IV.PUSH Q6H PRN PRN Reason: NAUSEA OR VOMITING Sennosides (Senokot) 17.2 mg PO Q12H PRN PRN Reason: Moderate Constipation Sodium Chloride (Ns Flush) 2 ml IV.FLUSH PRN PRN PRN Reason: FLUSH AFTER USING IV ACCESS Temazepam (Restoril) 15 mg PO HS PRN PRN Reason: INSOMNIA Allergies Allergy/AdvReac Type Severity Reaction Status Date / Time No Known Allergies Allergy Verified 09/06/17 09:28 Exam Vital signs: Vital Signs 01/11/18 16:05 01/11/18 16:26 01/11/18 17:07 Temperature 97.0 F L Pulse Rate 101 H 92 H 68 Respiratory Rate 27 H 23 14 Blood Pressure 80/46 L 80/52 L 102/53 L Pulse Oximetry 99 100 98 01/11/18 19:46 01/11/18 21:30 Temperature Pulse Rate 75 83 Respiratory Rate 16 17 Blood Pressure 98/56 L 110/65 Pulse Oximetry 98 100 Intake & Output 01/11/18 01/11/18 01/12/18 06:59 18:59 06:59 Intake Total 1999 Balance 1999 Weight 39.916 kg Intake: IV 1999 NS Inj 1,000 ML @ Wide Open IV. 1999 SIG BOLUS ONE Rx#:[id number] Narrative: Gen.: No acute distress Head: Normocephalic. Atraumatic. EENT: Pupils equal round and reactive to light. Nose without drainage. Airway intact. Throat without injection. Cardiovascular: Regular rate and rhythm. No murmurs, rubs or gallops. Respiratory: Lungs clear to auscultation bilaterally. No wheezes or rhonchi. Abdomen: Soft, nontender, nondistended. No peritoneal signs. Musculoskeletal: No gross deformities. No edema. Skin: No obvious rashes or erythema. Neuro: Sensory and motor grossly intact. Cranial nerves II through XII grossly intact. Results - Labs CBC & Chem 7: 01/11/18 16:35 01/11/18 16:35 Labs: Laboratory Results - last 24 hr 01/11/18 01/11/18 01/11/18 16:35 16:35 16:35 WBC 8.9 RBC 3.77 L Hgb 12.1 Hct 34.9 L MCV 92.5 MCH 32.1 MCHC 34.7 RDW 13.6 Plt Count 485 H D MPV 7.3 Neut % (Auto) 70.4 H Lymph % (Auto) 22.8 Leake % (Auto) 6.1 Eos % (Auto) 0.3 Baso % (Auto) 0.4 Neut # (Auto) 6.3 Lymph # (Auto) 2.0 Leake # (Auto) 0.5 Eos # (Auto) 0.0 Baso # (Auto) 0.0 WBC Differential . Differential Comment Auto diff final PT 10.0 INR 1.0 APTT 24.7 Sodium 125 L Potassium 2.9 L* Chloride 76 L Carbon Dioxide 34.2 H Anion Gap 15 BUN 15 Creatinine 0.93 Estimated GFR 62 L Random Glucose 134 H Lactic Acid Calcium 9.5 Magnesium 2.3 Total Bilirubin 1.2 H AST 97 H ALT 179 H Alkaline Phosphatase 615 H Total Protein 7.6 Albumin 4.0 Lipase 195 Urine Color Urine Clarity Urine pH Ur Specific [place] Urine Protein Urine Glucose (UA) Urine Ketones Urine Occult Blood Urine Nitrate Urine Bilirubin Urine Urobilinogen Ur Leukocyte Esterase Urine RBC Urine WBC Ur Squamous Epith Cells Urine Mucus Micro UA Comment Ur Microscopic Review Urine Culture Comments 01/11/18 01/11/18 16:40 19:08 WBC RBC Hgb Hct MCV MCH MCHC RDW Plt Count MPV Neut % (Auto) Lymph % (Auto) Leake % (Auto) Eos % (Auto) Baso % (Auto) Neut # (Auto) Lymph # (Auto) Leake # (Auto) Eos # (Auto) Baso # (Auto) WBC Differential Differential Comment PT INR APTT Sodium Potassium Chloride Carbon Dioxide Anion Gap BUN Creatinine Estimated GFR Random Glucose Lactic Acid 1.9 Calcium Magnesium Total Bilirubin AST ALT Alkaline Phosphatase Total Protein Albumin Lipase Urine Color Yellow Urine Clarity Clear Urine pH 8.0 Ur Specific [place] 1.008 Urine Protein Negative Urine Glucose (UA) Negative Urine Ketones 20 Urine Occult Blood Negative Urine Nitrate Negative Urine Bilirubin Negative Urine Urobilinogen Less than 2 Ur Leukocyte Esterase Negative Urine RBC Less than 1 Urine WBC Less than 1 Ur Squamous Epith Cells <1 Urine Mucus Few H Micro UA Comment Culture not ind Ur Microscopic Review Not Reportable Urine Culture Comments Culture not ind - Imaging Impressions Abdomen/Pelvis CT 01/11/18 16:31 CONCLUSION: 1. Abnormal examination demonstrating multiple new ring-enhancing lesions in the omentum and anterior mesentery and a similar appearing lesion crossing through the right rectus muscle below the umbilicus. There is also significant amount of fluid in the right dependent pelvis. The findings suggest peritoneal carcinomatosis. 2. Increase in the size of the low-density lesion in the head of the pancreas and interval development of pancreatic ductal dilatation and atrophy distal. 3. Bilateral moderate dilation of the collecting system of both kidneys, new finding from prior. Caprini VTE Risk Assessment Caprini VTE Risk Assessment: Moderate/High Risk (score >= 2) Caprini Risk Assessment Model: Point Value = 1 Point Value = 2 Point Value = 3 Point Value = 5 Age 41-60 Minor surgery BMI > 25 kg/m2 Swollen legs Varicose veins or History of unexplained or recurrent spontaneous Oral contraceptives or hormone replacement Sepsis (< 1 month) Serious lung disease, including pneumonia (< 1 month) Abnormal pulmonary function Acute myocardial infarction Congestive heart failure (< 1 month) History of inflammatory bowel disease Medical patient at bed rest Age 61-74 Arthroscopic surgery Major open surgery (> 45 min) Laparoscopic surgery (> 45 min) Malignancy Confined to bed (> 72 hours) Immobilizing plaster cast Central venous access Age >= 75 History of VTE Family history of VTE Factor V Leiden Prothrombin [id number] Lupus anticoagulant Anticardiolipin antibodies Elevated serum homocysteine Heparin-induced thrombocytopenia Other congenital or acquired thrombophilia Stroke (< 1 month) Elective arthroplasty Hip, pelvis, or leg fracture Acute spinal cord injury (< 1 month) Prophylaxis Regimen: Total Risk Factor Score Risk Level Prophylaxis Regimen 0-1 Low Early ambulation 2 Moderate Order ONE of the following: *Sequential Compression Device (SCD) *Heparin 5000 units SQ BID 3-4 Higher Order ONE of the following medications: *Heparin 5000 units SQ TID *Enoxaparin/Lovenox 40 mg SQ daily (WT < 150 kg, CrCl > 30 mL/min) *Enoxaparin/Lovenox 30 mg SQ daily (WT < 150 kg, CrCl > 10-29 mL/min) *Enoxaparin/Lovenox 30 mg SQ BID (WT < 150 kg, CrCl > 30 mL/min) AND/OR *Sequential Compression Device (SCD) 5 or more Highest Order ONE of the following medications: *Heparin 5000 units SQ TID (Preferred with Epidurals) *Enoxaparin/Lovenox 40 mg SQ daily (WT < 150 kg, CrCl > 30 mL/min) *Enoxaparin/Lovenox 30 mg SQ daily (WT < 150 kg, CrCl > 10-29 mL/min) *Enoxaparin/Lovenox 30 mg SQ BID (WT < 150 kg, CrCl > 30 mL/min) AND *Sequential Compression Device (SCD) Assessment and Plan - Plan Assessment/plan: 1. Metastatic pancreatic cancer Patient previously evaluated by oncology, declined chemotherapy or further oncologic intervention. I discussed with the patient at length that her prognosis is poor. I again offered the patient in oncologic consultation which she declined. She expressed understanding as to the natural course of her disease and its likely outcome and wishes to continue with vitamin infusions and naturopathic treatments. The patient has agreed to a palliative care consult to assist with outlining goals of care and at home treatments. 2. Nausea/vomiting Resolving Continue Zofran 3. Hypokalemia Status post IV replacement Monitor BMP FEN Regular diet Electrolytes: As above D5 NS + 10K at 60 cc/hr Lovenox
[2018-01-11] MEDS: Enoxaparin Inj 40 MG/0.4 ML Syringe SQ SCH (23:40)
[2018-01-11] MEDS: Potassium Chloride Inj 10 MEQ in Dextrose 5%/NaCl 0.9% Inj 1,000 ML IV.CONT SCH (23:40)
[2018-01-12] MEDS: Potassium Chloride Inj 10 MEQ in Dextrose 5%/NaCl 0.9% Inj 1,000 ML IV.CONT SCH ×2 (07:08→17:44)
[2018-01-12 07:29] VITALS: O2SAT 100
[2018-01-12 07:34] LABS: Baso % (Auto) 0.3 % (0.0-2.0); Eos % (Auto) 0.4 % (0.0-4.0); Hematocrit 32.5 % (35.0-46.0); Hemoglobin 10.9 gm/dL (11.6-15.3); Lymph # (Auto) 1.3 th/mm3 (1.0-4.8); Lymph % (Auto) 21.2 % (9.0-44.0); Mean Corpuscular HGB Conc 33.6 % (32.0-36.0); Mean Corpuscular Hemoglobin 31.5 pg (27.0-34.0); Mean Corpuscular Volume 93.5 fL (80.0-100.0); Mean Platelet Volume 7.1 fL (7.0-11.0); Mono # (Auto) 0.4 th/mm3 (0.0-0.9); Mono % (Auto) 5.8 % (0.0-8.0); Neut # (Auto) 4.6 th/mm3 (1.8-7.7); Neut % (Auto) 72.3 % (16.0-70.0); Platelet Count 383 th/mm3 (150-450); Red Blood Count 3.47 mil/mm3 (4.00-5.30); Red Cell Distribution Width 13.4 % (11.6-17.2); White Blood Count 6.3 th/mm3 (4.0-11.0)
[2018-01-12 08:12] LABS: Alanine Aminotransferase 151 U/L (10-53); Albumin 3.3 g/dL (3.4-5.0); Alkaline Phosphatase 437 U/L (45-117); Anion Gap 10 meq/L (5-15); Aspartate Aminotransferase 68 U/L (15-37); Blood Urea Nitrogen 10 mg/dL (7-18); Calcium 8.6 mg/dL (8.5-10.1); Carbon Dioxide 28.7 meq/L (21.0-32.0); Chloride 92 meq/L (98-107); Glomerular Filtration Rate Greater Than 89 mL/min (>89); Glucose,Random 136 mg/dL (74-106); Potassium 3.7 meq/L (3.5-5.1); Sodium 131 meq/L (136-145); Total Protein 6.3 g/dL (6.4-8.2)
--- NOTE | 2018-01-12 10:33 | P.CONPAL ---
Consult Service: Palliative Care Requesting Physician: Hallie Bush Reason for Consult: a. To assist with evaluation and management of symptoms including: pain, nausea , vomiting b. To assist medical decision maker(s) with: better understanding of current medical conditions; weighing benefits/burdens of medical treatment options; making medical treatment decisions. Primary Care Provider: Columba May MD History of Present Illness History of Present Illness: Is a 57-year-old female who presented to the emergency room with a history of nausea vomiting for over a week. She was originally diagnosed with pancreatic adenocarcinoma in May 2017. In July she was admitted for oratory lap/ cholecystectomy, pancreatic biopsy and was discharged home. She was recommended to follow-up with oncology, however missed several appointments and was lost to follow-up. She did return to Dr. Harvey in November. Per Dr. Harvey' s records, patient was recommended to start systemic chemotherapy, however declined as she was attempting to treat the disease with high-dose multivitamins and minerals, she had been seeing a natural pathic physician. At that time, she was only agreeable to therapy if it would be curative. She was seen and evaluated in the emergency department week long history of abdominal pain and vomiting. It appears she was originally planned for discharge home, as she did not want any further oncology interventions, and has continued to treat her illness with multivitamins and minerals per her naturopathic practitioner. She has been admitted as inpatient at this time due to hypotension and was agreeable to admission. Current ED course: * WBC 6.3 hemoglobin 10.9, hematocrit 32.5, platelets 383, sodium 131, potassium 3.7, chloride 92, carbon dioxide 28.7, BUN 10, creatinine 0.56, GFR greater than 89, glucose 136, calcium 8.6, bilirubin 0.7, AST/ALT 68/151, alkaline phosphatase 437, protein 6.3, albumin 3.3 * Abdomen/pelvis CT reveals 1. multiple new lesions in the omentum and anterior mesentery as well as right rectus muscle below the umbilicus. Significant amount of fluid in the right dependent pelvis suggestive of carcinomatosis. 2. Increase in the size of the low-density lesion in the head of the pancreas and interval development of pancreatic ductal dilatation and atrophy distal. 3. Bilateral moderate dilation of the collecting system of both kidneys, new finding from prior Palliative care has been consulted to assist with symptom management including nausea/vomiting and pain. Met with patient in her room, she is alert and oriented, flat affect. Attempted to explore understanding of disease progression. She asks "are you the ones coming to my house," she is requesting assistance at home with housekeeping and other daily chores. She reports she has been seeing a holistic practitioner in the community who was assisting her and treating her progressive cancer holistically. She reports the practitioner that she sees had widespread cancer and was cured. She reports this is what is guiding her decisions related to treatment. She reports use of vitamins and minerals, as well as juicing, she does not eat sugars or carbs. She reports this is what has contributed to her significant weight loss. She does indicate that this practitioner recommends the course of treatment but there is no follow-up as far as monitoring of labs and electrolytes. Explored CODE STATUS, at this time she would want everything done. She is a FULL CODE. Briefly explored transition to hospice care given the fact that she is electing to forego any oncology interventions including chemotherapy. She does indicate that she would want to come back to the hospital if she were to have crisis in the home. She essentially circles back to requesting assistance with daily activities. She reports she has an 18-year-old son in the home, appears he does not have much knowledge of his mother's overall poor prognosis and disease progression. She reports she has a daughter that is local but is "too busy for her." Attempted to discuss palliative care services, she ask "what are you going to do for my nausea." Function/Cognitive Trajectory: She appears to be capacitated to make her own decisions. Review of Systems Constitutional: Reports anorexia, Reports fatigue, Reports lack of energy, Reports weakness, Reports weight loss Eyes: Denies change in vision Ears, Nose, Mouth, and Throat: Denies change in voice, Denies dental pain Cardiovascular: Denies chest pain, Denies fainting, Denies irregular heart rhythm Respiratory: Denies cough, Denies wheezing Gastrointestinal: Reports abdominal pain, Reports vomiting Genitourinary: Denies blood in urine, Denies urinary urgency Musculoskeletal: Denies joint pain, Denies joint swelling, Denies numbness Skin/Breast: Denies breast skin changes, Denies breast pain Neurologic: Denies loss of vision, Denies tingling/numbness/burning sensations Psychiatric: Denies anxiety, Denies confusion Endocrine: Reports cold intolerance Hematologic/Lymphatic: Denies easy bleeding, Denies easy bruising PMFSH - History History Provided By: Patient - Medical History Medical History: Medical History (Last Reviewed 01/12/18 @ 17:45 by TONIA Ochoa) Dental bridge present GERD (gastroesophageal reflux disease) Gastric polyps H/O scabies History of anesthesia reaction History of ileus Pancreas cancer Wears glasses - Surgical History Surgical History: Surgical History (Last Reviewed 01/12/18 @ 13:44 by TONIA Ochoa) History of cholecystectomy History of ERCP History of esophagogastroduodenoscopy (EGD) - Family History Family History: Family History (Last Updated 01/12/18 @ 13:44 by TONIA Ochoa) Other CVA (cerebral vascular accident) Family history of diabetes mellitus Heart disease - Social History I have reviewed the patient's Social History: Yes - Tobacco History Second Hand Smoke Exposure: No Tobacco Use In Past 30 Days: No Smoking Status: Former smoker Tobacco Type: Cigarettes - Alcohol History How Often Do You Have a Drink Containing Alcohol: Never - Substance Use History Substance History: No History of Abuse - Travel History Recent Travel in the [place] Within the Last 8 Weeks: No Recent Travel Out of the Country Within the Last 8 Weeks: No - Immunization History Tetanus Immunization: Unsure Medications and Allergies Active Medications: Active Medications Acetaminophen (Tylenol) 650 mg PO Q4H PRN PRN Reason: Temp > 100.4 Bisacodyl (Dulcolax Supp) 10 mg RECTAL DAILY PRN PRN Reason: SEVERE CONSITIPATION Enoxaparin Sodium (Lovenox Inj) 40 mg SQ Q24H [facility] Last Admin: 01/11/18 23:40 Dose: 40 mg Potassium Chloride 10 meq/ (Dextrose/Sodium Chloride) 1,005 mls @ 60 mls/hr IV.CONT .[id number] [facility] Last Admin: 01/12/18 07:08 Dose: Not Given Morphine Sulfate (Morphine Inj) 2 mg IV.PUSH Q3H PRN PRN Reason: pain > 5 Ondansetron HCl (Zofran Inj) 4 mg IV.PUSH Q6H PRN PRN Reason: NAUSEA OR VOMITING Sennosides (Senokot) 17.2 mg PO Q12H PRN PRN Reason: Moderate Constipation Sodium Chloride (Ns Flush) 2 ml IV.FLUSH PRN PRN PRN Reason: FLUSH AFTER USING IV ACCESS Temazepam (Restoril) 15 mg PO HS PRN PRN Reason: INSOMNIA Allergies Allergy/AdvReac Type Severity Reaction Status Date / Time No Known Allergies Allergy Verified 09/06/17 09:28 Advance Directives Living Will: No Healthcare Surrogate: No Power of Alterations Sewer: No Documented care wishes: She wishes to could return home and continue her holistic therapy. She is hoping for care despite known progression of disease. Physical Exam Vital Signs: Vital Signs - 24 hr 01/11/18 16:05 01/11/18 16:26 01/11/18 17:07 Temperature 97.0 F L Pulse Rate 101 H 92 H 68 Respiratory Rate 27 H 23 14 Blood Pressure 80/46 L 80/52 L 102/53 L Pulse Oximetry 99 100 98 01/11/18 19:46 01/11/18 21:30 01/11/18 23:49 Temperature 98.0 F Pulse Rate 75 83 70 Respiratory Rate 16 17 15 Blood Pressure 98/56 L 110/65 99/56 L Pulse Oximetry 98 100 100 01/12/18 02:10 01/12/18 03:17 01/12/18 07:25 Temperature 98.2 F 97.5 F L Pulse Rate 71 73 71 Respiratory Rate 16 16 Blood Pressure 96/58 L 94/50 L Pulse Oximetry 99 100 01/12/18 08:00 Temperature Pulse Rate 62 Respiratory Rate Blood Pressure Pulse Oximetry I&O: Intake & Output 01/10/18 01/11/18 01/12/18 01/13/18 06:59 06:59 06:59 06:59 Intake Total 1999 / 1999 Output Total 300 / 300 Balance 1700 / 1700 Weight 44.9 kg Physical Exam: CONSTITUTIONAL/GENERAL: Frail cachectic female who appears older than her stated age.. TUBES/LINES/DRAINS: Peripheral IV left upper extremity SKIN: No jaundice, rashes, or lesions. Ecchymoses on upper extremities. Some scattered abrasions, likely bug bites. Skin temperature appropriate. Not diaphoretic. HEAD: Atraumatic. Normocephalic. EYES: Pupils equal and round and reactive. Extraocular motions intact. No scleral icterus. No injection or drainage. Fundi not examined. ENT: Hearing grossly normal. Nose without bleeding or purulent drainage. Poor dentition NECK: Trachea midline. Supple, nontender. No palpable thyroid enlargement or nodularity. CARDIOVASCULAR: Regular rate and rhythm without murmurs, gallops, or rubs. No JVD. Peripheral pulses symmetric. RESPIRATORY/CHEST: Symmetric, unlabored respirations. Clear to auscultation. Breath sounds equal bilaterally. No wheezes, rales, or rhonchi. GASTROINTESTINAL: Abdomen soft, non-tender, nondistended. No hepato-splenomegaly , or palpable masses. No guarding. Bowel sounds present. GENITOURINARY: Without palpable bladder distension. MUSCULOSKELETAL: Extremities without clubbing, cyanosis, or edema. No joint tenderness or effusion noted. No calf tenderness. No mottling or clubbing. LYMPHATICS: No palpable cervical or supraclavicular adenopathy. NEUROLOGICAL: Awake and alert. Motor and sensory grossly within normal limits. Follows commands. Flat affect. Moves all extremities. PSYCHIATRIC: No obvious anxiety/depression. no apparent hallucinations or other psychotic thought process. Diagnostic Tests Laboratory: Laboratory Results - last 72 hr 01/11/18 01/11/18 01/11/18 16:35 16:35 16:35 WBC 8.9 RBC 3.77 L Hgb 12.1 Hct 34.9 L MCV 92.5 MCH 32.1 MCHC 34.7 RDW 13.6 Plt Count 485 H D MPV 7.3 Neut % (Auto) 70.4 H Lymph % (Auto) 22.8 [place]ner % (Auto) 6.1 Eos % (Auto) 0.3 Baso % (Auto) 0.4 Neut # (Auto) 6.3 Lymph # (Auto) 2.0 [place]ner # (Auto) 0.5 Eos # (Auto) 0.0 Baso # (Auto) 0.0 WBC Differential . Differential Comment Auto diff final PT 10.0 INR 1.0 APTT 24.7 Sodium 125 L Potassium 2.9 L* Chloride 76 L Carbon Dioxide 34.2 H Anion Gap 15 BUN 15 Creatinine 0.93 Estimated GFR 62 L Random Glucose 134 H Lactic Acid Calcium 9.5 Magnesium 2.3 Total Bilirubin 1.2 H AST 97 H ALT 179 H Alkaline Phosphatase 615 H Total Protein 7.6 Albumin 4.0 Lipase 195 Urine Color Urine Clarity Urine pH Ur Specific [place] Urine Protein Urine Glucose (UA) Urine Ketones Urine Occult Blood Urine Nitrate Urine Bilirubin Urine Urobilinogen Ur Leukocyte Esterase Urine RBC Urine WBC Ur Squamous Epith Cells Urine Mucus Micro UA Comment Ur Microscopic Review Urine Culture Comments 01/11/18 01/11/18 01/12/18 16:40 19:08 06:55 WBC 6.3 RBC 3.47 L Hgb 10.9 L Hct 32.5 L MCV 93.5 MCH 31.5 MCHC 33.6 RDW 13.4 Plt Count 383 MPV 7.1 Neut % (Auto) 72.3 H Lymph % (Auto) 21.2 [place]ner % (Auto) 5.8 Eos % (Auto) 0.4 Baso % (Auto) 0.3 Neut # (Auto) 4.6 Lymph # (Auto) 1.3 [place]ner # (Auto) 0.4 Eos # (Auto) 0.0 Baso # (Auto) 0.0 WBC Differential . Differential Comment Auto diff final PT INR APTT Sodium Potassium Chloride Carbon Dioxide Anion Gap BUN Creatinine Estimated GFR Random Glucose Lactic Acid 1.9 Calcium Magnesium Total Bilirubin AST ALT Alkaline Phosphatase Total Protein Albumin Lipase Urine Color Yellow Urine Clarity Clear Urine pH 8.0 Ur Specific [place] 1.008 Urine Protein Negative Urine Glucose (UA) Negative Urine Ketones 20 Urine Occult Blood Negative Urine Nitrate Negative Urine Bilirubin Negative Urine Urobilinogen Less than 2 Ur Leukocyte Esterase Negative Urine RBC Less than 1 Urine WBC Less than 1 Ur Squamous Epith Cells <1 Urine Mucus Few H Micro UA Comment Culture not ind Ur Microscopic Review Not Reportable Urine Culture Comments Culture not ind 01/12/18 06:55 WBC RBC Hgb Hct MCV MCH MCHC RDW Plt Count MPV Neut % (Auto) Lymph % (Auto) [place]ner % (Auto) Eos % (Auto) Baso % (Auto) Neut # (Auto) Lymph # (Auto) [place] # (Auto) Eos # (Auto) Baso # (Auto) WBC Differential Differential Comment PT INR APTT Sodium 131 L Potassium 3.7 D Chloride 92 L D Carbon Dioxide 28.7 Anion Gap 10 BUN 10 Creatinine 0.56 Estimated GFR Greater than 89 Random Glucose 136 H Lactic Acid Calcium 8.6 D Magnesium Total Bilirubin 0.7 AST 68 H ALT 151 H Alkaline Phosphatase 437 H Total Protein 6.3 L D Albumin 3.3 L D Lipase Urine Color Urine Clarity Urine pH Ur Specific [place] Urine Protein Urine Glucose (UA) Urine Ketones Urine Occult Blood Urine Nitrate Urine Bilirubin Urine Urobilinogen Ur Leukocyte Esterase Urine RBC Urine WBC Ur Squamous Epith Cells Urine Mucus Micro UA Comment Ur Microscopic Review Urine Culture Comments Result Diagrams: 01/12/18 06:55 01/12/18 06:55 Patient/Family Conference Present at Family Conference: No family at bedside during visit. Offered to call her son Alvin and daughter Hallie, she declined stating she will update them herself. Issues Discussed: * Palliative care role, purpose, approach * Additional medical, psychosocial, and spiritual history * Patients general health, functional status, and cognitive changes in the months leading up to the current hospitalization * Patient/family understanding of the current medical problems * Patient/family understanding of prognosis * Patients goals of care as best understood from advance directives and/or conversations and/or values * Current medical treatment options and benefits/burdens of those options * Likely scenarios comparing ongoing aggressive care with a transition to comfort measures only * Questions answered to the best of my ability * Palliative care contact information provided Assessment and Plan - Symptom Scale (1) Pain 0-10 Scale: 0 (2) Nausea 0-10 Scale: 0 (3) Weakness 0-10 Scale: Unable to quantify Pertinent Non-Medical Issues: Psychosocial: Patient lives at home with her 18-year-old son, she has a daughter who also lives locally does not seem to be involved in her care. She reports "she is too busy." Spiritual: Patient is Christianity and is supported by her local roman catholic family Legal: Patient is capacitated to make her own decisions at this time, her 2 adult children would be the appropriate legal proxy should she lose capacity to make her own decisions. Offered to assist with designation of healthcare surrogate, she declined at this time. Ethical issues impacting care: none Important Contacts: Patient has daughter Hallie and son Alvin. Offered to call and update them, she declined and did not offer contact information. Prognosis: Patient initially diagnosed with pancreatic cancer in May of this year. She has elected to forego oncology recommendations and interventions treat her illness with vitamins and minerals. New imaging reveals progression of disease. Per medical records, patient was only agreeable to chemotherapy treatment if it was going to be curative, she was advised at that time that it would be palliative. Given her progression of disease, life expectancy is limited. She will likely continue to have complications and worsening symptoms until . She would be appropriate for hospice services if goals were appropriate. Code Status: Full Code Plan: Legal decision maker: Patient is capacitated to make her own decisions at this time. She has 2 adult children who live locally that she would wish to assist her in decision making should she become incapacitated. Goals: Still declines oncology recommended treatments. She plans to continue her holistic therapy of vitamins and minerals at home.. She states she would come back to the hospital for uncontrolled symptoms. CODE STATUS: Wishes to remain full code. SYMPTOMS: --Pain: Presented to emergency room with abdominal pain likely secondary to disease process. Currently denies pain at this time. We will continue to reassess --Nausea/vomiting: Initially presented with nausea/vomiting likely secondary to disease process. Currently she appears comfortable, reports cessation of nausea at this time. At risk for ongoing and worsening symptoms due to disease progression. Palliative care will continue to follow during hospital course as condition evolves, to assist patient/decision-maker with understanding of medical conditions, weighing benefits/burdens of treatment options, for clarification of goals of treatment. Additionally will assist with any symptoms of palliative concern Appreciation Thank you for the opportunity to participate in the care of Carolina Moseley.
--- NOTE | 2018-01-12 15:19 | P.PN ---
Subjective Interval history: Follow up for nausea and vomiting,Metastatic pancreatic cancer-patient seen and examined, asking if she is going home. Noted hypotensive, 90s. Indicates blood pressure typically 100s. No dizziness, no cp, no sob. No nausea, no vomiting, minimal abd. discomfort. States she just wants to go home. Believes that symptoms were brought on by anxiety. Again discussed her current condition , states she doesn't want to think about it and wants to remain positive. We discussed palliative care, hospice as her symptoms will recur and worsened, she is willing to talk to palliative care first. She has an 18 year old son that she is concerned about. Physical Exam Vital signs: Vital Signs 01/11/18 16:05 01/11/18 16:26 01/11/18 17:07 Temperature 97.0 F L Pulse Rate 101 H 92 H 68 Respiratory Rate 27 H 23 14 Blood Pressure 80/46 L 80/52 L 102/53 L Pulse Oximetry 99 100 98 01/11/18 19:46 01/11/18 21:30 01/11/18 23:49 Temperature 98.0 F Pulse Rate 75 83 70 Respiratory Rate 16 17 15 Blood Pressure 98/56 L 110/65 99/56 L Pulse Oximetry 98 100 100 01/12/18 02:10 01/12/18 03:17 01/12/18 07:25 Temperature 98.2 F 97.5 F L Pulse Rate 71 73 71 Respiratory Rate 16 16 Blood Pressure 96/58 L 94/50 L Pulse Oximetry 99 100 01/12/18 08:00 01/12/18 11:57 01/12/18 14:19 Temperature 97.8 F 97.7 F Pulse Rate 62 68 76 Respiratory Rate 16 17 Blood Pressure 116/62 116/63 Pulse Oximetry 100 100 Intake & Output 01/11/18 01/12/18 01/12/18 18:59 06:59 18:59 Intake Total 1999 Output Total 300 / 300 Balance 1700 / 1700 Weight 39.916 kg 44.9 kg Intake: IV 1999 NS Inj 1,000 ML @ Wide Open IV. 1999 SIG BOLUS ONE Rx#:[id number] Output: Urine 300 / 300 Other: Date of Last Bowel Movement 01/11/18 Weight On Admission 44.9 kg Narrative: Gen.: No acute distress Head: Normocephalic. Atraumatic. EENT: Pupils equal round and reactive to light. Nose without drainage. Airway intact. Throat without injection. Cardiovascular: Regular rate and rhythm. No murmurs, rubs or gallops. Respiratory: Lungs clear to auscultation bilaterally. No wheezes or rhonchi. Abdomen: Soft, nontender, nondistended. No peritoneal signs. Musculoskeletal: No gross deformities. No edema. Skin: No obvious rashes or erythema. Neuro: Sensory and motor grossly intact. Cranial nerves II through XII grossly intact. Results - Labs CBC & Chem 7: 01/12/18 06:55 01/12/18 06:55 Laboratory Results - last 24 hr 01/11/18 01/11/18 01/11/18 16:35 16:35 16:35 WBC 8.9 RBC 3.77 L Hgb 12.1 Hct 34.9 L MCV 92.5 MCH 32.1 MCHC 34.7 RDW 13.6 Plt Count 485 H D MPV 7.3 Neut % (Auto) 70.4 H Lymph % (Auto) 22.8 [place] % (Auto) 6.1 Eos % (Auto) 0.3 Baso % (Auto) 0.4 Neut # (Auto) 6.3 Lymph # (Auto) 2.0 [place] # (Auto) 0.5 Eos # (Auto) 0.0 Baso # (Auto) 0.0 WBC Differential . Differential Comment Auto diff final PT 10.0 INR 1.0 APTT 24.7 Sodium 125 L Potassium 2.9 L* Chloride 76 L Carbon Dioxide 34.2 H Anion Gap 15 BUN 15 Creatinine 0.93 Estimated GFR 62 L Random Glucose 134 H Lactic Acid Calcium 9.5 Magnesium 2.3 Total Bilirubin 1.2 H AST 97 H ALT 179 H Alkaline Phosphatase 615 H Total Protein 7.6 Albumin 4.0 Lipase 195 Urine Color Urine Clarity Urine pH Ur Specific [place] Urine Protein Urine Glucose (UA) Urine Ketones Urine Occult Blood Urine Nitrate Urine Bilirubin Urine Urobilinogen Ur Leukocyte Esterase Urine RBC Urine WBC Ur Squamous Epith Cells Urine Mucus Micro UA Comment Ur Microscopic Review Urine Culture Comments 01/11/18 01/11/18 01/12/18 16:40 19:08 06:55 WBC 6.3 RBC 3.47 L Hgb 10.9 L Hct 32.5 L MCV 93.5 MCH 31.5 MCHC 33.6 RDW 13.4 Plt Count 383 MPV 7.1 Neut % (Auto) 72.3 H Lymph % (Auto) 21.2 [place] % (Auto) 5.8 Eos % (Auto) 0.4 Baso % (Auto) 0.3 Neut # (Auto) 4.6 Lymph # (Auto) 1.3 [place] # (Auto) 0.4 Eos # (Auto) 0.0 Baso # (Auto) 0.0 WBC Differential . Differential Comment Auto diff final PT INR APTT Sodium Potassium Chloride Carbon Dioxide Anion Gap BUN Creatinine Estimated GFR Random Glucose Lactic Acid 1.9 Calcium Magnesium Total Bilirubin AST ALT Alkaline Phosphatase Total Protein Albumin Lipase Urine Color Yellow Urine Clarity Clear Urine pH 8.0 Ur Specific [place] 1.008 Urine Protein Negative Urine Glucose (UA) Negative Urine Ketones 20 Urine Occult Blood Negative Urine Nitrate Negative Urine Bilirubin Negative Urine Urobilinogen Less than 2 Ur Leukocyte Esterase Negative Urine RBC Less than 1 Urine WBC Less than 1 Ur Squamous Epith Cells <1 Urine Mucus Few H Micro UA Comment Culture not ind Ur Microscopic Review Not Reportable Urine Culture Comments Culture not ind 01/12/18 06:55 WBC RBC Hgb Hct MCV MCH MCHC RDW Plt Count MPV Neut % (Auto) Lymph % (Auto) [place] % (Auto) Eos % (Auto) Baso % (Auto) Neut # (Auto) Lymph # (Auto) [place] # (Auto) Eos # (Auto) Baso # (Auto) WBC Differential Differential Comment PT INR APTT Sodium 131 L Potassium 3.7 D Chloride 92 L D Carbon Dioxide 28.7 Anion Gap 10 BUN 10 Creatinine 0.56 Estimated GFR Greater than 89 Random Glucose 136 H Lactic Acid Calcium 8.6 D Magnesium Total Bilirubin 0.7 AST 68 H ALT 151 H Alkaline Phosphatase 437 H Total Protein 6.3 L D Albumin 3.3 L D Lipase Urine Color Urine Clarity Urine pH Ur Specific [place] Urine Protein Urine Glucose (UA) Urine Ketones Urine Occult Blood Urine Nitrate Urine Bilirubin Urine Urobilinogen Ur Leukocyte Esterase Urine RBC Urine WBC Ur Squamous Epith Cells Urine Mucus Micro UA Comment Ur Microscopic Review Urine Culture Comments - Imaging Impressions Abdomen/Pelvis CT 01/11/18 16:31 CONCLUSION: 1. Abnormal examination demonstrating multiple new ring-enhancing lesions in the omentum and anterior mesentery and a similar appearing lesion crossing through the right rectus muscle below the umbilicus. There is also significant amount of fluid in the right dependent pelvis. The findings suggest peritoneal carcinomatosis. 2. Increase in the size of the low-density lesion in the head of the pancreas and interval development of pancreatic ductal dilatation and atrophy distal. 3. Bilateral moderate dilation of the collecting system of both kidneys, new finding from prior. Assessment and Plan - Plan 57-year-old female with a past medical history significant for metastatic pancreatic cancer status post biliary stent placement presents to the emergency department for evaluation of abdominal pain and vomiting times 1 week. The patient was previously evaluated by oncology and decided against pursuing chemotherapy or further oncologic treatment. Metastatic pancreatic cancer-Patient previously evaluated by oncology, declined chemotherapy or further oncologic intervention. Attending discussed with the patient at length poor prognosis. Patient offered oncologic consultation which she declined. She expressed understanding as to the natural course of her disease and its likely outcome and wishes to continue with vitamin infusions and naturopathic treatments. The patient has agreed to a palliative care consult to assist with outlining goals of care and at home treatments. attempted to explore with pt. she only is interested in ordering her breakfast. -palliative care consultation pending Nausea/vomiting Resolving -Continue Zofran Hypotensive, initially 80s, trending up Asymptomatic at rest -continue IVF for now. Hypokalemia Hyponatremia Status post IV replacement -K improving, 3.7 today -continue with D5 NS + 10K at 60 cc/hr -Na improving, 131 Lovenox for DVT prophylaxis Continue with supportive care, pt. anxious to go home. Waiting to speak to palliative care. Labs in am Code Status: Full code Discussed Condition With: RN, pt, CM Discharge Planning: Poss dc tomorrow
[2018-01-12] MEDS: Enoxaparin Inj 40 MG/0.4 ML Syringe SQ SCH (21:12)
[2018-01-13 06:41] LABS: Anion Gap 9 meq/L (5-15); Blood Urea Nitrogen 8 mg/dL (7-18); Calcium 8.3 mg/dL (8.5-10.1); Carbon Dioxide 23.7 meq/L (21.0-32.0); Chloride 99 meq/L (98-107); Glomerular Filtration Rate Greater Than 89 mL/min (>89); Glucose,Random 134 mg/dL (74-106); Potassium 3.9 meq/L (3.5-5.1); Sodium 132 meq/L (136-145)
[2018-01-13] MEDS: Potassium Chloride Inj 10 MEQ in Dextrose 5%/NaCl 0.9% Inj 1,000 ML IV.CONT SCH (10:37)
[2018-01-13 11:13] VITALS: RESP 18
--- NOTE | 2018-01-13 13:33 | P.PNIM ---
Subjective Interval history: The patient said that she cannot eat here and would like to go home so she could have her blended food. She requested nausea medication and potassium pills. She had no other acute complaints or concerns. Physical Exam Vital signs: Vital Signs 01/12/18 14:19 01/12/18 16:17 01/12/18 19:00 Temperature 97.7 F 97.7 F Pulse Rate 76 68 68 Respiratory Rate 17 17 Blood Pressure 116/63 107/63 Pulse Oximetry 100 100 01/12/18 20:00 01/12/18 21:00 01/12/18 22:00 Temperature 97.6 F Pulse Rate 65 61 75 Respiratory Rate 16 Blood Pressure 122/67 Pulse Oximetry 100 01/12/18 23:00 01/13/18 00:00 01/13/18 01:00 Temperature 97.7 F Pulse Rate 68 73 67 Respiratory Rate 16 Blood Pressure 115/68 Pulse Oximetry 100 01/13/18 02:00 01/13/18 03:00 01/13/18 04:00 Temperature 97.8 F Pulse Rate 61 60 70 Respiratory Rate 15 Blood Pressure 116/66 Pulse Oximetry 100 01/13/18 05:00 01/13/18 06:00 01/13/18 07:00 Temperature Pulse Rate 62 61 67 Respiratory Rate Blood Pressure Pulse Oximetry 01/13/18 08:00 01/13/18 09:00 01/13/18 11:00 Temperature 97.8 F Pulse Rate 67 63 63 Respiratory Rate 18 Blood Pressure 105/56 L Pulse Oximetry 100 Intake & Output 01/12/18 01/13/18 01/13/18 18:59 06:59 18:59 Intake Total 1245 / 1245 480 / 480 1005 / 1005 Output Total 250 / 250 Balance 995 / 995 480 / 480 1005 / 1005 Weight 44.8 kg Intake: IV 1005 / 1005 1005 / 1005 KCl Inj 10 MEQ In D5W/Normal 1005 / 1005 1005 / 1005 Saline Inj 1,000 ML @ 60 mls/hr IV.CONT .[id number] [facility] Rx#: [id number] Oral 240 / 240 480 / 480 Output: Urine 250 / 250 Other: # Voids 1 Date of Last Bowel Movement 01/11/18 01/13/18 # Bowel Movements 1 Narrative: Gen.: No acute distress Head: Normocephalic. Atraumatic. EENT: Pupils equal round and reactive to light. Nose without drainage. Airway intact. Throat without injection. Cardiovascular: Regular rate and rhythm. No murmurs, rubs or gallops. Respiratory: Lungs clear to auscultation bilaterally. No wheezes or rhonchi. Abdomen: Soft, nontender, nondistended. No peritoneal signs. Musculoskeletal: No gross deformities. No edema. Skin: No obvious rashes or erythema. Neuro: Sensory and motor grossly intact. Cranial nerves II through XII grossly intact. Results - Labs CBC & Chem 7: 01/12/18 06:55 01/13/18 05:30 Laboratory Results - last 24 hr 01/13/18 05:30 Sodium 132 L Potassium 3.9 Chloride 99 Carbon Dioxide 23.7 Anion Gap 9 BUN 8 Creatinine 0.50 Estimated GFR Greater than 89 Random Glucose 134 H Calcium 8.3 L Assessment and Plan - Plan 57-year-old female with a past medical history significant for metastatic pancreatic cancer status post biliary stent placement presents to the emergency department for evaluation of abdominal pain and vomiting times 1 week. The patient was previously evaluated by oncology and decided against pursuing chemotherapy or further oncologic treatment. Metastatic pancreatic cancer-Patient previously evaluated by oncology, declined chemotherapy or further oncologic intervention. Attending discussed with the patient at length poor prognosis. Patient offered oncologic consultation which she declined. She expressed understanding as to the natural course of her disease and its likely outcome and wishes to continue with vitamin infusions and naturopathic treatments. The patient has agreed to a palliative care consult to assist with outlining goals of care and at home treatments. -palliative care consult appreciated. -case management consulted for possible home hospice in the future. Nausea/vomiting Resolving -Continue Zofran ODT as needed. Hypotensive, initially 80s, trending up Asymptomatic at rest -ADAT. Hypokalemia/Hyponatremia The pt is cachectic. Status post IV replacement. K, Na improved. -s/p D5 NS + KCl. -d/c with KCl PO. -ADAT. Lovenox for DVT prophylaxis Discharge Planning: d/c home
[2018-01-13 13:36] VITALS: BP 127/68; TEMP 98
[2018-01-13 15:45] VITALS: PULSE 65
== END 2018-01-13 15:37 | disposition home or self-care (01) | DRG 436 ==
LOC: NEPC 15:48 → NEDA 15:48 → NEPHCDU 22:48 → HCIS 01-12 14:03
PROVIDERS: ADMIT Hospitalist; ATTEND Hospitalist
CPT/HCPCS: 74177; 80048; 80053; 81001; 83605; 83690; 83735; 85025; 85610; 85730; 90761; 90774; 90784; 96361; 96374; 99285; C8952; J1650; J2405; J3480; J7030; J7042; Q9967

== ENCOUNTER 2018-01-22 11:20 | Inpatient (IN) ==
[2018-01-22] MEDS ORDERED: Sod Chloride 0.9% Inj 1,000 ML IV.SIG ONE (11:33)
--- NOTE | 2018-01-22 11:41 | ED ---
HPI General Chief complaint: Nausea/Vomiting/Diarrhea Stated complaint: Poss BP Issue Time Seen by Provider: 01/22/18 11:23 Source: patient Mode of arrival: EMS Limitations: no limitations History of Present Illness HPI Narrative: Patient is a 57-year-old female with history of stage III pancreatic cancer, presents to the emergency room with complaints of hypotension with nausea and vomiting. Patient reports that she was diagnosed with stage [address] Zaragoza. Dr. Zaragoza did place a port for chemotherapy on September 16, 2017. Patient reports that she never followed-up with the oncologist as she was afraid of chemotherapy and is currently not seeking any treatment for stage III pancreatic cancer. Patient reports that for the past few days, she has been nauseous, reports that she has been able to keep down food and fluids but not as much as she normally does. Patient reports today, she has been nauseous and has been vomiting and has not been able to keep anything down. Patient reports no abdominal pain with her symptoms. Patient with no chest pain or shortness of breath. Patient reports that she checked her blood pressure this morning and noted to be very low and called EMS. When EMS arrived on scene, patient had a blood pressure of 70/40, she was given 1 L of fluid bolus and her blood pressure went up to 120/65. Patient reports concerns for possible dehydration. She denies any abdominal pain or pains to her chest. Patient reports "I just want IVF." Patient is refusing imaging studies at this time. Related Data Previous Rx's Medication Instructions Recorded ondansetron 4 mg PO Q6H PRN #20 tab 01/19/18 potassium chloride 10 meq PO DAILY #14 cap 01/19/18 Allergies Allergy/AdvReac Type Severity Reaction Status Date / Time No Known Allergies Allergy Verified 01/22/18 11:35 Review of Systems ROS: all other systems reviewed are negative [facility] Medical History Medical History Dental bridge present (Acute) GERD (gastroesophageal reflux disease) (Acute) Gastric polyps (Acute) H/O scabies (Acute) History of anesthesia reaction (Acute) History of ileus (Acute) Pancreas cancer (Acute) Wears glasses (Acute) Surgical History Surgical History History of ERCP (Acute) History of cholecystectomy (Acute) History of esophagogastroduodenoscopy (EGD) (Acute) Family History Family History Other CVA (cerebral vascular accident) Family history of diabetes mellitus Heart disease Social History Social History Substance History: No History of Abuse Second Hand Smoke Exposure: No Smoking Status: Never smoker Tobacco Type: Cigarettes How Often Do You Have a Drink Containing Alcohol: Never Recent Travel in [facility] within the Last 8 Weeks: No Recent Out of Country Travel within the Last 8 Weeks: No Immunization History Tetanus Immunization: Unsure Exam Narrative Exam Narrative: GENERAL: Mild distress SKIN: Focused skin assessment warm/dry. HEAD: Atraumatic. Normocephalic. EYES: Pupils equal and round. No scleral icterus. No injection or drainage. ENT: No nasal bleeding or discharge. Mucous membranes pink and moist. NECK: Trachea midline. No JVD. CARDIOVASCULAR: Regular rate and rhythm. No murmur appreciated. RESPIRATORY: No accessory muscle use. Clear to auscultation. Breath sounds equal bilaterally. GASTROINTESTINAL: Abdomen soft, non-tender, nondistended. Hepatic and splenic margins not palpable. There is no peritoneal signs on exam. MUSCULOSKELETAL: No obvious deformities. No clubbing. No cyanosis. No edema. NEUROLOGICAL: Awake and alert. No obvious cranial nerve deficits. Motor grossly within normal limits. Normal speech. PSYCHIATRIC: Appropriate mood and affect; insight and judgment normal. Course Initial Documented Vital Signs Temperature 98.2 F 01/22/18 11:26 Pulse Rate 71 01/22/18 11:26 Respiratory Rate 18 01/22/18 11:26 Blood Pressure 98/62 L 01/22/18 11:26 Pulse Oximetry 100 01/22/18 11:26 Last Documented Vital Signs Temperature 98.2 F 01/22/18 11:26 Pulse Rate 74 01/22/18 14:09 Respiratory Rate 18 01/22/18 14:09 Blood Pressure 103/58 L 01/22/18 14:09 Pulse Oximetry 94 L 01/22/18 14:09 Medical Decision Making MDM Narrative Medical decision making narrative: During the course of the patients emergency department visit, the patients history, examination, and differential diagnosis were reviewed with the patient. The patient was placed on a linux network systems administrator with oximetry and frequent blood pressure monitoring. The patient had an IV access obtained and blood work sent for analysis. The patient was initially provided IV fluids as well as IV Zofran. Patient's initial blood pressure here is 98/62. Patient's abdomen is soft, nontender, distended, no peritoneal signs. Plan to administer IV fluids and antiemetics and monitor patient. The patients laboratory studies were reviewed and remarkable for: Sodium 129, potassium 2.0, BUN 29, creatinine 1.10, calcium 7.1, lactic acid 1.7 Plan to admit patient for symptomatic hypokalemia. case reviewed with Dr. Cramer who accepts pt to service Medical Screen Exam Complete: Yes Emergency Medical Condition: Yes Differential Diagnosis Differential Diagnosis: Electrolyte abnormality, dehydration, gastritis, gastroenteritis Lab Data Result diagrams: 01/22/18 11:42 01/22/18 14:05 Lab Results 01/22/18 01/22/18 01/22/18 Range/Units 11:42 11:42 11:42 WBC 4.0 (4.0-11.0) th/mm3 RBC 3.22 L (4.00-5.30) mil/mm3 Hgb 10.4 L (11.6-15.3) gm/dL Hct 29.7 L (35.0-46.0) % MCV 92.1 (80.0-100.0) fL MCH 32.4 (27.0-34.0) pg MCHC 35.2 (32.0-36.0) % RDW 12.7 (11.6-17.2) % Plt Count 291 (150-450) th/mm3 MPV 7.4 (7.0-11.0) fL Neut % (Auto) 78.6 H (16.0-70.0) % Lymph % (Auto) 11.6 (9.0-44.0) % [place] % (Auto) 9.4 H (0.0-8.0) % Eos % (Auto) 0.1 (0.0-4.0) % Baso % (Auto) 0.3 (0.0-2.0) % Neut # (Auto) 3.2 (1.8-7.7) th/mm3 Lymph # (Auto) 0.5 L (1.0-4.8) th/mm3 [place] # (Auto) 0.4 (0.0-0.9) th/mm3 Eos # (Auto) 0.0 (0.0-0.4) th/mm3 Baso # (Auto) 0.0 (0.0-0.2) th/mm3 WBC Differential . Differential Comment Auto diff final PT 10.9 (9.8-11.6) sec INR 1.1 Ratio APTT 25.8 (23.4-31.7) sec Sodium (136-145) meq/L Potassium (3.5-5.1) meq/L Chloride (98-107) meq/L Carbon Dioxide (21.0-32.0) meq/L Anion Gap (5-15) meq/L BUN (7-18) mg/dL Creatinine (0.50-1.00) mg/dL Estimated GFR (>89) mL/min Random Glucose (74-106) mg/dL Lactic Acid 1.7 (0.4-2.0) mmol/L Calcium (8.5-10.1) mg/dL Prot Corrected Calcium (8.5-10.1) mg/dL Magnesium (1.5-2.5) mg/dL Total Bilirubin (0.2-1.0) mg/dL AST (15-37) U/L ALT (10-53) U/L Alkaline Phosphatase (45-117) U/L Total Creatine Kinase (26-192) U/L Troponin I (0.02-0.05) ng/mL Total Protein (6.4-8.2) g/dL Albumin (3.4-5.0) g/dL Lipase (73-393) U/L 01/22/18 Range/Units 14:05 WBC (4.0-11.0) th/mm3 RBC (4.00-5.30) mil/mm3 Hgb (11.6-15.3) gm/dL Hct (35.0-46.0) % MCV (80.0-100.0) fL MCH (27.0-34.0) pg MCHC (32.0-36.0) % RDW (11.6-17.2) % Plt Count (150-450) th/mm3 MPV (7.0-11.0) fL Neut % (Auto) (16.0-70.0) % Lymph % (Auto) (9.0-44.0) % [place] % (Auto) (0.0-8.0) % Eos % (Auto) (0.0-4.0) % Baso % (Auto) (0.0-2.0) % Neut # (Auto) (1.8-7.7) th/mm3 Lymph # (Auto) (1.0-4.8) th/mm3 [place] # (Auto) (0.0-0.9) th/mm3 Eos # (Auto) (0.0-0.4) th/mm3 Baso # (Auto) (0.0-0.2) th/mm3 WBC Differential Differential Comment PT (9.8-11.6) sec INR Ratio APTT (23.4-31.7) sec Sodium 129 L (136-145) meq/L Potassium 2.0 L* (3.5-5.1) meq/L Chloride 68 L (98-107) meq/L Carbon Dioxide Greater than 45.0 H (21.0-32.0) meq/L Anion Gap 16 H (5-15) meq/L BUN 29 H (7-18) mg/dL Creatinine 1.10 H (0.50-1.00) mg/dL Estimated GFR 51 L (>89) mL/min Random Glucose 104 (74-106) mg/dL Lactic Acid (0.4-2.0) mmol/L Calcium 7.1 L* (8.5-10.1) mg/dL Prot Corrected Calcium 8.1 L (8.5-10.1) mg/dL Magnesium 2.5 (1.5-2.5) mg/dL Total Bilirubin 1.4 H (0.2-1.0) mg/dL AST 60 H (15-37) U/L ALT 106 H (10-53) U/L Alkaline Phosphatase 390 H (45-117) U/L Total Creatine Kinase 55 (26-192) U/L Troponin I 0.05 (0.02-0.05) ng/mL Total Protein 5.2 L D (6.4-8.2) g/dL Albumin 2.6 L (3.4-5.0) g/dL Lipase 183 (73-393) U/L Discharge Plan Discharge Disposition Patient Disposition: 30 Still Patient Discharge Condition Condition: Fair Discharge Details Diagnosis: Acute hypokalemia Physicians Team ED Provider: Brianna Landin Primary Care Provider: Columba May Rxs /Orders / Referrals /Forms Prescriptions: No Action potassium chloride 10 mEq Capsule, Extended Release 10 meq PO DAILY Qty: 14 RF: 0 ondansetron 4 mg tablet,disintegrating 4 mg PO Q6H PRN (Reason: nausea and vomiting) Qty: 20 RF: 0 Status ED Status: With Doctor
[2018-01-22] MEDS ORDERED: Sod Chloride 0.9% Inj 1,000 ML IV.SIG SCH (11:45)
[2018-01-22 11:54] LABS: Baso % (Auto) 0.3 % (0.0-2.0); Eos % (Auto) 0.1 % (0.0-4.0); Hematocrit 29.7 % (35.0-46.0); Hemoglobin 10.4 gm/dL (11.6-15.3); Lymph # (Auto) 0.5 th/mm3 (1.0-4.8); Lymph % (Auto) 11.6 % (9.0-44.0); Mean Corpuscular HGB Conc 35.2 % (32.0-36.0); Mean Corpuscular Hemoglobin 32.4 pg (27.0-34.0); Mean Corpuscular Volume 92.1 fL (80.0-100.0); Mean Platelet Volume 7.4 fL (7.0-11.0); Mono # (Auto) 0.4 th/mm3 (0.0-0.9); Mono % (Auto) 9.4 % (0.0-8.0); Neut # (Auto) 3.2 th/mm3 (1.8-7.7); Neut % (Auto) 78.6 % (16.0-70.0); Platelet Count 291 th/mm3 (150-450); Red Blood Count 3.22 mil/mm3 (4.00-5.30); Red Cell Distribution Width 12.7 % (11.6-17.2)
[2018-01-22 12:06] LABS: Activated Partial Thrombo Time 25.8 sec (23.4-31.7); INR 1.1 Ratio; Prothrombin Time 10.9 sec (9.8-11.6)
[2018-01-22 14:42] LABS: Alanine Aminotransferase 106 U/L (10-53); Albumin 2.6 g/dL (3.4-5.0); Alkaline Phosphatase 390 U/L (45-117); Anion Gap 16 meq/L (5-15); Aspartate Aminotransferase 60 U/L (15-37); Blood Urea Nitrogen 29 mg/dL (7-18); Calcium 7.1 mg/dL (8.5-10.1); Chloride 68 meq/L (98-107); Creatine Kinase 55 U/L (26-192); Glomerular Filtration Rate 51 mL/min (>89); Glucose,Random 104 mg/dL (74-106); Lipase 183 U/L (73-393); Magnesium 2.5 mg/dL (1.5-2.5); Sodium 129 meq/L (136-145); Total Protein 5.2 g/dL (6.4-8.2); Troponin I 0.05 ng/mL (0.02-0.05)
[2018-01-22] MEDS: Potassium Chlor 20 mEq Premix 20 MEQ/100 ML PIGGYBACK IV.SIG SCH ×2 (15:01→20:08)
[2018-01-22] MEDS ORDERED: Acetaminophen 325 MG Tablet PO PRN (15:31)
[2018-01-22] MEDS ORDERED: KCL 20 mEq/D5W/NaCl 0.45% Inj 1,000 ML IV.CONT SCH (15:45)
--- NOTE | 2018-01-22 16:41 | P.HPIM ---
History of Present Illness Primary Care Physician: Columba May MD History of Present Illness: Mrs. Moseley is a 57-year-old female. She has a past history of pancreatic cancer which is stage III. She comes in secondary to hyperemesis, weakness, and low blood pressure. Lab findings show severe hypokalemia with a measure of 2.0. Currently she is been using dietary changes as a attempted treatment of her pancreatic cancer. She is avoiding sugars including fruits and juices. Low potassium could in part be related to her hyperemesis and the diet. Dehydration is present likely secondary to her nausea and vomiting. Low blood pressure also is related to dehydration. No significant complaints of pain when seen. Inpatient Certification: I certify that the inpatient services were ordered in accordance with Medicare regulations governing the order. This includes certification that hospital inpatient services are reasonable and necessary and in the case of services not specified as inpatient-only under 42 CFR 419.22(n), that they are appropriately provided as inpatient services in accordance to with the 2-midnight benchmark under 43 CFR 412.3(e) Estimated Total Length of Stay (Days): 2 Plans for Post Hospital Care: Home Review of Systems Constitutional: No fevers, no chills no night sweats, no fatigue, weakness Eyes: No eye pain, no blurry vision, no loss of vision ENT: No sore throat, no ear pain, no rhinorrhea Cardiovascular: No chest pain, no tachycardia, no palpitations, no syncope Respiratory: No wheezing, no cough, no shortness of breath Gastrointestinal: No abdominal pain, no black tarry stools, no bright red blood per rectum, vomiting, no diarrhea Musculoskeletal: No joint pain, no muscle cramps, no stiffness Integumentary: No rash, no ulcers, no drainage Neurologic: No sensory loss, no loss of motor function, no dizziness Psychiatric: No behavioral changes, no hallucinations, no suicidal ideations PMFSH - History History Provided By: Patient - Medical History Medical History: Medical History (Last Reviewed 01/22/18 @ 11:40 by Brianna Landin) Dental bridge present GERD (gastroesophageal reflux disease) Gastric polyps H/O scabies History of anesthesia reaction History of ileus Pancreas cancer Wears glasses - Surgical History Surgical History: Surgical History (Last Reviewed 01/22/18 @ 11:40 by Brianna Landin) History of ERCP History of cholecystectomy History of esophagogastroduodenoscopy (EGD) - Family History Family History: Family History (Last Reviewed 01/22/18 @ 11:40 by Brianna Landin) Other CVA (cerebral vascular accident) Family history of diabetes mellitus Heart disease - Tobacco History Second Hand Smoke Exposure: No Smoking Status: Never smoker Tobacco Type: Cigarettes - Alcohol History How Often Do You Have a Drink Containing Alcohol: Never - Substance Use History Substance History: No History of Abuse - Travel History Recent Travel in the [place] Within the Last 8 Weeks: No Recent Travel Out of the Country Within the Last 8 Weeks: No - Immunization History Tetanus Immunization: Unsure Medications and Allergies Active Medications: Active Medications Acetaminophen (Tylenol) 650 mg PO Q4H PRN PRN Reason: Temp > 100.4 Al Hydroxide/Mg Hydroxide (Milk Of Magntaras Liq) 30 ml PO Q12H PRN PRN Reason: Mild Constipation Potassium Chloride (Kcl 20 Meq Premix Inj) 20 meq in 100 mls @ 50 mls/hr IV.SIG Q2H MARGIE Stop: 01/22/18 18:59 Last Admin: 01/22/18 15:01 Dose: 50 mls/hr Potassium Chloride/Sodium Chloride (Ns + Kcl 40 Meq Inj) 1,000 mls @ 100 mls/ hr IV.CONT .Q10H MARGIE Ondansetron HCl (Zofran Inj) 4 mg IV.PUSH Q6H PRN PRN Reason: NAUSEA OR VOMITING Potassium Chloride (K-Dur) 20 meq PO BID MARGIE Promethazine HCl (Phenergan) 25 mg PO Q4H PRN PRN Reason: NAUSEA Sodium Chloride (Ns Flush) 2 ml IV.FLUSH PRN PRN PRN Reason: FLUSH AFTER USING IV ACCESS Allergies Allergy/AdvReac Type Severity Reaction Status Date / Time No Known Allergies Allergy Verified 01/22/18 11:35 Exam Vital signs: Vital Signs 01/22/18 11:26 01/22/18 11:35 01/22/18 11:38 Temperature 98.2 F Pulse Rate 71 77 79 Respiratory Rate 18 18 Blood Pressure 98/62 L 98/62 L Pulse Oximetry 100 100 99 01/22/18 14:09 Temperature Pulse Rate 74 Respiratory Rate 18 Blood Pressure 103/58 L Pulse Oximetry 94 L Intake & Output 01/21/18 01/22/18 01/22/18 18:59 06:59 18:59 Intake Total 1999 Balance 1999 Weight 40.823 kg Intake: IV 1999 NS Inj 1,000 ML @ 1000 mls/hr 1999 IV.SIG BOLUS MARGIE Rx#:[id number] Narrative: GENERAL: NAD, A&Ox3, global cachexia HEAD: Normocephalic. NECK: Supple, trachea midline. No lymphadenopathy. EYES: No scleral icterus. No injection or drainage. CARDIOVASCULAR: Regular rate and rhythm without murmurs, gallops, or rubs. RESPIRATORY: Breath sounds equal bilaterally. No accessory muscle use. GASTROINTESTINAL: Abdomen soft, non-tender, nondistended. MUSCULOSKELETAL: No cyanosis, or edema. SKIN: Warm and dry. NEURO: No focal neurological deficits. Results - Labs CBC & Chem 7: 01/22/18 11:42 01/22/18 14:05 Labs: Short CBC 01/22/18 Range/Units 11:42 WBC 4.0 (4.0-11.0) th/mm3 Hgb 10.4 L (11.6-15.3) gm/dL Hct 29.7 L (35.0-46.0) % Plt Count 291 (150-450) th/mm3 BMP 01/22/18 14:05 Sodium 129 L Potassium 2.0 L* Chloride 68 L Carbon Dioxide Greater than 45.0 H BUN 29 H Creatinine 1.10 H Calcium 7.1 L* Cardiac Enzymes 01/22/18 Range/Units 14:05 Total Creatine Kinase 55 (26-192) U/L Troponin I 0.05 (0.02-0.05) ng/mL Liver Function 01/22/18 Range/Units 14:05 Total Bilirubin 1.4 H (0.2-1.0) mg/dL AST 60 H (15-37) U/L ALT 106 H (10-53) U/L Alkaline Phosphatase 390 H (45-117) U/L Albumin 2.6 L (3.4-5.0) g/dL Caprini VTE Risk Assessment Caprini VTE Risk Assessment: No/Low Risk (score <= 1) Caprini Risk Assessment Model: Point Value = 1 Point Value = 2 Point Value = 3 Point Value = 5 Age 41-60 Minor surgery BMI > 25 kg/m2 Swollen legs Varicose veins or History of unexplained or recurrent spontaneous Oral contraceptives or hormone replacement Sepsis (< 1 month) Serious lung disease, including pneumonia (< 1 month) Abnormal pulmonary function Acute myocardial infarction Congestive heart failure (< 1 month) History of inflammatory bowel disease Medical patient at bed rest Age 61-74 Arthroscopic surgery Major open surgery (> 45 min) Laparoscopic surgery (> 45 min) Malignancy Confined to bed (> 72 hours) Immobilizing plaster cast Central venous access Age >= 75 History of VTE Family history of VTE Factor V Leiden Prothrombin [id number] Lupus anticoagulant Anticardiolipin antibodies Elevated serum homocysteine Heparin-induced thrombocytopenia Other congenital or acquired thrombophilia Stroke (< 1 month) Elective arthroplasty Hip, pelvis, or leg fracture Acute spinal cord injury (< 1 month) Prophylaxis Regimen: Total Risk Factor Score Risk Level Prophylaxis Regimen 0-1 Low Early ambulation 2 Moderate Order ONE of the following: *Sequential Compression Device (SCD) *Heparin 5000 units SQ BID 3-4 Higher Order ONE of the following medications: *Heparin 5000 units SQ TID *Enoxaparin/Lovenox 40 mg SQ daily (WT < 150 kg, CrCl > 30 mL/min) *Enoxaparin/Lovenox 30 mg SQ daily (WT < 150 kg, CrCl > 10-29 mL/min) *Enoxaparin/Lovenox 30 mg SQ BID (WT < 150 kg, CrCl > 30 mL/min) AND/OR *Sequential Compression Device (SCD) 5 or more Highest Order ONE of the following medications: *Heparin 5000 units SQ TID (Preferred with Epidurals) *Enoxaparin/Lovenox 40 mg SQ daily (WT < 150 kg, CrCl > 30 mL/min) *Enoxaparin/Lovenox 30 mg SQ daily (WT < 150 kg, CrCl > 10-29 mL/min) *Enoxaparin/Lovenox 30 mg SQ BID (WT < 150 kg, CrCl > 30 mL/min) AND *Sequential Compression Device (SCD) Assessment and Plan - Plan 57-year-old female admitted secondary to severe hypokalemia with weakness and hypotension and hyperemesis in the presence of pancreatic cancer Severe hypokalemia Follow on telemetry Supplement and replace as needed Follow potassium levels closely If she has a cellular deficit (long standing), this may take several day to correct Hyperemesis As needed Zofran As needed Phenergan IV hydration Hypotension No recurrence thus far after fluid bolus Likely related to dehydration Follow blood pressures Dehydration IV hydration overnight Follow clinically for improvement Gastroesophageal reflux disease No change to baseline treatments Follow clinically DVT prophylaxis SCDs
[2018-01-22] MEDS ORDERED: Potassium Chloride 25 MEQ Effervescent Tablet PO ONE (20:57)
[2018-01-23 03:19] LABS: Baso % (Auto) 0.7 % (0.0-2.0); Eos % (Auto) 0.4 % (0.0-4.0); Hematocrit 31.8 % (35.0-46.0); Hemoglobin 11.2 gm/dL (11.6-15.3); Lymph # (Auto) 0.9 th/mm3 (1.0-4.8); Lymph % (Auto) 17.6 % (9.0-44.0); Mean Corpuscular HGB Conc 35.4 % (32.0-36.0); Mean Corpuscular Hemoglobin 32.3 pg (27.0-34.0); Mean Corpuscular Volume 91.4 fL (80.0-100.0); Mean Platelet Volume 7.3 fL (7.0-11.0); Mono # (Auto) 0.4 th/mm3 (0.0-0.9); Mono % (Auto) 7.3 % (0.0-8.0); Neut # (Auto) 3.8 th/mm3 (1.8-7.7); Platelet Count 263 th/mm3 (150-450); Red Blood Count 3.48 mil/mm3 (4.00-5.30); Red Cell Distribution Width 12.7 % (11.6-17.2); White Blood Count 5.1 th/mm3 (4.0-11.0)
[2018-01-23 03:41] LABS: Alanine Aminotransferase 117 U/L (10-53); Albumin 3.1 g/dL (3.4-5.0); Alkaline Phosphatase 464 U/L (45-117); Anion Gap 5 meq/L (5-15); Aspartate Aminotransferase 61 U/L (15-37); Blood Urea Nitrogen 29 mg/dL (7-18); Calcium 8.4 mg/dL (8.5-10.1); Carbon Dioxide 44.6 meq/L (21.0-32.0); Chloride 78 meq/L (98-107); Glomerular Filtration Rate 50 mL/min (>89); Glucose,Random 88 mg/dL (74-106); Potassium 3.2 meq/L (3.5-5.1); Sodium 128 meq/L (136-145); Total Protein 6.3 g/dL (6.4-8.2)
[2018-01-23 08:06] LABS: Bilirubin,Urine Negative (Negative); Clarity,Urine Hazy (Clear); Color,Urine Yellow (Yellw/Straw); Glucose,Urine (UA) Negative (Negative); Leukocyte Esterase,Urine Negative (Negative); Nitrite,Urine Negative (Negative); Specific Gravity,Urine 1.012 (1.002-1.035); Squamous Epithelial Cell,Urine <1 /hpf (0-5)
--- NOTE | 2018-01-23 09:52 | P.PN ---
Subjective Interval history: Follow-up visit for pancreatic cancer, nausea, vomiting and hypokalemia. Patient seen and examined sitting up in bed in no acute distress. She reports some nausea but no vomiting so far. She has been able to eat small amounts of food, reports some abdominal aching. Last BM was yesterday, denies any dysuria , fevers or chills. I have offered palliative care consult patient, but declines at this moment. Reports that her goal is to get back home and try a natural alternatives as well as get the nausea and vomiting under control. Physical Exam Vital signs: Vital Signs 01/22/18 11:26 01/22/18 11:35 01/22/18 11:38 Temperature 98.2 F Pulse Rate 71 77 79 Respiratory Rate 18 18 Blood Pressure 98/62 L 98/62 L Pulse Oximetry 100 100 99 01/22/18 14:09 01/22/18 17:00 01/22/18 20:00 Temperature 98.3 F 97.8 F Pulse Rate 74 75 76 Respiratory Rate 18 16 18 Blood Pressure 103/58 L 90/51 L 102/56 L Pulse Oximetry 94 L 93 L 98 01/22/18 20:32 01/23/18 00:00 01/23/18 04:00 Temperature 97.9 F 97.8 F Pulse Rate 82 75 73 Respiratory Rate 18 18 Blood Pressure 94/53 L 108/62 Pulse Oximetry 97 99 01/23/18 08:00 01/23/18 08:01 Temperature 98.1 F Pulse Rate 70 72 Respiratory Rate 12 Blood Pressure 112/65 Pulse Oximetry 98 Intake & Output 01/22/18 01/23/18 01/23/18 18:59 06:59 18:59 Intake Total 2099 1150 / 1150 Balance 2099 1150 / 1150 Weight 40.823 kg 44.3 kg Intake: IV 2099 1100 / 1100 NS + KCl 40 mEq Inj 1,000 ML @ 1000 / 1000 100 mls/hr IV.CONT .Q10H MARGIE Rx #:[id number] KCl 20 mEq Premix Inj 20 meq In 100 / 100 100 ml @ 50 mls/hr IV.SIG Q2H MARGIE Rx#:[id number] NS Inj 1,000 ML @ 1000 mls/hr 1999 / 1999 IV.SIG BOLUS MARGIE Rx#:[id number] Oral 50 / 50 Other: # Voids 2 Date of Last Bowel Movement 01/22/18 01/23/18 Weight On Admission 40.9 kg Narrative: GENERAL: Thin female who appears cachectic and malnourished. HEAD: Normocephalic. NECK: Supple, trachea midline. EYES: No scleral icterus. No injection or drainage. CARDIOVASCULAR: Regular rate and rhythm without murmurs, gallops, or rubs. RESPIRATORY: Breath sounds equal bilaterally. No accessory muscle use. GASTROINTESTINAL: Abdomen soft, non-tender, nondistended. + Bowel sounds. MUSCULOSKELETAL: No cyanosis, or edema. SKIN: Warm and dry. NEURO: No focal neurological deficits. Results - Labs CBC & Chem 7: 01/23/18 03:09 01/23/18 03:09 Laboratory Results - last 24 hr 01/22/18 01/22/18 01/22/18 11:42 11:42 11:42 WBC 4.0 RBC 3.22 L Hgb 10.4 L Hct 29.7 L MCV 92.1 MCH 32.4 MCHC 35.2 RDW 12.7 Plt Count 291 MPV 7.4 Neut % (Auto) 78.6 H Lymph % (Auto) 11.6 Door % (Auto) 9.4 H Eos % (Auto) 0.1 Baso % (Auto) 0.3 Neut # (Auto) 3.2 Lymph # (Auto) 0.5 L Door # (Auto) 0.4 Eos # (Auto) 0.0 Baso # (Auto) 0.0 WBC Differential . Differential Comment Auto diff final PT 10.9 INR 1.1 APTT 25.8 Sodium Potassium Chloride Carbon Dioxide Anion Gap BUN Creatinine Estimated GFR Random Glucose Lactic Acid 1.7 Calcium Prot Corrected Calcium Magnesium Total Bilirubin AST ALT Alkaline Phosphatase Total Creatine Kinase Troponin I Total Protein Albumin Lipase Urine Color Urine Clarity Urine pH Ur Specific [place] Urine Protein Urine Glucose (UA) Urine Ketones Urine Occult Blood Urine Nitrate Urine Bilirubin Urine Urobilinogen Ur Leukocyte Esterase Urine RBC Urine WBC Ur Squamous Epith Cells Micro UA Comment Ur Microscopic Review Urine Culture Comments 01/22/18 01/22/18 01/23/18 14:05 19:10 03:09 WBC RBC Hgb Hct MCV MCH MCHC RDW Plt Count MPV Neut % (Auto) Lymph % (Auto) Door % (Auto) Eos % (Auto) Baso % (Auto) Neut # (Auto) Lymph # (Auto) Door # (Auto) Eos # (Auto) Baso # (Auto) WBC Differential Differential Comment PT INR APTT Sodium 129 L 128 L Potassium 2.0 L* 2.0 L* 3.2 L D Chloride 68 L 78 L D Carbon Dioxide Greater than 45.0 H 44.6 H Anion Gap 16 H 5 BUN 29 H 29 H Creatinine 1.10 H 1.13 H Estimated GFR 51 L 50 L Random Glucose 104 88 Lactic Acid Calcium 7.1 L* 8.4 L D Prot Corrected Calcium 8.1 L Magnesium 2.5 Total Bilirubin 1.4 H 2.0 H AST 60 H 61 H ALT 106 H 117 H Alkaline Phosphatase 390 H 464 H Total Creatine Kinase 55 Troponin I 0.05 Total Protein 5.2 L D 6.3 L D Albumin 2.6 L 3.1 L Lipase 183 Urine Color Urine Clarity Urine pH Ur Specific [place] Urine Protein Urine Glucose (UA) Urine Ketones Urine Occult Blood Urine Nitrate Urine Bilirubin Urine Urobilinogen Ur Leukocyte Esterase Urine RBC Urine WBC Ur Squamous Epith Cells Micro UA Comment Ur Microscopic Review Urine Culture Comments 01/23/18 01/23/18 03:09 07:20 WBC 5.1 RBC 3.48 L Hgb 11.2 L Hct 31.8 L MCV 91.4 MCH 32.3 MCHC 35.4 RDW 12.7 Plt Count 263 MPV 7.3 Neut % (Auto) 74.0 H Lymph % (Auto) 17.6 Door % (Auto) 7.3 Eos % (Auto) 0.4 Baso % (Auto) 0.7 Neut # (Auto) 3.8 Lymph # (Auto) 0.9 L Door # (Auto) 0.4 Eos # (Auto) 0.0 Baso # (Auto) 0.0 WBC Differential . Differential Comment Auto diff final PT INR APTT Sodium Potassium Chloride Carbon Dioxide Anion Gap BUN Creatinine Estimated GFR Random Glucose Lactic Acid Calcium Prot Corrected Calcium Magnesium Total Bilirubin AST ALT Alkaline Phosphatase Total Creatine Kinase Troponin I Total Protein Albumin Lipase Urine Color Yellow Urine Clarity Hazy H Urine pH 8.0 Ur Specific [place] 1.012 Urine Protein 30 H Urine Glucose (UA) Negative Urine Ketones 20 Urine Occult Blood Negative Urine Nitrate Negative Urine Bilirubin Negative Urine Urobilinogen Less than 2 Ur Leukocyte Esterase Negative Urine RBC 1 Urine WBC 1 Ur Squamous Epith Cells <1 Micro UA Comment Culture not ind Ur Microscopic Review Not Reportable Urine Culture Comments Culture not ind Assessment and Plan - Plan 57-year-old female admitted secondary to severe hypokalemia with weakness and hypotension and hyperemesis in the presence of pancreatic cancer Severe hypokalemia -Follow on telemetry -Potassium levels improving, this morning 3.2, continue IV fluids with potassium , replace potassium orally as well. -If she has a cellular deficit (long standing), this may take several day to correct Hyperemesis, improved -As needed Zofran and Phenergan -Continue IV hydration Hypotension, improved No recurrence thus far after fluid bolus Likely related to dehydration Follow blood pressures Dehydration -Blood pressure improved, continue IV fluids and consider discontinuing once oral intake has improved Elevated LFTs -Likely secondary to pancreatic CA -Continue following clinically Gastroesophageal reflux disease -No change to baseline treatments Pancreatic cancer -Patient is status post port placement with no initiation of chemotherapy or surgical intervention. -Offered patient palliative care consult, reports she is not ready at this moment. DVT prophylaxis SCDs Discussed Condition With: Patient and nurse Discharge Planning: Goal would be to correct patient's electrolytes and control nausea and vomiting for discharge home. Case management assisting with arrangements for home health care.
[2018-01-24 05:24] LABS: Alanine Aminotransferase 99 U/L (10-53); Albumin 2.7 g/dL (3.4-5.0); Alkaline Phosphatase 487 U/L (45-117); Anion Gap 9 meq/L (5-15); Aspartate Aminotransferase 61 U/L (15-37); Blood Urea Nitrogen 26 mg/dL (7-18); Calcium 8.1 mg/dL (8.5-10.1); Carbon Dioxide 34.3 meq/L (21.0-32.0); Chloride 86 meq/L (98-107); Glomerular Filtration Rate 69 mL/min (>89); Glucose,Random 75 mg/dL (74-106); Sodium 129 meq/L (136-145); Total Protein 5.5 g/dL (6.4-8.2)
--- NOTE | 2018-01-24 06:59 | ECG ---
Date Performed: 01/22/2018 Time Performed: 11:52:01 PTAGE: 57 years EKG: Sinus rhythm ST DEVIATION AND MODERATE T-WAVE ABNORMALITY, CONSIDER ANTERIOR ISCHEMIA ABNORMAL ECG PREVIOUS TRACING : 01/16/2018 18.42 Since the previous tracing, no significant change noted DOCTOR: Zenon Fernandez Interpretating Date/Time 01/24/2018 06:54:51
--- NOTE | 2018-01-24 10:27 | P.DIET ---
Nutritional Evaluation Type of nutrition evaluation: initial Nutrition consult regarding: Diet Evaluation Nutrition screening: MDC (malnutrition) Subjective Subjective Comments: Pt is here for follow up visit for pancreatic CA. Objective - Diagnosis hypokalemia, nausea/vomiting/diarrhea - Objective Body Mass Index: 16.6 % IBW: 78 (IBW = 135lb) Body Weight Used for Calculations: Actual (48kg) Energy Needs - Lower Range (kCal/kg): 35 Energy Needs - Upper Range (kCal/kg): 40 Lower Limit kCal/kg (kCals): 1,680 Upper Limit kCal/kg (kCals): 1,920 Lower Limit Protein Factor (Grams per Kg): 1.1 Upper Limit Protein Factor (Grams per Kg): 1.3 Lower Protein Needs (Protein): 53 Upper Protein Needs (Protein): 62 Dietitian Reviewed in Medical Record: Current diet, Curent medications, Intake & Output, Labs, Medical history Diet Order: Regular Oral Diet Intake Amount: Fair 50-75% Objective Comments: PMH: GERD, hx of ileus, pancreatic CA Labs: NA 129, BUN 26, GFR 69, Ca+ 8.1 Assessment Assessment: Pt at nutritional risk r/t reported malnutrition and low BMI (16.6). Pt currently is consuming around 50% of most meals on avrg. RD to recommend Ensure Enlive TID as PO supplement. Continue to monitor PO and supplement intake. Labs reviewed, dietitian following. Recommendations: 1. RD to recommend Ensure Enlive TID as PO supplement 2. Continue to monitor PO and supplement intake 3. Dietitian following Dietitian to Monitor: Lab values, Supplement acceptance, Intake & Output, Diet tolerance, PO Intake, Medical course
--- NOTE | 2018-01-24 12:03 | P.PN ---
Subjective Interval history: Visit for pancreatic cancer, electrolyte abnormality nausea and vomiting. Patient seen and examined sitting up in chair today and appears to be in no acute distress. She continues to complain of ongoing nausea and not able to eat today. Denies any fevers, chills, cough, shortness of breath or chest pain. Physical Exam Vital signs: Vital Signs 01/23/18 16:00 01/23/18 20:00 01/24/18 00:00 Temperature 98.0 F 98.1 F 98.3 F Pulse Rate 77 81 69 Respiratory Rate 12 18 18 Blood Pressure 115/56 L 118/57 L 128/66 Pulse Oximetry 99 98 97 01/24/18 04:00 01/24/18 08:00 01/24/18 09:00 Temperature 98.5 F 98.2 F Pulse Rate 83 76 77 Respiratory Rate 18 12 Blood Pressure 132/67 127/66 Pulse Oximetry 98 100 Intake & Output 01/23/18 01/24/18 01/24/18 18:59 06:59 18:59 Intake Total 1480 / 1480 1720 / 1720 Output Total 900 / 900 Balance 580 / 580 1720 / 1720 Weight 48 kg Intake: IV 1000 / 1000 1000 / 1000 NS + KCl 40 mEq Inj 1,000 ML @ 1000 / 1000 1000 / 1000 100 mls/hr IV.CONT .Q10H MARGIE Rx #:[id number] Oral 480 / 480 720 / 720 Output: Urine 900 / 900 Other: # Voids 4 Date of Last Bowel Movement 01/23/18 01/23/18 01/23/18 # Bowel Movements 2 Narrative: GENERAL: Thin female who appears cachectic and malnourished. HEAD: Normocephalic. NECK: Supple, trachea midline. EYES: No scleral icterus. No injection or drainage. CARDIOVASCULAR: Regular rate and rhythm without murmurs, gallops, or rubs. RESPIRATORY: Breath sounds equal bilaterally. No accessory muscle use. GASTROINTESTINAL: Abdomen soft, non-tender, nondistended. + Bowel sounds. MUSCULOSKELETAL: No cyanosis, or edema. SKIN: Warm and dry. NEURO: No focal neurological deficits. Results - Labs CBC & Chem 7: 01/23/18 03:09 01/24/18 04:20 Laboratory Results - last 24 hr 01/24/18 04:20 Sodium 129 L Potassium 4.0 D Chloride 86 L D Carbon Dioxide 34.3 H D Anion Gap 9 BUN 26 H Creatinine 0.85 Estimated GFR 69 L Random Glucose 75 Calcium 8.1 L Total Bilirubin 2.0 H AST 61 H ALT 99 H Alkaline Phosphatase 487 H Total Protein 5.5 L D Albumin 2.7 L Assessment and Plan - Plan 57-year-old female admitted secondary to severe hypokalemia with weakness and hypotension and hyperemesis in the presence of pancreatic cancer Hypokalemia, improving Hyponatremia, improving -Follow on telemetry -Potassium level this morning 4.0, hold KCl oral replacement, discontinue KCl IV additive to IV fluids and only continue NS. -Continue monitoring her electrolytes Hyperemesis, improved -As needed Zofran and Phenergan -Continue IV hydration, schedule Reglan to help with nausea Hypotension, resolved Dehydration -Blood pressure improved, continue NS due to poor p.o. intake and nausea Elevated LFTs -Likely secondary to pancreatic CA -Continue following clinically Gastroesophageal reflux disease - Stable Pancreatic cancer -Patient is status post port placement with no initiation of chemotherapy or surgical intervention. -Offered patient palliative care consult, not ready at this moment. 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 Case management assisting with arrangements for home health care.
--- NOTE | 2018-01-24 13:39 | P.DCO ---
- Physical Therapy Order: Evaluate and treat, Improve ambulation, Strength and gait training - Home Health Nursing Order: Medical education, Signs/symptoms of disease process - Home Health Aide Order: To assist in: Bathing and personal care, microbiology manager and meal prep - Case Management Consult Case Management Consult-Home Health: Yes - Certification I have seen patient Carolina Moseley on 01/24/18. My clinical findings support the need for the requested home health care services because: Limited mobility due to disease progression I certify that my clinical findings support that this patient is homebound because: Unsteady gait/balance
[2018-01-24] MEDS: Sod Chloride 0.9% Inj 1,000 ML IV.CONT SCH (15:30)
[2018-01-24] MEDS: Metoclopramide Liq 10 MG/10 ML UDC PO SCH (17:44)
[2018-01-25] MEDS: Metoclopramide Liq 10 MG/10 ML UDC PO SCH ×5 (01:43→22:31)
[2018-01-25 07:18] LABS: Calcium 7.9 mg/dL (8.5-10.1); Carbon Dioxide 27.6 meq/L (21.0-32.0); Potassium 3.2 meq/L (3.5-5.1)
[2018-01-25] MEDS: Sod Chloride 0.9% Inj 1,000 ML IV.CONT SCH ×3 (08:33→22:32)
--- NOTE | 2018-01-25 09:50 | P.PN ---
Subjective Interval history: Follow-up visit for electrolyte abnormality, nausea, vomiting, abdominal pain and pancreatic cancer. Nurse reports patient is taking vitamins and supplements at her bedside. Patient is seen and examined sitting up in bed and appears to be in no acute distress. Continues to complain of nausea and vomiting. Yesterday he only had an avocado to eat, not able to keep other foods down. Patient also states that she is unable to take oral Zofran. She states that she has called her insurance and her insurance told her that she could go home on IV Zofran. She denies any fevers, chills, cough, shortness of breath or chest pain. Ongoing abdominal discomfort. Discussed with patient policies regarding medications at bedside. Also offered patient oncology consult which she initially agreed to however later declined and stated "I am just not ready". Attempt made to discuss palliative care and hospice options however patient states she does not want them involved at the moment. Physical Exam Vital signs: Vital Signs 01/24/18 12:00 01/24/18 16:00 01/24/18 20:00 Temperature 98.6 F 99.5 F 97.3 F L Pulse Rate 83 93 H 100 H Respiratory Rate 12 14 18 Blood Pressure 142/76 H 141/81 H 131/75 Pulse Oximetry 99 98 97 01/25/18 00:00 01/25/18 01:30 01/25/18 04:00 Temperature 97.9 F 98.8 F Pulse Rate 90 84 Respiratory Rate 18 17 16 Blood Pressure 124/74 141/80 H Pulse Oximetry 96 97 01/25/18 08:00 Temperature 97.8 F Pulse Rate 86 Respiratory Rate 17 Blood Pressure 125/82 Pulse Oximetry 98 Intake & Output 01/24/18 01/25/18 01/25/18 18:59 06:59 18:59 Intake Total 1720 / 1720 1960 / 1960 1000 / 1000 Balance 1720 / 1720 1960 / 1960 1000 / 1000 Weight 48 kg Intake: IV 1000 / 1000 1000 / 1000 1000 / 1000 NS + KCl 40 mEq Inj 1,000 ML @ 1000 / 1000 100 mls/hr IV.CONT .Q10H [facility] Rx #:[id number] NS Inj 1,000 ML @ 100 mls/hr IV 1000 / 1000 .CONT .Q10H [facility] Rx#:[id number] Oral 720 / 720 960 / 960 Other: # Voids 2 3 Date of Last Bowel Movement 01/23/18 01/23/18 Narrative: GENERAL: Thin female who appears cachectic and malnourished. HEAD: Normocephalic. NECK: Supple, trachea midline. EYES: No scleral icterus. No injection or drainage. CARDIOVASCULAR: Regular rate and rhythm without murmurs, gallops, or rubs. RESPIRATORY: Breath sounds equal bilaterally. No accessory muscle use. GASTROINTESTINAL: Abdomen soft, non-tender, nondistended. + Bowel sounds. MUSCULOSKELETAL: No cyanosis, or edema. SKIN: Warm and dry. NEURO: No focal neurological deficits. Results - Labs CBC & Chem 7: 01/23/18 03:09 01/25/18 04:43 Laboratory Results - last 24 hr 01/25/18 04:43 Sodium 130 L Potassium 3.2 L D Chloride 90 L Carbon Dioxide 27.6 Anion Gap 12 BUN 21 H Creatinine 0.69 Estimated GFR 88 L Random Glucose 70 L Calcium 7.9 L Assessment and Plan - Plan 57-year-old female admitted secondary to severe hypokalemia with weakness and hypotension and hyperemesis in the presence of pancreatic cancer Hypokalemia, improving Hyponatremia, improving -Follow on telemetry -Potassium level this morning slightly low at 3.2, resume oral KCl replacement. To poor p.o. intake. -Continue monitoring her electrolytes Hyperemesis, ongoing -As needed Zofran and Phenergan -Continue IV hydration, continue scheduled Reglan. -Consult GI to assist with symptom management, appreciate assistance. Hypotension, resolved Dehydration -Blood pressure improved, continue NS due to poor p.o. intake and nausea Elevated LFTs -Likely secondary to pancreatic CA -Continue following clinically Gastroesophageal reflux disease - Stable Pancreatic cancer -Patient is status post port placement with no initiation of chemotherapy or surgical intervention. -Discussed discharge home with hospice and patient should be able to get supplementation of her choice however she declines. Patient also declines palliative care consult. -I also offered oncology consult however she declined. DVT prophylaxis SCDs Discussed Condition With: Patient and nursing staff. Discharge Planning: Goal would be to correct patient's electrolytes and control nausea and vomiting for discharge home. Case management assisting with arrangements for home health care.
--- NOTE | 2018-01-25 17:47 | P.CONGI ---
History of Present Illness Chief complaint: Hyopkalemia History of Present Illness: This is a 57-year-old female with past history of pancreatic cancer which is stage III who declined medical tx and choose homeopathic route who comes in secondary to hyperemesis, weakness for over a week. Emesis with any PO intake. Lab showed severe hypokalemia with a measure of 2.0. Denies hematemesis, abd pain, melena or hematochezia . <Evelina Worthy - Last Filed: 01/25/18 18:03> Review of Systems All other systems reviewed negative except as stated in HPI <Evelina Worthy - Last Filed: 01/25/18 18:03> PMFSH - History History Provided By: Patient - Medical History Medical History: Medical History (Last Reviewed 01/25/18 @ 08:29 by Alonso Stokes) Dental bridge present GERD (gastroesophageal reflux disease) Gastric polyps H/O scabies History of anesthesia reaction History of ileus Pancreas cancer Wears glasses - Surgical History Surgical History: Surgical History (Last Reviewed 01/25/18 @ 08:29 by Alonso Stokes) History of ERCP History of cholecystectomy History of esophagogastroduodenoscopy (EGD) - Family History Family History: Family History (Last Reviewed 01/22/18 @ 20:43 by Mavis aDllas RN) Other CVA (cerebral vascular accident) Family history of diabetes mellitus Heart disease - Tobacco History Second Hand Smoke Exposure: No Tobacco Use In Past 30 Days: No Smoking Status: Never smoker Tobacco Type: Cigarettes - Alcohol History How Often Do You Have a Drink Containing Alcohol: Never - Substance Use History Substance History: No History of Abuse - Travel History Recent Travel in the [place] Within the Last 8 Weeks: No Recent Travel Out of the Country Within the Last 8 Weeks: No - Immunization History Tetanus Immunization: Unsure Hx Influenza Vaccine This Season: No <Evelina Worthy - Last Filed: 01/25/18 18:03> - Medical History Medical History: Medical History (Last Reviewed 01/25/18 @ 08:29 by Alonso Stokes) Dental bridge present GERD (gastroesophageal reflux disease) Gastric polyps H/O scabies History of anesthesia reaction History of ileus Pancreas cancer Wears glasses - Surgical History Surgical History: Surgical History (Last Reviewed 01/25/18 @ 08:29 by Alonso Stokes) History of ERCP History of cholecystectomy History of esophagogastroduodenoscopy (EGD) - Family History Family History: Family History (Last Reviewed 01/22/18 @ 20:43 by Mavis Dallas RN) Other CVA (cerebral vascular accident) Family history of diabetes mellitus Heart disease <Nithin Martinez - Last Filed: 01/26/18 10:17> Medications and Allergies Active Medications: Active Medications Acetaminophen (Tylenol) 650 mg PO Q4H PRN PRN Reason: Temp > 100.4 Al Hydroxide/Mg Hydroxide (Milk Of Magnesia Liq) 30 ml PO Q12H PRN PRN Reason: Mild Constipation Sodium Chloride (Ns Inj) 1,000 mls @ 100 mls/hr IV.CONT .Q10H [facility] Last Admin: 01/25/18 14:44 Dose: Not Given Metoclopramide HCl (Reglan Liq) 10 mg PO ACHS [facility] Last Admin: 01/25/18 12:57 Dose: 10 mg Ondansetron HCl (Zofran Inj) 4 mg IV.PUSH Q6H PRN PRN Reason: NAUSEA OR VOMITING Last Admin: 01/25/18 14:31 Dose: 4 mg Potassium Chloride (K-Dur) 20 meq PO BID [facility] Last Admin: 01/25/18 12:57 Dose: 20 meq Promethazine HCl (Phenergan) 25 mg PO Q4H PRN PRN Reason: NAUSEA Last Admin: 01/23/18 19:57 Dose: 25 mg Sodium Chloride (Ns Flush) 2 ml IV.FLUSH PRN PRN PRN Reason: FLUSH AFTER USING IV ACCESS <Evelina Worthy - Last Filed: 01/25/18 18:03> Active Medications: Active Medications Acetaminophen (Tylenol) 650 mg PO Q4H PRN PRN Reason: Temp > 100.4 Al Hydroxide/Mg Hydroxide (Milk Of Magnesia Liq) 30 ml PO Q12H PRN PRN Reason: Mild Constipation Sodium Chloride (Ns Inj) 1,000 mls @ 100 mls/hr IV.CONT .Q10H [facility] Last Admin: 01/25/18 22:32 Dose: 100 mls/hr Lactated Ringer's (Lr 1000 Ml Inj) 1,000 mls @ 30 mls/hr IV.SIG .Q24H [facility] Stop: 01/27/18 03:59 Sodium Chloride (Ns Inj) 500 mls @ 30 mls/hr IV.SIG .Q10H [facility] Last Admin: 01/26/18 05:33 Dose: Not Given Metoclopramide HCl (Reglan Liq) 10 mg PO ACHS [facility] Last Admin: 01/26/18 09:27 Dose: Not Given Ondansetron HCl (Zofran Inj) 4 mg IV.PUSH Q6H PRN PRN Reason: NAUSEA OR VOMITING Last Admin: 01/26/18 02:45 Dose: 4 mg Potassium Chloride (K-Dur) 20 meq PO BID [facility] Last Admin: 01/26/18 09:28 Dose: Not Given Promethazine HCl (Phenergan) 25 mg PO Q4H PRN PRN Reason: NAUSEA Last Admin: 01/25/18 22:31 Dose: 25 mg Sodium Chloride (Ns Flush) 2 ml IV.FLUSH PRN PRN PRN Reason: FLUSH AFTER USING IV ACCESS <Nithin Martinez A - Last Filed: 01/26/18 10:17> Allergies Allergy/AdvReac Type Severity Reaction Status Date / Time No Known Allergies Allergy Verified 01/22/18 11:35 Exam Vital signs: Vital Signs 01/24/18 20:00 01/25/18 00:00 01/25/18 01:30 Temperature 97.3 F L 97.9 F Pulse Rate 100 H 90 Respiratory Rate 18 18 17 Blood Pressure 131/75 124/74 Pulse Oximetry 97 96 01/25/18 04:00 01/25/18 08:00 01/25/18 12:00 Temperature 98.8 F 97.8 F 97.4 F L Pulse Rate 84 86 109 H Respiratory Rate 16 17 17 Blood Pressure 141/80 H 125/82 134/72 Pulse Oximetry 97 98 100 Intake & Output 01/24/18 01/25/18 01/25/18 18:59 06:59 18:59 Intake Total 1720 / 1720 1959 / 1959 1000 / 1000 Balance 1720 / 1720 1959 / 1959 1000 / 1000 Weight 48 kg Intake: IV 1000 / 1000 1000 / 1000 1000 / 1000 NS + KCl 40 mEq Inj 1,000 ML @ 1000 / 1000 100 mls/hr IV.CONT .Q10H [facility] Rx #:[id number] NS Inj 1,000 ML @ 100 mls/hr IV 1000 / 1000 .CONT .Q10H [facility] Rx#:[id number] Oral 720 / 720 960 / 960 Other: # Voids 2 3 3 Date of Last Bowel Movement 01/23/18 01/23/18 - Constitutional no acute distress - Routine HEENT Exam Head: Present: normocephalic - Routine Neck Exam Present: supple - Routine Respiratory Exam Present: CTA bilaterally - Routine Cardiovascular Exam Present: RRR - Routine Abdominal Exam Present: soft, normoactive bowel sounds. Absent: tenderness, distended - Routine Skin Exam Present: intact, dry - Routine Neurological Exam Present: alert, oriented X3 <Evelina Worthy - Last Filed: 01/25/18 18:03> Vital signs: Vital Signs 01/25/18 12:00 01/25/18 16:00 01/25/18 20:50 Temperature 97.4 F L 98.0 F 99.3 F Pulse Rate 109 H 100 H 97 H Respiratory Rate 17 16 18 Blood Pressure 134/72 113/74 144/84 H Pulse Oximetry 100 99 100 01/26/18 00:00 01/26/18 04:05 01/26/18 08:00 Temperature 98.5 F 98.6 F 98.4 F Pulse Rate 98 H 95 H 97 H Respiratory Rate 17 18 16 Blood Pressure 137/79 132/79 133/67 Pulse Oximetry 99 97 97 Intake & Output 01/25/18 01/26/18 01/26/18 18:59 06:59 18:59 Intake Total 1999 300 / 300 Balance 1999 300 / 300 Weight 47.5 kg Intake: IV 1999 NS Inj 1,000 ML @ 100 mls/hr IV 1000 / 1000 .CONT .Q10H [facility] Rx#:[id number] Oral 300 / 300 Other: # Voids 3 1 Date of Last Bowel Movement 01/23/18 # Bowel Movements 0 <Nithin Martinez - Last Filed: 01/26/18 10:17> Results - Labs CBC & Chem 7: 01/23/18 03:09 01/25/18 04:43 Labs: Laboratory Results - last 24 hr 01/25/18 04:43 Sodium 130 L Potassium 3.2 L D Chloride 90 L Carbon Dioxide 27.6 Anion Gap 12 BUN 21 H Creatinine 0.69 Estimated GFR 88 L Random Glucose 70 L Calcium 7.9 L <Evelina Worthy - Last Filed: 01/25/18 18:03> - Labs CBC & Chem 7: 01/23/18 03:09 01/25/18 04:43 <Nithin Martinez - Last Filed: 01/26/18 10:17> Assessment and Plan - Plan - Hyperemesis for over a week- pt with hx of pancreatic cancer, known to our practice from previous encounter CT on 01/11/18 showed increase in the size of the low density lesion in the head of the panaceas and interval development of pancreatic ductal dilatation and atrophy distal s/p ERCP/stent exchange on 11/07/17 s/p EGD on 09/19/17 1. Patient has gastropathy most likely because of the pancreatic cancer with metastasis causing portal hypertension done External compression with mass-effect most likely related to the pseudocyst and pancreatic cancer without obstruction of the gastric outlet Duodenum had stent coming from the ampulla 2. 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 There was plans for chemotherapy and radiation by Dr. Delacruz, however pt choose natural route. Plan: - EGD in the am - Monitor labs - Consider ERCP/stent exchange, last one was done on 11/07 if no improvement - IV hydration - Antiemetic meds - Supportive care -Pt was seen and examined by Dr. Martinez and myself and this note is written on <Evelina Worthy - Last Filed: 01/25/18 18:03> - Attending Attestation Seen and examined, plan as above. Patient agreed to have EGD for diagnosis purpose. Will proceed with EGD Thank you for the consult. <Nithin Martinez - Last Filed: 01/26/18 10:17>
[2018-01-26] MEDS ORDERED: Chlorhexidine Gluconate 2% 1 Pack (2 Cloths) TOPICAL ONE (03:56)
[2018-01-26] MEDS ORDERED: Sodium Chlor 0.9% Inj 500 ML IV.SIG SCH (04:00)
[2018-01-26] MEDS: Metoclopramide Liq 10 MG/10 ML UDC PO SCH ×4 (09:27→21:00)
--- NOTE | 2018-01-26 11:17 | P.PN ---
Subjective Interval history: Follow-up visit for nausea, vomiting, abdominal pain and pancreatic cancer. Patient seen and examined with nurse at bedside preparing to go down to GI lab for scheduled endoscopy this morning. She reports she continues to have some nausea with vomiting earlier today. Yesterday the only thing she had to eat was an avocado. Discussed ordering nutritional shakes when she can eat however reports she does not want any sugar in them. States that she gets sugar from the vegetables that she eats. Discussed the importance of nutrition given her condition. Patient is willing to try Ensure that is dairy free. She denies any fevers, chills, shortness of breath, diarrhea. Reports that her abdominal pain has just about resolved. Physical Exam Vital signs: Vital Signs 01/25/18 12:00 01/25/18 16:00 01/25/18 20:50 Temperature 97.4 F L 98.0 F 99.3 F Pulse Rate 109 H 100 H 97 H Respiratory Rate 17 16 18 Blood Pressure 134/72 113/74 144/84 H Pulse Oximetry 100 99 100 01/26/18 00:00 01/26/18 04:05 01/26/18 08:00 Temperature 98.5 F 98.6 F 98.4 F Pulse Rate 98 H 95 H 97 H Respiratory Rate 17 18 16 Blood Pressure 137/79 132/79 133/67 Pulse Oximetry 99 97 97 Intake & Output 01/25/18 01/26/18 01/26/18 18:59 06:59 18:59 Intake Total 1999 300 / 300 Balance 1999 300 / 300 Weight 47.5 kg Intake: IV 1999 NS Inj 1,000 ML @ 100 mls/hr IV 1000 / 1000 .CONT .Q10H [facility] Rx#:[id number] Oral 300 / 300 Other: # Voids 3 1 Date of Last Bowel Movement 01/23/18 # Bowel Movements 0 Narrative: GENERAL: Thin female who appears cachectic and malnourished. HEAD: Normocephalic. NECK: Supple, trachea midline. EYES: No scleral icterus. No injection or drainage. CARDIOVASCULAR: Regular rate and rhythm without murmurs, gallops, or rubs. RESPIRATORY: Breath sounds equal bilaterally. No accessory muscle use. GASTROINTESTINAL: Abdomen soft, non-tender, nondistended. + Bowel sounds. MUSCULOSKELETAL: No cyanosis, or edema. SKIN: Warm and dry. NEURO: No focal neurological deficits. Results - Labs CBC & Chem 7: 01/23/18 03:09 01/26/18 09:43 Assessment and Plan - Plan 57-year-old female admitted secondary to severe hypokalemia with weakness and hypotension and hyperemesis in the presence of pancreatic cancer Hypokalemia, improving Hyponatremia, improving -Follow on telemetry -Potassium level this morning 2.6, check mag level - Replace with IV KCL, IVF with KCL additive - NA improving -Continue monitoring her electrolytes Hyperemesis, ongoing -As needed Zofran and Phenergan -Continue IV hydration, continue scheduled Reglan. -Consult GI to assist with symptom management, appreciate assistance. -s/p EGD 01/26 LA class C esophagitis, food and gastric secretions and stomach with 700 cc suctioned. 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 Surgery versus duodenal stenting, GI recommends keeping n.p.o. and NG tube if vomiting again. Elevated LFTs Hx pancreatic pseudocyst CT drained with biliary stent placement 08/18/17 -Stable -Continue following clinically Gastroesophageal reflux disease - Stable Pancreatic cancer -Patient is status post port placement with no initiation of chemotherapy or surgical intervention. -Previously discussed discharge home with hospice and patient should be able to get supplementation of her choice however she declines. Patient also declines palliative care consult. -I also offered oncology consult however she declined. DVT prophylaxis SCDs Discussed Condition With: Patient and staff research scientist. Discharge Planning: Ongoing nausea and vomiting with electrolyte abnormalities, not yet ready for discharge.
[2018-01-26 12:17] LABS: Anion Gap 15 meq/L (5-15); Blood Urea Nitrogen 18 mg/dL (7-18); Calcium 8.3 mg/dL (8.5-10.1); Carbon Dioxide 27.5 meq/L (21.0-32.0); Chloride 90 meq/L (98-107); Glomerular Filtration Rate Greater Than 89 mL/min (>89); Glucose,Random 91 mg/dL (74-106); Sodium 132 meq/L (136-145)
[2018-01-26 12:21] LABS: Potassium 2.6 meq/L (3.5-5.1)
--- NOTE | 2018-01-26 13:26 | GIPROC ---
[facility] [address] [facility]. [facility] [place], [address] EGD PROCEDURE REPORT EXAM DATE: 01/26/2018 PATIENT NAME: Carolina Moseley MR #: [id number] BIRTHDATE: 1960 ATTENDING: Nithin Martinez MD ORDER #: [id number] MOTORSPORTS TECHNICIAN: Wilmer Garner Howard, Jennifer, and Luz Broderick STATUS: inpatient INDICATIONS: The patient is a 57 yr old female here for an EGD due to nausea and vomiting PROCEDURE PERFORMED: EGD w/ biopsy MEDICATIONS: Per Anesthesia and None. TOPICAL ANESTHETIC: none CONSENT: The patient understands the risks and benefits of the procedure and understands that these risks include, but are not limited to: sedation, allergic reaction, infection, perforation and/or bleeding. Alternative means of evaluation and treatment include, among others: physical exam, x-rays, and/or surgical intervention. The patient elects to proceed with this endoscopic procedure. medical equipment was checked for proper function. Hand hygiene and appropriate measures for infection prevention was taken. After the risks, benefits and alternatives of the procedure were thoroughly explained, Informed consent was verified, confirmed and timeout was successfully executed by the treatment team. The patient was anesthetized with topical anesthesia and the Pentax EG-[id number] endoscope was introduced through the mouth and advanced to the second portion of the duodenum. Retroflexed views revealed Large amount of gastric secretions. The gastroscope was then slowly withdrawn and removed. ESOPHAGUS: There was LA Class C esophagitis noted. STOMACH: There was a large amount of residual food seen in the entire examined stomach. Due to the residual food, complete mucosal examination could not be performed. 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 The stricture was not traversable. Multiple biopsies were performed using cold forceps. Sample sent for histology. ADVERSE EVENTS: There were no complications. IMPRESSIONS: 1. There was LA Class C esophagitis noted 2. Food residue and gastric secretions in the entire examined stomach , total of 700cc of fluids suctioned. 3. There was a long stricture in the 2nd part of the duodenum; multiple biopsies were performed 4. Retroflexed views revealed Large amount of gastric secretions. RECOMMENDATIONS: 1. Await biopsy results. Biopsy results will not be ready for 7-10 days. If you don't hear from us in two weeks, call our office for biopsy results. 2. Surgery vs duodenal stent 3. Keep NPO and NGT if Vomiting again. PATIENT CONDITION: stable DISPOSITION: Observation REPEAT EXAM: NONE Nithin Martinez MD eSigned: Nithin Martinez MD 01/26/2018 1:26 PM cc: PATIENT NAME: Carolina Moseley MR#: [id number]
[2018-01-26] MEDS ORDERED: Potassium Chlor 10 mEq Premix 10 MEQ/100 ML PIGGYBACK IV.SIG ONE ×2 (14:30→16:00)
[2018-01-26] MEDS: Sod Chloride 0.9% Inj 1,000 ML IV.CONT SCH (18:08)
[2018-01-26] MEDS ORDERED: Potassium Chloride 25 MEQ Effervescent Tablet PO ONE (20:50)
[2018-01-26] MEDS: Sodium Chloride 0.9% 2 ML Flush BID IV.FLUSH SCH (21:00)
[2018-01-27 06:02] LABS: Baso % (Auto) 0.4 % (0.0-2.0); Eos # (Auto) 0.1 th/mm3 (0.0-0.4); Eos % (Auto) 1.1 % (0.0-4.0); Hematocrit 32.8 % (35.0-46.0); Hemoglobin 11.2 gm/dL (11.6-15.3); Lymph # (Auto) 0.7 th/mm3 (1.0-4.8); Mean Corpuscular HGB Conc 34.2 % (32.0-36.0); Mean Corpuscular Hemoglobin 31.7 pg (27.0-34.0); Mean Corpuscular Volume 92.8 fL (80.0-100.0); Mono # (Auto) 0.4 th/mm3 (0.0-0.9); Mono % (Auto) 5.8 % (0.0-8.0); Neut # (Auto) 5.4 th/mm3 (1.8-7.7); Neut % (Auto) 81.7 % (16.0-70.0); Platelet Count 239 th/mm3 (150-450); Red Blood Count 3.53 mil/mm3 (4.00-5.30); White Blood Count 6.6 th/mm3 (4.0-11.0)
[2018-01-27 06:31] LABS: Alanine Aminotransferase 83 U/L (10-53); Albumin 2.6 g/dL (3.4-5.0); Alkaline Phosphatase 482 U/L (45-117); Anion Gap 9 meq/L (5-15); Aspartate Aminotransferase 44 U/L (15-37); Blood Urea Nitrogen 15 mg/dL (7-18); Calcium 7.6 mg/dL (8.5-10.1); Carbon Dioxide 30.3 meq/L (21.0-32.0); Chloride 96 meq/L (98-107); Glomerular Filtration Rate Greater Than 89 mL/min (>89); Glucose,Random 79 mg/dL (74-106); Potassium 3.6 meq/L (3.5-5.1); Sodium 135 meq/L (136-145); Total Protein 5.4 g/dL (6.4-8.2)
--- NOTE | 2018-01-27 10:20 | P.PN ---
Subjective Interval history: Follow-up visit for nausea, vomiting, hypokalemia and pancreatic cancer. Patient seen and examined sitting up in bed and reports she is feeling better this morning. No further nausea or vomiting. Patient has remained n.p.o. with IV fluids for hydration per GI recommendations. She is requesting something to drink this morning. She denies any abdominal pain or discomfort, positive bowel movement today. Denies any fevers, chills, cough, shortness of breath or chest pain. Physical Exam Vital signs: Vital Signs 01/26/18 13:40 01/26/18 13:50 01/26/18 14:00 Temperature 98.2 F 98.2 F 97.8 F Pulse Rate 88 88 88 Respiratory Rate 16 16 18 Blood Pressure 111/62 111/62 117/67 Pulse Oximetry 97 97 97 01/26/18 16:00 01/26/18 20:00 01/26/18 20:05 Temperature 98.2 F 97.5 F L Pulse Rate 85 92 H 95 H Respiratory Rate 16 19 Blood Pressure 124/66 118/71 Pulse Oximetry 98 97 01/27/18 00:00 01/27/18 00:20 01/27/18 04:00 Temperature 98.3 F Pulse Rate 89 92 H 91 H Respiratory Rate 18 Blood Pressure 130/75 Pulse Oximetry 99 01/27/18 04:05 01/27/18 08:00 Temperature 98.0 F 97.9 F Pulse Rate 89 94 H Respiratory Rate 18 16 Blood Pressure 130/65 123/66 Pulse Oximetry 99 97 Intake & Output 01/26/18 01/27/18 01/27/18 18:59 06:59 18:59 Intake Total 1600 / 1600 1030 / 1030 Balance 1600 / 1600 1030 / 1030 Weight 47.2 kg Intake: IV 1200 / 1200 1000 / 1000 NS + KCl 40 mEq Inj 1,000 ML @ 1000 / 1000 100 mls/hr IV.CONT .Q10H MARGIE Rx #:[id number] NS Inj 1,000 ML @ 100 mls/hr IV 1000 / 1000 .CONT .Q10H MARGIE Rx#:[id number] KCl 10 mEq Premix Inj 10 meq In 200 / 200 100 ml @ 100 mls/hr IV.SIG ONCE ONE Rx#:[id number] Oral Anesthesia Amount 400 / 400 Other: # Voids 3 2 Date of Last Bowel Movement 01/23/18 01/27/18 01/27/18 # Bowel Movements 1 Narrative: GENERAL: Thin female who appears cachectic and malnourished. HEAD: Normocephalic. NECK: Supple, trachea midline. EYES: No scleral icterus. No injection or drainage. CARDIOVASCULAR: Regular rate and rhythm without murmurs, gallops, or rubs. RESPIRATORY: Breath sounds equal bilaterally. No accessory muscle use. GASTROINTESTINAL: Abdomen soft, non-tender, nondistended. + Bowel sounds. MUSCULOSKELETAL: No cyanosis, or edema. SKIN: Warm and dry. NEURO: No focal neurological deficits. Results - Labs CBC & Chem 7: 01/27/18 05:32 01/27/18 05:32 Laboratory Results - last 24 hr 01/26/18 01/26/18 01/26/18 09:43 09:43 19:09 WBC RBC Hgb Hct MCV MCH MCHC RDW Plt Count MPV Neut % (Auto) Lymph % (Auto) [place] % (Auto) Eos % (Auto) Baso % (Auto) Neut # (Auto) Lymph # (Auto) [place] # (Auto) Eos # (Auto) Baso # (Auto) WBC Differential Differential Comment Sodium 132 L Potassium 2.6 L* 2.8 L* Chloride 90 L Carbon Dioxide 27.5 Anion Gap 15 BUN 18 Creatinine 0.66 Estimated GFR Greater than 89 Random Glucose 91 Calcium 8.3 L Magnesium 2.0 Total Bilirubin AST ALT Alkaline Phosphatase Total Protein Albumin 01/27/18 01/27/18 05:32 05:32 WBC 6.6 RBC 3.53 L Hgb 11.2 L Hct 32.8 L MCV 92.8 MCH 31.7 MCHC 34.2 RDW 13.0 Plt Count 239 MPV 7.0 Neut % (Auto) 81.7 H Lymph % (Auto) 11.0 [place] % (Auto) 5.8 Eos % (Auto) 1.1 Baso % (Auto) 0.4 Neut # (Auto) 5.4 Lymph # (Auto) 0.7 L [place] # (Auto) 0.4 Eos # (Auto) 0.1 Baso # (Auto) 0.0 WBC Differential . Differential Comment Auto diff final Sodium 135 L Potassium 3.6 D Chloride 96 L Carbon Dioxide 30.3 Anion Gap 9 BUN 15 Creatinine 0.57 Estimated GFR Greater than 89 Random Glucose 79 Calcium 7.6 L Magnesium Total Bilirubin 1.5 H AST 44 H ALT 83 H Alkaline Phosphatase 482 H Total Protein 5.4 L Albumin 2.6 L Assessment and Plan - Plan 57-year-old female admitted secondary to severe hypokalemia with weakness and hypotension and hyperemesis in the presence of pancreatic cancer Hypokalemia, improving Hyponatremia, improving -Follow on telemetry -Potassium and sodium levels both improving. -Continue oral and IV supplementation -Continue monitoring her electrolytes Hyperemesis, resolved -N.p.o. status change to clear liquid diet -As needed Zofran and Phenergan -Continue IV hydration, continue scheduled Reglan. -GI following, appreciate assistance -s/p EGD 01/26 LA class C esophagitis, food and gastric secretions and stomach with 700 cc suctioned. 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 Surgery versus duodenal stenting, GI recommends keeping n.p.o. and NG tube if vomiting again. Elevated LFTs Hx pancreatic pseudocyst CT drained with biliary stent placement 08/18/17 -Improving -Continue following clinically Gastroesophageal reflux disease - Stable Pancreatic cancer -Patient is status post port placement with no initiation of chemotherapy or surgical intervention. -Previously discussed discharge home with hospice and patient should be able to get supplementation of her choice however she declines. Patient also declines palliative care consult. -I also offered oncology consult however she declined. DVT prophylaxis SCDs and ambulation Discussed Condition With: Patient, RN and GI Discharge Planning: Hope she will be able to tolerate solid foods and cleared by GI.
--- NOTE | 2018-01-27 12:17 | P.PNGI ---
Subjective Interval history: Patient sitting up in bed watching TV Denies any nausea or vomiting Patient post EGD N.p.o. <Bailee Hernandez - Last Filed: 01/27/18 12:08> Physical Exam Vital signs: Vital Signs 01/26/18 13:40 01/26/18 13:50 01/26/18 14:00 Temperature 98.2 F 98.2 F 97.8 F Pulse Rate 88 88 88 Respiratory Rate 16 16 18 Blood Pressure 111/62 111/62 117/67 Pulse Oximetry 97 97 97 01/26/18 16:00 01/26/18 20:00 01/26/18 20:05 Temperature 98.2 F 97.5 F L Pulse Rate 85 92 H 95 H Respiratory Rate 16 19 Blood Pressure 124/66 118/71 Pulse Oximetry 98 97 01/27/18 00:00 01/27/18 00:20 01/27/18 04:00 Temperature 98.3 F Pulse Rate 89 92 H 91 H Respiratory Rate 18 Blood Pressure 130/75 Pulse Oximetry 99 01/27/18 04:05 01/27/18 08:00 Temperature 98.0 F 97.9 F Pulse Rate 89 94 H Respiratory Rate 18 16 Blood Pressure 130/65 123/66 Pulse Oximetry 99 97 Intake & Output 01/26/18 01/27/18 01/27/18 18:59 06:59 18:59 Intake Total 1600 / 1600 1030 / 1030 Balance 1600 / 1600 1030 / 1030 Weight 47.2 kg Intake: IV 1200 / 1200 1000 / 1000 NS + KCl 40 mEq Inj 1,000 ML @ 1000 / 1000 100 mls/hr IV.CONT .Q10H MARGIE Rx #:[id number] NS Inj 1,000 ML @ 100 mls/hr IV 1000 / 1000 .CONT .Q10H MARGIE Rx#:[id number] KCl 10 mEq Premix Inj 10 meq In 200 / 200 100 ml @ 100 mls/hr IV.SIG ONCE ONE Rx#:[id number] Oral Anesthesia Amount 400 / 400 Other: # Voids 3 2 Date of Last Bowel Movement 01/23/18 01/27/18 01/27/18 # Bowel Movements 1 - Constitutional no acute distress - Routine Respiratory Exam Present: CTA bilaterally - Routine Abdominal Exam Present: soft, normoactive bowel sounds. Absent: tenderness, distended - Routine Skin Exam Present: dry, warm - Routine Neurological Exam Present: alert <Bailee Hernandez - Last Filed: 01/27/18 12:08> Vital signs: Vital Signs 01/26/18 13:40 01/26/18 13:50 01/26/18 14:00 Temperature 98.2 F 98.2 F 97.8 F Pulse Rate 88 88 88 Respiratory Rate 16 16 18 Blood Pressure 111/62 111/62 117/67 Pulse Oximetry 97 97 97 01/26/18 16:00 01/26/18 20:00 01/26/18 20:05 Temperature 98.2 F 97.5 F L Pulse Rate 85 92 H 95 H Respiratory Rate 16 19 Blood Pressure 124/66 118/71 Pulse Oximetry 98 97 01/27/18 00:00 01/27/18 00:20 01/27/18 04:00 Temperature 98.3 F Pulse Rate 89 92 H 91 H Respiratory Rate 18 Blood Pressure 130/75 Pulse Oximetry 99 01/27/18 04:05 01/27/18 08:00 01/27/18 12:00 Temperature 98.0 F 97.9 F 98.1 F Pulse Rate 89 94 H 91 H Respiratory Rate 18 16 16 Blood Pressure 130/65 123/66 120/65 Pulse Oximetry 99 97 98 Intake & Output 01/26/18 01/27/18 01/27/18 18:59 06:59 18:59 Intake Total 1600 / 1600 1030 / 1030 Balance 1600 / 1600 1030 / 1030 Weight 47.2 kg Intake: IV 1200 / 1200 1000 / 1000 NS + KCl 40 mEq Inj 1,000 ML @ 1000 / 1000 100 mls/hr IV.CONT .Q10H MARGIE Rx #:[id number] NS Inj 1,000 ML @ 100 mls/hr IV 1000 / 1000 .CONT .Q10H MARGIE Rx#:[id number] KCl 10 mEq Premix Inj 10 meq In 200 / 200 100 ml @ 100 mls/hr IV.SIG ONCE ONE Rx#:[id number] Oral Anesthesia Amount 400 / 400 Other: # Voids 3 2 Date of Last Bowel Movement 01/23/18 01/27/18 01/27/18 # Bowel Movements 1 <Nithin Martinez A - Last Filed: 01/27/18 13:18> Results - Labs CBC & Chem 7: 01/27/18 05:32 01/27/18 05:32 Laboratory Results - last 24 hr 01/26/18 01/26/18 01/26/18 09:43 09:43 19:09 WBC RBC Hgb Hct MCV MCH MCHC RDW Plt Count MPV Neut % (Auto) Lymph % (Auto) [place] % (Auto) Eos % (Auto) Baso % (Auto) Neut # (Auto) Lymph # (Auto) [place] # (Auto) Eos # (Auto) Baso # (Auto) WBC Differential Differential Comment Sodium 132 L Potassium 2.6 L* 2.8 L* Chloride 90 L Carbon Dioxide 27.5 Anion Gap 15 BUN 18 Creatinine 0.66 Estimated GFR Greater than 89 Random Glucose 91 Calcium 8.3 L Magnesium 2.0 Total Bilirubin AST ALT Alkaline Phosphatase Total Protein Albumin 01/27/18 01/27/18 05:32 05:32 WBC 6.6 RBC 3.53 L Hgb 11.2 L Hct 32.8 L MCV 92.8 MCH 31.7 MCHC 34.2 RDW 13.0 Plt Count 239 MPV 7.0 Neut % (Auto) 81.7 H Lymph % (Auto) 11.0 [place] % (Auto) 5.8 Eos % (Auto) 1.1 Baso % (Auto) 0.4 Neut # (Auto) 5.4 Lymph # (Auto) 0.7 L [place] # (Auto) 0.4 Eos # (Auto) 0.1 Baso # (Auto) 0.0 WBC Differential . Differential Comment Auto diff final Sodium 135 L Potassium 3.6 D Chloride 96 L Carbon Dioxide 30.3 Anion Gap 9 BUN 15 Creatinine 0.57 Estimated GFR Greater than 89 Random Glucose 79 Calcium 7.6 L Magnesium Total Bilirubin 1.5 H AST 44 H ALT 83 H Alkaline Phosphatase 482 H Total Protein 5.4 L Albumin 2.6 L <Bailee Hernandez - Last Filed: 01/27/18 12:08> - Labs CBC & Chem 7: 01/27/18 05:32 01/27/18 05:32 Laboratory Results - last 24 hr 01/26/18 01/26/18 01/27/18 09:43 19:09 05:32 WBC 6.6 RBC 3.53 L Hgb 11.2 L Hct 32.8 L MCV 92.8 MCH 31.7 MCHC 34.2 RDW 13.0 Plt Count 239 MPV 7.0 Neut % (Auto) 81.7 H Lymph % (Auto) 11.0 [place] % (Auto) 5.8 Eos % (Auto) 1.1 Baso % (Auto) 0.4 Neut # (Auto) 5.4 Lymph # (Auto) 0.7 L [place] # (Auto) 0.4 Eos # (Auto) 0.1 Baso # (Auto) 0.0 WBC Differential . Differential Comment Auto diff final Sodium Potassium 2.8 L* Chloride Carbon Dioxide Anion Gap BUN Creatinine Estimated GFR Random Glucose Calcium Magnesium 2.0 Total Bilirubin AST ALT Alkaline Phosphatase Total Protein Albumin 01/27/18 05:32 WBC RBC Hgb Hct MCV MCH MCHC RDW Plt Count MPV Neut % (Auto) Lymph % (Auto) [place] % (Auto) Eos % (Auto) Baso % (Auto) Neut # (Auto) Lymph # (Auto) [place] # (Auto) Eos # (Auto) Baso # (Auto) WBC Differential Differential Comment Sodium 135 L Potassium 3.6 D Chloride 96 L Carbon Dioxide 30.3 Anion Gap 9 BUN 15 Creatinine 0.57 Estimated GFR Greater than 89 Random Glucose 79 Calcium 7.6 L Magnesium Total Bilirubin 1.5 H AST 44 H ALT 83 H Alkaline Phosphatase 482 H Total Protein 5.4 L Albumin 2.6 L <Nithin Martinez - Last Filed: 01/27/18 13:18> Assessment and Plan - Plan - Hyperemesis for over a week- pt with hx of pancreatic cancer, known to our practice from previous encounter CT on 01/11/18 showed increase in the size of the low density lesion in the head of the panaceas and interval development of pancreatic ductal dilatation and atrophy distal s/p ERCP/stent exchange on 11/07/17 s/p EGD on 09/19/17 1. Patient has gastropathy most likely because of the pancreatic cancer with metastasis causing portal hypertension done External compression with mass-effect most likely related to the pseudocyst and pancreatic cancer without obstruction of the gastric outlet Duodenum had stent coming from the ampulla 2. 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 There was plans for chemotherapy and radiation by Dr. Delacruz, however pt choose natural route. 01/27/2018 Patient sitting up in bed. Denies any nausea or vomiting. Post EGD on 01/26/2018 : 1. There was LA Class C esophagitis noted 2. Food residue and gastric secretions in the entire examined stomach , total of 700cc of fluids suctioned. 3. There was a long stricture in the 2nd part of the duodenum; multiple biopsies were performed 4. Retroflexed views revealed Large amount of gastric secretions. Hemoglobin 11.2 hematocrit 32.8 platelet count 239 Total bilirubin 1.5 AST 44 ALT 83 alk phos 42 Plan -Clear liquid diet -Monitor labs -Keep n.p.o. insert NG tube/if vomiting occurs -Antiemetics as per attending -IV hydration -Supportive care -Further recommendations to follow -Pt was seen and examined by Dr. Martinez and myself and this note is written on - Attending Attestation Dr. Martinez <Bailee Hernandez - Last Filed: 01/27/18 12:08> - Attending Attestation As above, no nausea or vomiting so far. Will need surgical consult for Gastro-Jejunostomy since life expectancy is good otherwise she will need duodenal stent. Will follow surgery and oncology advice. <Nithin Martinez - Last Filed: 01/27/18 13:18>
[2018-01-27] MEDS: Metoclopramide Liq 10 MG/10 ML UDC PO SCH ×3 (14:01→21:49)
--- NOTE | 2018-01-27 16:43 | P.CONGS ---
[facility] Gen Surgery Consult Note Consult date: 01/27/18 Reason for consult: other (Pancreatic cancer; patient known to our service) Requesting physician: Bailee Hernandez Narrative: This is a 57 year old female known to Dr. Zaragoza. She is status post exploratory laparotomy with biopsy of pancreas mass, mesocolon mass and celiac lymph node in July of 2017. The patient also had an Infusport placed but declined chemotherapy. She has not been seen by Oncology is some time. She came to the ED with complaints of nausea and vomiting which she reports has been going on for about 2 weeks. She reports she has lost weight during this time. The patient had an EGD yesterday which showed a large amount of residual food as well as a long stricture in the 2nd part of the duodenum with biopsies. The patient has not had any imaging during this admission as she has refused. A General Surgery consultation has been requested. She has mild epigastric abdominal pain, 5/10, intermittent, dull, controlled with meds, worse with movement. Review of Systems All other systems reviewed negative except as stated in [facility] - History History Provided By: Patient - Medical History Medical History: Medical History (Last Reviewed 01/27/18 @ 16:38 by TONIA Michaels) Dental bridge present GERD (gastroesophageal reflux disease) Gastric polyps H/O scabies History of anesthesia reaction History of ileus Pancreas cancer Wears glasses - Surgical History Surgical History: Surgical History (Last Updated 01/27/18 @ 16:39 by TONIA Michaels) H/O exploratory laparotomy History of ERCP History of cholecystectomy History of esophagogastroduodenoscopy (EGD) - Family History Family History: Family History (Last Reviewed 02/08/18 @ 13:45 by Sorin Frey MD) Other CVA (cerebral vascular accident) Family history of diabetes mellitus Heart disease - Social History I have reviewed the patient's Social History: Yes - Tobacco History Second Hand Smoke Exposure: No Tobacco Use In Past 30 Days: No Smoking Status: Never smoker Tobacco Type: Cigarettes - Alcohol History How Often Do You Have a Drink Containing Alcohol: Never - Substance Use History Substance History: No History of Abuse - Travel History Recent Travel in the [place] Within the Last 8 Weeks: No Recent Travel Out of the Country Within the Last 8 Weeks: No - Immunization History Tetanus Immunization: Unsure Hx Influenza Vaccine This Season: No Medications and Allergies Allergies Allergy/AdvReac Type Severity Reaction Status Date / Time No Known Allergies Allergy Verified 01/22/18 11:35 Active Medications: Active Medications Acetaminophen (Tylenol) 650 mg PO Q4H PRN PRN Reason: Temp > 100.4 Al Hydroxide/Mg Hydroxide (Milk Of Magnesia Liq) 30 ml PO Q12H PRN PRN Reason: Mild Constipation Last Admin: 01/27/18 04:17 Dose: 30 ml Sodium Chloride (Ns Inj) 500 mls @ 30 mls/hr IV.SIG .Q10H REPLACED BY [facility] Last Admin: 01/26/18 05:33 Dose: Not Given Potassium Chloride/Sodium Chloride (Ns + Kcl 40 Meq Inj) 1,000 mls @ 100 mls/ hr IV.CONT .Q10H REPLACED BY [facility] Last Admin: 01/27/18 04:23 Dose: 100 mls/hr Metoclopramide HCl (Reglan Liq) 10 mg PO ACHS REPLACED BY [facility] Last Admin: 01/27/18 14:01 Dose: Not Given Ondansetron HCl (Zofran Inj) 4 mg IV.PUSH Q6H PRN PRN Reason: NAUSEA OR VOMITING Last Admin: 01/26/18 02:45 Dose: 4 mg Potassium Chloride (K-Dur) 20 meq PO BID REPLACED BY [facility] Last Admin: 01/27/18 09:13 Dose: 20 meq Promethazine HCl (Phenergan) 25 mg PO Q4H PRN PRN Reason: NAUSEA Last Admin: 01/27/18 12:24 Dose: 25 mg Sodium Chloride (Ns Flush) 2 ml IV.FLUSH BID REPLACED BY [facility] Last Admin: 01/26/18 21:00 Dose: Not Given Sodium Chloride (Ns Flush) 2 ml IV.FLUSH PRN PRN PRN Reason: FLUSH AFTER USING IV ACCESS Exam Vital signs: Vital Signs 01/26/18 20:00 01/26/18 20:05 01/27/18 00:00 Temperature 97.5 F L Pulse Rate 92 H 95 H 89 Respiratory Rate 19 Blood Pressure 118/71 Pulse Oximetry 97 01/27/18 00:20 01/27/18 04:00 01/27/18 04:05 Temperature 98.3 F 98.0 F Pulse Rate 92 H 91 H 89 Respiratory Rate 18 18 Blood Pressure 130/75 130/65 Pulse Oximetry 99 99 01/27/18 08:00 01/27/18 12:00 Temperature 97.9 F 98.1 F Pulse Rate 88 91 H Respiratory Rate 16 16 Blood Pressure 123/66 120/65 Pulse Oximetry 97 98 Intake & Output 01/26/18 01/27/18 01/27/18 18:59 06:59 18:59 Intake Total 1600 / 1600 1030 / 1030 Balance 1600 / 1600 1030 / 1030 Weight 47.2 kg Intake: IV 1200 / 1200 1000 / 1000 NS + KCl 40 mEq Inj 1,000 ML @ 1000 / 1000 100 mls/hr IV.CONT .Q10H MARGIE Rx #:[id number] NS Inj 1,000 ML @ 100 mls/hr IV 1000 / 1000 .CONT .Q10H MARGIE Rx#:[id number] KCl 10 mEq Premix Inj 10 meq In 200 / 200 100 ml @ 100 mls/hr IV.SIG ONCE ONE Rx#:[id number] Oral Anesthesia Amount 400 / 400 Other: # Voids 3 2 Date of Last Bowel Movement 01/23/18 01/27/18 01/27/18 # Bowel Movements 1 Narrative: GENERAL: Chronically ill, thin 57 year old female resting in bed in no acute distress. SKIN: Warm and dry. HEAD: Atraumatic. Normocephalic. EYES: Pupils equal and round. No scleral icterus. No injection or drainage. ENT: No nasal bleeding or discharge. Mucous membranes pink and moist. NECK: Trachea midline. CARDIOVASCULAR: Regular rate and rhythm. RESPIRATORY: No accessory muscle use. Clear to auscultation. Breath sounds equal bilaterally. GASTROINTESTINAL: Abdomen soft, nontender, nondistended. Well healed midline incision. MUSCULOSKELETAL: Extremities without clubbing, cyanosis, or edema. No obvious deformities. Extremities thin. NEUROLOGICAL: Awake and alert. No obvious cranial nerve deficits. Motor grossly within normal limits. Five out of 5 muscle strength in the arms and legs. Normal speech. PSYCHIATRIC: Appropriate mood and affect; insight and judgment normal. Results - Labs 02/07/18 07:23 02/07/18 07:23 Laboratory Results - last 24 hr 01/26/18 01/26/18 01/27/18 09:43 19:09 05:32 WBC 6.6 RBC 3.53 L Hgb 11.2 L Hct 32.8 L MCV 92.8 MCH 31.7 MCHC 34.2 RDW 13.0 Plt Count 239 MPV 7.0 Neut % (Auto) 81.7 H Lymph % (Auto) 11.0 [place] % (Auto) 5.8 Eos % (Auto) 1.1 Baso % (Auto) 0.4 Neut # (Auto) 5.4 Lymph # (Auto) 0.7 L [place] # (Auto) 0.4 Eos # (Auto) 0.1 Baso # (Auto) 0.0 WBC Differential . Differential Comment Auto diff final Sodium Potassium 2.8 L* Chloride Carbon Dioxide Anion Gap BUN Creatinine Estimated GFR Random Glucose Calcium Magnesium 2.0 Total Bilirubin AST ALT Alkaline Phosphatase Total Protein Albumin 01/27/18 05:32 WBC RBC Hgb Hct MCV MCH MCHC RDW Plt Count MPV Neut % (Auto) Lymph % (Auto) [place] % (Auto) Eos % (Auto) Baso % (Auto) Neut # (Auto) Lymph # (Auto) [place] # (Auto) Eos # (Auto) Baso # (Auto) WBC Differential Differential Comment Sodium 135 L Potassium 3.6 D Chloride 96 L Carbon Dioxide 30.3 Anion Gap 9 BUN 15 Creatinine 0.57 Estimated GFR Greater than 89 Random Glucose 79 Calcium 7.6 L Magnesium Total Bilirubin 1.5 H AST 44 H ALT 83 H Alkaline Phosphatase 482 H Total Protein 5.4 L Albumin 2.6 L Assessment and Plan - Assessment (1) Pancreatic cancer Code(s): C25.9 - Malignant neoplasm of pancreas, unspecified Status: Chronic Plan: 57 year old female with pancreatic cancer; nausea/vomiting -NPO -NGT to LIWS if nausea/vomiting occur -Will discuss with GI--- patient would benefit from either G/J tube vs J tube placement for nutrition -Dr. Zaragoza to return Tuesday to see patient -Thank you for this consult; We will continue to follow - Plan Discussed Condition With: Dr. Tk Ga - Attending Attestation concern for gastric outlet obstruction due to pancreatic cancer. currently refusing imaging discussed with patient that she would likely benefit from gastrojejunostomy bypass procedure or g tube/j tube patient to see Dr. Zaragoza on tuesday The exam, history, and the medical decision-making described in the above note were completed with the assistance of the mid-level provider. I reviewed and agree with the findings presented. I attest that I had a [id number] encounter with the patient on the same day, and personally performed and documented my assessment and findings in the medical record.
[2018-01-27] MEDS: Sodium Chloride 0.9% 2 ML Flush BID IV.FLUSH SCH ×2 (17:27→21:49)
[2018-01-28] MEDS: Sodium Chloride 0.9% 2 ML Flush BID IV.FLUSH SCH ×2 (09:43→21:17)
[2018-01-28] MEDS: Metoclopramide Liq 10 MG/10 ML UDC PO SCH ×4 (09:43→21:16)
--- NOTE | 2018-01-28 12:09 | P.PN ---
Subjective Interval history: Follow-up visit for nausea, vomiting, hypokalemia and pancreatic cancer. Patient seen and examined sitting up in bed in no acute distress. She reports she is feeling better this morning. She denies any further nausea or vomiting, has tolerated liquid diet, also had a bowel movement soft. Denies any fevers, chills, cough or shortness of breath. Discussed the possibility of feeding tube , patient is reluctant and states that she would not like this. Awaiting Dr. Zaragoza to follow-up with her on Tuesday for recommendations. Physical Exam Vital signs: Vital Signs 01/27/18 16:00 01/27/18 20:00 01/28/18 00:00 Temperature 98.3 F 98.3 F 98.0 F Pulse Rate 84 82 87 Respiratory Rate 16 16 16 Blood Pressure 126/72 120/68 127/70 Pulse Oximetry 100 99 100 01/28/18 04:00 01/28/18 08:00 Temperature 98.2 F 98.3 F Pulse Rate 97 H 96 H Respiratory Rate 16 17 Blood Pressure 139/76 131/73 Pulse Oximetry 95 98 Intake & Output 01/27/18 01/28/18 01/28/18 18:59 06:59 18:59 Intake Total 1000 / 1000 1000 / 1000 Output Total 700 / 700 Balance 300 / 300 1000 / 1000 Weight 47.6 kg Intake: IV 1000 / 1000 1000 / 1000 NS + KCl 40 mEq Inj 1,000 ML @ 1000 / 1000 1000 / 1000 100 mls/hr IV.CONT .Q10H MARGIE Rx #:[id number] Output: Emesis 700 / 700 Other: # Voids 1 Date of Last Bowel Movement 01/27/18 01/27/18 # Bowel Movements 1 # Emeses 4 Narrative: GENERAL: Thin female who appears cachectic and malnourished. HEAD: Normocephalic. NECK: Supple, trachea midline. EYES: No scleral icterus. No injection or drainage. CARDIOVASCULAR: Regular rate and rhythm without murmurs, gallops, or rubs. RESPIRATORY: Breath sounds equal bilaterally. No accessory muscle use. GASTROINTESTINAL: Abdomen soft, non-tender, nondistended. + Bowel sounds. MUSCULOSKELETAL: No cyanosis, or edema. SKIN: Warm and dry. NEURO: No focal neurological deficits. Results - Labs CBC & Chem 7: 01/27/18 05:32 01/28/18 04:52 Laboratory Results - last 24 hr 01/28/18 04:52 Potassium 4.2 Assessment and Plan - Plan 57-year-old female admitted secondary to severe hypokalemia with weakness and hypotension and hyperemesis in the presence of pancreatic cancer Hypokalemia, improving Hyponatremia, improving -Follow on telemetry -Potassium level stable, Na level improving -Tolerating clear liquid diet, hold IVF -Continue monitoring her electrolytes Hyperemesis, resolved - clear liquid diet -As needed Zofran and Phenergan -Hold IVF, continue scheduled Reglan. -GI following, appreciate assistance -s/p EGD 01/26 LA class C esophagitis, food and gastric secretions and stomach with 700 cc suctioned. 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 -General surgery consulted recommends G/J tube, to be reevaluated Tuesday by . Elevated LFTs Hx pancreatic pseudocyst CT drained with biliary stent placement 08/18/17 -Improving -Continue following clinically Gastroesophageal reflux disease - Stable Pancreatic cancer -Patient is status post port placement with no initiation of chemotherapy or surgical intervention. -Previously discussed discharge home with hospice and patient should be able to get supplementation of her choice however she declines. Patient also declines palliative care consult. -Previously offered oncology consult however she declined. DVT prophylaxis-SCDs subq heparin Discharge Planning: Hope she will be able to tolerate solid foods and cleared by GI.
--- NOTE | 2018-01-28 12:17 | P.PNGI ---
Subjective Interval history: No nausea or vomiting and tolerating liquid diet, had a BM this AM. Physical Exam Vital signs: Vital Signs 01/27/18 16:00 01/27/18 20:00 01/28/18 00:00 Temperature 98.3 F 98.3 F 98.0 F Pulse Rate 84 82 87 Respiratory Rate 16 16 16 Blood Pressure 126/72 120/68 127/70 Pulse Oximetry 100 99 100 01/28/18 04:00 01/28/18 08:00 Temperature 98.2 F 98.3 F Pulse Rate 97 H 96 H Respiratory Rate 16 17 Blood Pressure 139/76 131/73 Pulse Oximetry 95 98 Intake & Output 01/27/18 01/28/18 01/28/18 18:59 06:59 18:59 Intake Total 1000 / 1000 1000 / 1000 Output Total 700 / 700 Balance 300 / 300 1000 / 1000 Weight 47.6 kg Intake: IV 1000 / 1000 1000 / 1000 NS + KCl 40 mEq Inj 1,000 ML @ 1000 / 1000 1000 / 1000 100 mls/hr IV.CONT .Q10H MARGIE Rx #:[id number] Output: Emesis 700 / 700 Other: # Voids 1 Date of Last Bowel Movement 01/27/18 01/27/18 # Bowel Movements 1 # Emeses 4 - Constitutional no acute distress - Routine HEENT Exam Head: Present: normocephalic, atraumatic - Routine Neck Exam Present: supple - Routine Respiratory Exam Present: CTA bilaterally - Routine Cardiovascular Exam Present: RRR. Absent: S1, S2 - Routine Abdominal Exam Present: soft, normoactive bowel sounds - Routine Extremities Exam Present: pulses intact - Routine Skin Exam Present: intact, pallor - Routine Neurological Exam Present: alert, oriented X3, CN II-XII intact Results - Labs CBC & Chem 7: 01/27/18 05:32 01/28/18 04:52 Laboratory Results - last 24 hr 01/28/18 04:52 Potassium 4.2 Assessment and Plan - Plan - Hyperemesis for over a week- secondary to small bowel obstruction. 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 There was plans for chemotherapy and radiation by Dr. Delacruz, however pt choose natural route. Plan - Continue Clear liquid diet - Surgery for Gastro- jejunostomy - Monitor labs - Keep n.p.o. insert NG tube/if vomiting occurs - Antiemetics as per attending - IV hydration - Supportive care - Further recommendations to follow
[2018-01-28] MEDS: Heparin - SQ 10,000 UNITS/ML Vial SQ SCH (21:16)
--- NOTE | 2018-01-29 08:53 | P.PN ---
Subjective Interval history: Follow-up visit for nausea, vomiting, hypokalemia and pancreatic cancer. Patient is seen and examined sitting up in recliner this morning in no acute distress. She reports she is having nausea this morning and is not been able to eat or drink as of yet. She does report that Phenergan provides relief with nausea. Having bowel movements, denies dysuria, fevers, chills, shortness of breath. Physical Exam Vital signs: Vital Signs 01/28/18 12:00 01/28/18 16:00 01/28/18 20:00 Temperature 98.2 F 98.7 F 98.0 F Pulse Rate 104 H 85 82 Respiratory Rate 17 17 17 Blood Pressure 127/83 125/75 128/80 Pulse Oximetry 99 98 97 01/29/18 00:00 01/29/18 04:00 01/29/18 04:02 Temperature 97.5 F L 97.8 F Pulse Rate 83 87 99 H Respiratory Rate 18 16 Blood Pressure 143/86 H 122/66 Pulse Oximetry 97 98 01/29/18 08:00 Temperature 98.1 F Pulse Rate 86 Respiratory Rate 17 Blood Pressure 135/85 Pulse Oximetry 98 Intake & Output 01/28/18 01/29/18 01/29/18 18:59 06:59 18:59 Intake Total 680 / 680 Balance 680 / 680 Weight 47.4 kg Intake: IV 200 / 200 Oral 480 / 480 Other: # Voids 4 4 Date of Last Bowel Movement 01/27/18 01/28/18 # Bowel Movements 2 1 Narrative: GENERAL: Thin female who appears cachectic and malnourished. HEAD: Normocephalic. NECK: Supple, trachea midline. EYES: No scleral icterus. No injection or drainage. CARDIOVASCULAR: Regular rate and rhythm without murmurs, gallops, or rubs. RESPIRATORY: Breath sounds equal bilaterally. No accessory muscle use. GASTROINTESTINAL: Abdomen soft, non-tender, nondistended. + Bowel sounds. MUSCULOSKELETAL: No cyanosis, or edema. SKIN: Warm and dry. NEURO: No focal neurological deficits. Results - Labs CBC & Chem 7: 01/27/18 05:32 01/29/18 06:18 Laboratory Results - last 24 hr 01/29/18 06:18 Potassium 3.5 Assessment and Plan - Plan 57-year-old female admitted secondary to severe hypokalemia with weakness and hypotension and hyperemesis in the presence of pancreatic cancer Hypokalemia, improving Hyponatremia, improving -Follow on telemetry -Na improved - Nausea today, not tolerating orals, resume IVF with KCL -Continue monitoring her electrolytes Hyperemesis, acute Nausea - Nausea today, IVF -As needed Zofran and Phenergan -Continue scheduled Reglan. -GI following, appreciate assistance -s/p EGD 01/26 LA class C esophagitis, food and gastric secretions and stomach with 700 cc suctioned. 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 -General surgery consulted recommends G/J tube, to be reevaluated Tuesday by . Patient has expressed not wanting feeding tube. Elevated LFTs Hx pancreatic pseudocyst CT drained with biliary stent placement 08/18/17 -Improving -Continue following clinically Pancreatic cancer -Patient is status post port placement with no initiation of chemotherapy or surgical intervention. -Previously discussed discharge home with hospice and patient should be able to get supplementation of her choice however she declines. Patient also declines palliative care consult. -Previously offered oncology consult however she declined. 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 Dr. Zaragoza to evaluate Tuesday for possible G/J tube.
[2018-01-29] MEDS: Heparin - SQ 10,000 UNITS/ML Vial SQ SCH ×2 (09:24→21:38)
[2018-01-29] MEDS: Metoclopramide Liq 10 MG/10 ML UDC PO SCH ×4 (09:24→21:38)
[2018-01-29] MEDS: Sodium Chloride 0.9% 2 ML Flush BID IV.FLUSH SCH ×2 (09:27→21:37)
[2018-01-30 06:48] LABS: Anion Gap 10 meq/L (5-15); Blood Urea Nitrogen 14 mg/dL (7-18); Calcium 7.8 mg/dL (8.5-10.1); Carbon Dioxide 24.8 meq/L (21.0-32.0); Chloride 100 meq/L (98-107); Glomerular Filtration Rate Greater Than 89 mL/min (>89); Glucose,Random 105 mg/dL (74-106); Potassium 3.4 meq/L (3.5-5.1); Sodium 135 meq/L (136-145)
[2018-01-30] MEDS: Heparin - SQ 10,000 UNITS/ML Vial SQ SCH ×2 (08:35→21:22)
[2018-01-30] MEDS: Metoclopramide Liq 10 MG/10 ML UDC PO SCH ×4 (08:35→21:21)
[2018-01-30] MEDS: Sodium Chloride 0.9% 2 ML Flush BID IV.FLUSH SCH ×2 (08:36→21:22)
--- NOTE | 2018-01-30 09:20 | P.PNIM ---
Subjective Interval history: Follow up nausea, vomiting, hypokalemia, pancreatic cancer Patient is resting in bed. She reports some mild intermittent nausea, however, no vomiting. Patient states she is unsure about G/J tube placement and would like to discuss further with General surgery. She declines palliative/hospice care at present time. She states "I don't feel like I am going to . I think I will be alright." Patient states she understands that palliative and hospice care are available to her if needed. No fevers or chills overnight. Physical Exam Vital signs: Last Vital Signs Temp 98.0 F 01/30/18 03:01 Pulse 87 01/30/18 04:00 Resp 17 01/30/18 03:01 BP 132/79 01/30/18 03:01 Pulse Ox 97 01/30/18 03:01 Intake & Output 01/28/18 01/29/18 01/30/18 01/31/18 06:59 06:59 06:59 06:59 Intake Total 2000 / 1999 680 / 680 1480 / 1480 Output Total 700 / 700 Balance 1300 / 1300 680 / 680 1480 / 1480 Weight 47.6 kg 47.4 kg 45.6 kg Narrative: GENERAL: thin female who appears cachectic and malnourished, no acute distress HEAD: normocephalic, atraumatic NECK: supple, trachea midline, no JVD EYES: No scleral icterus. No injection or drainage. CARDIOVASCULAR: Regular rate and rhythm without murmurs, gallops, or rubs. RESPIRATORY: Breath sounds equal bilaterally. No accessory muscle use. GASTROINTESTINAL: Abdomen soft, non-tender, nondistended. + Bowel sounds. MUSCULOSKELETAL: No cyanosis, or edema. SKIN: Warm and dry. NEURO: No focal neurological deficits. Results Labs CBC & Chem 7: 01/27/18 05:32 01/30/18 05:57 Assessment and Plan Plan 57-year-old female admitted secondary to severe hypokalemia with weakness and hypotension and hyperemesis in the presence of pancreatic cancer Hypokalemia, improving - evaluated 01/30/18 -K 3.4 -continue IV fluids with Kcl and PO KCl supplementation -repeat BMP in am Hyponatremia, improving - evaluated 01/30/18 -NA 135 and stable -Follow on telemetry -Na improved - Nausea today, not tolerating orals, resume IVF with KCL -Continue monitoring her electrolytes Hyperemesis, acute - evaluated 01/30/18, resolved Nausea - evaluated 01/30/18, intermittent and persistent -nausea today, continue IVF -Zofran and Phenergan PRN -continue scheduled Reglan -GI following, appreciate assistance -s/p EGD 01/26 LA class C esophagitis, food and gastric secretions and stomach with 700 cc suctioned. 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 -General surgery consulted recommends G/J tube, to be reevaluated today by . Patient has expressed not wanting feeding tube. Elevated LFTs Hx pancreatic pseudocyst CT drained with biliary stent placement 08/18/17 - evaluated 01/30/18, stable -continue following clinically Pancreatic cancer - evaluated 01/30/18, unchanged -Patient is status post port placement with no initiation of chemotherapy or surgical intervention. -Previously discussed discharge home with hospice and patient should be able to get supplementation of her choice however she declines. Patient also declines palliative care consult. -offered oncology consult however she declined. 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 Patient to be evaluated by General Surgery Dr Zaragoza today for possible G/ J tube. Progress Note: Quality VTE Deep Vein Thrombosis/Pulmonary Embolism Present on Admission: No
[2018-01-30] MEDS: Morphine Sulfate Inj 2 MG/ML Vial IV.PUSH PRN (21:48)
[2018-01-30] MEDS: Sodium Chloride 0.9% 2 ML Flush PRN IV.FLUSH (21:49)
[2018-01-31] MEDS: Morphine Sulfate Inj 2 MG/ML Vial IV.PUSH PRN ×4 (03:51→22:28)
[2018-01-31 05:18] LABS: Anion Gap 11 meq/L (5-15); Blood Urea Nitrogen 11 mg/dL (7-18); Calcium 7.3 mg/dL (8.5-10.1); Carbon Dioxide 26.3 meq/L (21.0-32.0); Chloride 100 meq/L (98-107); Glomerular Filtration Rate Greater Than 89 mL/min (>89); Glucose,Random 105 mg/dL (74-106); Sodium 137 meq/L (136-145)
[2018-01-31 05:29] LABS: Albumin 2.4 g/dL (3.4-5.0); Calcium-Albumin Corrected 8.6 mg/dL (8.5-10.1)
--- NOTE | 2018-01-31 07:42 | P.PNONC ---
Subjective Interval history: I was asked to see Ms. Moseley to discuss her diagnosis of metastatic pancreas cancer. I came in to see her this morning, patient reports continuous abdominal pain and inability to tolerate oral intake. She tells me she is looking forward to feeding tube which she hopes will be placed today or tomorrow. When I offered to talk to her about management of pancreas cancer she told me she does not want to talk about cancer because it makes her depressed. She turned her head away and closed her eyes. I have offered to help her in any way I can so as to make her more comfortable. But the patient tells me there is nothing additional I can do for her. Her reaction is not surprising, please review my outpatient notes and in particular my outpatient note dated 12/19/2017. Ms. Moseley is well-known to myself and to my practice, she unfortunately has progressive metastatic pancreas cancer. She now has progressive omental metastases as noted on CT imaging performed this hospitalization. She has in the past been offered systemic chemotherapy and has been provided every opportunity to receive treatment. In fact, about 2-1/2 months ago she was in our chemoinfusion suite and the chemotherapy was ordered and about to be hung, just before the nurses turn on the infusion the patient abruptly declined treatment (after having consented to chemotherapy infusion and treatment less than 1 hour prior). Following her abrupt decision to decline palliative chemotherapy she was offered the opportunity to receive treatment on multiple occasions but she declined. On our last outpatient visit in late November she was offered hospice and palliation she declined this as well. Unfortunately, Ms. Moseley has a terminal illness. She seems to have a difficult time adjusting to this, she also has a difficult time accepting medical advice. From my standpoint every effort has been made to provide her care. This includes evaluation by gastroenterology, surgical oncology and multidisciplinary evaluation at a tertiary referral center; the [facility] where her care was reviewed in a multidisciplinary fashion by their GI oncology clinic. I did attempt to follow the recommendations for palliative systemic therapy. This patient categorically declines oncology input and disease directed therapy. She has every right to decline. I am unable to help her and further participation in her care is futile from an oncologic standpoint. I therefore would recommend supportive management and involvement of the palliative care team and possibly psychiatry. Oncology will sign off. Objective Vital Signs/Intake & Output: Vital Signs 01/30/18 08:00 01/30/18 12:26 01/30/18 16:00 Temperature 98.2 F 97.6 F 97.8 F Pulse Rate 93 H 88 85 Respiratory Rate 18 18 18 Blood Pressure 143/72 H 128/71 135/75 Pulse Oximetry 98 98 96 01/30/18 20:00 01/30/18 21:50 01/30/18 23:32 Temperature 97.4 F L 98.9 F Pulse Rate 85 80 Respiratory Rate 14 18 16 Blood Pressure 142/78 H 144/88 H Pulse Oximetry 99 99 01/31/18 00:00 01/31/18 04:00 Temperature 97.8 F Pulse Rate 86 83 Respiratory Rate 15 Blood Pressure 114/66 Pulse Oximetry 96 Intake & Output 01/30/18 01/31/18 01/31/18 18:59 06:59 18:59 Intake Total 1360 / 1360 1700 / 1700 Balance 1360 / 1360 1700 / 1700 Weight 41.3 kg 42.5 kg Intake: IV 1000 / 1000 1700 / 1700 NS + KCl 20 mEq Inj 1,000 ML @ 1000 / 1000 1700 / 1700 100 mls/hr IV.CONT .Q10H MARGIE Rx #:[id number] Oral 360 / 360 Other: # Voids 1 2 Date of Last Bowel Movement 01/29/18 01/29/18 # Bowel Movements 0 Result Diagrams: 01/27/18 05:32 01/31/18 04:30 Laboratory Results: Laboratory Results - last 24 hr 01/31/18 04:30 Sodium 137 Potassium 3.0 L Chloride 100 Carbon Dioxide 26.3 Anion Gap 11 BUN 11 Creatinine 0.44 L Estimated GFR Greater than 89 Random Glucose 105 Calcium 7.3 L* Calcium Adj for Albumin 8.6 Albumin 2.4 L Medications: Active Medications Generic Name Dose Route Start Last Admin Trade Name Freq PRN Reason Stop Dose Admin Al Hydroxide/Mg Hydroxide 30 ml 01/22/18 15:31 01/27/18 04:17 Milk Of Magnesia Liq PO 30 ml Q12H PRN Administration Mild Constipation Heparin Sodium (Porcine) 5,000 units 01/28/18 21:00 01/30/18 21:22 Heparin Inj SQ 5,000 units Q12HR MARGIE Administration Potassium Chloride/Sodium Chloride 1,000 mls @ 100 mls/hr 01/29/18 11:30 06/15 05:22 Ns + Kcl 20 Meq Inj IV.CONT Not Given .Q10H MARGIE Metoclopramide HCl 10 mg 01/24/18 17:00 01/30/18 21:21 Reglan Liq PO 10 mg ACHS MARGIE Administration Morphine Sulfate 2 mg 01/30/18 21:21 01/31/18 03:51 Morphine Inj IV.PUSH 2 mg Q3H PRN Administration pain scale 5 to 10 Ondansetron HCl 4 mg 01/22/18 15:31 01/29/18 16:37 Zofran Inj IV.PUSH 4 mg Q6H PRN Administration NAUSEA OR VOMITING Potassium Chloride 20 meq 01/22/18 21:00 01/30/18 21:21 K-Dur PO Not Given BID MARGIE Promethazine HCl 25 mg 01/22/18 16:32 01/27/18 12:24 Phenergan PO 25 mg Q4H PRN Administration NAUSEA Sodium Chloride 2 ml 01/26/18 21:00 01/30/18 21:22 Ns Flush IV.FLUSH Not Given BID MARGIE Sodium Chloride 2 ml 01/26/18 15:27 01/30/18 21:49 Ns Flush IV.FLUSH 2 ml PRN PRN Administration FLUSH AFTER USING IV ACCESS Objective Remarks: GENERAL: Well-nourished, well-developed patient. SKIN: Warm and dry. HEAD: Normocephalic. EYES: No scleral icterus. No injection or drainage. NECK: Supple, trachea midline. No JVD or lymphadenopathy. LYMPHATIC: No adenopathy. CARDIOVASCULAR: Regular rate and rhythm without murmurs. RESPIRATORY: Breath sounds equal bilaterally. No accessory muscle use. GASTROINTESTINAL: Abdomen soft, non-tender, nondistended. EXTREMITIES: No cyanosis, or edema. MUSCULOSKELETAL: Adequate muscle tone. NEUROLOGICAL: No obvious focal deficit. Awake, alert, and oriented x3. PSYCHIATRIC: Appropriate mood and affect; insight and judgment normal.
[2018-01-31] MEDS: Metoclopramide Liq 10 MG/10 ML UDC PO SCH ×4 (09:36→20:06)
[2018-01-31] MEDS: Heparin - SQ 10,000 UNITS/ML Vial SQ SCH ×2 (09:36→20:05)
[2018-01-31] MEDS: Potassium Chlor 20 mEq Premix 20 MEQ/100 ML PIGGYBACK IV.SIG SCH ×2 (09:44→12:16)
[2018-01-31] MEDS: Sodium Chloride 0.9% 2 ML Flush BID IV.FLUSH SCH ×2 (10:53→20:05)
--- NOTE | 2018-01-31 13:53 | P.PNIM ---
Subjective Interval history: no complaints. not in pain at present. says surgeon will put in feeding tube tomorrow. Physical Exam Vital signs: Last Vital Signs Temp 98.1 F 01/31/18 08:00 Pulse 108 H 01/31/18 08:00 Resp 18 01/31/18 08:00 BP 126/70 01/31/18 08:00 Pulse Ox 99 01/31/18 08:00 Intake & Output 01/29/18 01/30/18 01/31/18 02/01/18 06:59 06:59 06:59 06:59 Intake Total 680 / 680 1480 / 1480 3060 / 3060 400 / 400 Balance 680 / 680 1480 / 1480 3060 / 3060 400 / 400 Weight 47.4 kg 45.6 kg 42.5 kg Narrative: GENERAL: cachectic and malnourished woman, not in acute distress HEENT: not pale,anicteric. CARDIOVASCULAR: Regular rate and rhythm without murmurs, gallops, or rubs. RESPIRATORY: CTAB. GASTROINTESTINAL: Abdomen soft, non-tender, nondistended. + Bowel sounds. MUSCULOSKELETAL: No cyanosis, or edema. SKIN: Warm and dry. NEURO: No focal neurological deficits. Results Labs CBC & Chem 7: 01/27/18 05:32 01/31/18 04:30 Assessment and Plan Plan 57-year-old female admitted secondary to severe hypokalemia with weakness and hypotension and hyperemesis in the presence of pancreatic cancer Hypokalemia -was down to 3 today, likely related to poor intake. Given IV 40meq, will recheck. -continue IV fluids with Kcl and PO KCl supplementation -daily bmp Hyponatremia, improving -NA 137 today--monitor daily Hyperemesis, acute - resolved Nausea -still persists. -Zofran and Phenergan PRN -continue scheduled Reglan -GI following, appreciate assistance -s/p EGD 01/26 LA class C esophagitis, food and gastric secretions and stomach with 700 cc suctioned. 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 -General surgery consulted recommends G/J tube--patient now agreeable, and it is planned for next 24-48hrs. Elevated LFTs Hx pancreatic pseudocyst CT drained with biliary stent placement 08/18/17 - evaluated 01/30/18, stable -continue following clinically Pancreatic cancer - -Patient is status post port placement with no initiation of chemotherapy or surgical intervention. -Previously discussed discharge home with hospice and patient should be able to get supplementation of her choice however she declines. Noted oncology recs for palliative care and possibly psych consult. Patient also declines palliative care consult. Code: Full Discharge Planning: Refusing treatment for CA, hospice or palliative care. Now agreeble to G/J TUBE which is to be done in 24-48 hrs.plan to dc home once stable on tube feeds Progress Note: Quality VTE Deep Vein Thrombosis/Pulmonary Embolism Present on Admission: No
--- NOTE | 2018-01-31 15:26 | P.PNGS ---
Subjective Patient reports: still having pain, vomiting Physical Exam Vital signs: Vital Signs 01/30/18 16:00 01/30/18 20:00 01/30/18 21:50 Temperature 97.8 F 97.4 F L Pulse Rate 85 85 Respiratory Rate 18 14 18 Blood Pressure 135/75 142/78 H Pulse Oximetry 96 99 01/30/18 23:32 01/31/18 00:00 01/31/18 04:00 Temperature 98.9 F 97.8 F Pulse Rate 80 86 83 Respiratory Rate 16 15 Blood Pressure 144/88 H 114/66 Pulse Oximetry 99 96 01/31/18 08:00 01/31/18 12:00 Temperature 98.1 F 98.3 F Pulse Rate 108 H 94 H Respiratory Rate 18 17 Blood Pressure 126/70 113/79 Pulse Oximetry 99 98 Intake & Output 01/30/18 01/31/18 01/31/18 18:59 06:59 18:59 Intake Total 1360 / 1360 1700 / 1700 400 / 400 Balance 1360 / 1360 1700 / 1700 400 / 400 Weight 41.3 kg 42.5 kg Intake: IV 1000 / 1000 1700 / 1700 400 / 400 NS + KCl 20 mEq Inj 1,000 ML @ 1000 / 1000 1700 / 1700 300 / 300 100 mls/hr IV.CONT .Q10H MARGIE Rx #:[id number] KCl 20 mEq Premix Inj 20 meq In 100 / 100 100 ml @ 50 mls/hr IV.SIG Q2H AMRGIE Rx#:[id number] Oral 360 / 360 Other: # Voids 1 2 Date of Last Bowel Movement 01/29/18 01/29/18 01/29/18 # Bowel Movements 0 - Constitutional no acute distress, cachectic - Routine Abdominal Exam Present: soft, normoactive bowel sounds. Absent: tenderness, distended, rebound , guarding - Routine Neurological Exam Present: alert, oriented X3 Results - Labs 01/27/18 05:32 01/31/18 04:30 Laboratory Results - last 24 hr 01/31/18 01/31/18 04:30 04:30 Sodium 137 Potassium 3.0 L Chloride 100 Carbon Dioxide 26.3 Anion Gap 11 BUN 11 Creatinine 0.44 L Estimated GFR Greater than 89 Random Glucose 105 Calcium 7.3 L* Calcium Adj for Albumin 8.6 Magnesium 1.4 L Albumin 2.4 L Assessment and Plan - Assessment (1) Pancreatic cancer Code(s): C25.9 - Malignant neoplasm of pancreas, unspecified Status: Chronic Plan: 57 year old female with locally advanced/metastatic pancreatic adenocarcinoma, presenting with malignant Gastric outlet obstruction -reviewed imaging and all notes, GOO 2/2 malignancy -agree with palliation -d/w patient, options to include hospice, g-tube, Gastrojejunostomy, etc. -patient wishes to undergo palliative gastrojejunostomy, d/w patient R/B/A, treatment goals -will proceed with surgery next 24-48h
[2018-01-31] MEDS ORDERED: Magnesium Sulfate Inj 4 GM in Sodium Chlor 0.9% Inj 92 ML IV.SIG ONE (21:30)
[2018-02-01] MEDS: Morphine Sulfate Inj 2 MG/ML Vial IV.PUSH PRN ×4 (04:10→21:26)
[2018-02-01] MEDS: Sodium Chloride 0.9% 2 ML Flush PRN IV.FLUSH (04:12)
[2018-02-01] MEDS ORDERED: Chlorhexidine Gluconate 2% 1 Pack (2 Cloths) TOPICAL ONE (05:15)
[2018-02-01] MEDS ORDERED: Sodium Chlor 0.9% Inj 500 ML IV.SIG SCH (06:00)
[2018-02-01 06:39] LABS: Anion Gap 11 meq/L (5-15); Blood Urea Nitrogen 12 mg/dL (7-18); Calcium 7.3 mg/dL (8.5-10.1); Carbon Dioxide 27.1 meq/L (21.0-32.0); Chloride 100 meq/L (98-107); Glomerular Filtration Rate Greater Than 89 mL/min (>89); Glucose,Random 91 mg/dL (74-106); Magnesium 2.4 mg/dL (1.5-2.5); Phosphorus 2.4 mg/dL (2.5-4.9); Potassium 3.3 meq/L (3.5-5.1); Sodium 138 meq/L (136-145)
[2018-02-01 06:48] LABS: Albumin 2.4 g/dL (3.4-5.0); Calcium-Albumin Corrected 8.6 mg/dL (8.5-10.1)
[2018-02-01] MEDS: Metoclopramide Liq 10 MG/10 ML UDC PO SCH ×4 (10:01→21:25)
--- NOTE | 2018-02-01 12:28 | P.PNIM ---
Physical Exam Vital signs: Last Vital Signs Temp 98.1 F 02/01/18 08:00 Pulse 84 02/01/18 08:00 Resp 20 02/01/18 08:00 BP 111/57 L 02/01/18 08:00 Pulse Ox 97 02/01/18 08:00 Intake & Output 01/30/18 01/31/18 02/01/18 02/02/18 06:59 06:59 06:59 06:59 Intake Total 1480 / 1480 3060 / 3060 2600 / 2600 1000 / 1000 Balance 1480 / 1480 3060 / 3060 2600 / 2600 1000 / 1000 Weight 45.6 kg 42.5 kg 43.9 kg Narrative: GENERAL: cachectic and malnourished woman, not in acute distress HEENT: not pale,anicteric. CARDIOVASCULAR: Regular rate and rhythm without murmurs, gallops, or rubs. RESPIRATORY: CTAB. GASTROINTESTINAL: Abdomen soft, non-tender, nondistended. + Bowel sounds. MUSCULOSKELETAL: No cyanosis, or edema. SKIN: Warm and dry. NEURO: No focal neurological deficits. Results Labs CBC & Chem 7: 01/27/18 05:32 02/01/18 05:30 Assessment and Plan Plan 57-year-old female admitted secondary to severe hypokalemia with weakness and hypotension and hyperemesis in the presence of pancreatic cancer Hypokalemia -was down to 3 today, likely related to poor intake. Given IV 40meq, will recheck. -continue IV fluids with Kcl and PO KCl supplementation -daily bmp Hyponatremia, improving -NA 138 today--monitor daily Hyperemesis, acute - resolved Nausea -still persists. -Zofran and Phenergan PRN -continue scheduled Reglan -GI following, appreciate assistance -s/p EGD 01/26 LA class C esophagitis, food and gastric secretions and stomach with 700 cc suctioned. 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 -General surgery consulted recommends G/J tube--this afternoon Elevated LFTs Hx pancreatic pseudocyst CT drained with biliary stent placement 08/18/17 - evaluated 01/30/18, stable -continue following clinically Pancreatic cancer - -Patient is status post port placement with no initiation of chemotherapy or surgical intervention. -Previously discussed discharge home with hospice and patient should be able to get supplementation of her choice however she declines. Noted oncology recs for palliative care and possibly psych consult. Patient also declines palliative care consult. Code: Full Discharge Planning: Refusing treatment for CA, hospice or palliative care. Now agreeble to G/J TUBE which is to be done in 24-48 hrs.plan to dc home once stable on tube feeds Progress Note: Quality VTE Deep Vein Thrombosis/Pulmonary Embolism Present on Admission: No
[2018-02-01] MEDS: Sodium Chloride 0.9% 2 ML Flush BID IV.FLUSH SCH ×2 (12:43→21:26)
--- NOTE | 2018-02-01 14:42 | P.DIET ---
Nutritional Evaluation Type of nutrition evaluation: follow-up Nutrition consult regarding: Diet Evaluation Nutrition screening: MDC (malnutrition) Subjective Subjective Comments: Pt is here for follow up visit for pancreatic CA. Objective - Diagnosis hypokalemia, nausea/vomiting/diarrhea - Objective % IBW: 78 (IBW = 135lb) Body Weight Used for Calculations: Actual (48kg) Energy Needs - Lower Range (kCal/kg): 35 Energy Needs - Upper Range (kCal/kg): 40 Lower Limit kCal/kg (kCals): 1,680 Upper Limit kCal/kg (kCals): 1,920 Lower Limit Protein Factor (Grams per Kg): 1.4 Upper Limit Protein Factor (Grams per Kg): 1.8 Lower Protein Needs (Protein): 67 Upper Protein Needs (Protein): 86 Dietitian Reviewed in Medical Record: Current diet, Curent medications, Intake & Output, Labs, Medical history Diet Order: NPO Objective Comments: PMH: GERD, hx of ileus, pancreatic CA Assessment Assessment: Plan is for g/j-tube placement today. Pt is very malnourished and presents with a BMI of 15.2. Recommend TFing of Vital 1.5 @ 50 mls/hr to provide 1800 kcals, 81 gms protein and 917 mls of free water. Labs, wts and clinical course reviewed. RD following. Recommendations: Vital 1.5 @ 50 mls/hr goal Dietitian to Monitor: Lab values, Intake & Output, Tube feeding tolerance, Weight change, PO Intake, Medical course
[2018-02-01] MEDS ORDERED: Bupivacaine/Epinephrine Inj 0.25% 50 ML Vial ONE (15:49)
[2018-02-01] MEDS ORDERED: fentaNYL Citrate Inj 100 MCG/2 ML Ampul ONE (17:09)
[2018-02-01] MEDS: Heparin - SQ 10,000 UNITS/ML Vial SQ SCH ×2 (18:36→21:25)
[2018-02-01] MEDS: Potassium Chloride 25 MEQ Effervescent Tablet PO SCH ×2 (18:37→21:25)
--- NOTE | 2018-02-01 20:34 | MP ---
cc: Hayder Zaragoza MD DATE OF OPERATION: 02/01/2018 PREOPERATIVE DIAGNOSIS: 1. Stage IV pancreatic adenocarcinoma. 2. Gastric outlet obstruction. POSTOPERATIVE DIAGNOSIS: 1. Stage IV pancreatic adenocarcinoma. 2. Gastric outlet obstruction. PROCEDURE PERFORMED: 1. Staging and diagnostic laparoscopy. 2. Laparoscopic gastrostomy tube. ATTENDING SURGEON: Hayder Zaragoza MD MANAGER TELECOM: Staff. ANESTHESIA: General and local anesthetic. ESTIMATED BLOOD LOSS: Less than 10 mL. COMPLICATIONS: None. FINDINGS: 1. 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 2. Large dilated stomach consistent with gastric outlet obstruction. INDICATIONS FOR PROCEDURE: The patient is a 57-year-old female who was recently diagnosed with a pancreatic head mass. The patient underwent exploration for possible resection and was found to have borderline resectable disease due to large vessel involvement. The patient was recommended to undergo chemotherapy and radiation; however, she failed to follow up with Medical and Radiation Oncology; underwent alternative therapies. Unfortunately, the patient developed increasing abdominal pain, distention and vomiting, and presented to [facility]. She was found to have a gastric outlet obstruction due to her large locally advanced cancer as well as radiologic evidence of metastatic disease. General Surgery and Surgical Oncology was asked to see the patient for assistance. After discussion with the patient about options including hospice and palliative care, as well as a gastrostomy tube as well as a palliative bypass, the patient requested palliative bypass and gastrostomy tube. I discussed risks, benefits, and alternatives, and I discussed the possibility the patient would not be a candidate for bypass due to technical issues with high volume cancer. PROCEDURE: The patient was taken to the operating room and placed in a supine position and placed under general endotracheal anesthesia. The patient's abdomen was prepped and draped in a sterile fashion. Timeout was performed. The patient's abdomen was entered with the Eh direct cutdown technique. An area was chosen in the epigastric area and dissection proved it to be very thick tissue, and this was concerning for possible underlying metastatic disease. Therefore, the epigastric approach was abandoned prior to entering the abdomen. We then did a second cutdown area in the left upper quadrant. This easily allowed us to enter the abdomen just lateral to the rectus sheath. We were greeted with some bilious ascites. This was suctioned clear with a pool sucker. I placed a 10 mm trocar into this site under direct visualization into the abdomen. We insufflated the abdomen and we surveyed the abdomen with a 5 mm 30-degree camera and there was no evidence of any complications from our entry. There was severe large volume carcinomatosis with matting of essentially all viscera in the abdomen. We were able to visualize 1 or 2 loops of small bowel, which were essentially adhesed down to the pancreas and the patient's tumor, and this was unable to be manipulated later, once another port was placed. The stomach was large and distended and was decompressed with the orogastric tube. We placed a 5 mm trocar under direct visualization of the laparoscope in the left subcostal area where we would potentially place a G-tube. Again, as mentioned earlier, we tried to manipulate the small bowel; however, this was essentially a frozen abdomen due to the large volume carcinomatosis. At this point in time, I felt the patient was not a candidate and it was not in her best interest to proceed with any attempt at a bypass or open surgery, as the patient was not only terminal but almost imminent. I felt that palliation was really the only intervention indicated in this patient's case, and did proceed towards performing a palliative gastrostomy tube. Using the 5 mm port, which was in good position for the gastrostomy tube, we did use a laparoscopic gastrostomy tube kit. Four T-bar sutures were placed percutaneously in place at the 4 corners of our planned gastrostomy. We used the needle, followed by the wire provided in the kit and used a Seldinger technique to dilate this tract. We placed a 16-Romanian gastrostomy tube into the stomach, as confirmed by gastric contents flowing through the gastrostomy tube. The balloon was inflated with 7 mL of sterile water. We tracked this upward to the abdominal wall and tied down our T-bar sutures. This effectively stammed our gastrostomy tube up against the abdominal wall and we placed this to gravity drainage. This was done without complication and had good technical result. At this point in time, we turned towards completion and removed the camera and the 10 mm port and expressed pneumoperitoneum. We closed the site with a [id number] 0 Vicryl suture. We closed all the skin incisions with 4-0 Monocryl and Dermabond. A dressing was placed over the gastrostomy tube and placed to gravity bag. The patient was discontinued from anesthesia and taken to the PACU in stable condition. The patient tolerated the procedure well and there were no apparent complications. All counts were correct. I was present and scrubbed for the entire procedure. MD SUN Catalan/bhavana , 06:27 PM , 06:39 PM MTDD
[2018-02-02] MEDS: Morphine Sulfate Inj 2 MG/ML Vial IV.PUSH PRN ×5 (01:08→12:47)
[2018-02-02] MEDS: Sodium Chloride 0.9% 2 ML Flush BID IV.FLUSH SCH ×2 (09:00→22:03)
[2018-02-02] MEDS: Potassium Chloride 25 MEQ Effervescent Tablet PO SCH ×2 (09:07→22:03)
[2018-02-02] MEDS: Metoclopramide Liq 10 MG/10 ML UDC PO SCH ×4 (09:07→22:10)
[2018-02-02] MEDS: Heparin - SQ 10,000 UNITS/ML Vial SQ SCH ×2 (09:11→20:25)
--- NOTE | 2018-02-02 14:39 | P.PNIM ---
Subjective Interval history: having pain around the feeding tube insertion site. Physical Exam Vital signs: Last Vital Signs Temp 98.2 F 02/02/18 12:00 Pulse 80 02/02/18 12:00 Resp 17 02/02/18 12:00 BP 126/66 02/02/18 12:00 Pulse Ox 100 02/02/18 12:00 Intake & Output 01/31/18 02/01/18 02/02/18 02/03/18 06:59 06:59 06:59 06:59 Intake Total 3060 / 3060 2600 / 2600 3100 / 3100 Output Total Balance 3060 / 3060 2600 / 2600 3090 / 3090 Weight 42.5 kg 43.9 kg 45.4 kg Narrative: GENERAL: cachectic and malnourished woman, not in acute distress HEENT: not pale,scleral icterus noted. CARDIOVASCULAR: Regular rate and rhythm without murmurs, gallops, or rubs. RESPIRATORY: CTAB. GASTROINTESTINAL: Abdomen soft, mild to moderate tenderness around tube, nondistended. + Bowel sounds. MUSCULOSKELETAL: No cyanosis, or edema. SKIN: Warm and dry. NEURO: No focal neurological deficits. Results Labs CBC & Chem 7: 01/27/18 05:32 02/03/18 06:01 Assessment and Plan Plan 57-year-old female admitted secondary to severe hypokalemia with weakness and hypotension and hyperemesis in the presence of pancreatic cancer Hypokalemia -was down to 3.3 today, likely related to poor intake. continue to replete as needed. -continue IV fluids with Kcl and PO KCl supplementation -daily bmp Hyponatremia, improving -NA 138 today--monitor daily Hyperemesis, acute - resolved Nausea -still persists. -Zofran and Phenergan PRN -continue scheduled Reglan -GI following, appreciate assistance -s/p EGD 01/26 LA class C esophagitis, food and gastric secretions and stomach with 700 cc suctioned. 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 -General surgery consulted recommends G/J tube--done on 02/01 afternoon. will start tube feeds as soon as cleared for use. Elevated LFTs Hx pancreatic pseudocyst CT drained with biliary stent placement 08/18/17 - evaluated 01/30/18, stable -continue following clinically Pancreatic cancer - -Patient is status post port placement with no initiation of chemotherapy or surgical intervention. -Previously discussed discharge home with hospice and patient should be able to get supplementation of her choice however she declines. Noted oncology recs for palliative care and possibly psych consult. Patient also declines palliative care consult. Code: Full Discharge Planning: Refusing treatment for CA, hospice or palliative care. Now agreeble to G/J TUBE which is to be done in 24-48 hrs.plan to dc home once stable on tube feeds Progress Note: Quality VTE Deep Vein Thrombosis/Pulmonary Embolism Present on Admission: No
[2018-02-02] MEDS: Morphine Inj 4 MG/ML Vial IV.PUSH PRN ×3 (16:15→22:02)
--- NOTE | 2018-02-02 16:26 | P.PNGS ---
Subjective Interval history: Alert and awake Pain not controlled well Physical Exam Vital signs: Vital Signs 02/01/18 18:09 02/01/18 18:15 02/01/18 18:30 Temperature 97.6 F Pulse Rate 110 H 99 H 91 H Respiratory Rate 18 18 18 Blood Pressure 98/54 L 105/57 L 101/55 L Pulse Oximetry 100 02/01/18 18:45 02/01/18 19:00 02/01/18 20:00 Temperature 97.6 F 97.3 F L Pulse Rate 80 75 81 Respiratory Rate 18 18 18 Blood Pressure 101/55 L 110/60 120/68 Pulse Oximetry 97 02/02/18 00:00 02/02/18 04:00 02/02/18 08:00 Temperature 97.9 F 98.4 F 97.9 F Pulse Rate 82 80 82 Respiratory Rate 16 16 16 Blood Pressure 116/69 117/65 129/62 Pulse Oximetry 99 99 100 02/02/18 12:00 Temperature 98.2 F Pulse Rate 81 Respiratory Rate 17 Blood Pressure 126/66 Pulse Oximetry 100 Intake & Output 02/01/18 02/02/18 02/02/18 18:59 06:59 18:59 Intake Total 1999 / 1999 1100 / 1100 1000 / 1000 Output Total Balance 1989 1100 / 1100 1000 / 1000 Weight 45.4 kg Intake: IV 1000 / 1000 1000 / 1000 1000 / 1000 NS + KCl 20 mEq Inj 1,000 ML @ 1000 / 1000 1000 / 1000 1000 / 1000 100 mls/hr IV.CONT .Q10H [facility] Rx #:[id number] Oral 100 / 100 Anesthesia Amount 1000 / 1000 Output: Estimated Blood Loss Other: # Voids 1 Date of Last Bowel Movement 01/29/18 01/30/18 Narrative: Alert and awake Abd: soft; flat G tube to gravity bag Results - Labs 02/15/18 06:49 02/15/18 06:49 Assessment and Plan - Assessment (1) Pancreatic cancer Code(s): C25.9 - Malignant neoplasm of pancreas, unspecified Status: Chronic Plan: 57 year old female with locally advanced/metastatic pancreatic adenocarcinoma, presenting with malignant Gastric outlet obstruction -POD1 dx laparoscopic staging procedure; lap G tube placement -Continue G tube to drainage bag -Continue clear liquids -Adjusted pain medications -Discussed with patient about comfort care---she does not wish to have Hospice at this time -Will consult Radiation Oncology to discuss possible radiation to the area - Attending Attestation The exam, history, and the medical decision-making described in the above note were completed with the assistance of the mid-level provider. I reviewed and agree with the findings presented. I attest that I had a [id number] encounter with the patient on the same day, and personally performed and documented my assessment and findings in the medical record. no acute events overnight POD#1 vitals stable abdominal exam stable G-tube to gravity continue IVF, pain meds, supportive care will ask IR to place G-J
[2018-02-03] MEDS: Morphine Inj 4 MG/ML Vial IV.PUSH PRN ×7 (01:10→23:22)
[2018-02-03] MEDS: Metoclopramide Liq 10 MG/10 ML UDC PO SCH ×4 (07:33→20:26)
[2018-02-03 07:34] LABS: Albumin 2.1 g/dL (3.4-5.0); Anion Gap 9 meq/L (5-15); Aspartate Aminotransferase 67 U/L (15-37); Blood Urea Nitrogen 15 mg/dL (7-18); Calcium 8.1 mg/dL (8.5-10.1); Carbon Dioxide 27.3 meq/L (21.0-32.0); Chloride 102 meq/L (98-107); Glomerular Filtration Rate Greater Than 89 mL/min (>89); Glucose,Random 66 mg/dL (74-106); Potassium 3.9 meq/L (3.5-5.1); Sodium 138 meq/L (136-145)
[2018-02-03 07:36] LABS: Alanine Aminotransferase 86 U/L (10-53)
[2018-02-03 07:37] LABS: Alkaline Phosphatase 710 U/L (45-117); Total Protein 4.8 g/dL (6.4-8.2)
[2018-02-03] MEDS: Potassium Chloride 25 MEQ Effervescent Tablet PO SCH ×2 (08:11→20:24)
[2018-02-03] MEDS: Heparin - SQ 10,000 UNITS/ML Vial SQ SCH ×2 (08:11→20:23)
[2018-02-03] MEDS: Sodium Chloride 0.9% 2 ML Flush BID IV.FLUSH SCH ×2 (08:14→20:24)
[2018-02-03] MEDS ORDERED: fentaNYL Citrate Inj 250 MCG/5 ML Ampul ONE (14:04)
[2018-02-03] MEDS ORDERED: Lidocaine PF 1% Inj 30 ML Vial ONE (14:23)
[2018-02-03] MEDS ORDERED: Iohexol 350 MG/ML 50 ML Vial (for Rad Diag) G-TUBE ONE (14:47)
--- NOTE | 2018-02-03 15:22 | IR ---
EXAM DATE: 02/03/2018 2:59 PM EST AGE/SEX: 57 years / Female INDICATIONS: Patient with a history of pancreatic cancer. CLINICAL DATA: This is the patient's initial encounter. Patient reports that signs and symptoms have been present for 2 weeks and indicates a pain score of 3/10. MEDICAL/SURGICAL HISTORY: Gastroesophageal reflux disease. Gastric polyps Scabies Ileus Pancrea tic cancer Cholecystectomy. EGD ERCP COMPARISON: No prior exams available for comparison. FLUORO TIME (min): 4.52 IMAGE SERIES: 2 SEDATION TIME (min): 30 CONTRAST (cc): 20cc Omnipaque (iohexol) 350 MEDICATION(S): 3mg midazolam (Versed) IV 150mcg fentanyl (Sublimaze) IV DEVICE(S): 22 Hungarian Transgastric tube . . PROCEDURE: 1. Fluoroscopically guided gastrostomy to gastrojejunostomy conversion 2. Conscious sedation with continuous EKG and oximetry monitoring. TECHNIQUE: Under sterile conditions and using aseptic technique a guidewire was passed through the previous shantel rostomy tube and the wire was manipulated into the small bowel. The prescribed gastrojejunostomy tube was placed over the guidewire. The balloon was inflated with appropriate volume of saline. Injection of positive contrast demonstrates good position of the gastric and jejunal sections of the tube. Conscious sedation was performed with the prescribed dosages and duration as above in the presence of an independent trained radiology nurse to assist in the monitoring of the patient. EKG and oximetry remained stable throughout the procedure. CONCLUSION: 1. Uncomplicated gastrojejunostomy tube placement Electronically signed by: Brendan Hughes MD 02/03/2018 3:21 PM EST
--- NOTE | 2018-02-03 15:48 | P.PNGS ---
Subjective Interval history: Seen this morning Was seen yesterday by Dr. Delacruz-- going to [facility] for radiation marker placement today Physical Exam Vital signs: Vital Signs 02/02/18 16:00 02/02/18 20:00 02/03/18 00:00 Temperature 97.6 F 97.6 F 97.4 F L Pulse Rate 87 81 87 Respiratory Rate 17 17 17 Blood Pressure 117/76 115/71 105/68 Pulse Oximetry 100 100 100 02/03/18 04:00 02/03/18 08:00 02/03/18 12:00 Temperature 97.8 F 97.8 F 97.9 F Pulse Rate 68 79 72 Respiratory Rate 17 18 18 Blood Pressure 100/61 106/65 108/72 Pulse Oximetry 100 100 100 02/03/18 15:01 02/03/18 15:15 02/03/18 15:29 Temperature 98.2 F Pulse Rate 96 H 88 86 Respiratory Rate 22 18 20 Blood Pressure 143/89 H 125/79 123/75 Pulse Oximetry 97 96 95 02/03/18 15:40 Temperature Pulse Rate 88 Respiratory Rate 18 Blood Pressure 142/88 H Pulse Oximetry 96 Intake & Output 02/02/18 02/03/18 02/03/18 18:59 06:59 18:59 Intake Total 1000 / 1000 2019 1000 / 1000 Output Total 2650 / 2650 325 / 325 Balance -1650 / -1650 1695 / 1695 1000 / 1000 Weight 45.9 kg Intake: IV 1000 / 1000 1300 / 1300 1000 / 1000 NS + KCl 20 mEq Inj 1,000 ML @ 1000 / 1000 300 / 300 1000 / 1000 100 mls/hr IV.CONT .Q10H [facility] Rx #:[id number] Oral 720 / 720 Output: Urine 750 / 750 325 / 325 Urine/Stool Mix 1900 / 1900 Other: # Voids 2 Narrative: Alert and awake; thin Abd: soft; non distended; tenderness mild; G tube to gravity bag Results - Labs 02/15/18 06:49 02/15/18 06:49 Laboratory Results - last 24 hr 02/03/18 06:01 Sodium 138 Potassium 3.9 Chloride 102 Carbon Dioxide 27.3 Anion Gap 9 BUN 15 Creatinine 0.44 L Estimated GFR Greater than 89 Random Glucose 66 L Calcium 8.1 L Total Bilirubin 8.2 H AST 67 H ALT 86 H Alkaline Phosphatase 710 H Total Protein 4.8 L Albumin 2.1 L - Imaging Imaging: ITS Impressions Gastrostomy Tube Change 02/03/18 00:00 CONCLUSION: 1. Uncomplicated gastrojejunostomy tube placement Assessment and Plan - Assessment (1) Pancreatic cancer Code(s): C25.9 - Malignant neoplasm of pancreas, unspecified Status: Chronic Plan: 57 year old female with locally advanced/metastatic pancreatic adenocarcinoma, presenting with malignant Gastric outlet obstruction -POD2 dx laparoscopic staging procedure; lap G tube placement -Continue G tube to drainage bag -Continue clear liquids -Continue pain medications -Patient going to [facility] today for radiation marker placement ---Discussed with Dr. Delacruz -Discussed with patient about comfort care---she does not wish to have Hospice at this time - Attending Attestation The exam, history, and the medical decision-making described in the above note were completed with the assistance of the mid-level provider. I reviewed and agree with the findings presented. I attest that I had a [id number] encounter with the patient on the same day, and personally performed and documented my assessment and findings in the medical record. no acute events overnight, pain controlled abdominal exam stable start TF, continue supportive care d/w patient and family hospice care, radiations options
--- NOTE | 2018-02-03 18:41 | P.PNIM ---
Subjective Interval history: no new complaints. now on tube feeds. went for mapping yesterday. Physical Exam Vital signs: Last Vital Signs Temp 97.8 F 02/03/18 16:00 Pulse 93 H 02/03/18 16:00 Resp 18 02/03/18 16:00 BP 112/80 02/03/18 16:00 Pulse Ox 100 02/03/18 16:00 Intake & Output 02/01/18 02/02/18 02/03/18 02/04/18 06:59 06:59 06:59 06:59 Intake Total 2600 / 2600 3100 / 3100 3020 / 3020 1000 / 1000 Output Total 2975 / 2975 300 / 300 Balance 2600 / 2600 3090 / 3090 45 / 45 700 / 700 Weight 43.9 kg 45.4 kg 45.9 kg Narrative: GENERAL: cachectic and malnourished woman, not in acute distress HEENT: not pale,scleral icterus noted. CARDIOVASCULAR: Regular rate and rhythm without murmurs, gallops, or rubs. RESPIRATORY: CTAB. GASTROINTESTINAL: Abdomen nondistended,soft, non tender, GJ tube present. + Bowel sounds. MUSCULOSKELETAL: No cyanosis, or edema. SKIN: Warm and dry. NEURO: No focal neurological deficits. Results Labs CBC & Chem 7: 01/27/18 05:32 02/03/18 06:01 Imaging Imaging: Impressions Gastrostomy Tube Change 02/03/18 00:00 CONCLUSION: 1. Uncomplicated gastrojejunostomy tube placement Assessment and Plan (1) Pancreatic cancer: Code(s): C25.9 - Malignant neoplasm of pancreas, unspecified Status: Chronic Plan 57-year-old female admitted secondary to severe hypokalemia with weakness and hypotension and hyperemesis in the presence of pancreatic cancer Hypokalemia-resolved.replete as needed. -daily bmp Hyponatremia-resolved. Hyperemesis, acute - resolved Nausea -still persists. -Zofran and Phenergan PRN -continue scheduled Reglan -GI following, appreciate assistance -s/p EGD 01/26 LA class C esophagitis, food and gastric secretions and stomach with 700 cc suctioned. 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 -General surgery consulted recommends G/J tube--done on 02/01 afternoon, now on tube feeds. Elevated LFTs Hx pancreatic pseudocyst CT drained with biliary stent placement 08/18/17 - evaluated 01/30/18, stable -continue following clinically Pancreatic cancer - -Patient is status post port placement with no initiation of chemotherapy or surgical intervention. -Previously discussed discharge home with hospice and patient should be able to get supplementation of her choice however she declines. Noted oncology recs for palliative care and possibly psych consult. Patient also declines palliative care consult. Code: Full Discharge Planning: Refusing treatment for CA, hospice or palliative care. Progress Note: Quality VTE Deep Vein Thrombosis/Pulmonary Embolism Present on Admission: No _ (1) Pancreatic cancer Qualifiers: Pancreatic malignancy location:
[2018-02-04] MEDS: Morphine Inj 4 MG/ML Vial IV.PUSH PRN ×7 (04:15→23:27)
[2018-02-04] MEDS: Potassium Chloride 25 MEQ Effervescent Tablet PO SCH ×2 (08:16→20:14)
[2018-02-04] MEDS: Metoclopramide Liq 10 MG/10 ML UDC PO SCH ×4 (08:16→20:14)
[2018-02-04] MEDS: Heparin - SQ 10,000 UNITS/ML Vial SQ SCH ×2 (08:16→20:15)
[2018-02-04] MEDS: Sodium Chloride 0.9% 2 ML Flush BID IV.FLUSH SCH ×2 (08:17→20:16)
[2018-02-05] MEDS: Morphine Inj 4 MG/ML Vial IV.PUSH PRN ×7 (02:43→21:10)
[2018-02-05 07:32] LABS: Alanine Aminotransferase 100 U/L (10-53); Albumin 1.9 g/dL (3.4-5.0); Alkaline Phosphatase 868 U/L (45-117); Anion Gap 7 meq/L (5-15); Aspartate Aminotransferase 113 U/L (15-37); Blood Urea Nitrogen 12 mg/dL (7-18); Calcium 7.3 mg/dL (8.5-10.1); Carbon Dioxide 33.4 meq/L (21.0-32.0); Chloride 104 meq/L (98-107); Glomerular Filtration Rate Greater Than 89 mL/min (>89); Glucose,Random 132 mg/dL (74-106); Potassium 3.4 meq/L (3.5-5.1); Sodium 144 meq/L (136-145); Total Protein 4.9 g/dL (6.4-8.2)
[2018-02-05] MEDS: Heparin - SQ 10,000 UNITS/ML Vial SQ SCH ×2 (08:56→21:11)
[2018-02-05] MEDS: Potassium Chloride 25 MEQ Effervescent Tablet PO SCH ×2 (08:56→21:09)
[2018-02-05] MEDS: Metoclopramide Liq 10 MG/10 ML UDC PO SCH ×4 (09:01→21:09)
[2018-02-05] MEDS: Sodium Chloride 0.9% 2 ML Flush BID IV.FLUSH SCH ×2 (09:02→21:11)
--- NOTE | 2018-02-05 12:32 | P.PNIM ---
Physical Exam Vital signs: Last Vital Signs Temp 97.2 F L 02/05/18 08:00 Pulse 115 H 02/05/18 08:00 Resp 16 02/05/18 08:00 BP 113/83 02/05/18 08:00 Pulse Ox 96 02/05/18 08:00 Intake & Output 02/03/18 02/04/18 02/05/18 02/06/18 06:59 06:59 06:59 06:59 Intake Total 3020 / 3020 1540 / 1540 1657 / 1657 363 / 363 Output Total 2975 / 2975 1025 / 1025 4775 / 4775 Balance 45 / 45 515 / 515 -3118 / -3118 363 / 363 Weight 45.9 kg 42.3 kg 42.3 kg Narrative: GENERAL: cachectic and malnourished woman, not in acute distress HEENT: not pale,scleral icterus noted. CARDIOVASCULAR: Regular rate and rhythm without murmurs, gallops, or rubs. RESPIRATORY: CTAB. GASTROINTESTINAL: Abdomen nondistended,soft, non tender, GJ tube present. + Bowel sounds. MUSCULOSKELETAL: No cyanosis, or edema. SKIN: Warm and dry. NEURO: No focal neurological deficits. Results Labs CBC & Chem 7: 01/27/18 05:32 02/05/18 06:22 Assessment and Plan (1) Pancreatic cancer: Code(s): C25.9 - Malignant neoplasm of pancreas, unspecified Status: Chronic Plan 57-year-old female admitted secondary to severe hypokalemia with weakness and hypotension and hyperemesis in the presence of pancreatic cancer Hypokalemia-resolved.replete as needed. -daily bmp Hyponatremia-resolved. Hyperemesis, acute - resolved Nausea -still persists. -Zofran and Phenergan PRN -continue scheduled Reglan -GI following, appreciate assistance -s/p EGD 01/26 LA class C esophagitis, food and gastric secretions and stomach with 700 cc suctioned. 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 -General surgery consulted recommends G/J tube--done on 02/01 afternoon, now on tube feeds. Also on clear liquids. Elevated LFTs Hx pancreatic pseudocyst CT drained with biliary stent placement 08/18/17 - evaluated 01/30/18, stable -continue following clinically Pancreatic cancer - -Patient is status post port placement with no initiation of chemotherapy or surgical intervention. -Previously discussed discharge home with hospice and patient should be able to get supplementation of her choice however she declines. Noted oncology recs for palliative care and possibly psych consult. Patient also declined palliative care consult. Starting on Radiotherapy on 02/06 Code: Full Discharge Planning: Refusing treatment for CA, hospice or palliative care. Progress Note: Quality VTE Deep Vein Thrombosis/Pulmonary Embolism Present on Admission: No _ (1) Pancreatic cancer Qualifiers: Pancreatic malignancy location:
--- NOTE | 2018-02-05 16:23 | P.PNGS ---
Subjective Patient reports: feels better Physical Exam Vital signs: Vital Signs 02/04/18 20:00 02/05/18 00:00 02/05/18 04:00 Temperature 97.8 F 97.4 F L 97.4 F L Pulse Rate 96 H 95 H 95 H Respiratory Rate 18 18 18 Blood Pressure 115/75 101/62 95/65 L Pulse Oximetry 97 94 L 94 L 02/05/18 08:00 02/05/18 12:00 Temperature 97.2 F L 97.3 F L Pulse Rate 115 H 93 H Respiratory Rate 16 18 Blood Pressure 113/83 113/80 Pulse Oximetry 96 95 Intake & Output 02/04/18 02/05/18 02/05/18 18:59 06:59 18:59 Intake Total 300 / 300 1357 / 1357 363 / 363 Output Total 1650 / 1650 3125 / 3125 Balance -1350 / -1350 -1768 / -1768 363 / 363 Weight 42.3 kg Intake: IV 300 / 300 937 / 937 363 / 363 NS + KCl 20 mEq Inj 1,000 ML @ 300 / 300 937 / 937 363 / 363 100 mls/hr IV.CONT .Q10H [facility] Rx #:[id number] Oral 420 / 420 Output: Urine 1000 / 1000 Gastric Drainage 1650 / 1650 2125 / 2125 Left Upper Quadrant 1650 / 1650 2125 / 2125 - Constitutional no acute distress, chronically ill appearing - Routine Abdominal Exam Present: soft, normoactive bowel sounds. Absent: tenderness, distended, rebound , guarding Results - Labs 01/27/18 05:32 02/05/18 06:22 Laboratory Results - last 24 hr 02/05/18 06:22 Sodium 144 Potassium 3.4 L Chloride 104 Carbon Dioxide 33.4 H Anion Gap 7 BUN 12 Creatinine 0.50 Estimated GFR Greater than 89 Random Glucose 132 H Calcium 7.3 L* Calcium Adj for Albumin 9.0 Total Bilirubin 9.9 H AST 113 H ALT 100 H Alkaline Phosphatase 868 H Total Protein 4.9 L Albumin 1.9 L - Imaging Imaging: ITS Impressions Gastrostomy Tube Change 02/03/18 00:00 CONCLUSION: 1. Uncomplicated gastrojejunostomy tube placement Assessment and Plan - Assessment (1) Pancreatic cancer Code(s): C25.9 - Malignant neoplasm of pancreas, unspecified Status: Chronic Plan: 57 year old female with locally advanced/metastatic pancreatic adenocarcinoma, presenting with malignant Gastric outlet obstruction -POD4 dx laparoscopic staging procedure; lap G tube placement -Continue G tube to drainage bag and J-tube feeds, increase feeds slowly -Continue clear liquids -Continue pain medications - Dr. Delacruz treating with XRT
[2018-02-06] MEDS: Morphine Inj 4 MG/ML Vial IV.PUSH PRN ×8 (00:10→21:26)
[2018-02-06] MEDS: Sodium Chloride 0.9% 2 ML Flush BID IV.FLUSH SCH ×2 (08:19→21:28)
[2018-02-06] MEDS: Potassium Chloride 25 MEQ Effervescent Tablet PO SCH ×2 (08:19→21:26)
[2018-02-06] MEDS: Heparin - SQ 10,000 UNITS/ML Vial SQ SCH ×2 (08:19→21:25)
[2018-02-06] MEDS: Metoclopramide Liq 10 MG/10 ML UDC PO SCH ×4 (08:19→21:28)
--- NOTE | 2018-02-06 13:45 | P.PNIM ---
Subjective Interval history: no complaints. has some abdominal pain. Physical Exam Vital signs: Last Vital Signs Temp 98.1 F 02/06/18 12:00 Pulse 88 02/06/18 12:00 Resp 16 02/06/18 12:00 BP 102/71 02/06/18 12:00 Pulse Ox 98 02/06/18 12:00 Intake & Output 02/04/18 02/05/18 02/06/18 02/07/18 06:59 06:59 06:59 06:59 Intake Total 1540 / 1540 1657 / 1657 2843 / 2843 Output Total 1025 / 1025 4775 / 4775 4051 / 4051 Balance 515 / 515 -3118 / -3118 -1208 / -1208 Weight 42.3 kg 42.3 kg 42.6 kg Narrative: GENERAL: cachectic and malnourished woman, not in acute distress HEENT: not pale,scleral icterus noted. CARDIOVASCULAR: Regular rate and rhythm without murmurs, gallops, or rubs. RESPIRATORY: CTAB. GASTROINTESTINAL: Abdomen nondistended,soft, non tender, GJ tube present. + Bowel sounds. MUSCULOSKELETAL: No cyanosis, or edema. SKIN: Warm and dry. NEURO: No focal neurological deficits. Results Labs CBC & Chem 7: 01/27/18 05:32 02/05/18 06:22 Assessment and Plan (1) Pancreatic cancer: Code(s): C25.9 - Malignant neoplasm of pancreas, unspecified Status: Chronic Plan 57-year-old female admitted secondary to severe hypokalemia with weakness and hypotension and hyperemesis in the presence of pancreatic cancer. She declined hospice care. General surgery consulted,patient had laparoscopic staging procedure and G/J tube which was done on tube feeds have been started. Radio oncology did mapping on and patient is to have first session of radiotherapy today(02/06). Hypokalemia-likely due to poor intake;replete as needed. -daily bmp Hyponatremia-resolved. Hyperemesis, acute - resolved Nausea -still persists. -Zofran and Phenergan PRN -continue scheduled Reglan -GI following, appreciate assistance -s/p EGD 01/26 LA class C esophagitis, food and gastric secretions and stomach with 700 cc suctioned. 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 -General surgery consulted recommends G/J tube--done on 02/01 afternoon, now on tube feeds. Also on clear liquids. Elevated LFTs Hx pancreatic pseudocyst CT drained with biliary stent placement 08/18/17 - evaluated 01/30/18, stable -continue following clinically Pancreatic cancer - -Patient is status post port placement with no initiation of chemotherapy or surgical intervention. -Previously discussed discharge home with hospice and patient should be able to get supplementation of her choice however she declines. Noted oncology recs for palliative care and possibly psych consult. Patient also declined palliative care consult. Starting on Radiotherapy on 02/06 Code: Full Progress Note: Quality VTE Deep Vein Thrombosis/Pulmonary Embolism Present on Admission: No _ (1) Pancreatic cancer Qualifiers: Pancreatic malignancy location:
[2018-02-07] MEDS: Morphine Inj 4 MG/ML Vial IV.PUSH PRN ×8 (00:07→21:05)
[2018-02-07 08:39] LABS: Baso % (Auto) 0.7 % (0.0-2.0); Eos % (Auto) 0.6 % (0.0-4.0); Hemoglobin 7.8 gm/dL (11.6-15.3); Lymph # (Auto) 0.9 th/mm3 (1.0-4.8); Lymph % (Auto) 20.6 % (9.0-44.0); Mean Corpuscular HGB Conc 35.5 % (32.0-36.0); Mean Corpuscular Hemoglobin 32.6 pg (27.0-34.0); Mean Corpuscular Volume 91.7 fL (80.0-100.0); Mean Platelet Volume 7.9 fL (7.0-11.0); Mono # (Auto) 0.2 th/mm3 (0.0-0.9); Mono % (Auto) 4.4 % (0.0-8.0); Neut # (Auto) 3.3 th/mm3 (1.8-7.7); Neut % (Auto) 73.7 % (16.0-70.0); Platelet Count 257 th/mm3 (150-450); Red Cell Distribution Width 14.4 % (11.6-17.2); White Blood Count 4.4 th/mm3 (4.0-11.0)
[2018-02-07] MEDS: Metoclopramide Liq 10 MG/10 ML UDC PO SCH ×4 (09:03→20:44)
[2018-02-07] MEDS: Potassium Chloride 25 MEQ Effervescent Tablet PO SCH ×2 (09:04→20:36)
[2018-02-07] MEDS: Heparin - SQ 10,000 UNITS/ML Vial SQ SCH ×2 (09:05→20:37)
[2018-02-07] MEDS: Sodium Chloride 0.9% 2 ML Flush BID IV.FLUSH SCH ×2 (09:08→20:37)
[2018-02-07 09:17] LABS: Alanine Aminotransferase 133 U/L (10-53); Albumin 2.3 g/dL (3.4-5.0); Alkaline Phosphatase 931 U/L (45-117); Anion Gap 6 meq/L (5-15); Aspartate Aminotransferase 118 U/L (15-37); Blood Urea Nitrogen 15 mg/dL (7-18); Calcium 8.2 mg/dL (8.5-10.1); Carbon Dioxide 32.1 meq/L (21.0-32.0); Chloride 108 meq/L (98-107); Glomerular Filtration Rate Greater Than 89 mL/min (>89); Glucose,Random 113 mg/dL (74-106); Potassium 3.3 meq/L (3.5-5.1); Sodium 146 meq/L (136-145); Total Protein 5.7 g/dL (6.4-8.2)
--- NOTE | 2018-02-07 13:07 | P.PNIM ---
Subjective Interval history: Patient is sitting upright in bed. Currently she does not have any acute complaints. Physical Exam Vital signs: Vital Signs 02/06/18 17:40 02/06/18 20:00 02/07/18 00:00 Temperature 97.3 F L 98.2 F Pulse Rate 104 H 88 87 Respiratory Rate 16 20 20 Blood Pressure 118/87 105/69 106/67 Pulse Oximetry 96 96 96 02/07/18 04:00 02/07/18 08:00 02/07/18 12:00 Temperature 97.9 F 97.4 F L Pulse Rate 84 84 94 H Respiratory Rate 20 16 16 Blood Pressure 112/74 107/74 109/74 Pulse Oximetry 100 97 99 Intake & Output 02/06/18 02/07/18 02/07/18 18:59 06:59 18:59 Intake Total 1000 / 1000 1240 / 1240 Output Total 2400 / 2400 3900 / 3900 Balance -1400 / -1400 -2660 / -2660 Weight 100.8 kg Intake: IV 1000 / 1000 1000 / 1000 NS + KCl 20 mEq Inj 1,000 ML @ 1000 / 1000 1000 / 1000 100 mls/hr IV.CONT .Q10H [facility] Rx #:[id number] Tube Feeding 240 / 240 Output: Urine 3300 / 3300 Urine/Stool Mix 2400 / 2400 Gastric Drainage 600 / 600 Left Upper Quadrant 600 / 600 Other: Date of Last Bowel Movement 02/04/18 Narrative: General patient in no acute distress currently. Patient is jaundiced. HEENT extraocular movements are intact, clear oropharyngeal mucosa, no JVD Cardiovascular S1-S2 audible, RRR, no murmurs rubs or gallops Respiratory clear to auscultation bilaterally Abdomen soft, nontender, nondistended, normal bowel sounds Extremities muscle wasting noted in all 4 extremities. Neuro cranial nerves II through XII intact Results - Labs CBC & Chem 7: 02/07/18 07:23 02/07/18 07:23 Laboratory Results - last 24 hr 02/07/18 02/07/18 07:23 07:23 WBC 4.4 RBC 2.40 L Hgb 7.8 L Hct 22.0 L MCV 91.7 MCH 32.6 MCHC 35.5 RDW 14.4 Plt Count 257 MPV 7.9 Neut % (Auto) 73.7 H Lymph % (Auto) 20.6 [place] % (Auto) 4.4 Eos % (Auto) 0.6 Baso % (Auto) 0.7 Neut # (Auto) 3.3 Lymph # (Auto) 0.9 L [place] # (Auto) 0.2 Eos # (Auto) 0.0 Baso # (Auto) 0.0 WBC Differential . Differential Comment Auto diff final Sodium 146 H Potassium 3.3 L Chloride 108 H Carbon Dioxide 32.1 H Anion Gap 6 BUN 15 Creatinine 0.54 Estimated GFR Greater than 89 Random Glucose 113 H Calcium 8.2 L Total Bilirubin 12.6 H AST 118 H ALT 133 H Alkaline Phosphatase 931 H Total Protein 5.7 L D Albumin 2.3 L Assessment and Plan - Assessment (1) Pancreatic cancer Code(s): C25.9 - Malignant neoplasm of pancreas, unspecified Status: Chronic - Plan This patient is a 57-year-old female with a diagnosis of pancreatic cancer with malignant gastric outlet obstruction. Patient initially presented with generalized weakness, hypokalemia, nausea, and vomiting. The patient declined hospice care, general surgery was consulted and the patient underwent laparoscopic G-tube placement which was done on 02/01/2018. Radiation oncology did mapping on the patient and received her first treatment of chemotherapy yesterday 02/06/2018. 1. Hypokalemia Electrolytes replaced today. 2. Pancreatic cancer with metastasis and gastric outlet obstruction Patient was evaluated by Dr. Harvey from oncology and her diagnosis of metastatic pancreatic cancer was discussed with the patient. Patient refuses hospice care. She is status post G-tube placement. Postop day 5 today. We will continue to increase feeds until goal is reached. We will follow-up with general surgery's recommendations. Patient declined palliative care consult. Radiotherapy started 02/06/2018, another session scheduled for today. 3. Nausea Improved. Discussed with case management today as well as radiation oncology as far as they are planning for radiotherapy and continued inpatient care.
--- NOTE | 2018-02-07 14:23 | P.PNGS ---
Subjective Interval history: Going for XRT shortly Pain better Physical Exam Vital signs: Vital Signs 02/06/18 17:40 02/06/18 20:00 02/07/18 00:00 Temperature 97.3 F L 98.2 F Pulse Rate 104 H 88 87 Respiratory Rate 16 20 20 Blood Pressure 118/87 105/69 106/67 Pulse Oximetry 96 96 96 02/07/18 04:00 02/07/18 08:00 02/07/18 12:00 Temperature 97.9 F 97.4 F L Pulse Rate 84 84 94 H Respiratory Rate 20 16 16 Blood Pressure 112/74 107/74 109/74 Pulse Oximetry 100 97 99 Intake & Output 02/06/18 02/07/18 02/07/18 18:59 06:59 18:59 Intake Total 1000 / 1000 1240 / 1240 1000 / 1000 Output Total 2400 / 2400 3900 / 3900 Balance -1400 / -1400 -2660 / -2660 1000 / 1000 Weight 100.8 kg Intake: IV 1000 / 1000 1000 / 1000 1000 / 1000 NS + KCl 20 mEq Inj 1,000 ML @ 1000 / 1000 1000 / 1000 1000 / 1000 100 mls/hr IV.CONT .Q10H [facility] Rx #:[id number] Tube Feeding 240 / 240 Output: Urine 3300 / 3300 Urine/Stool Mix 2400 / 2400 Gastric Drainage 600 / 600 Left Upper Quadrant 600 / 600 Other: Date of Last Bowel Movement 02/04/18 Narrative: Alert and awake Abd: soft; non tender; G/J tube in place Results - Labs 02/07/18 07:23 02/07/18 07:23 Laboratory Results - last 24 hr 02/07/18 02/07/18 07:23 07:23 WBC 4.4 RBC 2.40 L Hgb 7.8 L Hct 22.0 L MCV 91.7 MCH 32.6 MCHC 35.5 RDW 14.4 Plt Count 257 MPV 7.9 Neut % (Auto) 73.7 H Lymph % (Auto) 20.6 [place] % (Auto) 4.4 Eos % (Auto) 0.6 Baso % (Auto) 0.7 Neut # (Auto) 3.3 Lymph # (Auto) 0.9 L [place] # (Auto) 0.2 Eos # (Auto) 0.0 Baso # (Auto) 0.0 WBC Differential . Differential Comment Auto diff final Sodium 146 H Potassium 3.3 L Chloride 108 H Carbon Dioxide 32.1 H Anion Gap 6 BUN 15 Creatinine 0.54 Estimated GFR Greater than 89 Random Glucose 113 H Calcium 8.2 L Total Bilirubin 12.6 H AST 118 H ALT 133 H Alkaline Phosphatase 931 H Total Protein 5.7 L D Albumin 2.3 L - Imaging Imaging: ITS Impressions Gastrostomy Tube Change 02/03/18 00:00 CONCLUSION: 1. Uncomplicated gastrojejunostomy tube placement Assessment and Plan - Assessment (1) Pancreatic cancer Code(s): C25.9 - Malignant neoplasm of pancreas, unspecified Status: Chronic Plan: 57 year old female with locally advanced/metastatic pancreatic adenocarcinoma, presenting with malignant Gastric outlet obstruction -s/p dx laparoscopic staging procedure; lap G tube placement -Continue G tube to drainage bag and J-tube feeds, increase feeds slowly--- increased to 30 cc/hr -Continue clear liquids -Continue pain medications -Dr. Delacruz treating with XRT -Updated Winifred (daughter) on the phone
[2018-02-07] MEDS: Sodium Chloride 0.9% 2 ML Flush PRN IV.FLUSH (22:04)
[2018-02-08] MEDS: Morphine Inj 4 MG/ML Vial IV.PUSH PRN ×8 (00:08→23:45)
[2018-02-08] MEDS: Sodium Chloride 0.9% 2 ML Flush PRN IV.FLUSH ×4 (00:09→23:46)
[2018-02-08] MEDS: Metoclopramide Liq 10 MG/10 ML UDC PO SCH ×4 (09:00→20:46)
[2018-02-08] MEDS: Heparin - SQ 10,000 UNITS/ML Vial SQ SCH ×2 (09:00→20:44)
[2018-02-08] MEDS: Potassium Chloride 25 MEQ Effervescent Tablet PO SCH ×2 (09:00→20:45)
[2018-02-08] MEDS: Sodium Chloride 0.9% 2 ML Flush BID IV.FLUSH SCH ×2 (09:01→20:45)
--- NOTE | 2018-02-08 11:02 | P.PNIM ---
Subjective Interval history: Patient is in no acute distress this morning. She says she is tolerating some liquids and soft foods p.o. no other complaints from the patient. Physical Exam Vital signs: Vital Signs 02/07/18 12:00 02/07/18 16:00 02/07/18 20:00 Temperature 97.4 F L 97.4 F L 97.6 F Pulse Rate 89 90 88 Respiratory Rate 16 16 18 Blood Pressure 109/74 106/64 102/62 Pulse Oximetry 99 99 97 02/07/18 20:01 02/08/18 00:00 02/08/18 00:18 Temperature 97.5 F L Pulse Rate 88 87 77 Respiratory Rate 18 Blood Pressure 106/70 Pulse Oximetry 96 02/08/18 03:56 02/08/18 04:00 02/08/18 08:00 Temperature 97.5 F L 97.5 F L Pulse Rate 93 H 92 H 87 Respiratory Rate 18 18 Blood Pressure 106/68 103/66 Pulse Oximetry 96 96 Intake & Output 02/07/18 02/08/18 02/08/18 18:59 06:59 18:59 Intake Total 1000 / 1000 3748 / 3748 461 / 461 Output Total 4550 / 4550 4450 / 4450 Balance -3550 / -3550 -702 / -702 461 / 461 Weight 40.5 kg Intake: IV 1000 / 1000 1539 / 1539 461 / 461 NS + KCl 20 mEq Inj 1,000 ML @ 1000 / 1000 1539 / 1539 461 / 461 100 mls/hr IV.CONT .Q10H [facility] Rx #:[id number] Oral 1999 Tube Feeding 209 / 209 Output: Urine 600 / 600 Urine/Stool Mix 4550 / 4550 Gastric Drainage 3850 / 3850 Left Upper Quadrant 3850 / 3850 Narrative: General patient in no acute distress currently. Patient is jaundiced. HEENT extraocular movements are intact, clear oropharyngeal mucosa, no JVD Cardiovascular S1-S2 audible, RRR, no murmurs rubs or gallops Respiratory clear to auscultation bilaterally Abdomen soft, nontender, nondistended, normal bowel sounds Extremities muscle wasting noted in all 4 extremities. Neuro cranial nerves II through XII intact Results - Labs CBC & Chem 7: 02/07/18 07:23 12/11/18 07:23 Assessment and Plan - Assessment (1) Pancreatic cancer Code(s): C25.9 - Malignant neoplasm of pancreas, unspecified Status: Chronic - Plan This patient is a 57-year-old female with a diagnosis of pancreatic cancer with malignant gastric outlet obstruction. Patient initially presented with generalized weakness, hypokalemia, nausea, and vomiting. The patient declined hospice care, general surgery was consulted and the patient underwent laparoscopic G-tube placement which was done on 02/01/2018. Radiation oncology did mapping on the patient and received her first treatment of chemotherapy yesterday 02/06/2018. 1. Pancreatic cancer with metastasis and gastric outlet obstruction Patient was evaluated by Dr. Harvey from oncology and her diagnosis of metastatic pancreatic cancer was discussed with the patient. Patient refuses hospice care. She is status post G-tube placement. Postop day 6 today. Rate of feeds increased, surgery following the patient. Patient declined palliative care consult. Radiotherapy started 02/06/2018. I will discussed the case with radio oncology in order to assess when the patient can possibly be discharged. 3. Nausea Improved. Discussed with case management today as well as radiation oncology as far as they are planning for radiotherapy and continued inpatient care.
--- NOTE | 2018-02-08 13:47 | P.PNGS ---
Subjective Interval history: Tolerated radiation yesterday Asking about daughter bringing in some turkey broth for her Physical Exam Vital signs: Vital Signs 02/07/18 16:00 02/07/18 20:00 02/07/18 20:01 Temperature 97.4 F L 97.6 F Pulse Rate 90 88 88 Respiratory Rate 16 18 Blood Pressure 106/64 102/62 Pulse Oximetry 99 97 02/08/18 00:00 02/08/18 00:18 02/08/18 03:56 Temperature 97.5 F L Pulse Rate 87 77 93 H Respiratory Rate 18 Blood Pressure 106/70 Pulse Oximetry 96 02/08/18 04:00 02/08/18 08:00 02/08/18 12:00 Temperature 97.5 F L 97.5 F L 98 F Pulse Rate 92 H 87 93 H Respiratory Rate 18 18 18 Blood Pressure 106/68 103/66 120/77 Pulse Oximetry 96 96 98 Intake & Output 02/07/18 02/08/18 02/08/18 18:59 06:59 18:59 Intake Total 1000 / 1000 3748 / 3748 461 / 461 Output Total 4550 / 4550 4450 / 4450 Balance -3550 / -3550 -702 / -702 461 / 461 Weight 40.5 kg Intake: IV 1000 / 1000 1539 / 1539 461 / 461 NS + KCl 20 mEq Inj 1,000 ML @ 1000 / 1000 1539 / 1539 461 / 461 100 mls/hr IV.CONT .Q10H [facility] Rx #:[id number] Oral 1999 Tube Feeding 209 / 209 Output: Urine 600 / 600 Urine/Stool Mix 4550 / 4550 Gastric Drainage 3850 / 3850 Left Upper Quadrant 3850 / 3850 Narrative: Alert and awake Abd: soft; flat; G/J tube in place with G tube to gravity bag and J tube with TF Results - Labs 02/07/18 07:23 02/07/18 07:23 - Imaging Imaging: ITS Impressions Gastrostomy Tube Change 02/03/18 00:00 CONCLUSION: 1. Uncomplicated gastrojejunostomy tube placement Assessment and Plan - Assessment (1) Pancreatic cancer Code(s): C25.9 - Malignant neoplasm of pancreas, unspecified Status: Chronic Plan: 57 year old female with locally advanced/metastatic pancreatic adenocarcinoma, presenting with malignant Gastric outlet obstruction -s/p dx laparoscopic staging procedure; lap G tube placement -Continue G tube to drainage bag and J-tube feeds, increase feeds slowly--- increased to 40 cc/hr this afternoon -Continue to monitor electrolytes -Continue clear liquids -Continue pain medications -Dr. Delacruz treating with XRT
--- NOTE | 2018-02-08 15:49 | P.DIET ---
Nutritional Evaluation Type of nutrition evaluation: follow-up Nutrition consult regarding: Tube Feeding, Diet Evaluation Nutrition screening: MDC (malnutrition) Subjective Subjective Comments: Pt is here for follow up visit for pancreatic CA. Objective - Diagnosis hypokalemia, nausea/vomiting/diarrhea - Objective % IBW: 78 (IBW = 135lb) Body Weight Used for Calculations: Actual (48kg) Energy Needs - Lower Range (kCal/kg): 35 Energy Needs - Upper Range (kCal/kg): 40 Lower Limit kCal/kg (kCals): 1,680 Upper Limit kCal/kg (kCals): 1,920 Lower Limit Protein Factor (Grams per Kg): 1.4 Upper Limit Protein Factor (Grams per Kg): 1.8 Lower Protein Needs (Protein): 67 Upper Protein Needs (Protein): 86 Dietitian Reviewed in Medical Record: Current diet, Curent medications, Intake & Output, Labs, Medical history Diet Order: NPO Objective Comments: PMH: GERD, hx of ileus, pancreatic CA Assessment Assessment: Pt is very malnourished and presents with a BMI of 14.0. Current order is for NutriHep @ 40 mls/hr goal ( will only provide 1440 kcals and 38 gms protein) and the pt is receiving 30 mls/hr via j-tube at this time. Recommend TFing of Vital 1.5 @ 50 mls/hr to provide 1800 kcals, 81 gms protein and 917 mls of free water. Labs, wts and clinical course reviewed. RD following. Recommendations: Vital 1.5 @ 50 mls/hr goal Dietitian to Monitor: Lab values, Intake & Output, Tube feeding tolerance, Weight change, PO Intake, Medical course
--- NOTE | 2018-02-08 20:19 | CT ---
EXAM DATE: 02/08/2018 8:15 PM EST AGE/SEX: 57 years / Female INDICATIONS: Pain and swelling after head trauma from fall. CLINICAL DATA: This is the patient's initial encounter. Patient reports that signs and symptoms have been present for 1 day and indicates a pain score of 8/10. MEDICAL/SURGICAL HISTORY: Gastroesophageal reflux disease. Pancreatic cancer. Cholecystectomy. RADIATION DOSE: 34.69 CTDI (mGy) COMPARISON: No prior exams available for comparison. TECHNIQUE: CT of the head without contrast. Using automated exposure control and adjustment of the mA and/or kV according to patient size, radiation dose was kept as low as reasonably achievable to ob tain optimal diagnostic quality images. DICOM format image data is available electronically for revi ew and comparison. FINDINGS: Cerebrum: The ventricles are normal for age. No evidence of midline shift, mass lesion, hemorrhage or acute infarction. No extraaxial fluid collections are seen. Posterior Fossa: The cerebellum and brainstem are intact. The 4th ventricle is midline. The cerebe llopontine angle is unremarkable. Extracranial: The visualized portion of the orbits is intact. Skull: The calvaria is intact. No evidence of skull fracture. There is soft tissue swelling over th e right parietal and occipital bone. CONCLUSION: 1. No acute hemorrhage or mass effect. 2. Soft tissue swelling over the right parietal and occipital bones with no evidence of fracture. . Electronically signed by: Gage Valerio MD 02/08/2018 8:17 PM EST
--- NOTE | 2018-02-08 20:32 | P.PNADD ---
Addendum to Inpatient Note Reason for Addendum: Additional Documentation Additional information: Residents were paged for [employer] after patient had fallen. Per report, pt was transferring to [facility] and fell from her bed and hit the back of her head. Pt states she felt dizzy getting up from bed. Denies any loss of consciousness. Pt denies any complaints currently besides a mild headache. Did have some bleeding initially, but slowed down. Pt otherwise denies any dizziness, blurry vision, any weakness/numbness. Denies any chest pain or shortness of breath. Nurses had been holding pressure on head. Vitals: BP 104/60, pulse 90 Gen: NAD, lying in bed Head: golf-ball sized hematoma on superior scalp, dried blood present. No active bleeding. ENT: Scleral icterus, PERRL, EOMI Skin: jaundiced CV: Well perfused Resp: non-labored breathing Ext: bilateral muscle wasting Neuro: Cranial nerves grossly intact. No unilateral weakness/numbness A/P: 57 y/o female with pancreatic cancer seen after a fall with contusion to the head. Bleeding stopped with pressure and there was no visible open laceration to close. -Stat CT to rule out intracranial pathology -Monitor for bleeding; continue pressure and ice -Monitor neuro status -Bed rest unless assisted
[2018-02-09] MEDS: Morphine Inj 4 MG/ML Vial IV.PUSH PRN ×6 (03:03→18:30)
[2018-02-09] MEDS: Sodium Chloride 0.9% 2 ML Flush PRN IV.FLUSH ×2 (03:04→06:04)
[2018-02-09 08:41] LABS: Anion Gap 7 meq/L (5-15); Blood Urea Nitrogen 22 mg/dL (7-18); Calcium 7.4 mg/dL (8.5-10.1); Carbon Dioxide 30.6 meq/L (21.0-32.0); Chloride 111 meq/L (98-107); Glomerular Filtration Rate Greater Than 89 mL/min (>89); Glucose,Random 132 mg/dL (74-106); Magnesium 1.5 mg/dL (1.5-2.5); Potassium 3.2 meq/L (3.5-5.1); Sodium 149 meq/L (136-145)
[2018-02-09 09:01] LABS: Albumin 1.9 g/dL (3.4-5.0); Calcium-Albumin Corrected 9.1 mg/dL (8.5-10.1)
[2018-02-09] MEDS: Heparin - SQ 10,000 UNITS/ML Vial SQ SCH ×2 (09:14→20:39)
[2018-02-09] MEDS: Metoclopramide Liq 10 MG/10 ML UDC PO SCH ×4 (09:14→21:21)
[2018-02-09] MEDS: Potassium Chloride 25 MEQ Effervescent Tablet PO SCH ×2 (09:15→20:38)
[2018-02-09] MEDS: Sodium Chloride 0.9% 2 ML Flush BID IV.FLUSH SCH ×2 (09:16→20:40)
--- NOTE | 2018-02-09 14:44 | P.PNIM ---
Subjective Interval history: Patient is in no acute distress. She does not have any specific complaints this morning. She says the pain that she had in the right and back of her head has improved since last night. Physical Exam Vital signs: Vital Signs 02/08/18 16:00 02/08/18 19:20 02/08/18 19:40 Temperature 98.2 F 97.1 F L Pulse Rate 89 96 H Respiratory Rate 18 17 Blood Pressure 106/70 121/70 Pulse Oximetry 97 100 99 02/08/18 20:11 02/08/18 20:59 02/08/18 22:00 Temperature 96.9 F L 98.5 F Pulse Rate 93 H 94 H 90 Respiratory Rate 16 16 Blood Pressure 112/69 108/64 Pulse Oximetry 94 L 95 02/08/18 23:00 02/08/18 23:45 02/09/18 00:00 Temperature 98.1 F 98.6 F Pulse Rate 89 90 58 L Respiratory Rate 16 16 Blood Pressure 110/60 112/62 Pulse Oximetry 95 95 02/09/18 03:51 02/09/18 04:00 02/09/18 08:00 Temperature 97.1 F L 97.1 F L Pulse Rate 89 94 H 96 H Respiratory Rate 16 14 Blood Pressure 121/75 129/81 Pulse Oximetry 96 100 02/09/18 12:00 Temperature 97.6 F Pulse Rate 99 H Respiratory Rate 12 Blood Pressure 103/64 Pulse Oximetry 100 Intake & Output 02/08/18 02/09/18 02/09/18 18:59 06:59 18:59 Intake Total 461 / 461 2832 / 2832 Output Total 2800 / 2800 2500 / 2500 Balance -2339 / -2339 332 / 332 Weight 40.4 kg Intake: IV 461 / 461 1363 / 1363 NS + KCl 20 mEq Inj 1,000 ML @ 461 / 461 1363 / 1363 100 mls/hr IV.CONT .Q10H [facility] Rx #:[id number] Oral 1080 / 1080 Tube Feeding 389 / 389 Output: Gastric Drainage 2800 / 2800 2500 / 2500 Left Upper Quadrant 2800 / 2800 2500 / 2500 Other: # Voids 3 Narrative: General patient in no acute distress currently. Patient is jaundiced. HEENT bandage covering the patient's head right parietal subdural area. No soak through noted on the bandage. Cardiovascular S1-S2 audible, RRR, no murmurs rubs or gallops Respiratory clear to auscultation bilaterally Abdomen soft, nontender, nondistended, PEG tube in place. Extremities muscle wasting noted in all 4 extremities. Neuro no neurological deficits. Results - Labs CBC & Chem 7: 02/07/18 07:23 02/09/18 06:36 Laboratory Results - last 24 hr 02/09/18 06:36 Sodium 149 H Potassium 3.2 L Chloride 111 H Carbon Dioxide 30.6 Anion Gap 7 BUN 22 H Creatinine 0.51 Estimated GFR Greater than 89 Random Glucose 132 H Calcium 7.4 L* D Calcium Adj for Albumin 9.1 Magnesium 1.5 Albumin 1.9 L - Imaging Impressions Head CT 02/08/18 20:02 CONCLUSION: 1. No acute hemorrhage or mass effect. 2. Soft tissue swelling over the right parietal and occipital bones with no evidence of fracture. . Assessment and Plan - Assessment (1) Pancreatic cancer Code(s): C25.9 - Malignant neoplasm of pancreas, unspecified Status: Chronic - Plan This patient is a 57-year-old female with a diagnosis of pancreatic cancer with malignant gastric outlet obstruction. Patient initially presented with generalized weakness, hypokalemia, nausea, and vomiting. The patient declined hospice care, general surgery was consulted and the patient underwent laparoscopic G-tube placement which was done on 02/01/2018. Radiation oncology did mapping on the patient and received her first treatment of chemotherapy yesterday 02/06/2018. Patient suffered a ground-level fall yesterday where she says that she lost her footing. A Halicat was called as the patient had some pain and swelling to the right and posterior side of her head. CT head was done which showed some soft tissue swelling to the right parietal and occipital area. No other significant findings on head CT. Patient states she feels much better this morning. 1. Pancreatic cancer with metastasis and gastric outlet obstruction Patient was evaluated by Dr. Harvey from oncology and her diagnosis of metastatic pancreatic cancer was discussed with the patient. Patient refuses hospice care. She is status post G-tube placement. Postop day 7 today. Rate of feeds increased, surgery following the patient. Patient declined palliative care consult. Radiotherapy started 02/06/2018. Patient had another session of XRT this morning. We will follow-up with radial oncology for any other further recommendations. 3. Nausea Improved. 4. Hypokalemia Electrolytes replaced. I attempted to call Dr. delacruz from radiation oncology without any success. A call out will be placed to Dr. Delacruz in order to discuss plan of care for this patient while she is in-house.
[2018-02-09] MEDS ORDERED: Potassium Chloride 25 MEQ Effervescent Tablet PO ONE (16:05)
[2018-02-09] MEDS: Morphine Sulfate Inj 2 MG/ML Vial IV.PUSH PRN (21:25)
[2018-02-10] MEDS: Morphine Sulfate Inj 2 MG/ML Vial IV.PUSH PRN ×2 (00:59→04:26)
[2018-02-10] MEDS: Morphine Inj 4 MG/ML Vial IV.PUSH PRN ×4 (07:47→17:10)
[2018-02-10] MEDS: Metoclopramide Liq 10 MG/10 ML UDC PO SCH ×4 (07:53→21:04)
[2018-02-10] MEDS: Potassium Chloride 25 MEQ Effervescent Tablet PO SCH ×2 (08:01→21:04)
[2018-02-10] MEDS: Heparin - SQ 10,000 UNITS/ML Vial SQ SCH ×2 (08:01→21:04)
[2018-02-10] MEDS: Sodium Chloride 0.9% 2 ML Flush BID IV.FLUSH SCH ×2 (08:03→21:04)
--- NOTE | 2018-02-10 11:03 | P.PNIM ---
Subjective Interval history: Patient is in no acute distress today. No specific complaints from the patient. Physical Exam Vital signs: Vital Signs 02/09/18 12:00 02/09/18 16:00 02/09/18 20:00 Temperature 97.6 F 98.1 F 97.4 F L Pulse Rate 99 H 99 H 91 H Respiratory Rate 12 13 16 Blood Pressure 103/64 98/63 L 102/61 Pulse Oximetry 100 100 100 02/10/18 00:00 02/10/18 04:00 02/10/18 08:00 Temperature 98.8 F 97.2 F L 98.0 F Pulse Rate 84 99 H 95 H Respiratory Rate 16 16 19 Blood Pressure 106/57 L 114/63 107/65 Pulse Oximetry 100 99 100 Intake & Output 02/09/18 02/10/18 02/10/18 18:59 06:59 18:59 Intake Total 1000 / 1000 1960 / 1960 Output Total 3850 / 3850 Balance 1000 / 1000 -1890 / -1890 Weight 38.2 kg Intake: IV 1000 / 1000 1000 / 1000 NS + KCl 20 mEq Inj 1,000 ML @ 1000 / 1000 1000 / 1000 100 mls/hr IV.CONT .Q10H [facility]ARG[facility] Rx #:[id number] Oral 960 / 960 Output: Urine 300 / 300 Stool Amount (Stoma) 3550 / 3550 Left Lower Abdomen 3550 / 3550 Other: Date of Last Bowel Movement 02/10/18 # Bowel Movements 2 Narrative: General patient in no acute distress currently. Patient is jaundiced. HEENT bandage covering the patient's head right parietal subdural area. No soak through noted on the bandage. Cardiovascular S1-S2 audible, RRR, no murmurs rubs or gallops Respiratory clear to auscultation bilaterally Abdomen soft, nontender, nondistended, PEG tube in place. Extremities muscle wasting noted in all 4 extremities. Neuro no neurological deficits. Results - Labs CBC & Chem 7: 02/07/18 07:23 02/09/18 06:36 Laboratory Results - last 24 hr 02/09/18 06:36 Calcium Adj for Albumin 9.1 Assessment and Plan - Assessment (1) Pancreatic cancer Code(s): C25.9 - Malignant neoplasm of pancreas, unspecified Status: Chronic - Plan This patient is a 57-year-old female with a diagnosis of pancreatic cancer with malignant gastric outlet obstruction. Patient initially presented with generalized weakness, hypokalemia, nausea, and vomiting. The patient declined hospice care, general surgery was consulted and the patient underwent laparoscopic G-tube placement which was done on 02/01/2018. Radiation oncology did mapping on the patient and received her first treatment of chemotherapy yesterday 02/06/2018. Patient suffered a ground-level fall yesterday where she says that she lost her footing. A Halicat was called as the patient had some pain and swelling to the right and posterior side of her head. CT head was done which showed some soft tissue swelling to the right parietal and occipital area. No other significant findings on head CT. Patient states she feels much better this morning. 1. Pancreatic cancer with metastasis and gastric outlet obstruction Patient was evaluated by Dr. Harvey from oncology and her diagnosis of metastatic pancreatic cancer was discussed with the patient. Patient refuses hospice care. She is status post G-tube placement. Rate of feeds increased, surgery following the patient. Patient declined palliative care consult. Radiotherapy started 02/06/2018. Patient is receiving xrt inhouse as per radiation oncology recs. We will follow-up with radiation oncology for any other further recommendations. 3. Nausea Improved. 4. Electrolyte abnormalities. Electrolytes replaced IV today. Patient received PO KCL replacement which I do not believe was being properly absorbed. Patient will be given IV Kcl and Iv mag today. Heparin for DVT prophylaxis.
[2018-02-10] MEDS ORDERED: Potassium Chlor 20 mEq Premix 20 MEQ/100 ML PIGGYBACK IV.SIG ONE (11:30)
--- NOTE | 2018-02-10 11:59 | P.PNGS ---
Subjective Interval history: Up to chair Diarrhea overnight Physical Exam Vital signs: Vital Signs 02/09/18 12:00 02/09/18 16:00 02/09/18 20:00 Temperature 97.6 F 98.1 F 97.4 F L Pulse Rate 99 H 99 H 91 H Respiratory Rate 12 13 16 Blood Pressure 103/64 98/63 L 102/61 Pulse Oximetry 100 100 100 02/10/18 00:00 02/10/18 04:00 02/10/18 08:00 Temperature 98.8 F 97.2 F L 98.0 F Pulse Rate 84 99 H 96 H Respiratory Rate 16 16 19 Blood Pressure 106/57 L 114/63 107/65 Pulse Oximetry 100 99 100 Intake & Output 02/09/18 02/10/18 02/10/18 18:59 06:59 18:59 Intake Total 1000 / 1000 1960 / 1960 Output Total 3850 / 3850 Balance 1000 / 1000 -1890 / -1890 Weight 38.2 kg Intake: IV 1000 / 1000 1000 / 1000 NS + KCl 20 mEq Inj 1,000 ML @ 1000 / 1000 1000 / 1000 100 mls/hr IV.CONT .Q10H [facility]ARG[facility] Rx #:[id number] Oral 960 / 960 Output: Urine 300 / 300 Stool Amount (Stoma) 3550 / 3550 Left Lower Abdomen 3550 / 3550 Other: Date of Last Bowel Movement 02/10/18 # Bowel Movements 2 Narrative: Alert and awake Large head bandage over scalp Abd: soft non distended Results - Labs 02/07/18 07:23 02/09/18 06:36 - Imaging Imaging: ITS Impressions Gastrostomy Tube Change 02/03/18 00:00 CONCLUSION: 1. Uncomplicated gastrojejunostomy tube placement Head CT 02/08/18 20:02 CONCLUSION: 1. No acute hemorrhage or mass effect. 2. Soft tissue swelling over the right parietal and occipital bones with no evidence of fracture. . Assessment and Plan - Assessment (1) Pancreatic cancer Code(s): C25.9 - Malignant neoplasm of pancreas, unspecified Status: Chronic Plan: 57 year old female with pancreatic cancer; nausea/vomiting -Continue clear liquids and g tube gravity -Continue TF -Patient scheduled for XRT today -GS will see PRN over the weekend; please call with any questions
[2018-02-10] MEDS: Magnesium Sulfate Inj 2 GM in Sodium Chlor 0.9% Inj 96 ML IV.SIG SCH ×2 (12:13→14:00)
[2018-02-11] MEDS: Morphine Inj 4 MG/ML Vial IV.PUSH PRN ×7 (00:27→21:51)
[2018-02-11] MEDS: Potassium Chloride 25 MEQ Effervescent Tablet PO SCH (08:50)
[2018-02-11] MEDS: Metoclopramide Liq 10 MG/10 ML UDC PO SCH ×4 (08:51→21:51)
[2018-02-11] MEDS: Heparin - SQ 10,000 UNITS/ML Vial SQ SCH ×2 (08:51→21:50)
[2018-02-11] MEDS: Sodium Chloride 0.9% 2 ML Flush BID IV.FLUSH SCH ×2 (09:05→21:51)
[2018-02-11 10:04] LABS: Anion Gap 6 meq/L (5-15); Blood Urea Nitrogen 26 mg/dL (7-18); Calcium 7.4 mg/dL (8.5-10.1); Carbon Dioxide 36.2 meq/L (21.0-32.0); Chloride 109 meq/L (98-107); Glomerular Filtration Rate Greater Than 89 mL/min (>89); Glucose,Random 147 mg/dL (74-106); Magnesium 2.4 mg/dL (1.5-2.5); Sodium 151 meq/L (136-145)
[2018-02-11 10:16] LABS: Albumin 1.9 g/dL (3.4-5.0); Calcium-Albumin Corrected 9.1 mg/dL (8.5-10.1)
[2018-02-11 10:20] LABS: Potassium 2.9 meq/L (3.5-5.1)
[2018-02-11] MEDS: Potassium Chlor 20 mEq Premix 20 MEQ/100 ML PIGGYBACK IV.SIG SCH ×4 (11:28→18:00)
--- NOTE | 2018-02-11 17:16 | P.PNIM ---
Subjective Interval history: Patient sitting upright in bed. No specific complaints from her today. Physical Exam Vital signs: Vital Signs 02/10/18 20:00 02/11/18 00:00 02/11/18 04:00 Temperature 97.3 F L 98.4 F 97.7 F Pulse Rate 103 H 92 H 93 H Respiratory Rate 16 16 16 Blood Pressure 88/60 L 98/62 L 102/51 L Pulse Oximetry 100 99 100 02/11/18 08:00 02/11/18 12:00 Temperature 97.1 F L Pulse Rate 103 H 98 H Respiratory Rate 18 16 Blood Pressure 100/60 100/51 L Pulse Oximetry 100 100 Intake & Output 02/10/18 02/11/18 02/11/18 18:59 06:59 18:59 Intake Total 1820 / 1820 843 / 843 200 / 200 Balance 1820 / 1820 843 / 843 200 / 200 Weight 39.2 kg Intake: IV 1300 / 1300 363 / 363 200 / 200 NS + KCl 20 mEq Inj 1,000 ML @ 1000 / 1000 363 / 363 100 mls/hr IV.CONT .Q10H [facility] Rx #:[id number] Magnesium Sulfate Inj 2 GM In 200 / 200 NS Inj 96 ML @ 50 mls/hr IV.SIG Q2H [facility] Rx#:[id number] KCl 20 mEq Premix Inj 20 meq In 100 / 100 200 / 200 100 ml @ 50 mls/hr IV.SIG Q2H [facility]ARG[facility] Rx#:[id number] Oral 520 / 520 480 / 480 Other: # Voids 4 3 Date of Last Bowel Movement 02/11/18 02/11/18 # Bowel Movements 3 # Incontinent Bowel Movements 2 Narrative: General patient in no acute distress currently. Patient is jaundiced. HEENT bandage covering the patient's head right parietal subdural area. No soak through noted on the bandage. Cardiovascular S1-S2 audible, RRR, no murmurs rubs or gallops Respiratory clear to auscultation bilaterally Abdomen soft, nontender, nondistended, PEG tube in place. Extremities muscle wasting noted in all 4 extremities. Neuro no neurological deficits. Results - Labs CBC & Chem 7: 02/07/18 07:23 02/11/18 09:00 Laboratory Results - last 24 hr 02/11/18 09:00 Sodium 151 H Potassium 2.9 L* Chloride 109 H Carbon Dioxide 36.2 H Anion Gap 6 BUN 26 H Creatinine 0.56 Estimated GFR Greater than 89 Random Glucose 147 H Calcium 7.4 L* Calcium Adj for Albumin 9.1 Magnesium 2.4 Albumin 1.9 L Assessment and Plan - Assessment (1) Pancreatic cancer Code(s): C25.9 - Malignant neoplasm of pancreas, unspecified Status: Chronic - Plan This patient is a 57-year-old female with a diagnosis of pancreatic cancer with malignant gastric outlet obstruction. Patient initially presented with generalized weakness, hypokalemia, nausea, and vomiting. The patient declined hospice care, general surgery was consulted and the patient underwent laparoscopic G-tube placement which was done on 02/01/2018. Radiation oncology did mapping on the patient and received her first treatment of chemotherapy yesterday 02/06/2018. 02/11/18 Severe electrolyte abnormality. Patient with K level of 2.9 today. IV K replaced. Follow up K level later today. Follow up am labs. Patient is being treated with XRT by radiation oncology. We will follow up with them for recommendations. 1. Pancreatic cancer with metastasis and gastric outlet obstruction Patient was evaluated by Dr. Harvey from oncology and her diagnosis of metastatic pancreatic cancer was discussed with the patient. Patient refuses hospice care. She is status post G-tube placement. Rate of feeds increased, surgery following the patient. Patient declined palliative care consult. Radiotherapy started 02/06/2018. Patient is receiving xrt inhouse as per radiation oncology recs. We will follow-up with radiation oncology for any other further recommendations. 3. Nausea Improved. 4. Electrolyte abnormalities. Electrolytes replaced IV today. Patient received PO KCL replacement which I do not believe was being properly absorbed. Patient will be given IV Kcl and Iv mag nearly daily. Heparin for DVT prophylaxis.
[2018-02-12] MEDS: Morphine Inj 4 MG/ML Vial IV.PUSH PRN ×8 (00:49→23:51)
[2018-02-12] MEDS: Metoclopramide Liq 10 MG/10 ML UDC PO SCH ×4 (08:20→21:04)
[2018-02-12] MEDS: Heparin - SQ 10,000 UNITS/ML Vial SQ SCH ×2 (08:21→21:04)
[2018-02-12 09:24] LABS: Anion Gap 7 meq/L (5-15); Blood Urea Nitrogen 26 mg/dL (7-18); Calcium 7.8 mg/dL (8.5-10.1); Carbon Dioxide 35.5 meq/L (21.0-32.0); Chloride 105 meq/L (98-107); Glomerular Filtration Rate Greater Than 89 mL/min (>89); Glucose,Random 147 mg/dL (74-106); Potassium 3.1 meq/L (3.5-5.1); Sodium 147 meq/L (136-145)
[2018-02-12] MEDS: Sodium Chloride 0.9% 2 ML Flush BID IV.FLUSH SCH (10:21)
--- NOTE | 2018-02-12 14:43 | P.PNIM ---
Subjective Interval history: Patient is in no acute distress. No complaints today. Physical Exam Vital signs: Vital Signs 02/11/18 16:00 02/11/18 20:00 02/11/18 21:27 Temperature 98.1 F 98.2 F Pulse Rate 110 H 102 H 107 H Respiratory Rate 17 18 Blood Pressure 106/58 L 90/52 L Pulse Oximetry 99 97 02/12/18 00:00 02/12/18 04:00 02/12/18 08:00 Temperature 98.0 F 98.8 F 98.1 F Pulse Rate 102 H 105 H 113 H Respiratory Rate 18 20 16 Blood Pressure 94/56 L 111/57 L 100/55 L Pulse Oximetry 100 100 98 02/12/18 12:00 Temperature 98.0 F Pulse Rate 111 H Respiratory Rate 16 Blood Pressure 97/56 L Pulse Oximetry 100 Intake & Output 02/11/18 02/12/18 02/12/18 18:59 06:59 18:59 Intake Total 1250 / 1250 320 / 320 Output Total 750 / 750 1950 / 1950 Balance 500 / 500 -1630 / -1630 Weight 39.1 kg Intake: IV 1250 / 1250 100 / 100 NS + KCl 20 mEq Inj 1,000 ML @ 950 / 950 100 mls/hr IV.CONT .Q10H [facility] Rx #:[id number] KCl 20 mEq Premix Inj 20 meq In 300 / 300 100 / 100 100 ml @ 50 mls/hr IV.SIG Q2H [facility]ARGIE Rx#:[id number] Oral 220 / 220 Output: Urine 750 / 750 800 / 800 Gastric Drainage 1150 / 1150 Left Upper Quadrant 1150 / 1150 Other: Date of Last Bowel Movement 02/11/18 02/11/18 02/11/18 # Incontinent Bowel Movements 2 Narrative: General patient in no acute distress currently. Patient is jaundiced. HEENT bandage covering the patient's head right parietal subdural area. No soak through noted on the bandage. Cardiovascular S1-S2 audible, RRR, no murmurs rubs or gallops Respiratory clear to auscultation bilaterally Abdomen soft, nontender, nondistended, PEG tube in place. Extremities muscle wasting noted in all 4 extremities. Neuro no neurological deficits. Results - Labs CBC & Chem 7: 02/07/18 07:23 02/12/18 07:00 Laboratory Results - last 24 hr 02/11/18 02/12/18 17:22 07:00 Sodium 147 H Potassium 3.8 D 3.1 L Chloride 105 Carbon Dioxide 35.5 H Anion Gap 7 BUN 26 H Creatinine 0.64 Estimated GFR Greater than 89 Random Glucose 147 H Calcium 7.8 L Assessment and Plan - Assessment (1) Pancreatic cancer Code(s): C25.9 - Malignant neoplasm of pancreas, unspecified Status: Chronic - Plan This patient is a 57-year-old female with a diagnosis of pancreatic cancer with malignant gastric outlet obstruction. Patient initially presented with generalized weakness, hypokalemia, nausea, and vomiting. The patient declined hospice care, general surgery was consulted and the patient underwent laparoscopic G-tube placement which was done on 02/01/2018. Radiation oncology did mapping on the patient and received her first treatment of chemotherapy yesterday 02/06/2018. 02/12/18 Severe electrolyte abnormality. Patient with K level of 3.1 today. IV K replaced. Follow up am labs. Patient is being treated with XRT by radiation oncology. Miss fridays treatment because of nausea, possibly related to the treatment. We will follow up with Dr. Delacruz for his recs. Continue feeds through Jtube, surgery following. Pt tolerating the feeds. 1. Pancreatic cancer with metastasis and gastric outlet obstruction Patient was evaluated by Dr. Harvey from oncology and her diagnosis of metastatic pancreatic cancer was discussed with the patient. Patient refuses hospice care. She is status post G-tube placement. Rate of feeds increased, surgery following the patient. Patient declined palliative care consult. Radiotherapy started 02/06/2018. Patient is receiving xrt inhouse as per radiation oncology recs. We will follow-up with radiation oncology for any other further recommendations. 3. Nausea Improved. 4. Electrolyte abnormalities. Electrolytes replaced IV today. Patient received PO KCL replacement which I do not believe was being properly absorbed. Patient will be given IV Kcl and Iv mag nearly daily. Heparin for DVT prophylaxis.
[2018-02-12] MEDS: Potassium Chlor 20 mEq Premix 20 MEQ/100 ML PIGGYBACK IV.SIG SCH ×2 (15:13→17:34)
[2018-02-13] MEDS: Sodium Chloride 0.9% 2 ML Flush BID IV.FLUSH SCH ×3 (01:40→20:50)
[2018-02-13] MEDS: Morphine Inj 4 MG/ML Vial IV.PUSH PRN ×7 (03:06→21:34)
[2018-02-13] MEDS: Metoclopramide Liq 10 MG/10 ML UDC PO SCH ×4 (08:54→20:58)
[2018-02-13] MEDS: Heparin - SQ 10,000 UNITS/ML Vial SQ SCH ×2 (08:54→20:49)
[2018-02-13 13:35] LABS: Anion Gap 6 meq/L (5-15); Blood Urea Nitrogen 27 mg/dL (7-18); Calcium 7.8 mg/dL (8.5-10.1); Carbon Dioxide 37.9 meq/L (21.0-32.0); Chloride 98 meq/L (98-107); Glomerular Filtration Rate Greater Than 89 mL/min (>89); Glucose,Random 118 mg/dL (74-106); Sodium 142 meq/L (136-145)
[2018-02-13 13:42] LABS: Potassium 2.9 meq/L (3.5-5.1)
--- NOTE | 2018-02-13 14:39 | P.PNIM ---
Subjective Interval history: Patient in no acute distress. Says she is now considering hospice care. Physical Exam Vital signs: Vital Signs 02/12/18 16:00 02/12/18 20:00 02/13/18 00:00 Temperature 99.2 F 99.9 F H 98.0 F Pulse Rate 105 H 110 H 85 Respiratory Rate 18 18 18 Blood Pressure 101/54 L 91/50 L 89/50 L Pulse Oximetry 99 98 98 02/13/18 04:00 02/13/18 08:00 Temperature 98.1 F 98.0 F Pulse Rate 104 H 113 H Respiratory Rate 18 16 Blood Pressure 94/52 L 91/52 L Pulse Oximetry 99 96 Intake & Output 02/12/18 02/13/18 02/13/18 18:59 06:59 18:59 Intake Total 500 / 500 Output Total 4600 / 4600 2480 / 2480 650 / 650 Balance -4600 / -4600 -1980 / -1980 -650 / -650 Weight 43.9 kg Intake: Oral 500 / 500 Output: Urine 655 / 655 Gastric Drainage 4600 / 4600 1825 / 1825 650 / 650 Left Upper Quadrant 4600 / 4600 1825 / 1825 650 / 650 Other: Date of Last Bowel Movement 02/11/18 02/11/18 02/11/18 # Incontinent Bowel Movements 1 Narrative: General patient in no acute distress currently. Patient is jaundiced. Cardiovascular S1-S2 audible, RRR, no murmurs rubs or gallops Respiratory clear to auscultation bilaterally Abdomen soft, nontender, nondistended, PEG tube in place. Extremities muscle wasting noted in all 4 extremities. Neuro no neurological deficits. Results - Labs CBC & Chem 7: 02/07/18 07:23 02/13/18 13:00 Laboratory Results - last 24 hr 02/13/18 13:00 Sodium 142 Potassium 2.9 L* Chloride 98 Carbon Dioxide 37.9 H Anion Gap 6 BUN 27 H Creatinine 0.63 Estimated GFR Greater than 89 Random Glucose 118 H Calcium 7.8 L Assessment and Plan - Assessment (1) Pancreatic cancer Code(s): C25.9 - Malignant neoplasm of pancreas, unspecified Status: Chronic - Plan This patient is a 57-year-old female with a diagnosis of pancreatic cancer with malignant gastric outlet obstruction. Patient initially presented with generalized weakness, hypokalemia, nausea, and vomiting. The patient declined hospice care, general surgery was consulted and the patient underwent laparoscopic G-tube placement which was done on 02/01/2018. Radiation oncology did mapping on the patient and received her first treatment of chemotherapy yesterday 02/06/2018. 02/13/18 Severe electrolyte abnormality. Patient with K level of 2.9 today. IV K replaced will be given. Follow up am labs. Patient is being treated with XRT by radiation oncology. I discussed the case with Dr. Delacruz from radiation oncology today in his office. From his standpoint patient can be discharged and continue outpt treatment with radiation. Today will be 07/07 treatments. As per the patient she now wants hospice care. Case discussed with case management and will be evaluated for hospice care today. We will follow up with Dr. Delacruz for his recs. Continue feeds through [facility], surgery following. Pt tolerating the feeds. 1. Pancreatic cancer with metastasis and gastric outlet obstruction Patient was evaluated by Dr. Harvey from oncology and her diagnosis of metastatic pancreatic cancer was discussed with the patient. Patient refuses hospice care. She is status post G-tube placement. Rate of feeds increased, surgery following the patient. Patient declined palliative care consult. Radiotherapy started 02/06/2018. Patient is receiving xrt inhouse as per radiation oncology recs. We will follow-up with radiation oncology for any other further recommendations. 3. Nausea Improved. 4. Electrolyte abnormalities. Electrolytes replaced IV today. Patient received PO KCL replacement which I do not believe was being properly absorbed. Patient will be given IV Kcl and Iv mag nearly daily. Heparin for DVT prophylaxis.
[2018-02-13] MEDS: Potassium Chlor 20 mEq Premix 20 MEQ/100 ML PIGGYBACK IV.SIG SCH ×4 (14:42→21:34)
--- NOTE | 2018-02-13 15:12 | P.PNGS ---
Subjective Interval history: Seen about 0900 Resting in bed No complaints Would like to discuss with Hospice about options Physical Exam Vital signs: Vital Signs 02/12/18 16:00 02/12/18 20:00 02/13/18 00:00 Temperature 99.2 F 99.9 F H 98.0 F Pulse Rate 105 H 110 H 85 Respiratory Rate 18 18 18 Blood Pressure 101/54 L 91/50 L 89/50 L Pulse Oximetry 99 98 98 02/13/18 04:00 02/13/18 08:00 Temperature 98.1 F 98.0 F Pulse Rate 104 H 113 H Respiratory Rate 18 16 Blood Pressure 94/52 L 91/52 L Pulse Oximetry 99 96 Intake & Output 02/12/18 02/13/18 02/13/18 18:59 06:59 18:59 Intake Total 500 / 500 Output Total 4600 / 4600 2480 / 2480 650 / 650 Balance -4600 / -4600 -1980 / -1980 -650 / -650 Weight 43.9 kg Intake: Oral 500 / 500 Output: Urine 655 / 655 Gastric Drainage 4600 / 4600 1825 / 1825 650 / 650 Left Upper Quadrant 4600 / 4600 1825 / 1825 650 / 650 Other: Date of Last Bowel Movement 02/11/18 02/11/18 02/11/18 # Incontinent Bowel Movements 1 Narrative: Alert and awake Abd: soft; G tube to gravity bag; J tube with TF Continues to be jaundice Results - Labs 02/07/18 07:23 02/13/18 13:00 Laboratory Results - last 24 hr 02/13/18 13:00 Sodium 142 Potassium 2.9 L* Chloride 98 Carbon Dioxide 37.9 H Anion Gap 6 BUN 27 H Creatinine 0.63 Estimated GFR Greater than 89 Random Glucose 118 H Calcium 7.8 L - Imaging Imaging: ITS Impressions Gastrostomy Tube Change 02/03/18 00:00 CONCLUSION: 1. Uncomplicated gastrojejunostomy tube placement Head CT 02/08/18 20:02 CONCLUSION: 1. No acute hemorrhage or mass effect. 2. Soft tissue swelling over the right parietal and occipital bones with no evidence of fracture. . Assessment and Plan - Assessment (1) Pancreatic cancer Code(s): C25.9 - Malignant neoplasm of pancreas, unspecified Status: Chronic Plan: 57 year old female with pancreatic cancer; nausea/vomiting -Continue clear liquids and g tube gravity -Continue TF -Patient scheduled for XRT today -I consulted Hospice per the patients request --- Discussed with HUONG Foss with [facility]--- she would like to know when the patient will complete her radiation treatments---reached out to Dr. Delacruz and discussed with him---she will complete all her treatments by Feb 22. I left VM with Prudence with this information -Discussed with daughter Winifred on the phone
[2018-02-14] MEDS: Morphine Inj 4 MG/ML Vial IV.PUSH PRN (00:55)
[2018-02-14] MEDS: Morphine Sulfate Inj 2 MG/ML Vial IV.PUSH PRN ×4 (06:16→21:22)
[2018-02-14 07:33] LABS: Anion Gap 6 meq/L (5-15); Blood Urea Nitrogen 29 mg/dL (7-18); Calcium 7.6 mg/dL (8.5-10.1); Carbon Dioxide 36.7 meq/L (21.0-32.0); Chloride 95 meq/L (98-107); Glomerular Filtration Rate Greater Than 89 mL/min (>89); Glucose,Random 173 mg/dL (74-106); Potassium 3.1 meq/L (3.5-5.1); Sodium 138 meq/L (136-145)
--- NOTE | 2018-02-14 09:58 | P.DIET ---
Nutritional Evaluation Type of nutrition evaluation: follow-up Nutrition consult regarding: Tube Feeding, Diet Evaluation Nutrition screening: MDC (malnutrition) Subjective Subjective Comments: Pt is here for follow up visit for pancreatic CA. Objective - Diagnosis hypokalemia, nausea/vomiting/diarrhea - Objective Body Mass Index: 14.8 [place] body weight: 61 kg % IBW: 70 (IBW = 135lb) Body Weight Used for Calculations: Actual (42.9) Energy Needs - Lower Range (kCal/kg): 35 Energy Needs - Upper Range (kCal/kg): 40 Lower Limit kCal/kg (kCals): 1,501 Upper Limit kCal/kg (kCals): 1,716 Lower Limit Protein Factor (Grams per Kg): 1.5 Upper Limit Protein Factor (Grams per Kg): 2 Lower Protein Needs (Protein): 64 Upper Protein Needs (Protein): 86 Fluid Factor (ml/kg): 30 Estimated Fluid Needs (ml): 1,287 Dietitian Reviewed in Medical Record: Curent medications, Intake & Output, Labs , Medical history, Tube feeding Diet Order: NPO Objective Comments: PMH: GERD, hx of ileus, pancreatic CA Feeding - Current Tube Feeding Tube Feeding Product: Nutrihep (Current order for Nutrihep at 50mL) Assessment Assessment: Pt is very malnourished and presents with a BMI of 14.0. Current order is for NutriHep @ 50 mls/hr goal ( will only provide 1440 kcals and 38 gms protein). Noted family meeting to discuss hospice care. Will continue to recommend Vital 1.5 @ 50ml/ hour to provide 1800 kcals, 81 gms protein and 917 mls of free water to better meet pt's needs. Noted pt with electrolyte abnormalities per MD note and lab work with potassium low at 3.1, currently being repleted IV, will continue to monitor electrolytes and tolerance to TF. Recommendations: Vital 1.5 @ 50 mls/hr goal Dietitian to Monitor: Lab values, Electrolytes, Intake & Output, Tube feeding tolerance, Weight change, Medical course
[2018-02-14] MEDS: Heparin - SQ 10,000 UNITS/ML Vial SQ SCH ×2 (10:00→21:21)
[2018-02-14] MEDS: Metoclopramide Liq 10 MG/10 ML UDC PO SCH ×4 (10:00→21:21)
[2018-02-14] MEDS: Sodium Chloride 0.9% 2 ML Flush BID IV.FLUSH SCH ×2 (10:01→21:22)
[2018-02-14] MEDS ORDERED: Potassium Bicarbonate 25 MEQ Effervescent Tablet PO ONE (10:57)
[2018-02-14 10:59] LABS: Baso % (Auto) 0.3 % (0.0-2.0); Eos % (Auto) 0.6 % (0.0-4.0); Lymph # (Auto) 0.9 th/mm3 (1.0-4.8); Lymph % (Auto) 14.7 % (9.0-44.0); Mean Corpuscular HGB Conc 34.9 % (32.0-36.0); Mean Corpuscular Volume 97.5 fL (80.0-100.0); Mean Platelet Volume 8.3 fL (7.0-11.0); Mono # (Auto) 0.3 th/mm3 (0.0-0.9); Mono % (Auto) 4.4 % (0.0-8.0); Neut # (Auto) 4.9 th/mm3 (1.8-7.7); Platelet Count 324 th/mm3 (150-450); Red Blood Count 1.71 mil/mm3 (4.00-5.30); Red Cell Distribution Width 18.8 % (11.6-17.2); White Blood Count 6.1 th/mm3 (4.0-11.0)
[2018-02-14 11:04] LABS: Hematocrit 16.7 % (35.0-46.0); Hemoglobin 5.8 gm/dL (11.6-15.3)
[2018-02-14] MEDS ORDERED: Sodium Chlor 0.9% Inj 250 ML IV.SIG SCH (13:00)
--- NOTE | 2018-02-14 17:23 | P.PNIM ---
Subjective Interval history: Patient changed her mind about hospice. She is declining hospice and will go through with radiation. She remains very weak. Her hemoglobin is critically low today at 5.8. I discussed recommendations for blood transfusion with the patient. She agreed to blood transfusion. Her status will be changed in the EMR as agreeable to blood transfusion as needed. Physical Exam Vital signs: Last Vital Signs Temp 98.9 F 02/14/18 16:08 Pulse 100 H 02/14/18 16:08 Resp 15 02/14/18 16:08 BP 83/51 L 02/14/18 16:08 Pulse Ox 97 02/14/18 16:08 Intake & Output 02/12/18 02/13/18 02/14/18 02/15/18 06:59 06:59 06:59 06:59 Intake Total 1570 / 1570 500 / 500 760 / 760 0 / 0 Output Total 2700 / 2700 7080 / 7080 3170 / 3170 750 / 750 Balance -1130 / -1130 -6580 / -6580 -2410 / -2410 -750 / -750 Weight 39.1 kg 43.9 kg 42.9 kg Narrative: GENERAL: Cachectic looking female. Appears much older than stated age. CARDIOVASCULAR: Tachycardic around 105. Regular rhythm. No significant heart murmurs RESPIRATORY: Good respiratory efforts. Breath sounds equal and clear to auscultation bilaterally. GASTROINTESTINAL: Abdomen soft, non-tender, non-distended. G-tube to gravity bag and J-tube with tube feeding. MUSCULOSKELETAL: Extremities without cyanosis, or edema. NEURO: Alert & Oriented x4 to person, place, time, situation. Moves all ext x4 PSYCH: Appropriate mood and affect. Results Labs CBC & Chem 7: 02/14/18 10:35 02/14/18 05:30 Assessment and Plan (1) Pancreatic cancer: Code(s): C25.9 - Malignant neoplasm of pancreas, unspecified Status: Chronic Plan 57-year-old female with a diagnosis of pancreatic cancer with malignant gastric outlet obstruction. Patient initially presented with generalized weakness, hypokalemia, nausea, and vomiting. The patient declined hospice care, general surgery was consulted and the patient underwent laparoscopic G-tube placement which was done on 02/01/2018. Radiation oncology did mapping on the patient and received her first treatment of chemotherapy 02/06/2018. Pancreatic cancer with metastasis and gastric outlet obstruction Patient was evaluated by Dr. Harvey from oncology and her diagnosis of metastatic pancreatic cancer was discussed with the patient. Patient refuses hospice care. She is status post G-tube placement. Tube feeding per general surgery. Patient declined palliative care consult. Radiotherapy started 02/06/2018. Patient is receiving xrt inhouse as per radiation oncology recs. We will follow-up with radiation oncology for any other further recommendations. She agreed to hospice yesterday but changed her mind today. Hemoglobin is critically low. She requires blood transfusion. Electrolyte abnormalities. -Replace electrolytes and continue to monitor Acute on chronic anemia: Suspect worsening anemia of chronic disease. No evidence of acute blood loss. Been trending down over time. Patient agreed to blood transfusion today. -Hemoglobin of 5.8. We will transfuse 2 units of PRBC. - Check Hemoccult stool -Monitor H&H. Heparin for DVT prophylaxis. Progress Note: Quality VTE Deep Vein Thrombosis/Pulmonary Embolism Present on Admission: No _ (1) Pancreatic cancer Qualifiers: Pancreatic malignancy location:
[2018-02-15] MEDS: Morphine Inj 4 MG/ML Vial IV.PUSH PRN ×5 (00:19→16:19)
[2018-02-15 08:09] LABS: Hematocrit 29.7 % (35.0-46.0); Hemoglobin 10.5 gm/dL (11.6-15.3); Mean Corpuscular HGB Conc 35.5 % (32.0-36.0); Mean Corpuscular Volume 90.1 fL (80.0-100.0); Mean Platelet Volume 8.2 fL (7.0-11.0); Platelet Count 355 th/mm3 (150-450); White Blood Count 6.8 th/mm3 (4.0-11.0)
[2018-02-15 08:20] LABS: Calcium 7.6 mg/dL (8.5-10.1); Carbon Dioxide 38.8 meq/L (21.0-32.0)
[2018-02-15 08:32] LABS: Potassium 2.4 meq/L (3.5-5.1)
[2018-02-15] MEDS: Heparin - SQ 10,000 UNITS/ML Vial SQ SCH ×2 (09:10→20:39)
[2018-02-15] MEDS: Metoclopramide Liq 10 MG/10 ML UDC PO SCH ×5 (09:11→23:44)
[2018-02-15] MEDS: Sodium Chloride 0.9% 2 ML Flush BID IV.FLUSH SCH ×2 (09:12→20:39)
--- NOTE | 2018-02-15 10:22 | P.PNIM ---
Subjective Interval history: Patient reports she is feeling much better today. She has more strength. Potassium is critically low. Physical Exam Vital signs: Last Vital Signs Temp 97.4 F L 02/15/18 08:00 Pulse 97 H 02/15/18 08:00 Resp 17 02/15/18 08:00 BP 109/65 02/15/18 08:00 Pulse Ox 98 02/15/18 08:00 Intake & Output 02/13/18 02/14/18 02/15/18 02/16/18 06:59 06:59 06:59 06:59 Intake Total 500 / 500 760 / 760 450 / 450 Output Total 7080 / 7080 3170 / 3170 3225 / 3225 425 / 425 Balance -6580 / -6580 -2410 / -2410 -2775 / -2775 -425 / -425 Weight 43.9 kg 42.9 kg Narrative: GENERAL: Cachectic looking female. Appears much older than stated age. CARDIOVASCULAR: Normal rate. Regular rhythm. No significant heart murmurs RESPIRATORY: Good respiratory efforts. Breath sounds equal and clear to auscultation bilaterally. GASTROINTESTINAL: Abdomen soft, non-tender, non-distended. G-tube to gravity bag and J-tube with tube feeding. MUSCULOSKELETAL: Extremities without cyanosis, or edema. NEURO: Alert & Oriented x4 to person, place, time, situation. Moves all ext x4 PSYCH: Appropriate mood and affect. Results Labs CBC & Chem 7: 02/15/18 06:49 02/15/18 06:49 Assessment and Plan (1) Pancreatic cancer: Code(s): C25.9 - Malignant neoplasm of pancreas, unspecified Status: Chronic Plan 57-year-old female with a diagnosis of pancreatic cancer with malignant gastric outlet obstruction. Patient initially presented with generalized weakness, hypokalemia, nausea, and vomiting. The patient declined hospice care, general surgery was consulted and the patient underwent laparoscopic G-tube placement which was done on 02/01/2018. Radiation oncology did mapping on the patient and received her first treatment of chemotherapy 02/06/2018. Pancreatic cancer with metastasis and gastric outlet obstruction Patient was evaluated by Dr. Harvey from oncology and her diagnosis of metastatic pancreatic cancer was discussed with the patient. Patient refuses hospice care. She is status post G-tube placement. Tube feeding per general surgery. Patient declined palliative care consult. Radiotherapy started 02/06/2018. Patient is receiving xrt inhouse as per radiation oncology recs. Patient to continue to receive radiation therapy outpatient Electrolyte abnormalities. -Hypokalemia. Replace and monitor. Acute on chronic anemia: Suspect worsening anemia of chronic disease. No evidence of acute blood loss. Patient agreed to blood transfusion today. -She received 2 units of PRBC. - Hemoglobin stable. -Monitor H&H. Heparin for DVT prophylaxis. Plan for discharge with home health tomorrow if she remains stable. Discussed with the patient's daughter at bedside. Progress Note: Quality VTE Deep Vein Thrombosis/Pulmonary Embolism Present on Admission: No _ (1) Pancreatic cancer Qualifiers: Pancreatic malignancy location:
[2018-02-15] MEDS: Potassium Chlor 20 mEq Premix 20 MEQ/100 ML PIGGYBACK IV.SIG SCH ×2 (12:19→14:38)
[2018-02-15] MEDS: Morphine Sulfate Inj 2 MG/ML Vial IV.PUSH PRN (20:40)
[2018-02-16] MEDS: Morphine Sulfate Inj 2 MG/ML Vial IV.PUSH PRN ×6 (01:09→23:51)
[2018-02-16 05:52] LABS: Hematocrit 29.2 % (35.0-46.0); Hemoglobin 10.5 gm/dL (11.6-15.3); Mean Corpuscular HGB Conc 35.9 % (32.0-36.0); Mean Corpuscular Hemoglobin 32.1 pg (27.0-34.0); Mean Corpuscular Volume 89.5 fL (80.0-100.0); Mean Platelet Volume 7.8 fL (7.0-11.0); Platelet Count 390 th/mm3 (150-450); Red Blood Count 3.26 mil/mm3 (4.00-5.30); Red Cell Distribution Width 18.3 % (11.6-17.2); White Blood Count 6.7 th/mm3 (4.0-11.0)
[2018-02-16 06:26] LABS: Carbon Dioxide 39.3 meq/L (21.0-32.0)
[2018-02-16 06:28] LABS: Potassium 2.3 meq/L (3.5-5.1)
[2018-02-16] MEDS: Potassium Chlor 20 mEq Premix 20 MEQ/100 ML PIGGYBACK IV.SIG SCH ×6 (06:59→18:06)
[2018-02-16] MEDS: Metoclopramide Liq 10 MG/10 ML UDC PO SCH ×4 (08:33→20:56)
[2018-02-16] MEDS: Heparin - SQ 10,000 UNITS/ML Vial SQ SCH ×2 (08:37→20:55)
[2018-02-16] MEDS: Sodium Chloride 0.9% 2 ML Flush BID IV.FLUSH SCH ×2 (08:48→20:55)
--- NOTE | 2018-02-16 12:10 | P.DIET ---
Nutritional Evaluation Type of nutrition evaluation: follow-up Nutrition consult regarding: Tube Feeding, Diet Evaluation Nutrition screening: MDC (malnutrition) Subjective Subjective Comments: HUONG Schaeffer phoned to request TF formula change relative to Nutrihep being on back order. Objective - Diagnosis hypokalemia, nausea/vomiting/diarrhea - Objective [place] body weight: 61 kg % IBW: 70 (IBW = 135lb) Body Weight Used for Calculations: Actual (42.9) Energy Needs - Lower Range (kCal/kg): 35 Energy Needs - Upper Range (kCal/kg): 40 Lower Limit kCal/kg (kCals): 1,501 Upper Limit kCal/kg (kCals): 1,716 Lower Limit Protein Factor (Grams per Kg): 1.5 Upper Limit Protein Factor (Grams per Kg): 2 Lower Protein Needs (Protein): 64 Upper Protein Needs (Protein): 86 Fluid Factor (ml/kg): 30 Estimated Fluid Needs (ml): 1,287 Dietitian Reviewed in Medical Record: Curent medications, Intake & Output, Labs , Medical history, Tube feeding Diet Order: NPO Oral Diet Intake Amount: Poor <50% Objective Comments: PMH: GERD, hx of ileus, pancreatic CA Feeding - Current Tube Feeding Tube Feeding Product: Nutrihep (Current order for Nutrihep at 50mL) Assessment Assessment: Pt is very malnourished and presents with a BMI of 14.0. Spoke with HUONG Schaeffer regarding TF formula change 2/2 Nutrihep being on back order. Reassessed pt's energy requirements which remain the same. Current PO intake on [facility] soft diet remains inconsistent. Will continue with recommendation of Vital 1.5 at 50ml/ hour to provide 1800kcals, 81g protein, and 917ml free water to best meet pt's needs.Reviewed labs, noted pt still with electrolyte abnormalities and a K of 2.3, currently being repleted. Will continue to monitor labs, electrolytes and tolerance to TF. Recommendations: Vital 1.5 @ 50 mls/hr goal Dietitian to Monitor: Lab values, Electrolytes, Intake & Output, Tube feeding tolerance, Weight change, Medical course
[2018-02-16 13:09] LABS: Magnesium 2.3 mg/dL (1.5-2.5)
[2018-02-16 13:15] LABS: Potassium 2.9 meq/L (3.5-5.1)
--- NOTE | 2018-02-16 15:03 | P.PNIM ---
Subjective Interval history: Patient reports she is feeling okay today. Potassium is still critically low and did not normalize despite aggressive replacement earlier this morning. We will continue electrolyte replacement. Physical Exam Vital signs: Last Vital Signs Temp 97.7 F 02/16/18 12:00 Pulse 97 H 02/16/18 12:00 Resp 20 02/16/18 12:00 BP 101/66 02/16/18 12:00 Pulse Ox 97 02/16/18 12:00 Intake & Output 02/14/18 02/15/18 02/16/18 02/17/18 06:59 06:59 06:59 06:59 Intake Total 760 / 760 450 / 450 1480 / 1480 300 / 300 Output Total 3170 / 3170 3225 / 3225 2475 / 2475 Balance -2410 / -2410 -2775 / -2775 -995 / -995 300 / 300 Weight 42.9 kg 40.3 kg Narrative: GENERAL: Cachectic looking female. Appears much older than stated age. CARDIOVASCULAR: Normal rate. Regular rhythm. No significant heart murmurs RESPIRATORY: Good respiratory efforts. Breath sounds equal and clear to auscultation bilaterally. GASTROINTESTINAL: Abdomen soft, non-tender, non-distended. G-tube to gravity bag and J-tube with tube feeding. MUSCULOSKELETAL: Extremities without cyanosis, or edema. NEURO: Alert & Oriented x4 to person, place, time, situation. Moves all ext x4 PSYCH: Appropriate mood and affect. Results Labs CBC & Chem 7: 02/16/18 04:45 02/17/18 14:46 Assessment and Plan (1) Pancreatic cancer: Code(s): C25.9 - Malignant neoplasm of pancreas, unspecified Status: Chronic Plan 57-year-old female with a diagnosis of pancreatic cancer with malignant gastric outlet obstruction. Patient initially presented with generalized weakness, hypokalemia, nausea, and vomiting. The patient declined hospice care, general surgery was consulted and the patient underwent laparoscopic G-tube placement which was done on 02/01/2018. Radiation oncology did mapping on the patient and received her first treatment of chemotherapy 02/06/2018. Pancreatic cancer with metastasis and gastric outlet obstruction Patient was evaluated by Dr. Harvey from oncology and her diagnosis of metastatic pancreatic cancer was discussed with the patient. Patient refuses hospice care. She is status post G-tube placement. Tube feeding per general surgery. Patient declined palliative care consult. Radiotherapy started 02/06/2018. Patient is receiving xrt inhouse as per radiation oncology recs. Patient to continue to receive radiation therapy outpatient Persistent hypokalemia. -Replace aggressively today and put on scheduled effervescent potassium replacement. Follow-up levels in a.m. Acute on chronic anemia: Suspect worsening anemia of chronic disease. No evidence of acute blood loss. Patient agreed to blood transfusion today. -She received 2 units of PRBC. - Hemoglobin stable. -Monitor H&H. Heparin for DVT prophylaxis. Plan for discharge with home health tomorrow if she remains stable. Discussed with the patient's daughter at bedside. Progress Note: Quality VTE Deep Vein Thrombosis/Pulmonary Embolism Present on Admission: No _ (1) Pancreatic cancer Qualifiers: Pancreatic malignancy location:
[2018-02-16] MEDS: Potassium Bicarbonate 25 MEQ Effervescent Tablet PO SCH (15:29)
[2018-02-16] MEDS: Morphine Inj 4 MG/ML Vial IV.PUSH PRN (17:03)
[2018-02-17] MEDS: Morphine Sulfate Inj 2 MG/ML Vial IV.PUSH PRN ×3 (03:07→09:33)
[2018-02-17] MEDS: Sodium Chloride 0.9% 2 ML Flush PRN IV.FLUSH (05:45)
[2018-02-17 06:42] LABS: Potassium 2.9 meq/L (3.5-5.1)
[2018-02-17] MEDS: Potassium Bicarbonate 25 MEQ Effervescent Tablet PO SCH ×2 (08:36→21:48)
[2018-02-17] MEDS: Heparin - SQ 10,000 UNITS/ML Vial SQ SCH ×2 (08:37→21:48)
[2018-02-17] MEDS: Metoclopramide Liq 10 MG/10 ML UDC PO SCH ×4 (08:37→21:51)
[2018-02-17] MEDS: Sodium Chloride 0.9% 2 ML Flush BID IV.FLUSH SCH ×2 (08:42→21:49)
[2018-02-17] MEDS: Potassium Chlor 20 mEq Premix 20 MEQ/100 ML PIGGYBACK IV.SIG SCH ×2 (08:59→13:23)
[2018-02-17] MEDS: Morphine Inj 4 MG/ML Vial IV.PUSH PRN ×4 (12:47→21:49)
[2018-02-17] MEDS: Mag Sulf 1 gm/100 ml Premix 100 ML IV.SIG SCH ×2 (15:02→16:27)
--- NOTE | 2018-02-17 16:07 | P.PNIM ---
Subjective Interval history: Potassium still critically low this morning. Replacement ordered. Patient reports she is feeling okay otherwise. Physical Exam Vital signs: Last Vital Signs Temp 97.0 F L 02/17/18 12:00 Pulse 103 H 02/17/18 12:00 Resp 20 02/17/18 08:00 BP 114/67 02/17/18 08:00 Pulse Ox 114 H 02/17/18 12:00 Intake & Output 02/15/18 02/16/18 02/17/18 02/18/18 06:59 06:59 06:59 06:59 Intake Total 450 / 450 1480 / 1480 4074 / 4074 100 / 100 Output Total 3225 / 3225 2475 / 2475 77063 / 05590 Balance -2775 / -2775 -995 / -995 -9236 / -9236 100 / 100 Weight 40.3 kg 39.1 kg Narrative: GENERAL: Cachectic looking female. Appears much older than stated age. CARDIOVASCULAR: Normal rate. Regular rhythm. No significant heart murmurs RESPIRATORY: Good respiratory efforts. Breath sounds equal and clear to auscultation bilaterally. GASTROINTESTINAL: Abdomen soft, non-tender, non-distended. G-tube to gravity bag and J-tube with tube feeding. MUSCULOSKELETAL: Extremities without cyanosis, or edema. NEURO: Alert & Oriented x4 to person, place, time, situation. Moves all ext x4 PSYCH: Appropriate mood and affect. Results Labs CBC & Chem 7: 02/16/18 04:45 02/17/18 14:46 Assessment and Plan (1) Pancreatic cancer: Code(s): C25.9 - Malignant neoplasm of pancreas, unspecified Status: Chronic Plan 57-year-old female with a diagnosis of pancreatic cancer with malignant gastric outlet obstruction. Patient initially presented with generalized weakness, hypokalemia, nausea, and vomiting. The patient declined hospice care, general surgery was consulted and the patient underwent laparoscopic G-tube placement which was done on 02/01/2018. Radiation oncology did mapping on the patient and received her first treatment of chemotherapy 02/06/2018. Pancreatic cancer with metastasis and gastric outlet obstruction Patient was evaluated by Dr. Harvey from oncology and her diagnosis of metastatic pancreatic cancer was discussed with the patient. Patient refuses hospice care. She is status post G-tube placement. Tube feeding per general surgery. Patient declined palliative care consult. Radiotherapy started 02/06/2018. Patient is receiving xrt inhouse as per radiation oncology recs. Patient to continue to receive radiation therapy outpatient Persistent hypokalemia. -Replaced aggressively today and put on scheduled effervescent potassium replacement. Follow-up levels in a.m. Acute on chronic anemia: Suspect worsening anemia of chronic disease. No evidence of acute blood loss. Patient agreed to blood transfusion today. -She received 2 units of PRBC. - Hemoglobin stable. -Monitor H&H. Heparin for DVT prophylaxis. Plan for discharge with home health once all arrangements are made. Discussed with case management. Needs home health and tube feeding arrangements. Progress Note: Quality VTE Deep Vein Thrombosis/Pulmonary Embolism Present on Admission: No _ (1) Pancreatic cancer Qualifiers: Pancreatic malignancy location:
[2018-02-17] MEDS ORDERED: Mag Sulf 1 gm/100 ml Premix 100 ML IV.SIG SCH (16:30)
[2018-02-18] MEDS: Morphine Inj 4 MG/ML Vial IV.PUSH PRN ×2 (00:42→20:30)
[2018-02-18] MEDS: Metoclopramide Liq 10 MG/10 ML UDC PO SCH ×4 (08:26→21:56)
[2018-02-18] MEDS: Morphine Sulfate Inj 2 MG/ML Vial IV.PUSH PRN ×3 (08:27→16:40)
[2018-02-18] MEDS: Potassium Bicarbonate 25 MEQ Effervescent Tablet PO SCH ×2 (08:27→21:52)
[2018-02-18] MEDS: Heparin - SQ 10,000 UNITS/ML Vial SQ SCH ×2 (08:27→21:53)
[2018-02-18] MEDS: Sodium Chloride 0.9% 2 ML Flush BID IV.FLUSH SCH ×2 (08:27→21:54)
[2018-02-18 08:50] LABS: Calcium 8.3 mg/dL (8.5-10.1); Carbon Dioxide 37.3 meq/L (21.0-32.0); Potassium 3.4 meq/L (3.5-5.1)
--- NOTE | 2018-02-18 11:11 | P.DS ---
DS: Providers Date of admission: 01/22/18 15:42 Primary care physician: Columba May MD Consults: 01/23/18 08:58 HUB Only Consult Order Routine Consulting Provider: Sardinia Uguru,[facility] 01/25/18 14:32 Consult to Gastroenterology Routine Consulting Provider: Nithin Martinez Reason for Consultation: 57 y.o. female with pancreatic cancer declining treatment. Patient with ongoing nausea and vomiting, please assist with symptom management. Greatly appreciated. Notified:: Office Spoke with:: PRITESH Date Notified:: 01/25/18 Time Notified:: 14:39 Ordering Provider: STEPHAN 01/27/18 14:23 Consult to General Surgery Routine Consulting Provider: Sorin Frey Preferred Machine Fixer:: Hayder Zaragoza Reason for Consultation: Post EGD. Long stricture second portion of duodenum Notified:: Service Spoke with:: WILSON Date Notified:: 01/27/18 Time Notified:: 14:32 Ordering Provider: VEGA 01/30/18 17:24 Consult to Oncology Routine Consulting Provider: Yung Harvey Preferred Machine Fixer:: Yung Harvey Reason for Consultation: pancreatic head adenocarcinoma, patient requesting consult, she had previously declined Notified:: Service Spoke with:: Libertad Date Notified:: 01/30/18 Time Notified:: 17:35 Ordering Provider: SHELLEY 02/02/18 14:18 Consult to Radiation Oncology Routine Consulting Provider: Ananth Delacruz Reason for Consultation: eval for radiation therapy in locally advanced metastatic pancreatic cancer; patient of Dr. Zaragoza Notified:: Service Spoke with:: LIZETH Date Notified:: 02/02/18 Time Notified:: 14:23 Ordering Provider: FERN Brief History from admission: Mrs. Moseley is a 57-year-old female. She has a past history of pancreatic cancer which is stage III. She comes in secondary to hyperemesis, weakness, and low blood pressure. Lab findings show severe hypokalemia with a measure of 2.0. Currently she is been using dietary changes as a attempted treatment of her pancreatic cancer. She is avoiding sugars including fruits and juices. Low potassium could in part be related to her hyperemesis and the diet. Dehydration is present likely secondary to her nausea and vomiting. Low blood pressure also is related to dehydration. No significant complaints of pain when seen. Patient update on day of discharge: Patient reports she is feeling okay. She is anxious to go home. DS: Diagnosis Discharge Diagnosis (1) Pancreatic cancer: Status: Chronic DS: Summary 57-year-old female with a diagnosis of pancreatic cancer with malignant gastric outlet obstruction. Patient initially presented with generalized weakness, hypokalemia, nausea, and vomiting. The patient declined hospice care, general surgery was consulted and the patient underwent laparoscopic G-tube placement which was done on 02/01/2018. Radiation oncology did mapping on the patient and received her first treatment of radiation therapy on 02/06/2018. Further treatment course detailed below: Pancreatic cancer with metastasis and gastric outlet obstruction Patient was evaluated by Dr. Harvey from oncology and her diagnosis of metastatic pancreatic cancer was discussed with the patient. Patient refuses hospice care. She is status post G-tube placement. Patient to continue on tube feedings. Patient declined palliative care consult. Radiotherapy started 02/06/2018. Patient started treatment with radiation in house. She will continue radiation treatment outpatient Anti-emetics as needed. Persistent hypokalemia. -Replaced aggressively. Suspect she has some issues with absorption. She requires high dose of potassium supplements daily. She is discharged on potassium supplements. She is advised to follow-up outpatient with PCP Acute on chronic anemia: Suspect worsening anemia of chronic disease. No evidence of acute blood loss. Patient agreed to blood transfusion. Subsequent H &H has been stable. Monitor H&H outpatient. The patient is discharged with home health. She will continue tube feeding at home. She is advised to follow-up outpatient with general surgery, oncology and radiation oncologist Time Spent with Patient Total time spent providing and/or coordinating discharge services: Greater than 30 minutes Quality: VTE Deep Vein Thrombosis/Pulmonary Embolism Present on Admission: No Exam Narrative Exam Narrative: Narrative: GENERAL: Cachectic looking female. Appears much older than stated age. CARDIOVASCULAR: Normal rate. Regular rhythm. No significant heart murmurs RESPIRATORY: Good respiratory efforts. Breath sounds equal and clear to auscultation bilaterally. GASTROINTESTINAL: Abdomen soft, non-tender, non-distended. G-tube to gravity bag and J-tube with tube feeding. MUSCULOSKELETAL: Extremities without cyanosis, or edema. NEURO: Alert & Oriented x4 to person, place, time, situation. Moves all ext x4 PSYCH: Appropriate mood and affect. Results Completed studies during hospitalization: Pending at discharge 01/26/18 14:36 Surgical [PTH] Routine Labs on day of discharge: Labs from last 24 hours 02/18/18 02/17/18 08:10 14:46 Sodium 133 L Potassium 3.4 L 3.5 Chloride 87 L Carbon Dioxide 37.3 H Anion Gap 9 BUN 27 H Creatinine 0.78 Estimated GFR 76 L Random Glucose 198 H Calcium 8.3 L Impressions ITS Impressions Gastrostomy Tube Change 02/03/18 00:00 CONCLUSION: 1. Uncomplicated gastrojejunostomy tube placement Head CT 02/08/18 20:02 CONCLUSION: 1. No acute hemorrhage or mass effect. 2. Soft tissue swelling over the right parietal and occipital bones with no evidence of fracture. . Discharge Plan Discharge Disposition Patient Disposition: W/Home Health Service Discharge Condition Condition: Fair Discharge Order Discharge Orders: Discharge Order (Routine); Ordered 02/18/18 Ordered By: Ryan Escobedo Physicians Team Primary Care Provider: Columba May Attending Provider: Ryan Escobedo Other Providers: [employer],Insurance ; Nithin Martinez ; Sorin Frey ; Yung Harvey ; Hayder Zaragoza ; Ananth Delacruz Rxs /Orders / Referrals /Forms Prescriptions: New potassium bicarb-citric acid 25 mEq Tablet, Effervescent 50 meq PO BID 30 Days Qty: 120 RF: 0 morphine 10 mg/5 mL solution 5 mg PO Q6H PRN (Reason: pain) Qty: 200 RF: 0 nut.tx.impaired dige fxn-fiber [Vital 1.5 Jesus] 0.07 gram- 1.5 kcal/mL liquid See Label Instructions .ROUTE .COMPLEX 180 Days RF: 0 Continue ondansetron 4 mg tablet,disintegrating 4 mg PO Q6H PRN (Reason: nausea and vomiting) Qty: 30 RF: 0 Discontinued potassium chloride 10 mEq Capsule, Extended Release 10 meq PO DAILY Qty: 14 RF: 0 Ambulatory Orders / Order Sets / DME: Bedside Commode (Routine) Location: Determined by Patient Ordered By: Jeff Feldman Feeding Tube Pump Set (1 each) (Routine) Location: Determined by Patient Ordered By: Ryan Escobedo Walker With Front Wheels (1 each) (Routine) Location: Determined by Patient Ordered By: Jeff Ross Referrals: Columba May MD [Primary Care Provider] - See Instructions Status ED Status: Left Department
[2018-02-19] MEDS: Morphine Inj 4 MG/ML Vial IV.PUSH PRN ×7 (00:09→18:35)
[2018-02-19] MEDS: Sodium Chloride 0.9% 2 ML Flush PRN IV.FLUSH (03:27)
[2018-02-19] MEDS: Metoclopramide Liq 10 MG/10 ML UDC PO SCH ×4 (09:31→21:57)
[2018-02-19] MEDS: Heparin - SQ 10,000 UNITS/ML Vial SQ SCH ×2 (09:32→21:46)
[2018-02-19] MEDS: Potassium Bicarbonate 25 MEQ Effervescent Tablet PO SCH ×2 (09:32→21:46)
[2018-02-19] MEDS: Sodium Chloride 0.9% 2 ML Flush BID IV.FLUSH SCH ×2 (09:32→21:54)
--- NOTE | 2018-02-19 15:32 | P.PNIM ---
Subjective Interval history: Patient discharge yesterday. Awaiting home health and feeding tube equipment to be set up at home. She reports she is feeling okay. No new issues. Physical Exam Vital signs: Last Vital Signs Temp 97.9 F 02/19/18 12:00 Pulse 88 02/19/18 12:00 Resp 18 02/19/18 12:00 BP 116/66 02/19/18 12:00 Pulse Ox 96 02/19/18 12:00 Intake & Output 02/17/18 02/18/18 02/19/18 02/20/18 06:59 06:59 06:59 06:59 Intake Total 4074 / 4074 5838 / 5838 960 / 960 Output Total 55675 / 30540 56172 / 33114 500 / 500 Balance -9236 / -9236 -6512 / -6512 460 / 460 Weight 39.1 kg 40.6 kg Narrative: GENERAL: Cachectic looking female. Appears much older than stated age. CARDIOVASCULAR: Normal rate. Regular rhythm. No significant heart murmurs RESPIRATORY: Good respiratory efforts. Breath sounds equal and clear to auscultation bilaterally. GASTROINTESTINAL: Abdomen soft, non-tender, non-distended. G-tube to gravity bag and J-tube with tube feeding. MUSCULOSKELETAL: Extremities without cyanosis, or edema. NEURO: Alert & Oriented x4 to person, place, time, situation. Moves all ext x4 PSYCH: Appropriate mood and affect. Results Labs CBC & Chem 7: 02/16/18 04:45 02/18/18 08:10 Assessment and Plan (1) Pancreatic cancer: Code(s): C25.9 - Malignant neoplasm of pancreas, unspecified Status: Chronic Plan 57-year-old female with a diagnosis of pancreatic cancer with malignant gastric outlet obstruction. Patient initially presented with generalized weakness, hypokalemia, nausea, and vomiting. The patient declined hospice care, general surgery was consulted and the patient underwent laparoscopic G-tube placement which was done on 02/01/2018. Radiation oncology did mapping on the patient and received her first treatment of chemotherapy 02/06/2018. Pancreatic cancer with metastasis and gastric outlet obstruction Patient was evaluated by Dr. Harvey from oncology and her diagnosis of metastatic pancreatic cancer was discussed with the patient. Patient refuses hospice care. She is status post G-tube placement. Tube feeding per general surgery. Patient declined palliative care consult. Radiotherapy started 02/06/2018. Patient is receiving xrt inhouse as per radiation oncology recs. Patient to continue to receive radiation therapy outpatient Persistent hypokalemia. -Replaced aggressively today and put on scheduled effervescent potassium replacement. Follow-up levels in a.m. Acute on chronic anemia: Suspect worsening anemia of chronic disease. No evidence of acute blood loss. Patient agreed to blood transfusion today. -She received 2 units of PRBC. - Hemoglobin stable. -Monitor H&H. Heparin for DVT prophylaxis. Plan for discharge with home health once all arrangements are made. Patient is cleared for discharge. Progress Note: Quality VTE Deep Vein Thrombosis/Pulmonary Embolism Present on Admission: No _ (1) Pancreatic cancer Qualifiers: Pancreatic malignancy location:
--- NOTE | 2018-02-19 15:38 | P.DCO ---
Diagnosis (1) Pancreatic cancer: Status: Chronic Physical Therapy Order: Improve ambulation and Strength and gait training Home Health Nursing Order: Medical education, Signs/symptoms of disease process, Medication education-adverse effect and Nursing assessment with vital signs Instructions: Nursing for tube feeding Case Management Consult Case Management Consult-Home Health: Yes I have seen patient Carolina Moseley on 02/19/18. My clinical findings support the need for the requested home health care services because: Limited mobility due to disease progression, Deconditioned with increased weakness and Limited ability to care for self I certify that my clinical findings support that this patient is homebound because: Unsteady gait/balance and Need for psychosocial assistance _ (1) Pancreatic cancer Qualifiers: Pancreatic malignancy location:
[2018-02-19] MEDS: Morphine Sulfate Inj 2 MG/ML Vial IV.PUSH PRN (21:46)
[2018-02-20 05:48] VITALS: RESP 18
[2018-02-20 08:58] LABS: Anion Gap 8 meq/L (5-15); Blood Urea Nitrogen 28 mg/dL (7-18); Calcium 8.1 mg/dL (8.5-10.1); Carbon Dioxide 37.2 meq/L (21.0-32.0); Chloride 84 meq/L (98-107); Glomerular Filtration Rate Greater Than 89 mL/min (>89); Glucose,Random 198 mg/dL (74-106); Potassium 3.2 meq/L (3.5-5.1); Sodium 129 meq/L (136-145)
[2018-02-20] MEDS: Metoclopramide Liq 10 MG/10 ML UDC PO SCH (09:36)
[2018-02-20] MEDS: Potassium Bicarbonate 25 MEQ Effervescent Tablet PO SCH (09:37)
[2018-02-20] MEDS: Heparin - SQ 10,000 UNITS/ML Vial SQ SCH (09:39)
[2018-02-20] MEDS: Sodium Chloride 0.9% 2 ML Flush BID IV.FLUSH SCH (09:47)
[2018-02-20 10:43] VITALS: BP 110/56; PULSE 86; TEMP 97.3; O2SAT 98
--- NOTE | 2018-02-20 11:08 | P.PNIM ---
Physical Exam Vital signs: Last Vital Signs Temp 97.3 F L 02/20/18 08:00 Pulse 86 02/20/18 08:00 Resp 18 02/20/18 08:00 BP 110/56 L 02/20/18 08:00 Pulse Ox 98 02/20/18 08:00 Intake & Output 02/18/18 02/19/18 02/20/18 02/21/18 06:59 06:59 06:59 06:59 Intake Total 5838 / 5838 960 / 960 1160 / 1160 Output Total 57385 / 66739 500 / 500 Balance -6512 / -6512 460 / 460 1160 / 1160 Weight 40.6 kg Narrative: GENERAL: Cachectic looking female. Appears much older than stated age. CARDIOVASCULAR: Normal rate. Regular rhythm. No significant heart murmurs RESPIRATORY: Good respiratory efforts. Breath sounds equal and clear to auscultation bilaterally. GASTROINTESTINAL: Abdomen soft, non-tender, non-distended. G-tube to gravity bag and J-tube with tube feeding. MUSCULOSKELETAL: Extremities without cyanosis, or edema. NEURO: Alert & Oriented x4 to person, place, time, situation. Moves all ext x4 PSYCH: Appropriate mood and affect. Results Labs CBC & Chem 7: 02/16/18 04:45 02/20/18 08:14 Assessment and Plan (1) Pancreatic cancer: Code(s): C25.9 - Malignant neoplasm of pancreas, unspecified Status: Chronic Plan 57-year-old female with a diagnosis of pancreatic cancer with malignant gastric outlet obstruction. Patient initially presented with generalized weakness, hypokalemia, nausea, and vomiting. The patient declined hospice care, general surgery was consulted and the patient underwent laparoscopic G-tube placement which was done on 02/01/2018. Radiation oncology did mapping on the patient and received her first treatment of chemotherapy 02/06/2018. Pancreatic cancer with metastasis and gastric outlet obstruction Patient was evaluated by Dr. Harvey from oncology and her diagnosis of metastatic pancreatic cancer was discussed with the patient. Patient refuses hospice care. She is status post G-tube placement. Tube feeding per general surgery. Patient declined palliative care consult. Radiotherapy started 02/06/2018. Patient is receiving xrt inhouse as per radiation oncology recs. Patient to continue to receive radiation therapy outpatient Persistent hypokalemia. -Replaced aggressively today and put on scheduled effervescent potassium replacement. Follow-up levels in a.m. Acute on chronic anemia: Suspect worsening anemia of chronic disease. No evidence of acute blood loss. Patient agreed to blood transfusion today. -She received 2 units of PRBC. - Hemoglobin stable. -Monitor H&H. Heparin for DVT prophylaxis. Plan for discharge with home health once all arrangements are made. Patient is cleared for discharge. Progress Note: Quality VTE Deep Vein Thrombosis/Pulmonary Embolism Present on Admission: No _ (1) Pancreatic cancer Qualifiers: Pancreatic malignancy location:
--- NOTE | 2018-02-20 14:08 | P.DS ---
DS: Providers Date of admission: 01/22/18 15:42 Primary care physician: Columba May MD Consults: 01/23/18 08:58 HUB Only Consult Order Routine Consulting Provider: Ekalaka Wunderdata,[facility] 01/25/18 14:32 Consult to Gastroenterology Routine Consulting Provider: Nithin Martinez Reason for Consultation: 57 y.o. female with pancreatic cancer declining treatment. Patient with ongoing nausea and vomiting, please assist with symptom management. Greatly appreciated. Notified:: Office Spoke with:: PRITESH Date Notified:: 01/25/18 Time Notified:: 14:39 Ordering Provider: STEPHAN 01/27/18 14:23 Consult to General Surgery Routine Consulting Provider: Sorin Frey Preferred Candy Butcher:: Hayder Zaragoza Reason for Consultation: Post EGD. Long stricture second portion of duodenum Notified:: Service Spoke with:: WILSON Date Notified:: 01/27/18 Time Notified:: 14:32 Ordering Provider: VEGA 01/30/18 17:24 Consult to Oncology Routine Consulting Provider: Yung Harvey Preferred Candy Butcher:: Yung Harvey Reason for Consultation: pancreatic head adenocarcinoma, patient requesting consult, she had previously declined Notified:: Service Spoke with:: Libertad Date Notified:: 01/30/18 Time Notified:: 17:35 Ordering Provider: SHELLEY 02/02/18 14:18 Consult to Radiation Oncology Routine Consulting Provider: Ananth Delacruz Reason for Consultation: eval for radiation therapy in locally advanced metastatic pancreatic cancer; patient of Dr. Zaragoza Notified:: Service Spoke with:: LIZETH Date Notified:: 02/02/18 Time Notified:: 14:23 Ordering Provider: FERN Brief History from admission: Mrs. Moseley is a 57-year-old female. She has a past history of pancreatic cancer which is stage III. She comes in secondary to hyperemesis, weakness, and low blood pressure. Lab findings show severe hypokalemia with a measure of 2.0. Currently she is been using dietary changes as a attempted treatment of her pancreatic cancer. She is avoiding sugars including fruits and juices. Low potassium could in part be related to her hyperemesis and the diet. Dehydration is present likely secondary to her nausea and vomiting. Low blood pressure also is related to dehydration. No significant complaints of pain when seen. Patient update on day of discharge: Patient reports she is feeling okay today. She is anxious to go home. Discussed discharge planning with the patient and her daughter at bedside. DS: Diagnosis Discharge Diagnosis (1) Pancreatic cancer: Status: Chronic DS: Summary 57-year-old female with a diagnosis of pancreatic cancer with malignant gastric outlet obstruction. Patient initially presented with generalized weakness, hypokalemia, nausea, and vomiting. The patient declined hospice care, general surgery was consulted and the patient underwent laparoscopic G-tube placement which was done on 02/01/2018. Radiation oncology did mapping on the patient and received her first treatment of radiation therapy on 02/06/2018. Further treatment course detailed below: Pancreatic cancer with metastasis and gastric outlet obstruction Patient was evaluated by Dr. Harvey from oncology and her diagnosis of metastatic pancreatic cancer was discussed with the patient. Patient refuses hospice care. She is status post G-tube placement. Patient to continue on tube feedings. Patient declined palliative care consult. Radiotherapy started 02/06/2018. Patient started treatment with radiation in house. She will continue radiation treatment outpatient Anti-emetics as needed. Persistent electrolyte abnormalities including hypokalemia -Replaced aggressively. Suspect she has issues with absorption. She requires high dose of potassium supplements daily. She is discharged on potassium supplements. She is advised to follow-up outpatient with PCP for repeat labs. Acute on chronic anemia: Suspect worsening anemia of chronic disease. No evidence of acute blood loss. Patient agreed to blood transfusion. Subsequent H &H has been stable. Monitor H&H outpatient. The patient is discharged with home health. She will continue tube feeding at home. She is advised to follow-up outpatient with PCP, general surgery, oncology and radiation oncologist Time Spent with Patient Total time spent providing and/or coordinating discharge services: Greater than 30 minutes Quality: VTE Deep Vein Thrombosis/Pulmonary Embolism Present on Admission: No Results Completed studies during hospitalization: Pending at discharge 01/26/18 14:36 Surgical [PTH] Routine Labs on day of discharge: Labs from last 24 hours 02/20/18 08:14 Sodium 129 L Potassium 3.2 L Chloride 84 L Carbon Dioxide 37.2 H Anion Gap 8 BUN 28 H Creatinine 0.67 Estimated GFR Greater than 89 Random Glucose 198 H Calcium 8.1 L Impressions ITS Impressions Gastrostomy Tube Change 02/03/18 00:00 CONCLUSION: 1. Uncomplicated gastrojejunostomy tube placement Head CT 02/08/18 20:02 CONCLUSION: 1. No acute hemorrhage or mass effect. 2. Soft tissue swelling over the right parietal and occipital bones with no evidence of fracture. . Discharge Plan Discharge Disposition Patient Disposition: /Home Health Service Discharge Condition Condition: Fair Discharge Order Discharge Orders: Discharge Order (Routine); Ordered 02/18/18 Ordered By: Ryan Escobedo Physicians Team Primary Care Provider: Columba May Attending Provider: Ryan Escobedo Other Providers: [employer],Insurance ; Nithin Martinez ; Sorin Frey ; Yung Harvey ; Hayder Zaragoza ; Ananth Delacruz Rxs /Orders / Referrals /Forms Prescriptions: New potassium bicarb-citric acid 25 mEq Tablet, Effervescent 50 meq PO BID 30 Days Qty: 120 RF: 0 morphine 10 mg/5 mL solution 5 mg PO Q6H PRN (Reason: pain) Qty: 200 RF: 0 nut.tx.impaired dige fxn-fiber [Vital 1.5 Jesus] 0.07 gram- 1.5 kcal/mL liquid See Label Instructions .ROUTE .COMPLEX 180 Days RF: 0 nut.tx.impaired dige fxn-fiber [Vital 1.5 Jesus] 0.07 gram- 1.5 kcal/mL liquid See Label Instructions .ROUTE .COMPLEX 180 Days Qty: 8000 RF: 0 nut.tx.impaired digest fxn [Peptamen 1.5] 0.068 gram- 1.5 kcal/mL liquid See Label Instructions .ROUTE .COMPLEX 180 Days Qty: 6000 RF: 0 Continue ondansetron 4 mg tablet,disintegrating 4 mg PO Q6H PRN (Reason: nausea and vomiting) Qty: 30 RF: 0 Discontinued potassium chloride 10 mEq Capsule, Extended Release 10 meq PO DAILY Qty: 14 RF: 0 Ambulatory Orders / Order Sets / DME: Bedside Commode (Routine) Location: Determined by Patient Ordered By: Jeff Feldman Feeding Tube Pump Set (1 each) (Routine) Location: Determined by Patient Ordered By: Ryan Escobedo Walker With Front Wheels (1 each) (Routine) Location: Determined by Patient Ordered By: Jeff Ross Referrals: Columba May MD [Primary Care Provider] - See Instructions Discharge Instructions Patient Printed Instructions: Morphine, Slow Release (By mouth), Hypokalemia ( DC), Tube Feeding (DC) Status ED Status: Left Department Discharge Information Discharge Date/Time: 02/20/18 11:53
== END 2018-02-20 11:53 | disposition home health service (06) ==
LOC: NEPE 11:20 → NEDA 15:42 → N06 16:45 → N04 01-30 12:27
PROVIDERS: ADMIT Family Medicine; ATTEND Family Medicine
PROC: PANENDO (2018-01-26 12:59)
DX: R64 Cachexia; Z83.3 Family history of diabetes mellitus; S00.93XA Contusion of unspecified part of head, initial encounter; K76.6 Portal hypertension; Z51.5 Encounter for palliative care; W06.XXXA Fall from bed, initial encounter; Y92.003 Bedroom of unspecified non-institutional (private) residence as the place of occurrence of the external cause; C78.4 Secondary malignant neoplasm of small intestine; K21.0 Gastro-esophageal reflux disease with esophagitis; E87.1 Hypo-osmolality and hyponatremia; E87.6 Hypokalemia; R18.8 Other ascites; E86.0 Dehydration; Z82.49 Family history of ischemic heart disease and other diseases of the circulatory system; Z90.49 Acquired absence of other specified parts of digestive tract; C25.0 Malignant neoplasm of head of pancreas; D63.8 Anemia in other chronic diseases classified elsewhere; C78.6 Secondary malignant neoplasm of retroperitoneum and peritoneum; Z68.1 Body mass index [BMI] 19.9 or less, adult; K31.1 Adult hypertrophic pyloric stenosis; Z82.3 Family history of stroke; K31.5 Obstruction of duodenum; Z53.29 Procedure and treatment not carried out because of patient's decision for other reasons; E46 Unspecified protein-calorie malnutrition